=== PATIENT | female | born 1960 | race Caucasian/White ===

== ENCOUNTER 2018-01-15 04:52 | Inpatient (IN) | payer BC, OTHER ==
[~2018-01-15] VITALS: Ht 160 cm; Wt 91.2 kg
--- NOTE | 2018-01-15 05:18 | NUR ---
THIS RN TO ROOM TO ATTEMPT TO ASSESS PT. PT HOOKED UP TO MONITORS. TRIAGE NURSE UNABLE TO OBTAIN VITALS IN TRIAGE AND BROUGHT TO ROOM. PT PUT ON WOOD TYPE FINISHER AND HR FAST W/ ABNORMALITIES. MD NOTIFIED AND EKG ORDERED. PT IS DIAPHORETIC AND UNABLE TO CATCH BREATH. MULTIPLE IV ATTEMPTS FAILED BY MULTIPLE NURSES. MD NOTIFIED AND PT MOVED TO TR4 AT THIS TIME. PT REPORT GIVEN TO JONAS BAIRD. Addendum: 01/15/18 at 0531 by KEISHA THIS RN TO ROOM TO ATTEMPT TO ASSESS PT. PT HOOKED UP TO MONITORS. TRIAGE NURSE UNABLE TO OBTAIN VITALS IN TRIAGE AND BROUGHT TO ROOM. PT PUT ON WOOD TYPE FINISHER AND HR FAST W/ ABNORMALITIES. MD NOTIFIED AND EKG ORDERED. PT IS DIAPHORETIC AND UNABLE TO CATCH BREATH. MULTIPLE IV ATTEMPTS FAILED BY MULTIPLE NURSES. MD NOTIFIED AND PT MOVED TO TR4 AT THIS TIME. PT REPORT GIVEN TO NANCIE BAIRD.
[2018-01-15] MEDS ORDERED: FENTANYL PF 100 MCG/2ML ONE ×3 (05:23→09:19)
[2018-01-15] MEDS ORDERED: SODIUM CHLORIDE FLUSH 10ML SYR IVF ONE (05:30)
[2018-01-15] MEDS ORDERED: HYDROmorphone 2 MG/ML, 1ML IVPush PRN (05:30)
[2018-01-15] MEDS ORDERED: ONDANSETRON 2MG/ML, 2ML IVPush ONE (05:30)
[2018-01-15] MEDS ORDERED: PIPERACILLIN/TAZO/PMX 3.375GM 50 ML IV ONE (05:30)
[2018-01-15] MEDS ORDERED: SODIUM CHLORIDE 0.9% 1,000ML IVBOLUS ONE ×3 (05:30→23:00)
[2018-01-15 05:44] LABS: BASOPHILS % (AUTO) 0 % (0-1); EOSINOPHILS # (AUTO) 0.01 x10^3/uL (0-0.4); EOSINOPHILS % (AUTO) 0 % (1-7); LYMPHOCYTES # (AUTO) 4.01 x10^3/uL (1-3.4); LYMPHOCYTES % (AUTO) 28 % (22-44); MD NO; MEAN CORPUSCULAR HEMOGLOBIN 28.7 pg (27.0-34.8); MEAN CORPUSCULAR HGB CONC 32.4 g/dL (32.4-35.8); MEAN CORPUSCULAR VOLUME 88.5 fL (80-100); MEAN PLATELET VOLUME 9.3 fL (7.4-10.4); MONOCYTES # (AUTO) 0.19 x10^3/uL (0.2-0.8); MONOCYTES % (AUTO) 1 % (2-9); NEUTROPHILS # (AUTO) 9.94 x10^3/uL (1.8-6.8); NEUTROPHILS % (AUTO) 70 % (42-75); PLATELET COUNT 430 x10^3/uL (130-400); RED BLOOD COUNT 5.63 x10^6/uL (3.82-5.3); RED CELL DISTRIBUTION WIDTH 14.5 % (9.6-15.2)
[2018-01-15 05:53] LABS: INTERNATIONAL NORMALIZED RATIO 1.04 (0.93-1.1); PROTHROMBIN TIME 10.8 Seconds (9.6-11.5)
[2018-01-15 05:56] LABS: ALBUMIN 2.7 g/dL (3.4-5.0); ANION GAP 23 mmol/L (5-15); CHLORIDE 91 mmol/L (98-107); CREATININE 1.67 mg/dL (0.55-1.02)
[2018-01-15] MEDS ORDERED: FENTANYL PF 100 MCG/2ML IVPush ONE (06:00)
[2018-01-15] MEDS ORDERED: FENTANYL PF 100 MCG/2ML IM ONE (06:00)
[2018-01-15] MEDS ORDERED: OMNIPAQUE 350 MG/ML, 100ML BOTTLE ONE (06:00)
[2018-01-15] MEDS ORDERED: SODIUM CHLORIDE 0.9%, 500ML IVBOLUS ONE ×2 (06:00→06:30)
[2018-01-15 06:02] LABS: ALANINE AMINOTRANSFERASE 21 U/L (12-78); ALKALINE PHOSPHATASE 95 U/L (45-117); BILIRUBIN,TOTAL 0.6 mg/dL (0.2-1.0); TOTAL PROTEIN 6.5 g/dL (6.4-8.2)
[2018-01-15] MEDS ORDERED: HYDROmorphone 2 MG/ML, 1ML ONE (06:03)
[2018-01-15] MEDS ORDERED: PIPERACILLIN/TAZO/PMX 3.375GM 50 ML ONE (06:03)
[2018-01-15 06:04] LABS: CALCIUM 16.6 mg/dL (8.5-10.1)
[2018-01-15 06:15] LABS: TROPONIN I 0.213 ng/mL (0.000-0.045)
--- NOTE | 2018-01-15 06:20 | NUR ---
PT REPORTS SHE HAS NOT URINATED IN "OVER 24 HOURS", NOTIFIED, CULLEN CATH PLACED WITH APPROX 300CC OUTPUT.
[2018-01-15] MEDS ORDERED: NOREPINEPHRINE 4 MG in SODIUM CHLORIDE 0.9% 246 ML IV SCH (06:30)
[2018-01-15] MEDS ORDERED: INSULIN REGULAR 100 UNITS/ML, 3ML VIAL IVPush ONE (06:30)
[2018-01-15 06:36] LABS: PH, VENOUS 7.302 pH (7.320-7.420)
[2018-01-15] MEDS ORDERED: INSULIN REGULAR 100 UNITS/ML, 3ML VIAL ONE (06:46)
[2018-01-15 06:56] LABS: ACETONE, SERUM Trace (10mg/dL) mg/dL (Negative)
[2018-01-15] MEDS ORDERED: LACTATED RINGERS 1,000 ML IVBOLUS ONE ×5 (07:00→09:00)
--- NOTE | 2018-01-15 07:10 | NUR ---
Care of pt assumed. Pt is awake, alert, talking w/ & staff. Skin is warm & moist centrally & cool & pale peripherally. Peripheral pulses weak & thready, 5 sec cap refill fingertips & toes. Pt has 3rd & 4th liters of IVF LR infusing & levophed infusion increased from 12 to 14mcg/min. ABD is firm & distended with diffuse tenderness throughout. Pulse ox placed to L earlobe for best reading.
--- NOTE | 2018-01-15 07:14 | NUR ---
LATE NOTE: PT MOVED FROM ROOM 3 TO TR 04, CENTRAL LINE PLACED WITH PT'S VERBAL CONSENT BY MD PALMA. MD CONFIRMED PLACEMENT AFTER CHEST X RAY COMPLETE. 2L NS INFUSING TO CT, PER MD FURTHER FLUIDS WILL BE LR, 2 L LR HANGING PER MD. AT BEDSIDE, CONSENT SIGNED FOR CENTRAL LINE PLACEMENT.
--- NOTE | 2018-01-15 07:15 | NUR ---
REPORT TO GISELE BAIRD
--- NOTE | 2018-01-15 07:55 | NUR ---
Pt has been seen by Dr. Carvajal. Report to [facility]. Pt placed on portable monitor for transport to CCU.
--- NOTE | 2018-01-15 08:19 | NUR ---
Pt transferred to CCU.
[2018-01-15] MEDS: SODIUM CHLORIDE 0.9% 1,000 ML IV SCH ×2 (08:53→16:26)
[2018-01-15] MEDS ORDERED: VANCOMYCIN PER PHARMACY MC PRN (09:00)
[2018-01-15] MEDS ORDERED: POLYETHYLENE GLYCOL 17 GM PACKET PO PRN (09:00)
[2018-01-15] MEDS ORDERED: VASOPRESSIN 100 UNIT in SODIUM CHLORIDE 0.9% 495 ML IV PRN (09:00)
[2018-01-15] MEDS ORDERED: FENTANYL PF 2,500 MCG in SODIUM CHLORIDE 0.9% 200 ML IV PRN (09:00)
[2018-01-15] MEDS ORDERED: PHENYLEPHRINE 20 MG in SODIUM CHLORIDE 0.9% 248 ML IV PRN (09:00)
[2018-01-15] MEDS ORDERED: BISACODYL 10 MG SUPP PR PRN (09:00)
[2018-01-15] MEDS ORDERED: NOREPINEPHRINE 4 MG in SODIUM CHLORIDE 0.9% 246 ML IV PRN (09:00)
[2018-01-15] MEDS ORDERED: PANTOPRAZOLE 80 MG in SODIUM CHLORIDE 0.9% 50 ML IV ONE (09:00)
[2018-01-15] MEDS ORDERED: DOCUSATE 100 MG CAPSULE PO PRN (09:00)
[2018-01-15] MEDS ORDERED: MIDAZOLAM 1 MG/ML, 2ML ONE ×2 (09:19→12:14)
[2018-01-15] MEDS ORDERED: PHARMACOKINETIC CONSULTATION MC ONE (09:30)
[2018-01-15] MEDS ORDERED: PHARMACOKINETIC MONITORING MC PRN (09:30)
[2018-01-15] MEDS: PANTOPRAZOLE 80 MG in SODIUM CHLORIDE 0.9% 100 ML IV SCH ×2 (09:32→18:24)
[2018-01-15] MEDS: MEROPENEM 1 GM in SODIUM CHLORIDE 0.9% 100 ML IV SCH ×2 (09:33→16:26)
[2018-01-15] MEDS ORDERED: HYDROCORTISONE 100 MG INJ. ONE (09:34)
[2018-01-15] MEDS: INSULIN LISPRO 100 UNITS/ML, PEN SQ-INSULIN SCH ×3 (09:44→23:26)
[2018-01-15] MEDS ORDERED: ROCURONIUM 10 MG/ML,10ML ONE (09:58)
[2018-01-15] MEDS ORDERED: SODIUM BICARB 8.4%, 50ML SYRINGE ONE ×3 (09:58)
[2018-01-15] MEDS ORDERED: PROPOFOL 10 MG/ML, 20ML ONE (09:58)
[2018-01-15] MEDS ORDERED: VASOPRESSIN 20 UNIT/ML, 1ML ONE ×2 (09:58)
[2018-01-15] MEDS ORDERED: ALBUTEROL SULFATE 200 PUFFS/8.5 GR INH ONE (09:58)
[2018-01-15] MEDS ORDERED: CALCIUM CHLORIDE 10%, 10ML SYR ONE ×2 (09:58)
[2018-01-15] MEDS ORDERED: PROPOFOL 10 MG/ML, 50ML ONE (09:58)
[2018-01-15] MEDS ORDERED: EPINEPHRINE SYRINGE 0.1 MG/ML, 10ML ONE ×2 (09:58)
[2018-01-15] MEDS: VANCOMYCIN 1,500 MG in SODIUM CHLORIDE 0.9% 250 ML IV SCH (10:00)
[2018-01-15] MEDS ORDERED: LIDOCAINE-MPF 1%, 2ML ENDO PRN (10:00)
[2018-01-15 10:18] LABS: MICROSCOPIC INDICATED
[2018-01-15 10:27] LABS: CULTURE INDICATED? YES
[2018-01-15 10:29] LABS: AMPHETAMINE SCREEN, URINE Negative (Negative); BARBITURATE SCREEN, URINE Negative (Negative); BENZODIAZEPINE SCREEN, URINE Negative (Negative); CANNABINOID SCREEN, URINE Negative (Negative); COCAINE SCREEN, URINE Negative (Negative); METHADONE SCREEN, URINE Negative (Negative); OPIATE SCREEN, URINE Positive (Negative)
[2018-01-15] MEDS ORDERED: ALBUMIN HUMAN 5% 500 ML ONE (10:58)
[2018-01-15] MEDS ORDERED: EPINEPHRINE 2 MG in SODIUM CHLORIDE 0.9% 248 ML IV PRN ×2 (11:30→18:30)
[2018-01-15] MEDS ORDERED: NOREPINEPHRINE 1 MG/ML, 4ML ONE (13:57)
[2018-01-15] MEDS: METRONIDAZOLE PMX 500MG/100ML 100 ML IV SCH ×2 (14:27→20:25)
[2018-01-15 14:46] LABS: ANION GAP 14 mmol/L (5-15); CALCIUM 11.7 mg/dL (8.5-10.1); CHLORIDE 109 mmol/L (98-107); CREATININE 1.31 mg/dL (0.55-1.02)
[2018-01-15 15:32] LABS: HEMOGLOBIN A1C 7.5 % (4.2-6.3)
[2018-01-15] MEDS ORDERED: MIDAZOLAM 1 MG/ML, 5ML ONE (16:00)
[2018-01-15] MEDS ORDERED: ETOMIDATE 20 MG/10 ML ONE (16:00)
[2018-01-15] MEDS ORDERED: PROPOFOL 10 MG/ML, 100ML IV ONE (16:00)
[2018-01-15] MEDS: NOREPINEPHRINE 8 MG in SODIUM CHLORIDE 0.9% 242 ML IV PRN ×2 (16:27→20:04)
[2018-01-15] MEDS: PHENYLEPHRINE 80 MG in SODIUM CHLORIDE 0.9% 242 ML IV PRN ×2 (16:28→23:34)
[2018-01-15] MEDS: FENTANYL PF 2,500 MCG in SODIUM CHLORIDE 0.9% 200 ML IV PRN (18:25)
[2018-01-15] MEDS ORDERED: DOPAMINE/D5W PMX 250 ML IV PRN (18:30)
[2018-01-15] MEDS ORDERED: NOREPINEPHRINE 16 MG in SODIUM CHLORIDE 0.9% 234 ML IV PRN (22:30)
[2018-01-15] MEDS: PROPOFOL 100 ML IV PRN (23:45)
[2018-01-16] MEDS: NOREPINEPHRINE 8 MG in SODIUM CHLORIDE 0.9% 242 ML IV PRN ×5 (00:27→19:53)
[2018-01-16] MEDS: MEROPENEM 1 GM in SODIUM CHLORIDE 0.9% 100 ML IV SCH ×3 (02:05→16:50)
[2018-01-16] MEDS: SODIUM CHLORIDE 0.9% 1,000 ML IV SCH ×7 (02:08→23:23)
[2018-01-16] MEDS: PHENYLEPHRINE 80 MG in SODIUM CHLORIDE 0.9% 242 ML IV PRN ×2 (03:00→14:21)
[2018-01-16 04:00] VITALS: BP 92/68
[2018-01-16] MEDS: PANTOPRAZOLE 80 MG in SODIUM CHLORIDE 0.9% 100 ML IV SCH ×2 (04:12→15:00)
[2018-01-16] MEDS: METRONIDAZOLE PMX 500MG/100ML 100 ML IV SCH ×3 (04:13→19:52)
[2018-01-16 04:29] LABS: ALBUMIN 1.4 g/dL (3.4-5.0); ANION GAP 13 mmol/L (5-15); CALCIUM 8.8 mg/dL (8.5-10.1); CHLORIDE 113 mmol/L (98-107)
[2018-01-16 04:38] LABS: ALANINE AMINOTRANSFERASE 1219 U/L (12-78); ALKALINE PHOSPHATASE 88 U/L (45-117); CREATININE 2.32 mg/dL (0.55-1.02); TOTAL PROTEIN 4.1 g/dL (6.4-8.2)
[2018-01-16 04:39] LABS: MEAN CORPUSCULAR HEMOGLOBIN 28.9 pg (27.0-34.8); MEAN CORPUSCULAR HGB CONC 33.1 g/dL (32.4-35.8); MEAN CORPUSCULAR VOLUME 87.3 fL (80-100); MEAN PLATELET VOLUME 9.4 fL (7.4-10.4); PLATELET COUNT 332 x10^3/uL (130-400); RED BLOOD COUNT 4.45 x10^6/uL (3.82-5.3); RED CELL DISTRIBUTION WIDTH 14.9 % (9.6-15.2)
[2018-01-16] MEDS: INSULIN LISPRO 100 UNITS/ML, PEN SQ-INSULIN SCH ×4 (04:52→23:24)
[2018-01-16 05:41] LABS: MD YES
[2018-01-16 05:44] LABS: BAND#(MANUAL) 4.96 x10^3/uL; BANDS%(MANUAL) 40 % (0-7); LYMPH#(MANUAL) 2.85 x10^3/uL (1-3.4); LYMPHS% (MANUAL) 23 % (22-44); METAMYELOCYTES# (MANUAL) 0.62 x10^3/uL (0-0); METAMYELOCYTES% (MANUAL) 5 % (0-1); MONOS#(MANUAL) 0.12 x10^3/uL (0.3-2.7); MONOS% (MANUAL) 1 % (2-9); SEG#(MANUAL) 3.84 x10^3/uL (1.8-6.8); SEGS% (MANUAL) 31 % (42-75)
[2018-01-16 05:47] LABS: <PLATELET ESTIMATE> ADEQUATE; <PLT MORPHOLOGY> NORMAL PLT MORPH; <RBC MORPHOLOGY> NORMAL
[2018-01-16] MEDS: PROPOFOL 100 ML IV PRN ×5 (06:14→21:10)
[2018-01-16] MEDS: ACETAMINOPHEN 650 MG/20.3 ML UDC PO PRN (16:52)
[2018-01-16] MEDS: VANCOMYCIN 1,500 MG in SODIUM CHLORIDE 0.9% 250 ML IV SCH (23:23)
[2018-01-17] MEDS: PROPOFOL 100 ML IV PRN ×7 (00:18→20:47)
[2018-01-17] MEDS: PANTOPRAZOLE 80 MG in SODIUM CHLORIDE 0.9% 100 ML IV SCH ×2 (00:58→13:50)
[2018-01-17] MEDS: MEROPENEM 1 GM in SODIUM CHLORIDE 0.9% 100 ML IV SCH ×2 (01:12→16:43)
[2018-01-17] MEDS: FENTANYL PF 2,500 MCG in SODIUM CHLORIDE 0.9% 200 ML IV PRN (02:41)
[2018-01-17] MEDS: INSULIN LISPRO 100 UNITS/ML, PEN SQ-INSULIN SCH ×4 (03:00→21:14)
[2018-01-17] MEDS: SODIUM CHLORIDE 0.9% 1,000 ML IV SCH ×5 (03:00→19:59)
[2018-01-17 03:49] LABS: MEAN CORPUSCULAR HEMOGLOBIN 30.8 pg (27.0-34.8); MEAN CORPUSCULAR VOLUME 85.5 fL (80-100); MEAN PLATELET VOLUME 9.1 fL (7.4-10.4); PLATELET COUNT 220 x10^3/uL (130-400); RED BLOOD COUNT 3.45 x10^6/uL (3.82-5.3); RED CELL DISTRIBUTION WIDTH 14.9 % (9.6-15.2)
[2018-01-17 03:54] LABS: ALBUMIN 1.1 g/dL (3.4-5.0); ANION GAP 12 mmol/L (5-15); CHLORIDE 115 mmol/L (98-107)
[2018-01-17 03:58] LABS: ALKALINE PHOSPHATASE 103 U/L (45-117); BILIRUBIN,TOTAL 1.3 mg/dL (0.2-1.0); CREATININE 3.48 mg/dL (0.55-1.02)
[2018-01-17 04:00] VITALS: BP 112/62
[2018-01-17 04:44] LABS: ALANINE AMINOTRANSFERASE 610 U/L (12-78); TOTAL PROTEIN 4.1 g/dL (6.4-8.2)
[2018-01-17 04:45] LABS: CALCIUM 6.1 mg/dL (8.5-10.1)
[2018-01-17 05:13] LABS: MD YES
[2018-01-17 05:17] LABS: <PLATELET ESTIMATE> ADEQUATE; <PLT MORPHOLOGY> NORMAL PLT MORPH; <RBC MORPHOLOGY> NORMAL; BAND#(MANUAL) 0.76 x10^3/uL; BANDS%(MANUAL) 11 % (0-7); LYMPH#(MANUAL) 0.35 x10^3/uL (1-3.4); LYMPHS% (MANUAL) 5 % (22-44); METAMYELOCYTES# (MANUAL) 0.07 x10^3/uL (0-0); METAMYELOCYTES% (MANUAL) 1 % (0-1); MONOS#(MANUAL) 0.07 x10^3/uL (0.3-2.7); MONOS% (MANUAL) 1 % (2-9); SEG#(MANUAL) 5.66 x10^3/uL (1.8-6.8); SEGS% (MANUAL) 82 % (42-75)
[2018-01-17] MEDS: METRONIDAZOLE PMX 500MG/100ML 100 ML IV SCH ×2 (08:19→16:44)
[2018-01-17] MEDS ORDERED: CALCIUM CHLORIDE 10%, 10ML SYR IVPush ONE (09:30)
[2018-01-17] MEDS ORDERED: CALCIUM CHLORIDE 13.6 MEQ in SODIUM CHLORIDE 0.9% 100 ML IV ONE (09:30)
[2018-01-17] MEDS ORDERED: SODIUM CHLORIDE 0.9%, 500ML IVBOLUS ONE (15:30)
[2018-01-18] MEDS: METRONIDAZOLE PMX 500MG/100ML 100 ML IV SCH (00:24)
[2018-01-18] MEDS: PANTOPRAZOLE 80 MG in SODIUM CHLORIDE 0.9% 100 ML IV SCH ×3 (00:26→22:39)
[2018-01-18] MEDS: SODIUM CHLORIDE 0.9% 1,000 ML IV SCH ×2 (00:26→04:52)
[2018-01-18] MEDS: MEROPENEM 1 GM in SODIUM CHLORIDE 0.9% 100 ML IV SCH (01:27)
[2018-01-18] MEDS: INSULIN LISPRO 100 UNITS/ML, PEN SQ-INSULIN SCH (03:33)
[2018-01-18] MEDS: FENTANYL PF 2,500 MCG in SODIUM CHLORIDE 0.9% 200 ML IV PRN (03:34)
[2018-01-18] MEDS: PROPOFOL 100 ML IV PRN ×2 (03:36→06:21)
[2018-01-18 05:01] LABS: BASOPHILS % (AUTO) 0 % (0-1); EOSINOPHILS # (AUTO) 0.04 x10^3/uL (0-0.4); EOSINOPHILS % (AUTO) 1 % (1-7); LYMPHOCYTES # (AUTO) 1.02 x10^3/uL (1-3.4); LYMPHOCYTES % (AUTO) 11 % (22-44); MD NO; MEAN CORPUSCULAR HEMOGLOBIN 29.9 pg (27.0-34.8); MEAN CORPUSCULAR HGB CONC 34.9 g/dL (32.4-35.8); MEAN CORPUSCULAR VOLUME 85.6 fL (80-100); MEAN PLATELET VOLUME 8.9 fL (7.4-10.4); MONOCYTES # (AUTO) 0.02 x10^3/uL (0.2-0.8); MONOCYTES % (AUTO) 0 % (2-9); NEUTROPHILS % (AUTO) 88 % (42-75); PLATELET COUNT 193 x10^3/uL (130-400); RED BLOOD COUNT 3.23 x10^6/uL (3.82-5.3); RED CELL DISTRIBUTION WIDTH 15.5 % (9.6-15.2)
[2018-01-18 05:11] LABS: VANCOMYCIN,RANDOM 17.6 mcg/mL
[2018-01-18 06:30] LABS: ANION GAP 13 mmol/L (5-15); CHLORIDE 119 mmol/L (98-107); CREATININE 4.39 mg/dL (0.55-1.02)
[2018-01-18 06:33] LABS: CALCIUM 5.6 mg/dL (8.5-10.1)
[2018-01-18] MEDS: SODIUM BICARB 8.4% IV SCH ×2 (08:44→18:02)
[2018-01-18] MEDS: D5 IV SCH ×2 (08:44→18:02)
[2018-01-18] MEDS: NACL IV SCH ×2 (08:44→18:02)
[2018-01-18] MEDS: PIPERACILLIN/TAZO 2.25 GM in SODIUM CHLORIDE 0.9% 50 ML IV SCH ×2 (08:45→17:06)
[2018-01-18] MEDS ORDERED: MIDAZOLAM 1 MG/ML, 2ML ONE (09:39)
[2018-01-18] MEDS: MIDAZOLAM HCL 50 MG in SODIUM CHLORIDE 0.9% 240 ML IV PRN ×2 (09:49→19:29)
[2018-01-18] MEDS: INSULIN GLARGINE 100 UNITS/ML, PEN SQ-INSULIN SCH ×2 (10:16→20:49)
[2018-01-18] MEDS: CALCIUM CHLORIDE 13.6 MEQ in SODIUM CHLORIDE 0.9% 100 ML IV PRN ×3 (14:07→23:28)
[2018-01-18] MEDS: PIPERACILLIN/TAZO/PMX 2.25GM 50 ML IVPB SCH (23:00)
[2018-01-19] MEDS: FENTANYL PF 2,500 MCG in SODIUM CHLORIDE 0.9% 200 ML IV PRN (02:07)
[2018-01-19] MEDS: NOREPINEPHRINE 8 MG in SODIUM CHLORIDE 0.9% 242 ML IV PRN (02:07)
[2018-01-19] MEDS: SODIUM BICARB 8.4% IV SCH (03:14)
[2018-01-19] MEDS: D5 IV SCH (03:14)
[2018-01-19] MEDS: NACL IV SCH (03:14)
[2018-01-19] MEDS: CALCIUM CHLORIDE 13.6 MEQ in SODIUM CHLORIDE 0.9% 100 ML IV PRN (03:28)
[2018-01-19] MEDS: PIPERACILLIN/TAZO/PMX 2.25GM 50 ML IVPB SCH ×3 (04:53→20:45)
[2018-01-19] MEDS: MIDAZOLAM HCL 50 MG in SODIUM CHLORIDE 0.9% 240 ML IV PRN (04:55)
[2018-01-19 05:18] LABS: CHOL/HDL RATIO 13.7; CHOLESTEROL, TOTAL 123 mg/dL (140-239); HDL CHOL % 7 % (28-40); HDL CHOLESTEROL (DIRECT) 9 mg/dL (40-60); TRIGLYCERIDES 717 mg/dL (50-200)
[2018-01-19 05:34] LABS: MEAN CORPUSCULAR HEMOGLOBIN 29.4 pg (27.0-34.8); MEAN PLATELET VOLUME 8.8 fL (7.4-10.4); PLATELET COUNT 188 x10^3/uL (130-400); RED BLOOD COUNT 3.18 x10^6/uL (3.82-5.3); RED CELL DISTRIBUTION WIDTH 15.3 % (9.6-15.2)
[2018-01-19 06:11] LABS: MD YES
[2018-01-19 06:12] LABS: BAND#(MANUAL) 2.28 x10^3/uL; BANDS%(MANUAL) 24 % (0-7); LYMPH#(MANUAL) 0.38 x10^3/uL (1-3.4); LYMPHS% (MANUAL) 4 % (22-44); SEG#(MANUAL) 6.84 x10^3/uL (1.8-6.8); SEGS% (MANUAL) 72 % (42-75)
[2018-01-19 06:13] LABS: <PLATELET ESTIMATE> ADEQUATE; <PLT MORPHOLOGY> NORMAL PLT MORPH; <RBC MORPHOLOGY> NORMAL
[2018-01-19 06:45] LABS: ANION GAP 13 mmol/L (5-15); CALCIUM 7.6 mg/dL (8.5-10.1); CHLORIDE 107 mmol/L (98-107); CREATININE 3.85 mg/dL (0.55-1.02)
[2018-01-19] MEDS ORDERED: TPN PER PHARMACY MC PRN (08:30)
[2018-01-19] MEDS ORDERED: TPN PER PHARMACY IV SCH (11:00)
[2018-01-19] MEDS: PANTOPRAZOLE 80 MG in SODIUM CHLORIDE 0.9% 100 ML IV SCH ×2 (11:00→20:45)
[2018-01-19] MEDS: INSULIN GLARGINE 100 UNITS/ML, PEN SQ-INSULIN SCH ×2 (11:10→20:52)
[2018-01-19] MEDS: ALBUMIN HUMAN 25% 100 ML IV PRN ×2 (11:20→12:57)
[2018-01-19] MEDS ORDERED: AMINO ACID 10% IV SCH ×2 (17:00)
[2018-01-19] MEDS ORDERED: STERILE WATER IV SCH ×2 (17:00)
[2018-01-19] MEDS ORDERED: [UNRECOGNIZED DRUG - OTHER] IV SCH (17:00)
[2018-01-19] MEDS ORDERED: DEXTROSE 70% IV SCH ×2 (17:00)
[2018-01-19] MEDS ORDERED: DEXTROSE 50%, 50ML SYRINGE IVPush PRN (17:00)
[2018-01-19] MEDS ORDERED: DEXTROSE 10% 500 ML IV PRN (17:00)
[2018-01-19] MEDS ORDERED: [UNRECOGNIZED DRUG - OTHER] IV SCH (17:00)
[2018-01-19] MEDS: FILTER, DISP 1.2 MICRON FOR TPN/PVN IV PRN (18:54)
[2018-01-19] MEDS: INSULIN REGULAR MEDIUM DOSE Q6H X 48HRS SQ-INSULIN SCH (20:52)
[2018-01-20] MEDS: PIPERACILLIN/TAZO/PMX 2.25GM 50 ML IVPB SCH ×4 (02:13→20:42)
[2018-01-20] MEDS: FENTANYL PF 2,500 MCG in SODIUM CHLORIDE 0.9% 200 ML IV PRN (02:55)
[2018-01-20] MEDS: INSULIN REGULAR MEDIUM DOSE Q6H X 48HRS SQ-INSULIN SCH ×4 (03:56→20:43)
[2018-01-20 04:19] LABS: MEAN CORPUSCULAR HEMOGLOBIN 29.3 pg (27.0-34.8); MEAN CORPUSCULAR HGB CONC 34.4 g/dL (32.4-35.8); MEAN CORPUSCULAR VOLUME 85.3 fL (80-100); MEAN PLATELET VOLUME 8.7 fL (7.4-10.4); PLATELET COUNT 185 x10^3/uL (130-400); RED BLOOD COUNT 2.95 x10^6/uL (3.82-5.3); RED CELL DISTRIBUTION WIDTH 15.8 % (9.6-15.2)
[2018-01-20 04:28] LABS: ALANINE AMINOTRANSFERASE 104 U/L (12-78); ALBUMIN 1.7 g/dL (3.4-5.0); ANION GAP 11 mmol/L (5-15); CALCIUM 7.1 mg/dL (8.5-10.1); CHLORIDE 102 mmol/L (98-107); CREATININE 3.71 mg/dL (0.55-1.02); TRIGLYCERIDES 559 mg/dL (50-200)
[2018-01-20 04:31] LABS: ALKALINE PHOSPHATASE 118 U/L (45-117); BILIRUBIN,TOTAL 1.8 mg/dL (0.2-1.0); PREALBUMIN 5.1 mg/dL (20.0-40.0); TOTAL PROTEIN 5.1 g/dL (6.4-8.2)
[2018-01-20 04:57] LABS: MD YES
[2018-01-20 05:00] LABS: BAND#(MANUAL) 0.97 x10^3/uL; BANDS%(MANUAL) 8 % (0-7); EOS#(MANUAL) 0.61 x10^3/uL (0.0-0.4); EOS% (MANUAL) 5 % (1-7); LYMPH#(MANUAL) 1.21 x10^3/uL (1-3.4); LYMPHS% (MANUAL) 10 % (22-44); METAMYELOCYTES# (MANUAL) 0.24 x10^3/uL (0-0); METAMYELOCYTES% (MANUAL) 2 % (0-1); SEG#(MANUAL) 9.08 x10^3/uL (1.8-6.8); SEGS% (MANUAL) 75 % (42-75)
[2018-01-20 05:03] LABS: <PLATELET ESTIMATE> ADEQUATE; ANISOCYTOSIS 1+; LARGE PLATELETS 1+; POLYCHROMASIA 1+
[2018-01-20] MEDS: PANTOPRAZOLE 80 MG in SODIUM CHLORIDE 0.9% 100 ML IV SCH (06:44)
[2018-01-20] MEDS: METHYLNALTREXONE 12 MG/0.6 ML SQ SCH (10:00)
[2018-01-20] MEDS: HEPARIN 5,000 UNITS/ML, 1ML SQ SCH ×2 (10:00→14:28)
[2018-01-20] MEDS: METOCLOPRAMIDE 5 MG/ML, 2ML IV SCH ×3 (10:01→20:43)
[2018-01-20] MEDS: INSULIN GLARGINE 100 UNITS/ML, PEN SQ-INSULIN SCH ×3 (10:14→20:43)
[2018-01-20] MEDS: NOREPINEPHRINE 8 MG in SODIUM CHLORIDE 0.9% 242 ML IV PRN (16:53)
[2018-01-20] MEDS: FILTER, DISP 1.2 MICRON FOR TPN/PVN IV PRN (16:55)
[2018-01-20] MEDS ORDERED: STERILE WATER IV SCH ×2 (17:00)
[2018-01-20] MEDS ORDERED: DEXTROSE 70% IV SCH ×2 (17:00)
[2018-01-20] MEDS ORDERED: [UNRECOGNIZED DRUG - OTHER] IV SCH (17:00)
[2018-01-20] MEDS ORDERED: AMINO ACID 10% IV SCH ×2 (17:00)
[2018-01-20] MEDS ORDERED: [UNRECOGNIZED DRUG - OTHER] IV SCH (17:00)
[2018-01-20 19:15] LABS: ANION GAP 11 mmol/L (5-15); CHLORIDE 104 mmol/L (98-107)
[2018-01-20 19:16] LABS: CREATININE 2.75 mg/dL (0.55-1.02)
[2018-01-21] MEDS: METOCLOPRAMIDE 5 MG/ML, 2ML IV SCH ×4 (03:18→20:59)
[2018-01-21] MEDS: HEPARIN 5,000 UNITS/ML, 1ML SQ SCH ×3 (03:18→15:38)
[2018-01-21] MEDS: FENTANYL PF 2,500 MCG in SODIUM CHLORIDE 0.9% 200 ML IV PRN (03:18)
[2018-01-21] MEDS: PIPERACILLIN/TAZO/PMX 2.25GM 50 ML IVPB SCH ×4 (03:18→21:07)
[2018-01-21] MEDS: INSULIN REGULAR MEDIUM DOSE Q6H X 48HRS SQ-INSULIN SCH ×3 (03:22→15:02)
[2018-01-21 04:54] LABS: MD YES; MEAN CORPUSCULAR HEMOGLOBIN 28.6 pg (27.0-34.8); MEAN CORPUSCULAR HGB CONC 33.6 g/dL (32.4-35.8); MEAN CORPUSCULAR VOLUME 85.1 fL (80-100); MEAN PLATELET VOLUME 9.3 fL (7.4-10.4); PLATELET COUNT 204 x10^3/uL (130-400); RED BLOOD COUNT 2.81 x10^6/uL (3.82-5.3); RED CELL DISTRIBUTION WIDTH 15.4 % (9.6-15.2)
[2018-01-21 05:02] LABS: CHLORIDE 103 mmol/L (98-107)
[2018-01-21 05:08] LABS: ANION GAP 14 mmol/L (5-15); CALCIUM 7.8 mg/dL (8.5-10.1); CREATININE 3.64 mg/dL (0.55-1.02); TRIGLYCERIDES 546 mg/dL (50-200)
[2018-01-21 06:14] LABS: BANDS%(MANUAL) 14 % (0-7); EOS#(MANUAL) 0.57 x10^3/uL (0.0-0.4); EOS% (MANUAL) 4 % (1-7); LYMPHS% (MANUAL) 14 % (22-44); METAMYELOCYTES# (MANUAL) 0.29 x10^3/uL (0-0); METAMYELOCYTES% (MANUAL) 2 % (0-1); SEG#(MANUAL) 9.44 x10^3/uL (1.8-6.8); SEGS% (MANUAL) 66 % (42-75)
[2018-01-21 06:15] LABS: <PLATELET ESTIMATE> ADEQUATE; <PLT MORPHOLOGY> NORMAL PLT MORPH; ANISOCYTOSIS 1+; HYPOCHROMIA 1+; MICROCYTOSIS 1+
[2018-01-21] MEDS: INSULIN GLARGINE 100 UNITS/ML, PEN SQ-INSULIN SCH ×2 (09:20→20:59)
[2018-01-21 11:22] LABS: ANION GAP 13 mmol/L (5-15); CALCIUM 8.4 mg/dL (8.5-10.1); CHLORIDE 104 mmol/L (98-107)
[2018-01-21 11:23] LABS: CREATININE 2.65 mg/dL (0.55-1.02)
[2018-01-21] MEDS: ALBUMIN HUMAN 25% 100 ML IV PRN ×2 (13:52→16:49)
[2018-01-21 15:15] LABS: ANION GAP 11 mmol/L (5-15); CALCIUM 8.6 mg/dL (8.5-10.1); CHLORIDE 105 mmol/L (98-107); CREATININE 2.12 mg/dL (0.55-1.02)
[2018-01-21] MEDS ORDERED: STERILE WATER IV SCH (17:00)
[2018-01-21] MEDS ORDERED: DEXTROSE 70% IV SCH (17:00)
[2018-01-21] MEDS ORDERED: [UNRECOGNIZED DRUG - OTHER] IV SCH (17:00)
[2018-01-21] MEDS ORDERED: AMINO ACID 10% IV SCH (17:00)
[2018-01-21] MEDS: FILTER, DISP 1.2 MICRON FOR TPN/PVN IV PRN (17:11)
[2018-01-21] MEDS ORDERED: MIDAZOLAM 1 MG/ML, 2ML ONE (20:50)
[2018-01-21] MEDS: PANTOPRAZOLE 40 MG IV IVPush SCH (20:56)
[2018-01-21] MEDS: INSULIN REGULAR MEDIUM DOSE QDAY SQ-INSULIN SCH (20:58)
[2018-01-21] MEDS: MIDAZOLAM 1 MG/ML, 2ML IVPush PRN ×2 (20:59→22:08)
[2018-01-22] VITALS (9 sets, daily range): BP systolic 102–114; BP diastolic 58–68
[2018-01-22] MEDS: MIDAZOLAM 1 MG/ML, 2ML IVPush PRN ×4 (00:40→05:03)
[2018-01-22] MEDS: HEPARIN 5,000 UNITS/ML, 1ML SQ SCH ×4 (01:35→15:37)
[2018-01-22] MEDS: METOCLOPRAMIDE 5 MG/ML, 2ML IV SCH ×4 (03:32→21:18)
[2018-01-22 05:03] LABS: MEAN CORPUSCULAR HEMOGLOBIN 29.1 pg (27.0-34.8); MEAN CORPUSCULAR HGB CONC 34.5 g/dL (32.4-35.8); MEAN CORPUSCULAR VOLUME 84.4 fL (80-100); MEAN PLATELET VOLUME 9.5 fL (7.4-10.4); PLATELET COUNT 204 x10^3/uL (130-400); RED CELL DISTRIBUTION WIDTH 16.1 % (9.6-15.2)
[2018-01-22 05:05] LABS: CHLORIDE 104 mmol/L (98-107)
[2018-01-22 05:09] LABS: ANION GAP 13 mmol/L (5-15); CALCIUM 8.4 mg/dL (8.5-10.1); CREATININE 2.91 mg/dL (0.55-1.02)
[2018-01-22] MEDS: PIPERACILLIN/TAZO/PMX 2.25GM 50 ML IVPB SCH ×3 (05:26→21:19)
[2018-01-22 05:45] LABS: MD YES
[2018-01-22 05:48] LABS: BANDS%(MANUAL) 12 % (0-7); LYMPH#(MANUAL) 1.42 x10^3/uL (1-3.4); LYMPHS% (MANUAL) 10 % (22-44); METAMYELOCYTES# (MANUAL) 0.28 x10^3/uL (0-0); METAMYELOCYTES% (MANUAL) 2 % (0-1); MONOS#(MANUAL) 0.28 x10^3/uL (0.3-2.7); MONOS% (MANUAL) 2 % (2-9); SEG#(MANUAL) 10.51 x10^3/uL (1.8-6.8); SEGS% (MANUAL) 74 % (42-75)
[2018-01-22 05:49] LABS: ANISOCYTOSIS 1+; HYPOCHROMIA 1+; MICROCYTOSIS 1+
[2018-01-22 05:50] LABS: <PLATELET ESTIMATE> ADEQUATE; <PLT MORPHOLOGY> NORMAL PLT MORPH; TOXIC GRAN 1+
[2018-01-22 05:53] LABS: POLYCHROMASIA 1+
[2018-01-22] MEDS: FENTANYL PF 2,500 MCG in SODIUM CHLORIDE 0.9% 200 ML IV PRN (07:23)
[2018-01-22] MEDS ORDERED: POTASSIUM PHOSPHATE 22 MEQ in SODIUM CHLORIDE 0.9% 250 ML IV ONE (07:30)
[2018-01-22] MEDS ORDERED: SODIUM PHOSPHATE 20 MEQ in SODIUM CHLORIDE 0.9% 250 ML IV ONE (07:30)
[2018-01-22 08:11] LABS: TRIGLYCERIDES 532 mg/dL (50-200)
[2018-01-22 08:13] LABS: HDL CHOLESTEROL (DIRECT) 8 mg/dL (40-60)
[2018-01-22 08:35] LABS: CHOL/HDL RATIO 7.3; CHOLESTEROL, TOTAL 58 mg/dL (140-239); HDL CHOL % 14 % (28-40)
[2018-01-22] MEDS: PANTOPRAZOLE 40 MG IV IVPush SCH ×2 (09:32→21:17)
[2018-01-22] MEDS: METHYLNALTREXONE 12 MG/0.6 ML SQ SCH (09:39)
[2018-01-22] MEDS: REGULAR INSULIN 62.5 UNITS in SODIUM CHLORIDE 0.9% 249.375 ML IV PRN ×2 (09:46→18:04)
[2018-01-22 12:17] LABS: ANION GAP 11 mmol/L (5-15); CALCIUM 8.8 mg/dL (8.5-10.1); CHLORIDE 104 mmol/L (98-107); CREATININE 2.14 mg/dL (0.55-1.02)
[2018-01-22] MEDS: FENTANYL PF 100 MCG/2ML IVPush PRN ×3 (14:48→23:11)
[2018-01-22 16:14] LABS: ANION GAP 13 mmol/L (5-15); CALCIUM 8.7 mg/dL (8.5-10.1); CHLORIDE 105 mmol/L (98-107); CREATININE 1.75 mg/dL (0.55-1.02)
[2018-01-22] MEDS ORDERED: DEXTROSE 70% IV SCH ×2 (17:00)
[2018-01-22] MEDS ORDERED: [UNRECOGNIZED DRUG - OTHER] IV SCH ×2 (17:00)
[2018-01-22] MEDS ORDERED: AMINO ACID 10% IV SCH ×2 (17:00)
[2018-01-22] MEDS ORDERED: STERILE WATER IV SCH ×2 (17:00)
[2018-01-22] MEDS: FILTER, DISP 1.2 MICRON FOR TPN/PVN IV PRN (17:36)
[2018-01-22] MEDS: ACETAMINOPHEN 650 MG/20.3 ML UDC PO PRN (18:07)
[2018-01-22] MEDS: INSULIN REGULAR MEDIUM DOSE QDAY SQ-INSULIN SCH (21:00)
[2018-01-23] MEDS: REGULAR INSULIN 62.5 UNITS in SODIUM CHLORIDE 0.9% 249.375 ML IV PRN ×3 (00:16→20:28)
[2018-01-23] MEDS: FENTANYL PF 100 MCG/2ML IVPush PRN ×2 (01:01→05:22)
[2018-01-23] MEDS: HEPARIN 5,000 UNITS/ML, 1ML SQ SCH ×3 (01:01→17:38)
[2018-01-23] MEDS: FENTANYL PF 2,500 MCG in SODIUM CHLORIDE 0.9% 200 ML IV PRN (02:37)
[2018-01-23] MEDS: METOCLOPRAMIDE 5 MG/ML, 2ML IV SCH ×3 (03:27→16:25)
[2018-01-23 05:22] LABS: ALANINE AMINOTRANSFERASE 24 U/L (12-78); ALBUMIN 1.5 g/dL (3.4-5.0); ANION GAP 12 mmol/L (5-15); CALCIUM 8.4 mg/dL (8.5-10.1); CHLORIDE 105 mmol/L (98-107); CREATININE 2.63 mg/dL (0.55-1.02); TRIGLYCERIDES 494 mg/dL (50-200)
[2018-01-23] MEDS: PIPERACILLIN/TAZO/PMX 2.25GM 50 ML IVPB SCH ×3 (05:22→21:39)
[2018-01-23 05:27] LABS: ALKALINE PHOSPHATASE 111 U/L (45-117); BILIRUBIN,TOTAL 2.3 mg/dL (0.2-1.0); PREALBUMIN 6.3 mg/dL (20.0-40.0); TOTAL PROTEIN 6.4 g/dL (6.4-8.2)
[2018-01-23 05:36] LABS: MEAN CORPUSCULAR HEMOGLOBIN 29.1 pg (27.0-34.8); MEAN CORPUSCULAR HGB CONC 34.9 g/dL (32.4-35.8); MEAN CORPUSCULAR VOLUME 83.3 fL (80-100); MEAN PLATELET VOLUME 9.3 fL (7.4-10.4); PLATELET COUNT 189 x10^3/uL (130-400); RED BLOOD COUNT 3.01 x10^6/uL (3.82-5.3); RED CELL DISTRIBUTION WIDTH 16.5 % (9.6-15.2)
[2018-01-23] MEDS: MIDAZOLAM 1 MG/ML, 2ML IVPush PRN ×2 (05:57→09:03)
[2018-01-23 06:05] LABS: MD YES
[2018-01-23 06:08] LABS: <PLATELET ESTIMATE> ADEQUATE; ANISOCYTOSIS 1+; BAND#(MANUAL) 5.07 x10^3/uL; BANDS%(MANUAL) 28 % (0-7); HYPOCHROMIA 1+; LYMPH#(MANUAL) 3.26 x10^3/uL (1-3.4); LYMPHS% (MANUAL) 18 % (22-44); METAMYELOCYTES# (MANUAL) 0.72 x10^3/uL (0-0); METAMYELOCYTES% (MANUAL) 4 % (0-1); MICROCYTOSIS 1+; MONOS#(MANUAL) 0.36 x10^3/uL (0.3-2.7); MONOS% (MANUAL) 2 % (2-9); MYELOCYTES# (MANUAL) 0.18 x10^3/uL (0-0); MYELOCYTES% (MANUAL) 1 % (0-0); NRBC % (MANUAL) 5 % (0-1); POLYCHROMASIA 1+; SEG#(MANUAL) 8.51 x10^3/uL (1.8-6.8); SEGS% (MANUAL) 47 % (42-75)
[2018-01-23 06:09] LABS: LARGE PLATELETS 1+
[2018-01-23] MEDS ORDERED: MIDAZOLAM 1 MG/ML, 5ML ONE (09:00)
[2018-01-23] MEDS: MIDAZOLAM HCL 25 MG in SODIUM CHLORIDE 0.9% 245 ML IV PRN ×3 (09:25→19:41)
[2018-01-23] MEDS: ALBUMIN HUMAN 25% 100 ML IV PRN ×4 (09:54→12:48)
[2018-01-23] MEDS: PANTOPRAZOLE 40 MG IV IVPush SCH ×2 (11:42→21:39)
[2018-01-23] MEDS: FILTER, DISP 1.2 MICRON FOR TPN/PVN IV PRN (17:38)
[2018-01-23] MEDS ORDERED: AMINO ACID 10% IV SCH (18:00)
[2018-01-23] MEDS ORDERED: STERILE WATER IV SCH (18:00)
[2018-01-23] MEDS ORDERED: DEXTROSE 70% IV SCH (18:00)
[2018-01-23] MEDS ORDERED: [UNRECOGNIZED DRUG - OTHER] IV SCH (18:00)
[2018-01-24] MEDS: MIDAZOLAM HCL 25 MG in SODIUM CHLORIDE 0.9% 245 ML IV PRN ×5 (01:00→21:33)
[2018-01-24] MEDS: HEPARIN 5,000 UNITS/ML, 1ML SQ SCH ×3 (01:36→19:32)
[2018-01-24] MEDS: REGULAR INSULIN 62.5 UNITS in SODIUM CHLORIDE 0.9% 249.375 ML IV PRN ×2 (02:42→19:24)
[2018-01-24 04:50] LABS: FIO2 100 %
[2018-01-24 05:13] LABS: ANION GAP 13 mmol/L (5-15); CALCIUM 8.3 mg/dL (8.5-10.1); CHLORIDE 101 mmol/L (98-107)
[2018-01-24 05:23] LABS: MEAN CORPUSCULAR HEMOGLOBIN 28.4 pg (27.0-34.8); MEAN CORPUSCULAR HGB CONC 33.3 g/dL (32.4-35.8); MEAN CORPUSCULAR VOLUME 85.2 fL (80-100); MEAN PLATELET VOLUME 9.5 fL (7.4-10.4); PLATELET COUNT 200 x10^3/uL (130-400); RED BLOOD COUNT 2.76 x10^6/uL (3.82-5.3); RED CELL DISTRIBUTION WIDTH 17.5 % (9.6-15.2)
[2018-01-24 05:26] LABS: CREATININE 2.96 mg/dL (0.55-1.02)
[2018-01-24] MEDS: PIPERACILLIN/TAZO/PMX 2.25GM 50 ML IVPB SCH ×3 (05:38→22:29)
[2018-01-24 05:54] LABS: MD YES
[2018-01-24 05:56] LABS: ANISOCYTOSIS 1+; BAND#(MANUAL) 3.04 x10^3/uL; BANDS%(MANUAL) 18 % (0-7); EOS#(MANUAL) 0.34 x10^3/uL (0.0-0.4); EOS% (MANUAL) 2 % (1-7); LYMPHS% (MANUAL) 16 % (22-44); METAMYELOCYTES# (MANUAL) 0.17 x10^3/uL (0-0); METAMYELOCYTES% (MANUAL) 1 % (0-1); MYELOCYTES# (MANUAL) 0.17 x10^3/uL (0-0); MYELOCYTES% (MANUAL) 1 % (0-0); NRBC % (MANUAL) 4 % (0-1); SEG#(MANUAL) 10.48 x10^3/uL (1.8-6.8); SEGS% (MANUAL) 62 % (42-75)
[2018-01-24 05:57] LABS: <PLATELET ESTIMATE> ADEQUATE; <PLT MORPHOLOGY> NORMAL PLT MORPH; HYPOCHROMIA 1+; POLYCHROMASIA 1+
[2018-01-24] MEDS: ALBUMIN HUMAN 25% 100 ML IV PRN ×2 (09:07→09:54)
[2018-01-24] MEDS: PANTOPRAZOLE 40 MG IV IVPush SCH ×2 (09:49→21:37)
[2018-01-24] MEDS: METHYLNALTREXONE 12 MG/0.6 ML SQ SCH (09:53)
[2018-01-24] MEDS: FILTER, DISP 1.2 MICRON FOR TPN/PVN IV PRN (16:58)
[2018-01-24] MEDS ORDERED: DEXTROSE 70% IV SCH (17:00)
[2018-01-24] MEDS ORDERED: AMINO ACID 10% IV SCH (17:00)
[2018-01-24] MEDS ORDERED: STERILE WATER IV SCH (17:00)
[2018-01-24] MEDS ORDERED: [UNRECOGNIZED DRUG - OTHER] IV SCH (17:00)
[2018-01-24] MEDS: FENTANYL PF 2,500 MCG in SODIUM CHLORIDE 0.9% 200 ML IV PRN (23:25)
[2018-01-25] MEDS: HEPARIN 5,000 UNITS/ML, 1ML SQ SCH ×3 (01:37→17:19)
[2018-01-25] MEDS: MIDAZOLAM HCL 25 MG in SODIUM CHLORIDE 0.9% 245 ML IV PRN ×2 (02:38→08:02)
[2018-01-25 04:04] LABS: MEAN CORPUSCULAR HEMOGLOBIN 28.4 pg (27.0-34.8); MEAN CORPUSCULAR VOLUME 83.5 fL (80-100); MEAN PLATELET VOLUME 9.2 fL (7.4-10.4); PLATELET COUNT 227 x10^3/uL (130-400); RED BLOOD COUNT 2.52 x10^6/uL (3.82-5.3); RED CELL DISTRIBUTION WIDTH 16.8 % (9.6-15.2)
[2018-01-25 04:13] LABS: ALANINE AMINOTRANSFERASE 18 U/L (12-78); ALBUMIN 2.1 g/dL (3.4-5.0); ANION GAP 16 mmol/L (5-15); CALCIUM 7.7 mg/dL (8.5-10.1); CHLORIDE 99 mmol/L (98-107); CREATININE 3.02 mg/dL (0.55-1.02)
[2018-01-25 04:15] LABS: ALKALINE PHOSPHATASE 144 U/L (45-117); BILIRUBIN,TOTAL 2.2 mg/dL (0.2-1.0); TOTAL PROTEIN 6.7 g/dL (6.4-8.2)
[2018-01-25 04:32] LABS: MD YES
[2018-01-25 04:34] LABS: ANISOCYTOSIS 1+; BAND#(MANUAL) 1.55 x10^3/uL; BANDS%(MANUAL) 9 % (0-7); HYPOCHROMIA 1+; LYMPHS% (MANUAL) 18 % (22-44); METAMYELOCYTES# (MANUAL) 0.17 x10^3/uL (0-0); METAMYELOCYTES% (MANUAL) 1 % (0-1); MONOS#(MANUAL) 0.52 x10^3/uL (0.3-2.7); MONOS% (MANUAL) 3 % (2-9); MYELOCYTES# (MANUAL) 0.17 x10^3/uL (0-0); MYELOCYTES% (MANUAL) 1 % (0-0); NRBC % (MANUAL) 3 % (0-1); POLYCHROMASIA 1+; SEGS% (MANUAL) 68 % (42-75)
[2018-01-25 04:35] LABS: <PLATELET ESTIMATE> ADEQUATE; LARGE PLATELETS 1+
[2018-01-25] MEDS: PIPERACILLIN/TAZO/PMX 2.25GM 50 ML IVPB SCH (05:41)
[2018-01-25] MEDS: REGULAR INSULIN 62.5 UNITS in SODIUM CHLORIDE 0.9% 249.375 ML IV PRN ×2 (06:32→09:19)
[2018-01-25] MEDS: PANTOPRAZOLE 40 MG IV IVPush SCH ×2 (09:20→21:24)
[2018-01-25] MEDS: ALBUMIN HUMAN 25% 100 ML IV PRN (09:28)
[2018-01-25] MEDS: MIDAZOLAM HCL 50 MG in SODIUM CHLORIDE 0.9% 240 ML IV PRN ×3 (11:24→22:27)
[2018-01-25] MEDS ORDERED: POTASSIUM CHLORIDE 40 MEQ in SODIUM CHLORIDE 0.9% 100 ML IV ONE (11:30)
[2018-01-25] MEDS: PIPERACILLIN/TAZO/PMX 3.375GM 50 ML IV SCH ×2 (14:54→17:49)
[2018-01-25] MEDS ORDERED: FILTER, DISP 1.2 MICRON FOR TPN/PVN IV PRN (17:00)
[2018-01-25] MEDS ORDERED: OLIV IV SCH (17:00)
[2018-01-25] MEDS ORDERED: AMINO ACID 10% IV SCH (17:00)
[2018-01-25] MEDS ORDERED: DEXTROSE 70% IV SCH (17:00)
[2018-01-25] MEDS ORDERED: FISH OIL IV SCH (17:00)
[2018-01-25] MEDS ORDERED: [UNRECOGNIZED DRUG - OTHER] IV SCH (17:00)
[2018-01-25] MEDS ORDERED: FAT EMUL IV SCH (17:00)
[2018-01-25] MEDS ORDERED: MCT IV SCH (17:00)
[2018-01-25] MEDS ORDERED: SOY IV SCH (17:00)
[2018-01-25] MEDS: LINEZOLID PMX 600MG/300ML 300 ML IV SCH (19:56)
[2018-01-25] MEDS: ACETAMINOPHEN 650 MG/20.3 ML UDC PO PRN (21:38)
[2018-01-26] MEDS: PIPERACILLIN/TAZO/PMX 3.375GM 50 ML IV SCH ×2 (00:19→05:39)
[2018-01-26] MEDS: REGULAR INSULIN 62.5 UNITS in SODIUM CHLORIDE 0.9% 249.375 ML IV PRN (00:48)
[2018-01-26] MEDS: FENTANYL PF 2,500 MCG in SODIUM CHLORIDE 0.9% 200 ML IV PRN ×2 (00:53→22:06)
[2018-01-26] MEDS: HEPARIN 5,000 UNITS/ML, 1ML SQ SCH ×3 (01:00→18:03)
[2018-01-26 05:16] LABS: MEAN CORPUSCULAR HEMOGLOBIN 28.5 pg (27.0-34.8); MEAN CORPUSCULAR VOLUME 83.8 fL (80-100); MEAN PLATELET VOLUME 9.2 fL (7.4-10.4); PLATELET COUNT 234 x10^3/uL (130-400); RED CELL DISTRIBUTION WIDTH 16.9 % (9.6-15.2)
[2018-01-26 05:22] LABS: ANION GAP 13 mmol/L (5-15); CHLORIDE 100 mmol/L (98-107)
[2018-01-26 05:26] LABS: ALANINE AMINOTRANSFERASE 16 U/L (12-78); ALKALINE PHOSPHATASE 118 U/L (45-117); BILIRUBIN,TOTAL 2.1 mg/dL (0.2-1.0); CREATININE 3.12 mg/dL (0.55-1.02)
[2018-01-26] MEDS: MIDAZOLAM HCL 50 MG in SODIUM CHLORIDE 0.9% 240 ML IV PRN ×4 (05:39→23:24)
[2018-01-26 05:43] LABS: MD YES
[2018-01-26 05:46] LABS: LYMPH#(MANUAL) 3.19 x10^3/uL (1-3.4); LYMPHS% (MANUAL) 22 % (22-44); METAMYELOCYTES# (MANUAL) 0.29 x10^3/uL (0-0); METAMYELOCYTES% (MANUAL) 2 % (0-1); MONOS#(MANUAL) 0.29 x10^3/uL (0.3-2.7); MONOS% (MANUAL) 2 % (2-9); MYELOCYTES# (MANUAL) 0.15 x10^3/uL (0-0); MYELOCYTES% (MANUAL) 1 % (0-0); NRBC % (MANUAL) 2 % (0-1)
[2018-01-26 05:47] LABS: BAND#(MANUAL) 5.95 x10^3/uL; BANDS%(MANUAL) 41 % (0-7); EOS#(MANUAL) 0.29 x10^3/uL (0.0-0.4); EOS% (MANUAL) 2 % (1-7); SEG#(MANUAL) 4.35 x10^3/uL (1.8-6.8); SEGS% (MANUAL) 30 % (42-75)
[2018-01-26 05:48] LABS: ANISOCYTOSIS 1+; HYPOCHROMIA 1+; POLYCHROMASIA 1+
[2018-01-26 05:49] LABS: <PLATELET ESTIMATE> ADEQUATE; LARGE PLATELETS 1+; TOXIC GRAN 1+
[2018-01-26] MEDS: LINEZOLID PMX 600MG/300ML 300 ML IV SCH ×3 (08:00→23:24)
[2018-01-26 09:04] VITALS: BP 107/53
[2018-01-26 09:15] VITALS: BP 92/45
[2018-01-26 09:30] VITALS: BP 90/43
[2018-01-26] MEDS: METHYLNALTREXONE 12 MG/0.6 ML SQ SCH (09:30)
[2018-01-26] MEDS: PANTOPRAZOLE 40 MG IV IVPush SCH ×2 (10:12→21:22)
[2018-01-26] MEDS ORDERED: FILTER, DISP 1.2 MICRON FOR TPN/PVN IV PRN (11:00)
[2018-01-26] MEDS ORDERED: METHYLNALTREXONE 12 MG/0.6 ML SQ PRN (13:00)
[2018-01-26] MEDS: METRONIDAZOLE PMX 500MG/100ML 100 ML IV SCH ×2 (14:39→21:20)
[2018-01-26] MEDS: CEFTRIAXONE 2 GM in SODIUM CHLORIDE 0.9% 50 ML IVPB SCH (15:35)
[2018-01-26] MEDS ORDERED: FISH OIL IV SCH ×2 (17:00)
[2018-01-26] MEDS ORDERED: AMINO ACID 10% IV SCH ×2 (17:00)
[2018-01-26] MEDS ORDERED: FAT EMUL IV SCH ×2 (17:00)
[2018-01-26] MEDS ORDERED: OLIV IV SCH ×2 (17:00)
[2018-01-26] MEDS ORDERED: SOY IV SCH ×2 (17:00)
[2018-01-26] MEDS ORDERED: MCT IV SCH ×2 (17:00)
[2018-01-26] MEDS ORDERED: DEXTROSE 70% IV SCH ×2 (17:00)
[2018-01-26] MEDS ORDERED: [UNRECOGNIZED DRUG - OTHER] IV SCH ×2 (17:00)
[2018-01-26] MEDS: INSULIN LISPRO 100 UNITS/ML, PEN SQ-INSULIN SCH ×3 (18:04→23:57)
[2018-01-26] MEDS: ACETAMINOPHEN 650 MG/20.3 ML UDC PO PRN (21:26)
[2018-01-27] MEDS: HEPARIN 5,000 UNITS/ML, 1ML SQ SCH ×3 (01:43→18:22)
[2018-01-27] MEDS: INSULIN LISPRO 100 UNITS/ML, PEN SQ-INSULIN SCH ×6 (03:56→21:35)
[2018-01-27] MEDS: MIDAZOLAM HCL 50 MG in SODIUM CHLORIDE 0.9% 240 ML IV PRN ×4 (03:57→20:54)
[2018-01-27 04:34] LABS: MEAN CORPUSCULAR HEMOGLOBIN 28.4 pg (27.0-34.8); MEAN CORPUSCULAR HGB CONC 33.3 g/dL (32.4-35.8); MEAN CORPUSCULAR VOLUME 85.1 fL (80-100); MEAN PLATELET VOLUME 9.2 fL (7.4-10.4); PLATELET COUNT 264 x10^3/uL (130-400); RED BLOOD COUNT 2.64 x10^6/uL (3.82-5.3); RED CELL DISTRIBUTION WIDTH 16.8 % (9.6-15.2)
[2018-01-27 04:36] LABS: ALANINE AMINOTRANSFERASE 11 U/L (12-78); ALBUMIN 2.3 g/dL (3.4-5.0); ANION GAP 14 mmol/L (5-15); CALCIUM 8.6 mg/dL (8.5-10.1); CHLORIDE 102 mmol/L (98-107); CREATININE 3.12 mg/dL (0.55-1.02)
[2018-01-27 04:40] LABS: ALKALINE PHOSPHATASE 106 U/L (45-117); BILIRUBIN,TOTAL 1.7 mg/dL (0.2-1.0); TOTAL PROTEIN 7.4 g/dL (6.4-8.2); TRIGLYCERIDES 449 mg/dL (50-200)
[2018-01-27 04:52] LABS: MD YES
[2018-01-27 04:55] LABS: ANISOCYTOSIS 1+; BAND#(MANUAL) 5.92 x10^3/uL; BANDS%(MANUAL) 40 % (0-7); LYMPH#(MANUAL) 1.78 x10^3/uL (1-3.4); LYMPHS% (MANUAL) 12 % (22-44); METAMYELOCYTES% (MANUAL) 2 % (0-1); MONOS#(MANUAL) 0.15 x10^3/uL (0.3-2.7); MONOS% (MANUAL) 1 % (2-9); MYELOCYTES# (MANUAL) 0.15 x10^3/uL (0-0); MYELOCYTES% (MANUAL) 1 % (0-0); NRBC % (MANUAL) 4 % (0-1); POLYCHROMASIA 1+; SEG#(MANUAL) 6.51 x10^3/uL (1.8-6.8); SEGS% (MANUAL) 44 % (42-75)
[2018-01-27 04:56] LABS: <PLATELET ESTIMATE> ADEQUATE; LARGE PLATELETS 1+
[2018-01-27] MEDS: METRONIDAZOLE PMX 500MG/100ML 100 ML IV SCH ×3 (05:18→22:16)
[2018-01-27] MEDS: ALBUMIN HUMAN 25% 100 ML IV PRN ×4 (09:27→11:10)
[2018-01-27] MEDS: PANTOPRAZOLE 40 MG IV IVPush SCH ×2 (10:00→21:01)
[2018-01-27] MEDS: MICAFUNGIN 100 MG in SODIUM CHLORIDE 0.9% 100 ML IV SCH (10:00)
[2018-01-27] MEDS: NOREPINEPHRINE 8 MG in SODIUM CHLORIDE 0.9% 242 ML IV PRN ×2 (10:04→23:35)
[2018-01-27 10:22] LABS: CLOSTRIDIUM DIFFICILE ANTIGEN NEGATIVE; CLOSTRIDIUM DIFFICILE TOXIN NEGATIVE (Negative)
[2018-01-27] MEDS: LINEZOLID PMX 600MG/300ML 300 ML IV SCH (12:48)
[2018-01-27 14:05] VITALS: BP 93/44
[2018-01-27 14:21] VITALS: BP 92/43
[2018-01-27] MEDS: CEFTRIAXONE 2 GM in SODIUM CHLORIDE 0.9% 50 ML IVPB SCH (14:23)
[2018-01-27] MEDS: ACETAMINOPHEN 650 MG/20.3 ML UDC PO PRN ×2 (14:24→22:16)
[2018-01-27 14:45] VITALS: BP 92/43
[2018-01-27 15:14] VITALS: BP 88/60
[2018-01-27 16:07] VITALS: BP 83/43
[2018-01-27] MEDS ORDERED: SODIUM CHLORIDE 0.9%, 500ML IVBOLUS ONE (16:30)
[2018-01-27] MEDS ORDERED: [UNRECOGNIZED DRUG - OTHER] IV SCH (17:00)
[2018-01-27] MEDS ORDERED: FISH OIL IV SCH (17:00)
[2018-01-27] MEDS ORDERED: FAT EMUL IV SCH (17:00)
[2018-01-27] MEDS ORDERED: DEXTROSE 70% IV SCH (17:00)
[2018-01-27] MEDS ORDERED: OLIV IV SCH (17:00)
[2018-01-27] MEDS ORDERED: MCT IV SCH (17:00)
[2018-01-27] MEDS ORDERED: SOY IV SCH (17:00)
[2018-01-27] MEDS ORDERED: AMINO ACID 10% IV SCH (17:00)
[2018-01-27] MEDS ORDERED: SODIUM CHLORIDE 0.9% 1,000ML IVBOLUS ONE (18:30)
[2018-01-27] MEDS ORDERED: METOPROLOL 1 MG/ML, 5ML IVPush ONE (20:27)
[2018-01-27] MEDS ORDERED: METOPROLOL 1 MG/ML, 5ML ONE (20:31)
[2018-01-27] MEDS ORDERED: METOPROLOL 1 MG/ML, 5ML IVPush STA (20:47)
[2018-01-27 22:22] LABS: ALANINE AMINOTRANSFERASE 9 U/L (12-78); ALBUMIN 2.5 g/dL (3.4-5.0); ANION GAP 12 mmol/L (5-15); CALCIUM 8.1 mg/dL (8.5-10.1); CHLORIDE 104 mmol/L (98-107); CREATININE 2.63 mg/dL (0.55-1.02)
[2018-01-27 22:25] LABS: ALKALINE PHOSPHATASE 93 U/L (45-117); TOTAL PROTEIN 7.2 g/dL (6.4-8.2)
[2018-01-27] MEDS ORDERED: POTASSIUM CHLORIDE 10% 20 MEQ/15 ML UDC PO ONE (23:00)
[2018-01-27] MEDS ORDERED: MAGNESIUM SULFATE PMX 1GM/100ML IVPB ONE (23:00)
[2018-01-27] MEDS ORDERED: CALCIUM GLUCONATE 4.6 MEQ in SODIUM CHLORIDE 0.9% 50 ML IV ONE (23:00)
[2018-01-27] MEDS ORDERED: MAGNESIUM SULFATE/D5W 100 ML IVPB ONE (23:00)
[2018-01-28] MEDS: FENTANYL PF 2,500 MCG in SODIUM CHLORIDE 0.9% 200 ML IV PRN (00:19)
[2018-01-28] MEDS: LINEZOLID PMX 600MG/300ML 300 ML IV SCH ×2 (00:34→12:24)
[2018-01-28] MEDS: HEPARIN 5,000 UNITS/ML, 1ML SQ SCH ×3 (01:37→17:19)
[2018-01-28] MEDS: INSULIN LISPRO 100 UNITS/ML, PEN SQ-INSULIN SCH ×6 (01:38→21:32)
[2018-01-28] MEDS: MIDAZOLAM HCL 50 MG in SODIUM CHLORIDE 0.9% 240 ML IV PRN ×5 (01:52→22:33)
[2018-01-28 04:16] LABS: MEAN CORPUSCULAR HEMOGLOBIN 28.3 pg (27.0-34.8); MEAN CORPUSCULAR HGB CONC 33.4 g/dL (32.4-35.8); MEAN CORPUSCULAR VOLUME 84.6 fL (80-100); MEAN PLATELET VOLUME 9.3 fL (7.4-10.4); PLATELET COUNT 282 x10^3/uL (130-400); RED BLOOD COUNT 3.05 x10^6/uL (3.82-5.3); RED CELL DISTRIBUTION WIDTH 16.7 % (9.6-15.2)
[2018-01-28 04:24] LABS: MD YES
[2018-01-28 04:36] LABS: BAND#(MANUAL) 3.75 x10^3/uL; BANDS%(MANUAL) 27 % (0-7); LYMPH#(MANUAL) 2.09 x10^3/uL (1-3.4); LYMPHS% (MANUAL) 15 % (22-44); METAMYELOCYTES# (MANUAL) 0.42 x10^3/uL (0-0); METAMYELOCYTES% (MANUAL) 3 % (0-1); MONOS#(MANUAL) 0.56 x10^3/uL (0.3-2.7); MONOS% (MANUAL) 4 % (2-9); MYELOCYTES# (MANUAL) 0.14 x10^3/uL (0-0); MYELOCYTES% (MANUAL) 1 % (0-0); NRBC % (MANUAL) 3 % (0-1); SEG#(MANUAL) 6.95 x10^3/uL (1.8-6.8); SEGS% (MANUAL) 50 % (42-75)
[2018-01-28 04:37] LABS: <PLATELET ESTIMATE> ADEQUATE; ANISOCYTOSIS 1+; HYPOCHROMIA 1+; LARGE PLATELETS 1+; POLYCHROMASIA 1+
[2018-01-28 05:44] LABS: ANION GAP 17 mmol/L (5-15); CALCIUM 8.6 mg/dL (8.5-10.1); CHLORIDE 105 mmol/L (98-107)
[2018-01-28] MEDS: METRONIDAZOLE PMX 500MG/100ML 100 ML IV SCH ×3 (06:33→22:34)
[2018-01-28] MEDS ORDERED: ADENOSINE 6 MG/2 ML ONE (08:43)
[2018-01-28] MEDS: MICAFUNGIN 100 MG in SODIUM CHLORIDE 0.9% 100 ML IV SCH (09:04)
[2018-01-28] MEDS ORDERED: AMIODARONE 150 MG in DEXTROSE 5% 100 ML IVPB ONE (09:15)
[2018-01-28] MEDS: PANTOPRAZOLE 40 MG IV IVPush SCH ×2 (09:29→20:01)
[2018-01-28] MEDS ORDERED: ADENOSINE 6 MG/2 ML IVPush ONE (09:30)
[2018-01-28] MEDS: POTASSIUM CHLORIDE 40 MEQ in SODIUM CHLORIDE 0.9% 100 ML IV SCH ×2 (09:42→20:01)
[2018-01-28] MEDS: AMIODARONE 900 MG in DEXTROSE 5% 482 ML IV PRN (10:06)
[2018-01-28] MEDS: FILTER 0.22 MICRON IV PRN (10:09)
[2018-01-28] MEDS: NOREPINEPHRINE 8 MG in SODIUM CHLORIDE 0.9% 242 ML IV PRN (12:35)
[2018-01-28] MEDS: ACETAMINOPHEN 650 MG/20.3 ML UDC PO PRN (12:38)
[2018-01-28] MEDS: CEFTRIAXONE 2 GM in SODIUM CHLORIDE 0.9% 50 ML IVPB SCH (14:28)
[2018-01-28] MEDS ORDERED: DEXTROSE 70% IV SCH (17:00)
[2018-01-28] MEDS ORDERED: AMINO ACID 10% IV SCH (17:00)
[2018-01-28] MEDS ORDERED: MCT IV SCH (17:00)
[2018-01-28] MEDS ORDERED: OLIV IV SCH (17:00)
[2018-01-28] MEDS ORDERED: FISH OIL IV SCH (17:00)
[2018-01-28] MEDS ORDERED: [UNRECOGNIZED DRUG - OTHER] IV SCH (17:00)
[2018-01-28] MEDS ORDERED: SOY IV SCH (17:00)
[2018-01-28] MEDS ORDERED: FAT EMUL IV SCH (17:00)
[2018-01-28] MEDS: MIDAZOLAM 1 MG/ML, 2ML IVPush PRN ×2 (21:27→22:30)
[2018-01-29] MEDS: LINEZOLID PMX 600MG/300ML 300 ML IV SCH ×2 (00:01→13:48)
[2018-01-29] MEDS: MIDAZOLAM 1 MG/ML, 2ML IVPush PRN (00:01)
[2018-01-29] MEDS: FENTANYL PF 2,500 MCG in SODIUM CHLORIDE 0.9% 200 ML IV PRN ×2 (00:18→22:09)
[2018-01-29] MEDS: NOREPINEPHRINE 8 MG in SODIUM CHLORIDE 0.9% 242 ML IV PRN ×3 (00:19→21:57)
[2018-01-29] MEDS: HEPARIN 5,000 UNITS/ML, 1ML SQ SCH ×3 (01:38→18:00)
[2018-01-29] MEDS: INSULIN LISPRO 100 UNITS/ML, PEN SQ-INSULIN SCH ×6 (01:38→21:46)
[2018-01-29] MEDS: FENTANYL PF 100 MCG/2ML IVPush PRN (01:42)
[2018-01-29] MEDS: MIDAZOLAM HCL 50 MG in SODIUM CHLORIDE 0.9% 240 ML IV PRN ×3 (03:03→16:22)
[2018-01-29 04:51] LABS: MEAN CORPUSCULAR HEMOGLOBIN 28.3 pg (27.0-34.8); MEAN CORPUSCULAR HGB CONC 33.4 g/dL (32.4-35.8); MEAN CORPUSCULAR VOLUME 84.8 fL (80-100); MEAN PLATELET VOLUME 9.4 fL (7.4-10.4); PLATELET COUNT 305 x10^3/uL (130-400); RED CELL DISTRIBUTION WIDTH 18.2 % (9.6-15.2)
[2018-01-29 04:55] LABS: ALANINE AMINOTRANSFERASE 10 U/L (12-78); ALBUMIN 1.9 g/dL (3.4-5.0); ANION GAP 17 mmol/L (5-15); CALCIUM 8.9 mg/dL (8.5-10.1); CHLORIDE 103 mmol/L (98-107); CREATININE 4.14 mg/dL (0.55-1.02)
[2018-01-29 04:57] LABS: ALKALINE PHOSPHATASE 102 U/L (45-117); BILIRUBIN,TOTAL 1.9 mg/dL (0.2-1.0); TOTAL PROTEIN 7.6 g/dL (6.4-8.2)
[2018-01-29 05:39] LABS: MD YES
[2018-01-29 06:01] LABS: ANISOCYTOSIS 1+; BAND#(MANUAL) 4.13 x10^3/uL; BANDS%(MANUAL) 26 % (0-7); BASOS#(MANUAL) 0.16 x10^3/uL (0-0.1); BASOS% (MANUAL) 1 % (0-1); EOS#(MANUAL) 0.48 x10^3/uL (0.0-0.4); EOS% (MANUAL) 3 % (1-7); HYPOCHROMIA 1+; LYMPH#(MANUAL) 3.02 x10^3/uL (1-3.4); LYMPHS% (MANUAL) 19 % (22-44); METAMYELOCYTES# (MANUAL) 0.32 x10^3/uL (0-0); METAMYELOCYTES% (MANUAL) 2 % (0-1); MONOS% (MANUAL) 5 % (2-9); MYELOCYTES# (MANUAL) 0.48 x10^3/uL (0-0); MYELOCYTES% (MANUAL) 3 % (0-0); NRBC % (MANUAL) 3 % (0-1); POLYCHROMASIA 1+; SEG#(MANUAL) 6.52 x10^3/uL (1.8-6.8); SEGS% (MANUAL) 41 % (42-75)
[2018-01-29 06:02] LABS: <PLATELET ESTIMATE> ADEQUATE; LARGE PLATELETS 1+
[2018-01-29] MEDS: METRONIDAZOLE PMX 500MG/100ML 100 ML IV SCH ×3 (06:10→22:12)
[2018-01-29] MEDS: MICAFUNGIN 100 MG in SODIUM CHLORIDE 0.9% 100 ML IV SCH (07:49)
[2018-01-29] MEDS: AMIODARONE 900 MG in DEXTROSE 5% 482 ML IV PRN (08:19)
[2018-01-29] MEDS ORDERED: DIGOXIN 0.25 MG/ML, 2ML IVPush ONE ×2 (09:30→16:00)
[2018-01-29] MEDS: PANTOPRAZOLE 40 MG IV IVPush SCH ×2 (10:03→21:44)
[2018-01-29] MEDS: ALBUMIN HUMAN 25% 50 ML IV PRN ×2 (10:25→10:26)
[2018-01-29] MEDS: CEFTRIAXONE 2 GM in SODIUM CHLORIDE 0.9% 50 ML IVPB SCH (15:27)
[2018-01-29] MEDS ORDERED: OLIV IV SCH ×2 (17:00)
[2018-01-29] MEDS ORDERED: FAT EMUL IV SCH ×2 (17:00)
[2018-01-29] MEDS ORDERED: DEXTROSE 70% IV SCH ×2 (17:00)
[2018-01-29] MEDS ORDERED: FISH OIL IV SCH ×2 (17:00)
[2018-01-29] MEDS ORDERED: [UNRECOGNIZED DRUG - OTHER] IV SCH ×2 (17:00)
[2018-01-29] MEDS ORDERED: MCT IV SCH ×2 (17:00)
[2018-01-29] MEDS ORDERED: AMINO ACID 10% IV SCH ×2 (17:00)
[2018-01-29] MEDS ORDERED: SOY IV SCH ×2 (17:00)
[2018-01-29] MEDS: FILTER, DISP 1.2 MICRON FOR TPN/PVN IV PRN (18:07)
[2018-01-29] MEDS: ACETAMINOPHEN 650 MG/20.3 ML UDC PO PRN (21:44)
[2018-01-30] VITALS (7 sets, daily range): BP systolic 96–112; BP diastolic 31–41
[2018-01-30] MEDS: LINEZOLID PMX 600MG/300ML 300 ML IV SCH ×3 (00:23→23:53)
[2018-01-30] MEDS: INSULIN LISPRO 100 UNITS/ML, PEN SQ-INSULIN SCH ×6 (01:31→23:52)
[2018-01-30] MEDS: HEPARIN 5,000 UNITS/ML, 1ML SQ SCH ×4 (01:33→21:54)
[2018-01-30] MEDS: MIDAZOLAM HCL 50 MG in SODIUM CHLORIDE 0.9% 240 ML IV PRN ×3 (03:00→23:52)
[2018-01-30 04:49] LABS: ALBUMIN 1.7 g/dL (3.4-5.0); ANION GAP 16 mmol/L (5-15); CALCIUM 8.6 mg/dL (8.5-10.1); CHLORIDE 99 mmol/L (98-107)
[2018-01-30 04:59] LABS: MEAN CORPUSCULAR HEMOGLOBIN 28.3 pg (27.0-34.8); MEAN CORPUSCULAR HGB CONC 33.7 g/dL (32.4-35.8); MEAN CORPUSCULAR VOLUME 84.1 fL (80-100); MEAN PLATELET VOLUME 9.3 fL (7.4-10.4); PLATELET COUNT 241 x10^3/uL (130-400); RED BLOOD COUNT 2.11 x10^6/uL (3.82-5.3); RED CELL DISTRIBUTION WIDTH 17.7 % (9.6-15.2)
[2018-01-30 05:04] LABS: ALANINE AMINOTRANSFERASE 7 U/L (12-78); ALKALINE PHOSPHATASE 83 U/L (45-117); BILIRUBIN,TOTAL 1.5 mg/dL (0.2-1.0); CREATININE 3.69 mg/dL (0.55-1.02); PREALBUMIN 4.9 mg/dL (20.0-40.0); TOTAL PROTEIN 6.7 g/dL (6.4-8.2); TRIGLYCERIDES 318 mg/dL (50-200)
[2018-01-30 05:40] LABS: MD YES
[2018-01-30 05:47] LABS: <PLATELET ESTIMATE> ADEQUATE; ANISOCYTOSIS 1+; BAND#(MANUAL) 2.82 x10^3/uL; BANDS%(MANUAL) 16 % (0-7); BASOS#(MANUAL) 0.18 x10^3/uL (0-0.1); BASOS% (MANUAL) 1 % (0-1); EOS#(MANUAL) 0.35 x10^3/uL (0.0-0.4); EOS% (MANUAL) 2 % (1-7); HYPOCHROMIA 1+; LYMPH#(MANUAL) 4.05 x10^3/uL (1-3.4); LYMPHS% (MANUAL) 23 % (22-44); METAMYELOCYTES# (MANUAL) 1.58 x10^3/uL (0-0); METAMYELOCYTES% (MANUAL) 9 % (0-1); MONOS#(MANUAL) 0.18 x10^3/uL (0.3-2.7); MONOS% (MANUAL) 1 % (2-9); MYELOCYTES# (MANUAL) 0.53 x10^3/uL (0-0); MYELOCYTES% (MANUAL) 3 % (0-0); NRBC % (MANUAL) 17 % (0-1); POLYCHROMASIA 1+; SEG#(MANUAL) 7.92 x10^3/uL (1.8-6.8); SEGS% (MANUAL) 45 % (42-75)
[2018-01-30 05:48] LABS: LARGE PLATELETS 1+; TOXIC GRAN 1+
[2018-01-30 05:49] LABS: MICROCYTOSIS 1+
[2018-01-30] MEDS: METRONIDAZOLE PMX 500MG/100ML 100 ML IV SCH ×3 (05:57→22:28)
[2018-01-30 06:39] LABS: OCCULT BLOOD POSITIVE (NEGATIVE)
[2018-01-30] MEDS: DIGOXIN 0.25 MG/ML, 2ML IVPush SCH (12:42)
[2018-01-30] MEDS: PANTOPRAZOLE 40 MG IV IVPush SCH ×2 (12:42→20:09)
[2018-01-30 14:15] LABS: MEAN CORPUSCULAR HEMOGLOBIN 28.5 pg (27.0-34.8); MEAN CORPUSCULAR HGB CONC 34.1 g/dL (32.4-35.8); MEAN CORPUSCULAR VOLUME 83.6 fL (80-100); PLATELET COUNT 250 x10^3/uL (130-400); RED BLOOD COUNT 2.95 x10^6/uL (3.82-5.3); RED CELL DISTRIBUTION WIDTH 16.8 % (9.6-15.2)
[2018-01-30 14:16] LABS: MD YES
[2018-01-30 14:48] LABS: BAND#(MANUAL) 4.34 x10^3/uL; BANDS%(MANUAL) 20 % (0-7); HEMOGRAM NOTE RECHECKED
[2018-01-30 14:49] LABS: ANISOCYTOSIS 1+; BASOS#(MANUAL) 0.22 x10^3/uL (0-0.1); BASOS% (MANUAL) 1 % (0-1); EOS#(MANUAL) 0.22 x10^3/uL (0.0-0.4); EOS% (MANUAL) 1 % (1-7); HYPOCHROMIA 1+; LYMPH#(MANUAL) 4.77 x10^3/uL (1-3.4); LYMPHS% (MANUAL) 22 % (22-44); METAMYELOCYTES# (MANUAL) 1.09 x10^3/uL (0-0); METAMYELOCYTES% (MANUAL) 5 % (0-1); MICROCYTOSIS 1+; MONOS#(MANUAL) 0.65 x10^3/uL (0.3-2.7); MONOS% (MANUAL) 3 % (2-9); MYELOCYTES# (MANUAL) 0.43 x10^3/uL (0-0); MYELOCYTES% (MANUAL) 2 % (0-0); NRBC % (MANUAL) 9 % (0-1); POLYCHROMASIA 1+
[2018-01-30 14:50] LABS: <PLATELET ESTIMATE> ADEQUATE; <PLT MORPHOLOGY> NORMAL PLT MORPH; TOXIC GRAN 1+
[2018-01-30 14:54] LABS: SEGS% (MANUAL) 46 % (42-75)
[2018-01-30 14:55] LABS: SEG#(MANUAL) 9.98 x10^3/uL (1.8-6.8)
[2018-01-30] MEDS: CEFTRIAXONE 2 GM in SODIUM CHLORIDE 0.9% 50 ML IVPB SCH (15:15)
[2018-01-30] MEDS: NOREPINEPHRINE 8 MG in SODIUM CHLORIDE 0.9% 242 ML IV PRN ×2 (16:04→23:52)
[2018-01-30] MEDS: AMIODARONE 900 MG in DEXTROSE 5% 482 ML IV PRN (16:05)
[2018-01-30] MEDS ORDERED: FAT EMUL IV SCH (17:00)
[2018-01-30] MEDS ORDERED: DEXTROSE 70% IV SCH (17:00)
[2018-01-30] MEDS ORDERED: AMINO ACID 10% IV SCH (17:00)
[2018-01-30] MEDS ORDERED: [UNRECOGNIZED DRUG - OTHER] IV SCH (17:00)
[2018-01-30] MEDS ORDERED: MCT IV SCH (17:00)
[2018-01-30] MEDS ORDERED: SOY IV SCH (17:00)
[2018-01-30] MEDS ORDERED: OLIV IV SCH (17:00)
[2018-01-30] MEDS ORDERED: FISH OIL IV SCH (17:00)
[2018-01-30] MEDS: MICAFUNGIN 100 MG in SODIUM CHLORIDE 0.9% 100 ML IV SCH (17:26)
[2018-01-31] MEDS: LINEZOLID PMX 600MG/300ML 300 ML IV SCH ×2 (00:23→13:00)
[2018-01-31] MEDS: INSULIN LISPRO 100 UNITS/ML, PEN SQ-INSULIN SCH ×5 (03:48→20:14)
[2018-01-31 06:03] LABS: MEAN CORPUSCULAR HEMOGLOBIN 28.8 pg (27.0-34.8); MEAN CORPUSCULAR HGB CONC 34.5 g/dL (32.4-35.8); MEAN CORPUSCULAR VOLUME 83.4 fL (80-100); MEAN PLATELET VOLUME 9.1 fL (7.4-10.4); PLATELET COUNT 222 x10^3/uL (130-400); RED BLOOD COUNT 2.77 x10^6/uL (3.82-5.3); RED CELL DISTRIBUTION WIDTH 17.4 % (9.6-15.2)
[2018-01-31] MEDS: METRONIDAZOLE PMX 500MG/100ML 100 ML IV SCH (06:11)
[2018-01-31 06:18] LABS: MD YES
[2018-01-31 06:22] LABS: BAND#(MANUAL) 3.76 x10^3/uL; BANDS%(MANUAL) 20 % (0-7); EOS#(MANUAL) 0.38 x10^3/uL (0.0-0.4); EOS% (MANUAL) 2 % (1-7); LYMPH#(MANUAL) 2.82 x10^3/uL (1-3.4); LYMPHS% (MANUAL) 15 % (22-44); METAMYELOCYTES# (MANUAL) 0.38 x10^3/uL (0-0); METAMYELOCYTES% (MANUAL) 2 % (0-1); MYELOCYTES# (MANUAL) 0.19 x10^3/uL (0-0); MYELOCYTES% (MANUAL) 1 % (0-0); SEG#(MANUAL) 10.15 x10^3/uL (1.8-6.8); SEGS% (MANUAL) 54 % (42-75)
[2018-01-31 06:23] LABS: NRBC % (MANUAL) 11 % (0-1)
[2018-01-31 06:24] LABS: MONOS#(MANUAL) 0.56 x10^3/uL (0.3-2.7); MONOS% (MANUAL) 3 % (2-9)
[2018-01-31 06:25] LABS: OTHER CELLS # (MANUAL) 0.38 x10^3/uL (0-0); OTHER CELLS % (MANUAL) 2 % (0-0)
[2018-01-31 06:26] LABS: TOXIC GRAN 1+
[2018-01-31 06:27] LABS: ANISOCYTOSIS 2+; MICROCYTOSIS 1+; POLYCHROMASIA 1+
[2018-01-31 06:28] LABS: <PLATELET ESTIMATE> ADEQUATE; <PLT MORPHOLOGY> NORMAL PLT MORPH; BASOPHILLIC STIPPLING 1+
[2018-01-31 06:42] LABS: ALANINE AMINOTRANSFERASE 8 U/L (12-78); ALBUMIN 1.7 g/dL (3.4-5.0); ANION GAP 19 mmol/L (5-15); CHLORIDE 95 mmol/L (98-107); CREATININE 3.25 mg/dL (0.55-1.02)
[2018-01-31 06:45] LABS: ALKALINE PHOSPHATASE 80 U/L (45-117); BILIRUBIN,TOTAL 1.5 mg/dL (0.2-1.0); TOTAL PROTEIN 6.9 g/dL (6.4-8.2)
[2018-01-31] MEDS: ALBUMIN HUMAN 25% 100 ML IV SCH ×3 (07:30→23:26)
[2018-01-31] MEDS ORDERED: MAGNESIUM SULFATE PMX 4GM/100M 100 ML IV ONE (07:30)
[2018-01-31] MEDS: PANTOPRAZOLE 40 MG IV IVPush SCH ×2 (09:12→21:44)
[2018-01-31] MEDS: DIGOXIN 0.25 MG/ML, 2ML IVPush SCH (09:12)
[2018-01-31] MEDS: HEPARIN 5,000 UNITS/ML, 1ML SQ SCH ×2 (09:18→15:52)
[2018-01-31] MEDS: MEROPENEM 500 MG in SODIUM CHLORIDE 0.9% 100 ML IV SCH ×2 (10:59→22:15)
[2018-01-31] MEDS: ACETAMINOPHEN 650 MG/20.3 ML UDC PO PRN (13:00)
[2018-01-31] MEDS: MIDAZOLAM HCL 50 MG in SODIUM CHLORIDE 0.9% 240 ML IV PRN ×2 (13:01→21:53)
[2018-01-31] MEDS ORDERED: CEFTRIAXONE PMX 2GM/50ML 50 ML IVPB SCH (14:30)
[2018-01-31] MEDS: NOREPINEPHRINE 8 MG in SODIUM CHLORIDE 0.9% 242 ML IV PRN (14:40)
[2018-01-31] MEDS: MICAFUNGIN 100 MG in SODIUM CHLORIDE 0.9% 100 ML IV SCH (15:01)
[2018-01-31] MEDS: FILTER, DISP 1.2 MICRON FOR TPN/PVN IV PRN (15:01)
[2018-01-31] MEDS ORDERED: FISH OIL IV SCH (17:00)
[2018-01-31] MEDS ORDERED: FAT EMUL IV SCH (17:00)
[2018-01-31] MEDS ORDERED: [UNRECOGNIZED DRUG - OTHER] IV SCH (17:00)
[2018-01-31] MEDS ORDERED: DEXTROSE 70% IV SCH (17:00)
[2018-01-31] MEDS ORDERED: SOY IV SCH (17:00)
[2018-01-31] MEDS ORDERED: MCT IV SCH (17:00)
[2018-01-31] MEDS ORDERED: AMINO ACID 10% IV SCH (17:00)
[2018-01-31] MEDS ORDERED: OLIV IV SCH (17:00)
[2018-01-31] MEDS: FENTANYL PF 2,500 MCG in SODIUM CHLORIDE 0.9% 200 ML IV PRN (20:17)
[2018-01-31] MEDS: AMIODARONE 900 MG in DEXTROSE 5% 482 ML IV PRN (22:23)
[2018-02-01] MEDS: INSULIN LISPRO 100 UNITS/ML, PEN SQ-INSULIN SCH ×6 (00:07→20:18)
[2018-02-01] MEDS: LINEZOLID PMX 600MG/300ML 300 ML IV SCH ×2 (00:44→13:21)
[2018-02-01] MEDS: HEPARIN 5,000 UNITS/ML, 1ML SQ SCH ×3 (02:09→17:15)
[2018-02-01] MEDS: NOREPINEPHRINE 8 MG in SODIUM CHLORIDE 0.9% 242 ML IV PRN ×2 (03:10→17:21)
[2018-02-01 04:38] LABS: MEAN CORPUSCULAR HEMOGLOBIN 28.3 pg (27.0-34.8); MEAN CORPUSCULAR HGB CONC 34.2 g/dL (32.4-35.8); MEAN CORPUSCULAR VOLUME 82.6 fL (80-100); MEAN PLATELET VOLUME 9.1 fL (7.4-10.4); PLATELET COUNT 215 x10^3/uL (130-400); RED BLOOD COUNT 2.65 x10^6/uL (3.82-5.3); RED CELL DISTRIBUTION WIDTH 17.2 % (9.6-15.2)
[2018-02-01 04:45] LABS: CALCIUM 8.9 mg/dL (8.5-10.1); CHLORIDE 92 mmol/L (98-107)
[2018-02-01 04:49] LABS: ANION GAP 21 mmol/L (5-15); CREATININE 4.15 mg/dL (0.55-1.02)
[2018-02-01 05:05] LABS: MD YES
[2018-02-01 05:07] LABS: BAND#(MANUAL) 2.43 x10^3/uL; BANDS%(MANUAL) 15 % (0-7); EOS#(MANUAL) 0.49 x10^3/uL (0.0-0.4); EOS% (MANUAL) 3 % (1-7); LYMPH#(MANUAL) 1.94 x10^3/uL (1-3.4); LYMPHS% (MANUAL) 12 % (22-44); METAMYELOCYTES# (MANUAL) 0.32 x10^3/uL (0-0); METAMYELOCYTES% (MANUAL) 2 % (0-1); MONOS#(MANUAL) 0.65 x10^3/uL (0.3-2.7); MONOS% (MANUAL) 4 % (2-9); NRBC % (MANUAL) 12 % (0-1); SEG#(MANUAL) 10.37 x10^3/uL (1.8-6.8); SEGS% (MANUAL) 64 % (42-75)
[2018-02-01 05:08] LABS: ANISOCYTOSIS 2+; MICROCYTOSIS 1+; POLYCHROMASIA 1+
[2018-02-01 05:09] LABS: <PLATELET ESTIMATE> ADEQUATE; LARGE PLATELETS 1+; TOXIC GRAN 1+
[2018-02-01] MEDS: ALBUMIN HUMAN 25% 100 ML IV SCH ×3 (08:07→23:33)
[2018-02-01] MEDS: DIGOXIN 0.25 MG/ML, 2ML IVPush SCH (08:10)
[2018-02-01] MEDS: ALBUMIN HUMAN 25% 100 ML IV PRN (09:53)
[2018-02-01] MEDS: PANTOPRAZOLE 40 MG IV IVPush SCH ×2 (10:10→20:12)
[2018-02-01] MEDS: MICAFUNGIN 100 MG in SODIUM CHLORIDE 0.9% 100 ML IV SCH (15:17)
[2018-02-01] MEDS ORDERED: DEXTROSE 70% IV SCH (17:00)
[2018-02-01] MEDS ORDERED: FAT EMUL IV SCH (17:00)
[2018-02-01] MEDS ORDERED: OLIV IV SCH (17:00)
[2018-02-01] MEDS ORDERED: SOY IV SCH (17:00)
[2018-02-01] MEDS ORDERED: FISH OIL IV SCH (17:00)
[2018-02-01] MEDS ORDERED: MCT IV SCH (17:00)
[2018-02-01] MEDS ORDERED: [UNRECOGNIZED DRUG - OTHER] IV SCH (17:00)
[2018-02-01] MEDS ORDERED: AMINO ACID 10% IV SCH (17:00)
[2018-02-01] MEDS: FILTER, DISP 1.2 MICRON FOR TPN/PVN IV PRN (17:06)
[2018-02-01] MEDS: MEROPENEM 500 MG in SODIUM CHLORIDE 0.9% 100 ML IV SCH (17:18)
[2018-02-02] MEDS: INSULIN LISPRO 100 UNITS/ML, PEN SQ-INSULIN SCH ×7 (00:11→23:51)
[2018-02-02] MEDS: HEPARIN 5,000 UNITS/ML, 1ML SQ SCH (02:21)
[2018-02-02] MEDS: LINEZOLID PMX 600MG/300ML 300 ML IV SCH ×2 (02:59→14:01)
[2018-02-02] MEDS: AMIODARONE 900 MG in DEXTROSE 5% 482 ML IV PRN (03:42)
[2018-02-02 05:02] LABS: ALBUMIN 2.3 g/dL (3.4-5.0); ANION GAP 16 mmol/L (5-15); CALCIUM 8.5 mg/dL (8.5-10.1); CHLORIDE 95 mmol/L (98-107)
[2018-02-02 05:07] LABS: ALANINE AMINOTRANSFERASE 9 U/L (12-78); ALKALINE PHOSPHATASE 74 U/L (45-117); BILIRUBIN,TOTAL 1.1 mg/dL (0.2-1.0); CREATININE 3.16 mg/dL (0.55-1.02); TOTAL PROTEIN 6.8 g/dL (6.4-8.2); TRIGLYCERIDES 375 mg/dL (50-200)
[2018-02-02 05:17] LABS: MEAN CORPUSCULAR HEMOGLOBIN 28.6 pg (27.0-34.8); MEAN CORPUSCULAR HGB CONC 34.3 g/dL (32.4-35.8); MEAN CORPUSCULAR VOLUME 83.4 fL (80-100); PLATELET COUNT 189 x10^3/uL (130-400); RED BLOOD COUNT 2.17 x10^6/uL (3.82-5.3); RED CELL DISTRIBUTION WIDTH 17.3 % (9.6-15.2)
[2018-02-02] MEDS: MEROPENEM 500 MG in SODIUM CHLORIDE 0.9% 100 ML IV SCH ×2 (05:24→19:49)
[2018-02-02 05:50] LABS: MD YES
[2018-02-02 05:54] LABS: EOS#(MANUAL) 0.56 x10^3/uL (0.0-0.4); EOS% (MANUAL) 4 % (1-7); METAMYELOCYTES# (MANUAL) 0.28 x10^3/uL (0-0); METAMYELOCYTES% (MANUAL) 2 % (0-1); NRBC % (MANUAL) 15 % (0-1)
[2018-02-02 05:56] LABS: BAND#(MANUAL) 1.81 x10^3/uL; BANDS%(MANUAL) 13 % (0-7); LYMPH#(MANUAL) 2.78 x10^3/uL (1-3.4); LYMPHS% (MANUAL) 20 % (22-44); MONOS#(MANUAL) 0.83 x10^3/uL (0.3-2.7); MONOS% (MANUAL) 6 % (2-9); MYELOCYTES# (MANUAL) 0.28 x10^3/uL (0-0); MYELOCYTES% (MANUAL) 2 % (0-0); SEG#(MANUAL) 7.37 x10^3/uL (1.8-6.8); SEGS% (MANUAL) 53 % (42-75)
[2018-02-02 05:58] LABS: ANISOCYTOSIS 1+; MICROCYTOSIS 1+; POLYCHROMASIA 1+; TOXIC GRAN 1+
[2018-02-02 05:59] LABS: <PLATELET ESTIMATE> ADEQUATE; <PLT MORPHOLOGY> NORMAL PLT MORPH
[2018-02-02] MEDS: ALBUMIN HUMAN 25% 100 ML IV SCH ×3 (07:30→23:42)
[2018-02-02] MEDS: DIGOXIN 0.25 MG/ML, 2ML IVPush SCH (07:41)
[2018-02-02 08:38] VITALS: BP 103/32
[2018-02-02 09:00] VITALS: BP 103/32
[2018-02-02] MEDS ORDERED: VASOPRESSIN 100 UNIT in SODIUM CHLORIDE 0.9% 495 ML IV PRN (09:00)
[2018-02-02 09:04] VITALS: BP 109/43
[2018-02-02 09:15] VITALS: BP 109/43
[2018-02-02 09:30] VITALS: BP 109/42
[2018-02-02] MEDS: PANTOPRAZOLE 40 MG IV IVPush SCH ×2 (12:28→20:40)
[2018-02-02] MEDS: NOREPINEPHRINE 8 MG in SODIUM CHLORIDE 0.9% 242 ML IV PRN (15:19)
[2018-02-02] MEDS: MICAFUNGIN 100 MG in SODIUM CHLORIDE 0.9% 100 ML IV SCH (15:19)
[2018-02-02] MEDS ORDERED: SOY IV SCH (17:00)
[2018-02-02] MEDS ORDERED: FISH OIL IV SCH (17:00)
[2018-02-02] MEDS ORDERED: MCT IV SCH (17:00)
[2018-02-02] MEDS ORDERED: OLIV IV SCH (17:00)
[2018-02-02] MEDS ORDERED: DEXTROSE 70% IV SCH (17:00)
[2018-02-02] MEDS ORDERED: FAT EMUL IV SCH (17:00)
[2018-02-02] MEDS ORDERED: AMINO ACID 10% IV SCH (17:00)
[2018-02-02] MEDS ORDERED: [UNRECOGNIZED DRUG - OTHER] IV SCH (17:00)
[2018-02-03] MEDS: LINEZOLID PMX 600MG/300ML 300 ML IV SCH ×2 (01:57→12:17)
[2018-02-03] MEDS: INSULIN LISPRO 100 UNITS/ML, PEN SQ-INSULIN SCH ×5 (04:13→19:57)
[2018-02-03 05:08] LABS: MEAN CORPUSCULAR HEMOGLOBIN 29.5 pg (27.0-34.8); MEAN CORPUSCULAR HGB CONC 33.9 g/dL (32.4-35.8); MEAN CORPUSCULAR VOLUME 86.8 fL (80-100); MEAN PLATELET VOLUME 8.7 fL (7.4-10.4); PLATELET COUNT 204 x10^3/uL (130-400); RED BLOOD COUNT 2.69 x10^6/uL (3.82-5.3); RED CELL DISTRIBUTION WIDTH 16.2 % (9.6-15.2)
[2018-02-03 05:10] LABS: ALBUMIN 2.8 g/dL (3.4-5.0); ANION GAP 15 mmol/L (5-15); CALCIUM 8.9 mg/dL (8.5-10.1); CHLORIDE 97 mmol/L (98-107)
[2018-02-03 05:25] LABS: ALANINE AMINOTRANSFERASE 10 U/L (12-78); ALKALINE PHOSPHATASE 93 U/L (45-117); BILIRUBIN,TOTAL 1.3 mg/dL (0.2-1.0); CREATININE 2.88 mg/dL (0.55-1.02); TOTAL PROTEIN 7.9 g/dL (6.4-8.2)
[2018-02-03 06:03] LABS: MD YES
[2018-02-03 06:05] LABS: ANISOCYTOSIS 1+; BAND#(MANUAL) 5.03 x10^3/uL; BANDS%(MANUAL) 34 % (0-7); LYMPH#(MANUAL) 0.89 x10^3/uL (1-3.4); LYMPHS% (MANUAL) 6 % (22-44); METAMYELOCYTES# (MANUAL) 0.59 x10^3/uL (0-0); METAMYELOCYTES% (MANUAL) 4 % (0-1); MICROCYTOSIS 1+; MONOS% (MANUAL) 2 % (2-9); MYELOCYTES% (MANUAL) 2 % (0-0); POLYCHROMASIA 1+; SEGS% (MANUAL) 52 % (42-75)
[2018-02-03 06:06] LABS: <PLATELET ESTIMATE> ADEQUATE; <PLT MORPHOLOGY> NORMAL PLT MORPH; NRBC % (MANUAL) 1 % (0-1)
[2018-02-03] MEDS: ALBUMIN HUMAN 25% 100 ML IV SCH ×3 (07:50→23:24)
[2018-02-03 09:53] LABS: CLOSTRIDIUM DIFFICILE ANTIGEN NEGATIVE; CLOSTRIDIUM DIFFICILE TOXIN NEGATIVE (Negative)
[2018-02-03] MEDS: ALBUMIN HUMAN 25% 100 ML IV PRN (10:02)
[2018-02-03] MEDS ORDERED: METOCLOPRAMIDE 5 MG/ML, 2ML IV ONE (11:00)
--- NOTE | 2018-02-03 11:02 | NUR ---
02/03 TF GOAL: VITAL HIGH PROTEIN @ 65ML/HR
[2018-02-03] MEDS: MEROPENEM 500 MG in SODIUM CHLORIDE 0.9% 100 ML IV SCH ×2 (11:22→19:58)
[2018-02-03] MEDS: DIGOXIN 0.25 MG/ML, 2ML IVPush SCH (11:22)
[2018-02-03] MEDS: PANTOPRAZOLE 40 MG IV IVPush SCH ×2 (11:22→21:07)
[2018-02-03] MEDS ORDERED: ZIPRASIDONE 20 MG INJ IM PRN (15:00)
[2018-02-03] MEDS: MICAFUNGIN 100 MG in SODIUM CHLORIDE 0.9% 100 ML IV SCH (15:21)
[2018-02-03] MEDS: FILTER, DISP 1.2 MICRON FOR TPN/PVN IV PRN (16:44)
[2018-02-03] MEDS ORDERED: OLIV IV SCH (17:00)
[2018-02-03] MEDS ORDERED: AMINO ACID 10% IV SCH (17:00)
[2018-02-03] MEDS ORDERED: [UNRECOGNIZED DRUG - OTHER] IV SCH (17:00)
[2018-02-03] MEDS ORDERED: MCT IV SCH (17:00)
[2018-02-03] MEDS ORDERED: DEXTROSE 70% IV SCH (17:00)
[2018-02-03] MEDS ORDERED: FAT EMUL IV SCH (17:00)
[2018-02-03] MEDS ORDERED: SOY IV SCH (17:00)
[2018-02-03] MEDS ORDERED: FISH OIL IV SCH (17:00)
[2018-02-04] MEDS: INSULIN LISPRO 100 UNITS/ML, PEN SQ-INSULIN SCH ×4 (00:06→12:00)
[2018-02-04] MEDS: LINEZOLID PMX 600MG/300ML 300 ML IV SCH ×2 (01:21→13:59)
[2018-02-04 04:34] LABS: MEAN CORPUSCULAR HEMOGLOBIN 29.5 pg (27.0-34.8); MEAN CORPUSCULAR HGB CONC 33.9 g/dL (32.4-35.8); MEAN PLATELET VOLUME 8.7 fL (7.4-10.4); PLATELET COUNT 242 x10^3/uL (130-400); RED BLOOD COUNT 2.86 x10^6/uL (3.82-5.3); RED CELL DISTRIBUTION WIDTH 16.1 % (9.6-15.2)
[2018-02-04 04:44] LABS: ALBUMIN 3.6 g/dL (3.4-5.0); ANION GAP 15 mmol/L (5-15); CALCIUM 9.3 mg/dL (8.5-10.1); CHLORIDE 97 mmol/L (98-107)
[2018-02-04 04:51] LABS: ALANINE AMINOTRANSFERASE 19 U/L (12-78); ALKALINE PHOSPHATASE 130 U/L (45-117); BILIRUBIN,TOTAL 1.6 mg/dL (0.2-1.0); CREATININE 2.66 mg/dL (0.55-1.02); TOTAL PROTEIN 8.2 g/dL (6.4-8.2); TRIGLYCERIDES 319 mg/dL (50-200)
[2018-02-04 05:34] LABS: MD YES
[2018-02-04 05:36] LABS: BAND#(MANUAL) 3.61 x10^3/uL; BANDS%(MANUAL) 23 % (0-7); EOS#(MANUAL) 0.16 x10^3/uL (0.0-0.4); EOS% (MANUAL) 1 % (1-7); LYMPH#(MANUAL) 2.67 x10^3/uL (1-3.4); LYMPHS% (MANUAL) 17 % (22-44); METAMYELOCYTES# (MANUAL) 0.16 x10^3/uL (0-0); METAMYELOCYTES% (MANUAL) 1 % (0-1); MONOS#(MANUAL) 0.94 x10^3/uL (0.3-2.7); MONOS% (MANUAL) 6 % (2-9); MYELOCYTES# (MANUAL) 0.31 x10^3/uL (0-0); MYELOCYTES% (MANUAL) 2 % (0-0); NRBC % (MANUAL) 2 % (0-1); SEG#(MANUAL) 7.85 x10^3/uL (1.8-6.8); SEGS% (MANUAL) 50 % (42-75)
[2018-02-04 05:37] LABS: <PLATELET ESTIMATE> ADEQUATE; <PLT MORPHOLOGY> NORMAL PLT MORPH; ANISOCYTOSIS 1+; MICROCYTOSIS 1+; POLYCHROMASIA 1+
[2018-02-04] MEDS: FENTANYL PF 100 MCG/2ML IVPush PRN ×4 (06:23→22:25)
[2018-02-04] MEDS: MEROPENEM 500 MG in SODIUM CHLORIDE 0.9% 100 ML IV SCH (06:42)
[2018-02-04] MEDS: ALBUMIN HUMAN 25% 100 ML IV SCH ×3 (08:09→23:18)
[2018-02-04] MEDS: PANTOPRAZOLE 40 MG IV IVPush SCH ×2 (08:16→21:19)
[2018-02-04] MEDS: DIGOXIN 0.25 MG/ML, 2ML IVPush SCH (08:17)
[2018-02-04] MEDS ORDERED: ACETAMINOPHEN 650 MG SUPP ONE (09:07)
[2018-02-04] MEDS ORDERED: ACETAMINOPHEN 650 MG SUPP PR PRN (09:30)
[2018-02-04] MEDS: MEROPENEM 1 GM in SODIUM CHLORIDE 0.9% 100 ML IV SCH (14:07)
[2018-02-04] MEDS: MICAFUNGIN 100 MG in SODIUM CHLORIDE 0.9% 100 ML IV SCH (15:14)
[2018-02-04 16:55] LABS: CULTURE INDICATED? YES; MICROSCOPIC INDICATED
[2018-02-04] MEDS ORDERED: FAT EMUL IV SCH (17:00)
[2018-02-04] MEDS ORDERED: DEXTROSE 70% IV SCH (17:00)
[2018-02-04] MEDS ORDERED: AMINO ACID 10% IV SCH (17:00)
[2018-02-04] MEDS ORDERED: FISH OIL IV SCH (17:00)
[2018-02-04] MEDS ORDERED: MCT IV SCH (17:00)
[2018-02-04] MEDS ORDERED: OLIV IV SCH (17:00)
[2018-02-04] MEDS ORDERED: SOY IV SCH (17:00)
[2018-02-04] MEDS ORDERED: [UNRECOGNIZED DRUG - OTHER] IV SCH (17:00)
[2018-02-04] MEDS: AMIODARONE 900 MG in DEXTROSE 5% 482 ML IV PRN (19:58)
[2018-02-05] MEDS: MEROPENEM 1 GM in SODIUM CHLORIDE 0.9% 100 ML IV SCH ×2 (01:54→14:14)
[2018-02-05] MEDS: FENTANYL PF 100 MCG/2ML IVPush PRN ×5 (01:54→22:34)
[2018-02-05] MEDS: LINEZOLID PMX 600MG/300ML 300 ML IV SCH ×2 (02:25→13:23)
[2018-02-05 04:42] LABS: MEAN CORPUSCULAR HEMOGLOBIN 28.2 pg (27.0-34.8); MEAN CORPUSCULAR VOLUME 85.3 fL (80-100); MEAN PLATELET VOLUME 8.4 fL (7.4-10.4); PLATELET COUNT 277 x10^3/uL (130-400); RED BLOOD COUNT 3.02 x10^6/uL (3.82-5.3)
[2018-02-05 04:56] LABS: ALANINE AMINOTRANSFERASE 20 U/L (12-78); ALBUMIN 3.6 g/dL (3.4-5.0); ANION GAP 16 mmol/L (5-15); CALCIUM 9.1 mg/dL (8.5-10.1); CHLORIDE 94 mmol/L (98-107)
[2018-02-05 05:00] LABS: ALKALINE PHOSPHATASE 111 U/L (45-117); BILIRUBIN,TOTAL 1.3 mg/dL (0.2-1.0); CREATININE 2.41 mg/dL (0.55-1.02); TOTAL PROTEIN 8.4 g/dL (6.4-8.2); TRIGLYCERIDES 512 mg/dL (50-200)
[2018-02-05 05:48] LABS: MD YES
[2018-02-05 05:52] LABS: ANISOCYTOSIS 1+; BAND#(MANUAL) 2.54 x10^3/uL; BANDS%(MANUAL) 24 % (0-7); LYMPH#(MANUAL) 2.12 x10^3/uL (1-3.4); LYMPHS% (MANUAL) 20 % (22-44); MICROCYTOSIS 1+; MONOS#(MANUAL) 0.21 x10^3/uL (0.3-2.7); MONOS% (MANUAL) 2 % (2-9); POLYCHROMASIA 1+; SEG#(MANUAL) 5.72 x10^3/uL (1.8-6.8); SEGS% (MANUAL) 54 % (42-75)
[2018-02-05 05:53] LABS: <PLATELET ESTIMATE> ADEQUATE; <PLT MORPHOLOGY> NORMAL PLT MORPH
[2018-02-05] MEDS: DIGOXIN 0.25 MG/ML, 2ML IVPush SCH (07:54)
[2018-02-05] MEDS: PANTOPRAZOLE 40 MG IV IVPush SCH ×2 (07:54→21:30)
[2018-02-05] MEDS: ALBUMIN HUMAN 25% 100 ML IV SCH ×3 (07:54→23:40)
[2018-02-05] MEDS: INSULIN LISPRO 100 UNITS/ML, PEN SQ-INSULIN SCH ×3 (10:10→21:34)
[2018-02-05] MEDS: MICAFUNGIN 100 MG in SODIUM CHLORIDE 0.9% 100 ML IV SCH (15:04)
[2018-02-05] MEDS ORDERED: AMINO ACID 10% IV SCH (17:00)
[2018-02-05] MEDS ORDERED: SODIUM CHLORIDE IV SCH (17:00)
[2018-02-05] MEDS ORDERED: [UNRECOGNIZED DRUG - OTHER] IV SCH (17:00)
[2018-02-05] MEDS ORDERED: DEXTROSE 70% IV SCH (17:00)
[2018-02-06] MEDS: LINEZOLID PMX 600MG/300ML 300 ML IV SCH ×2 (01:11→13:35)
[2018-02-06] MEDS: MEROPENEM 1 GM in SODIUM CHLORIDE 0.9% 100 ML IV SCH ×2 (02:24→13:36)
[2018-02-06] MEDS: INSULIN LISPRO 100 UNITS/ML, PEN SQ-INSULIN SCH ×4 (03:08→21:06)
[2018-02-06 04:41] LABS: MEAN CORPUSCULAR HEMOGLOBIN 28.7 pg (27.0-34.8); MEAN CORPUSCULAR HGB CONC 33.9 g/dL (32.4-35.8); MEAN CORPUSCULAR VOLUME 84.6 fL (80-100); MEAN PLATELET VOLUME 8.3 fL (7.4-10.4); PLATELET COUNT 353 x10^3/uL (130-400); RED BLOOD COUNT 3.06 x10^6/uL (3.82-5.3); RED CELL DISTRIBUTION WIDTH 16.5 % (9.6-15.2)
[2018-02-06 04:44] LABS: MD YES
[2018-02-06 04:48] LABS: ALANINE AMINOTRANSFERASE 20 U/L (12-78); ALBUMIN 3.9 g/dL (3.4-5.0); ANION GAP 19 mmol/L (5-15); CALCIUM 9.8 mg/dL (8.5-10.1); CHLORIDE 92 mmol/L (98-107)
[2018-02-06 04:54] LABS: ALKALINE PHOSPHATASE 119 U/L (45-117); BILIRUBIN,TOTAL 1.1 mg/dL (0.2-1.0); PREALBUMIN 18.3 mg/dL (20.0-40.0); TOTAL PROTEIN 8.3 g/dL (6.4-8.2); TRIGLYCERIDES 414 mg/dL (50-200)
[2018-02-06 04:58] LABS: BAND#(MANUAL) 1.19 x10^3/uL; BANDS%(MANUAL) 9 % (0-7); EOS#(MANUAL) 0.13 x10^3/uL (0.0-0.4); EOS% (MANUAL) 1 % (1-7); LYMPH#(MANUAL) 2.11 x10^3/uL (1-3.4); LYMPHS% (MANUAL) 16 % (22-44); METAMYELOCYTES# (MANUAL) 0.26 x10^3/uL (0-0); METAMYELOCYTES% (MANUAL) 2 % (0-1); MONOS#(MANUAL) 0.79 x10^3/uL (0.3-2.7); MONOS% (MANUAL) 6 % (2-9); SEG#(MANUAL) 8.71 x10^3/uL (1.8-6.8); SEGS% (MANUAL) 66 % (42-75)
[2018-02-06 04:59] LABS: <PLATELET ESTIMATE> ADEQUATE; <PLT MORPHOLOGY> NORMAL PLT MORPH; ANISOCYTOSIS 1+; MICROCYTOSIS 1+; POLYCHROMASIA 1+
[2018-02-06] MEDS: AMIODARONE 900 MG in DEXTROSE 5% 482 ML IV PRN (05:00)
[2018-02-06] MEDS: PANTOPRAZOLE 40 MG IV IVPush SCH ×2 (08:16→21:00)
[2018-02-06] MEDS: DIGOXIN 0.25 MG/ML, 2ML IVPush SCH (08:16)
[2018-02-06] MEDS: ALBUMIN HUMAN 25% 100 ML IV SCH ×3 (09:21→23:36)
[2018-02-06] MEDS: MICAFUNGIN 100 MG in SODIUM CHLORIDE 0.9% 100 ML IV SCH (15:07)
[2018-02-06] MEDS ORDERED: SODIUM CHLORIDE IV SCH (17:00)
[2018-02-06] MEDS ORDERED: [UNRECOGNIZED DRUG - OTHER] IV SCH (17:00)
[2018-02-06] MEDS ORDERED: DEXTROSE 70% IV SCH (17:00)
[2018-02-06] MEDS ORDERED: AMINO ACID 10% IV SCH (17:00)
[2018-02-07] MEDS: LINEZOLID PMX 600MG/300ML 300 ML IV SCH ×2 (01:20→20:32)
[2018-02-07] MEDS: MEROPENEM 1 GM in SODIUM CHLORIDE 0.9% 100 ML IV SCH ×2 (02:04→17:12)
[2018-02-07] MEDS: INSULIN LISPRO 100 UNITS/ML, PEN SQ-INSULIN SCH ×4 (03:15→20:32)
[2018-02-07 04:27] LABS: ANION GAP 19 mmol/L (5-15); CHLORIDE 93 mmol/L (98-107); CREATININE 2.63 mg/dL (0.55-1.02)
[2018-02-07 04:28] LABS: ALANINE AMINOTRANSFERASE 27 U/L (12-78)
[2018-02-07 04:30] LABS: ALKALINE PHOSPHATASE 145 U/L (45-117); TOTAL PROTEIN 8.7 g/dL (6.4-8.2)
[2018-02-07 04:39] LABS: MEAN CORPUSCULAR HEMOGLOBIN 29.1 pg (27.0-34.8); MEAN CORPUSCULAR HGB CONC 34.2 g/dL (32.4-35.8); MEAN CORPUSCULAR VOLUME 85.1 fL (80-100); MEAN PLATELET VOLUME 8.5 fL (7.4-10.4); PLATELET COUNT 402 x10^3/uL (130-400); RED BLOOD COUNT 2.95 x10^6/uL (3.82-5.3)
[2018-02-07 05:11] LABS: MD YES
[2018-02-07 05:13] LABS: <PLATELET ESTIMATE> ADEQUATE; <PLT MORPHOLOGY> NORMAL PLT MORPH; ANISOCYTOSIS 1+; BAND#(MANUAL) 1.08 x10^3/uL; BANDS%(MANUAL) 11 % (0-7); LYMPH#(MANUAL) 1.47 x10^3/uL (1-3.4); LYMPHS% (MANUAL) 15 % (22-44); METAMYELOCYTES% (MANUAL) 1 % (0-1); MICROCYTOSIS 1+; MONOS#(MANUAL) 0.29 x10^3/uL (0.3-2.7); MONOS% (MANUAL) 3 % (2-9); POLYCHROMASIA 1+; SEG#(MANUAL) 6.86 x10^3/uL (1.8-6.8); SEGS% (MANUAL) 70 % (42-75)
[2018-02-07] MEDS: DIGOXIN 0.25 MG/ML, 2ML IVPush SCH (09:00)
[2018-02-07] MEDS: PANTOPRAZOLE 40 MG IV IVPush SCH ×2 (09:12→20:34)
[2018-02-07] MEDS: FENTANYL PF 100 MCG/2ML IVPush PRN ×2 (10:16→12:13)
[2018-02-07] MEDS: AMIODARONE 900 MG in DEXTROSE 5% 482 ML IV PRN (12:02)
[2018-02-07] MEDS: HEPARIN 5,000 UNITS/ML, 1ML SQ SCH ×2 (12:04→20:32)
[2018-02-07] MEDS ORDERED: DEXTROSE 70% IV SCH (17:00)
[2018-02-07] MEDS ORDERED: AMINO ACID 10% IV SCH (17:00)
[2018-02-07] MEDS ORDERED: [UNRECOGNIZED DRUG - OTHER] IV SCH (17:00)
[2018-02-07] MEDS: MICAFUNGIN 100 MG in SODIUM CHLORIDE 0.9% 100 ML IV SCH (17:38)
[2018-02-08] MEDS: INSULIN LISPRO 100 UNITS/ML, PEN SQ-INSULIN SCH ×4 (03:28→21:10)
[2018-02-08] MEDS: HEPARIN 5,000 UNITS/ML, 1ML SQ SCH ×3 (05:00→20:56)
[2018-02-08] MEDS: MEROPENEM 1 GM in SODIUM CHLORIDE 0.9% 100 ML IV SCH ×2 (05:00→13:57)
[2018-02-08] MEDS: FENTANYL PF 100 MCG/2ML IVPush PRN ×4 (05:44→16:42)
[2018-02-08 06:08] LABS: MEAN CORPUSCULAR HEMOGLOBIN 28.6 pg (27.0-34.8); MEAN CORPUSCULAR HGB CONC 33.8 g/dL (32.4-35.8); MEAN CORPUSCULAR VOLUME 84.6 fL (80-100); MEAN PLATELET VOLUME 7.8 fL (7.4-10.4); PLATELET COUNT 482 x10^3/uL (130-400); RED BLOOD COUNT 3.38 x10^6/uL (3.82-5.3); RED CELL DISTRIBUTION WIDTH 16.6 % (9.6-15.2)
[2018-02-08 06:23] LABS: ANION GAP 22 mmol/L (5-15); CHLORIDE 92 mmol/L (98-107)
[2018-02-08 06:34] LABS: ALANINE AMINOTRANSFERASE 40 U/L (12-78); ALBUMIN 3.9 g/dL (3.4-5.0); ALKALINE PHOSPHATASE 192 U/L (45-117); BILIRUBIN,TOTAL 1.2 mg/dL (0.2-1.0); CREATININE 2.64 mg/dL (0.55-1.02); TOTAL PROTEIN 9.2 g/dL (6.4-8.2); TRIGLYCERIDES 482 mg/dL (50-200)
[2018-02-08 07:49] LABS: MD YES
[2018-02-08 07:50] LABS: SEG#(MANUAL) 6.08 x10^3/uL (1.8-6.8); SEGS% (MANUAL) 45 % (42-75)
[2018-02-08 07:51] LABS: BAND#(MANUAL) 2.43 x10^3/uL; BANDS%(MANUAL) 18 % (0-7); EOS#(MANUAL) 0.41 x10^3/uL (0.0-0.4); EOS% (MANUAL) 3 % (1-7); LYMPHS% (MANUAL) 20 % (22-44); METAMYELOCYTES# (MANUAL) 0.27 x10^3/uL (0-0); METAMYELOCYTES% (MANUAL) 2 % (0-1); MONOS#(MANUAL) 1.49 x10^3/uL (0.3-2.7); MONOS% (MANUAL) 11 % (2-9); MYELOCYTES# (MANUAL) 0.14 x10^3/uL (0-0); MYELOCYTES% (MANUAL) 1 % (0-0)
[2018-02-08 07:52] LABS: <PLATELET ESTIMATE> INCREASED; LARGE PLATELETS 1+
[2018-02-08 07:53] LABS: ANISOCYTOSIS 1+; POLYCHROMASIA 1+
[2018-02-08] MEDS: DIGOXIN 0.25 MG/ML, 2ML IVPush SCH (08:49)
[2018-02-08] MEDS: PANTOPRAZOLE 40 MG IV IVPush SCH ×2 (08:49→20:56)
[2018-02-08] MEDS: LINEZOLID PMX 600MG/300ML 300 ML IV SCH ×2 (08:50→20:57)
[2018-02-08] MEDS: MICAFUNGIN 100 MG in SODIUM CHLORIDE 0.9% 100 ML IV SCH (15:51)
[2018-02-08] MEDS: AMIODARONE 900 MG in DEXTROSE 5% 482 ML IV PRN (16:42)
[2018-02-08] MEDS: FILTER, DISP 1.2 MICRON FOR TPN/PVN IV PRN (16:43)
[2018-02-08] MEDS: FILTER 0.22 MICRON IV PRN (16:43)
[2018-02-08] MEDS ORDERED: AMINO ACID 10% IV SCH ×2 (17:00)
[2018-02-08] MEDS ORDERED: DEXTROSE 70% IV SCH ×2 (17:00)
[2018-02-08] MEDS ORDERED: [UNRECOGNIZED DRUG - OTHER] IV SCH ×2 (17:00)
[2018-02-08] MEDS ORDERED: SODIUM CHLORIDE IV SCH ×2 (17:00)
[2018-02-09] MEDS: FENTANYL PF 100 MCG/2ML IVPush PRN ×3 (01:31→23:39)
[2018-02-09] MEDS: MEROPENEM 1 GM in SODIUM CHLORIDE 0.9% 100 ML IV SCH ×2 (02:39→14:16)
[2018-02-09] MEDS: INSULIN LISPRO 100 UNITS/ML, PEN SQ-INSULIN SCH ×4 (02:40→23:34)
[2018-02-09] MEDS: HEPARIN 5,000 UNITS/ML, 1ML SQ SCH ×3 (04:34→23:30)
[2018-02-09 04:51] LABS: FIO2 40 %
[2018-02-09 05:01] LABS: MEAN CORPUSCULAR HEMOGLOBIN 29.1 pg (27.0-34.8); MEAN CORPUSCULAR VOLUME 85.4 fL (80-100); MEAN PLATELET VOLUME 8.2 fL (7.4-10.4); PLATELET COUNT 506 x10^3/uL (130-400); RED BLOOD COUNT 3.18 x10^6/uL (3.82-5.3); RED CELL DISTRIBUTION WIDTH 16.6 % (9.6-15.2)
[2018-02-09 05:08] LABS: ALANINE AMINOTRANSFERASE 37 U/L (12-78); ALBUMIN 3.3 g/dL (3.4-5.0); ANION GAP 24 mmol/L (5-15); CALCIUM 10.2 mg/dL (8.5-10.1); CHLORIDE 92 mmol/L (98-107); CREATININE 3.52 mg/dL (0.55-1.02)
[2018-02-09 05:11] LABS: ALKALINE PHOSPHATASE 185 U/L (45-117); TOTAL PROTEIN 8.4 g/dL (6.4-8.2); TRIGLYCERIDES 429 mg/dL (50-200)
[2018-02-09 05:35] LABS: MD YES
[2018-02-09 05:40] LABS: <PLATELET ESTIMATE> INCREASED; ANISOCYTOSIS 1+; BAND#(MANUAL) 1.78 x10^3/uL; BANDS%(MANUAL) 12 % (0-7); LARGE PLATELETS 1+; LYMPH#(MANUAL) 2.37 x10^3/uL (1-3.4); LYMPHS% (MANUAL) 16 % (22-44); MONOS#(MANUAL) 1.04 x10^3/uL (0.3-2.7); MONOS% (MANUAL) 7 % (2-9); MYELOCYTES% (MANUAL) 2 % (0-0); NRBC % (MANUAL) 1 % (0-1); SEG#(MANUAL) 9.32 x10^3/uL (1.8-6.8); SEGS% (MANUAL) 63 % (42-75)
[2018-02-09] MEDS: PANTOPRAZOLE 40 MG IV IVPush SCH ×2 (09:30→23:30)
[2018-02-09] MEDS: LINEZOLID PMX 600MG/300ML 300 ML IV SCH ×2 (11:57→23:29)
[2018-02-09] MEDS: MICAFUNGIN 100 MG in SODIUM CHLORIDE 0.9% 100 ML IV SCH (15:23)
[2018-02-09] MEDS ORDERED: AMINO ACID 10% IV SCH (17:00)
[2018-02-09] MEDS ORDERED: [UNRECOGNIZED DRUG - OTHER] IV SCH (17:00)
[2018-02-09] MEDS ORDERED: DEXTROSE 70% IV SCH (17:00)
[2018-02-09] MEDS: FILTER 0.22 MICRON IV PRN (17:00)
[2018-02-09] MEDS: FILTER, DISP 1.2 MICRON FOR TPN/PVN IV PRN (17:00)
[2018-02-09] MEDS: AMIODARONE 900 MG in DEXTROSE 5% 482 ML IV PRN (17:00)
[2018-02-09] MEDS ORDERED: MIDAZOLAM 1 MG/ML, 2ML ONE (18:27)
[2018-02-09] MEDS ORDERED: FENTANYL PF 250 MCG/5ML ONE (18:27)
[2018-02-09] MEDS ORDERED: ROCURONIUM 10 MG/ML,10ML ONE (18:43)
[2018-02-09] MEDS: MIDAZOLAM HCL 50 MG in SODIUM CHLORIDE 0.9% 240 ML IV PRN (21:08)
[2018-02-10] MEDS: MEROPENEM 1 GM in SODIUM CHLORIDE 0.9% 100 ML IV SCH ×2 (03:00→14:20)
[2018-02-10] MEDS: FENTANYL PF 100 MCG/2ML IVPush PRN ×3 (03:00→19:54)
[2018-02-10] MEDS: HEPARIN 5,000 UNITS/ML, 1ML SQ SCH ×3 (04:00→23:02)
[2018-02-10 05:26] LABS: MEAN CORPUSCULAR HEMOGLOBIN 29.5 pg (27.0-34.8); MEAN CORPUSCULAR HGB CONC 34.5 g/dL (32.4-35.8); MEAN CORPUSCULAR VOLUME 85.6 fL (80-100); MEAN PLATELET VOLUME 7.6 fL (7.4-10.4); PLATELET COUNT 472 x10^3/uL (130-400); RED BLOOD COUNT 2.82 x10^6/uL (3.82-5.3); RED CELL DISTRIBUTION WIDTH 16.5 % (9.6-15.2)
[2018-02-10 05:36] LABS: ALBUMIN 2.9 g/dL (3.4-5.0); ANION GAP 16 mmol/L (5-15); CALCIUM 9.2 mg/dL (8.5-10.1); CHLORIDE 92 mmol/L (98-107)
[2018-02-10 05:41] LABS: ALANINE AMINOTRANSFERASE 28 U/L (12-78); ALKALINE PHOSPHATASE 160 U/L (45-117); BILIRUBIN,TOTAL 0.9 mg/dL (0.2-1.0); CREATININE 2.48 mg/dL (0.55-1.02); TOTAL PROTEIN 7.8 g/dL (6.4-8.2)
[2018-02-10 05:46] LABS: MD YES
[2018-02-10 05:49] LABS: ANISOCYTOSIS 1+; BAND#(MANUAL) 1.65 x10^3/uL; BANDS%(MANUAL) 14 % (0-7); BASOS#(MANUAL) 0.12 x10^3/uL (0-0.1); BASOS% (MANUAL) 1 % (0-1); EOS#(MANUAL) 0.24 x10^3/uL (0.0-0.4); EOS% (MANUAL) 2 % (1-7); LYMPH#(MANUAL) 2.24 x10^3/uL (1-3.4); LYMPHS% (MANUAL) 19 % (22-44); MONOS#(MANUAL) 0.71 x10^3/uL (0.3-2.7); MONOS% (MANUAL) 6 % (2-9); MYELOCYTES# (MANUAL) 0.12 x10^3/uL (0-0); MYELOCYTES% (MANUAL) 1 % (0-0); SEG#(MANUAL) 6.73 x10^3/uL (1.8-6.8); SEGS% (MANUAL) 57 % (42-75)
[2018-02-10 05:50] LABS: <PLATELET ESTIMATE> INCREASED; LARGE PLATELETS 1+; POLYCHROMASIA 1+
[2018-02-10] MEDS: INSULIN LISPRO 100 UNITS/ML, PEN SQ-INSULIN SCH ×4 (06:19→23:06)
[2018-02-10] MEDS: PANTOPRAZOLE 40 MG IV IVPush SCH ×2 (08:51→23:02)
[2018-02-10] MEDS: MIDAZOLAM HCL 50 MG in SODIUM CHLORIDE 0.9% 240 ML IV PRN (08:52)
[2018-02-10] MEDS ORDERED: FENTANYL PF 100 MCG/2ML ONE (10:21)
[2018-02-10] MEDS ORDERED: MIDAZOLAM 1 MG/ML, 2ML ONE (10:21)
[2018-02-10] MEDS ORDERED: PHENYLEPHRINE 10 MG/ML ONE (10:28)
[2018-02-10] MEDS ORDERED: ROCURONIUM 10 MG/ML,10ML ONE (10:28)
[2018-02-10] MEDS ORDERED: BUPIVACAINE/PF-EPI 0.5% 1:200K INFIL ONE (11:03)
[2018-02-10] MEDS ORDERED: BUPIVACAINE/PF-EPI 0.5% 1:200K ONE (14:16)
[2018-02-10] MEDS: MIDAZOLAM 1 MG/ML, 2ML IVPush PRN (14:36)
[2018-02-10] MEDS: MICAFUNGIN 100 MG in SODIUM CHLORIDE 0.9% 100 ML IV SCH (15:02)
[2018-02-10] MEDS: LINEZOLID PMX 600MG/300ML 300 ML IV SCH (16:17)
[2018-02-10] MEDS ORDERED: DEXTROSE 70% IV SCH (17:00)
[2018-02-10] MEDS ORDERED: AMINO ACID 10% IV SCH (17:00)
[2018-02-10] MEDS ORDERED: [UNRECOGNIZED DRUG - OTHER] IV SCH (17:00)
[2018-02-10] MEDS: AMIODARONE 900 MG in DEXTROSE 5% 482 ML IV PRN (17:20)
[2018-02-11] MEDS: FENTANYL PF 100 MCG/2ML IVPush PRN ×4 (00:33→21:09)
[2018-02-11] MEDS: LINEZOLID PMX 600MG/300ML 300 ML IV SCH ×2 (02:28→15:33)
[2018-02-11] MEDS: MEROPENEM 1 GM in SODIUM CHLORIDE 0.9% 100 ML IV SCH ×2 (02:31→14:15)
[2018-02-11 04:22] LABS: ALBUMIN 2.5 g/dL (3.4-5.0); ANION GAP 23 mmol/L (5-15); CHLORIDE 92 mmol/L (98-107)
[2018-02-11 04:25] LABS: MEAN CORPUSCULAR HEMOGLOBIN 29.4 pg (27.0-34.8); MEAN CORPUSCULAR HGB CONC 34.2 g/dL (32.4-35.8); MEAN PLATELET VOLUME 7.5 fL (7.4-10.4); PLATELET COUNT 465 x10^3/uL (130-400); RED BLOOD COUNT 2.56 x10^6/uL (3.82-5.3); RED CELL DISTRIBUTION WIDTH 17.3 % (9.6-15.2)
[2018-02-11 04:27] LABS: ALANINE AMINOTRANSFERASE 21 U/L (12-78); ALKALINE PHOSPHATASE 142 U/L (45-117); BILIRUBIN,TOTAL 0.8 mg/dL (0.2-1.0); CREATININE 3.03 mg/dL (0.55-1.02); TOTAL PROTEIN 7.2 g/dL (6.4-8.2); TRIGLYCERIDES 418 mg/dL (50-200)
[2018-02-11 05:20] LABS: MD YES
[2018-02-11 05:23] LABS: BAND#(MANUAL) 1.27 x10^3/uL; BANDS%(MANUAL) 9 % (0-7); LYMPHS% (MANUAL) 17 % (22-44); METAMYELOCYTES# (MANUAL) 0.28 x10^3/uL (0-0); METAMYELOCYTES% (MANUAL) 2 % (0-1); MONOS#(MANUAL) 0.99 x10^3/uL (0.3-2.7); MONOS% (MANUAL) 7 % (2-9); MYELOCYTES# (MANUAL) 0.28 x10^3/uL (0-0); MYELOCYTES% (MANUAL) 2 % (0-0); REACTIVE LYMPHS # (MANUAL) 0.14 x10^3/uL (0-0); REACTIVE LYMPHS % (MANUAL) 1 % (0-0); SEG#(MANUAL) 8.74 x10^3/uL (1.8-6.8); SEGS% (MANUAL) 62 % (42-75)
[2018-02-11 05:24] LABS: <PLATELET ESTIMATE> INCREASED; ANISOCYTOSIS 1+; LARGE PLATELETS 1+; POLYCHROMASIA 1+
[2018-02-11] MEDS: INSULIN LISPRO 100 UNITS/ML, PEN SQ-INSULIN SCH ×4 (05:36→23:00)
[2018-02-11] MEDS: HEPARIN 5,000 UNITS/ML, 1ML SQ SCH ×2 (07:00→16:16)
[2018-02-11] MEDS: MIDAZOLAM HCL 50 MG in SODIUM CHLORIDE 0.9% 240 ML IV PRN (11:19)
[2018-02-11] MEDS: PANTOPRAZOLE 40 MG IV IVPush SCH (14:15)
[2018-02-11] MEDS: MICAFUNGIN 100 MG in SODIUM CHLORIDE 0.9% 100 ML IV SCH (16:54)
[2018-02-11] MEDS ORDERED: [UNRECOGNIZED DRUG - OTHER] IV SCH (17:00)
[2018-02-11] MEDS ORDERED: DEXTROSE 70% IV SCH (17:00)
[2018-02-11] MEDS ORDERED: AMINO ACID 10% IV SCH (17:00)
[2018-02-12] MEDS: PANTOPRAZOLE 40 MG IV IVPush SCH ×3 (00:03→21:20)
[2018-02-12] MEDS: AMIODARONE 900 MG in DEXTROSE 5% 482 ML IV PRN (00:04)
[2018-02-12] MEDS: HEPARIN 5,000 UNITS/ML, 1ML SQ SCH ×3 (00:04→16:06)
[2018-02-12] MEDS: MEROPENEM 1 GM in SODIUM CHLORIDE 0.9% 100 ML IV SCH ×2 (02:18→13:57)
[2018-02-12] MEDS: LINEZOLID PMX 600MG/300ML 300 ML IV SCH ×2 (03:21→14:31)
[2018-02-12 04:22] LABS: ALANINE AMINOTRANSFERASE 21 U/L (12-78); ALBUMIN 2.4 g/dL (3.4-5.0); ANION GAP 13 mmol/L (5-15); CALCIUM 8.7 mg/dL (8.5-10.1); CHLORIDE 93 mmol/L (98-107); CREATININE 2.19 mg/dL (0.55-1.02)
[2018-02-12 04:24] LABS: ALKALINE PHOSPHATASE 141 U/L (45-117); BILIRUBIN,TOTAL 0.7 mg/dL (0.2-1.0); TOTAL PROTEIN 7.2 g/dL (6.4-8.2)
[2018-02-12 04:30] LABS: MEAN CORPUSCULAR HEMOGLOBIN 29.4 pg (27.0-34.8); MEAN CORPUSCULAR HGB CONC 34.3 g/dL (32.4-35.8); MEAN CORPUSCULAR VOLUME 85.8 fL (80-100); MEAN PLATELET VOLUME 7.5 fL (7.4-10.4); PLATELET COUNT 391 x10^3/uL (130-400); RED BLOOD COUNT 2.34 x10^6/uL (3.82-5.3); RED CELL DISTRIBUTION WIDTH 16.8 % (9.6-15.2)
[2018-02-12] MEDS: INSULIN LISPRO 100 UNITS/ML, PEN SQ-INSULIN SCH ×4 (05:39→23:18)
[2018-02-12 05:41] LABS: MD YES
[2018-02-12 05:43] LABS: <PLATELET ESTIMATE> ADEQUATE; <PLT MORPHOLOGY> NORMAL PLT MORPH; ANISOCYTOSIS 1+; BAND#(MANUAL) 0.62 x10^3/uL; BANDS%(MANUAL) 5 % (0-7); EOS#(MANUAL) 0.12 x10^3/uL (0.0-0.4); EOS% (MANUAL) 1 % (1-7); LYMPHS% (MANUAL) 21 % (22-44); METAMYELOCYTES# (MANUAL) 0.12 x10^3/uL (0-0); METAMYELOCYTES% (MANUAL) 1 % (0-1); MONOS#(MANUAL) 0.25 x10^3/uL (0.3-2.7); MONOS% (MANUAL) 2 % (2-9); MYELOCYTES# (MANUAL) 0.12 x10^3/uL (0-0); MYELOCYTES% (MANUAL) 1 % (0-0); POLYCHROMASIA 1+; SEG#(MANUAL) 8.56 x10^3/uL (1.8-6.8); SEGS% (MANUAL) 69 % (42-75)
[2018-02-12 06:48] VITALS: BP 116/60
[2018-02-12] MEDS: MIDAZOLAM HCL 50 MG in SODIUM CHLORIDE 0.9% 240 ML IV PRN (06:50)
[2018-02-12 07:03] VITALS: BP 110/53
[2018-02-12 09:09] VITALS: BP 112/54
[2018-02-12 10:57] LABS: CULTURE INDICATED? YES; MICROSCOPIC INDICATED
[2018-02-12] MEDS: FENTANYL PF 100 MCG/2ML IVPush PRN (13:57)
[2018-02-12] MEDS: MICAFUNGIN 100 MG in SODIUM CHLORIDE 0.9% 100 ML IV SCH (14:31)
[2018-02-12] MEDS: FILTER, DISP 1.2 MICRON FOR TPN/PVN IV PRN (16:51)
[2018-02-12] MEDS ORDERED: [UNRECOGNIZED DRUG - OTHER] IV SCH (17:00)
[2018-02-12] MEDS ORDERED: DEXTROSE 70% IV SCH ×2 (17:00)
[2018-02-12] MEDS ORDERED: AMINO ACID 10% IV SCH ×2 (17:00)
[2018-02-12] MEDS ORDERED: [UNRECOGNIZED DRUG - OTHER] IV SCH (17:00)
[2018-02-13] MEDS: FENTANYL PF 100 MCG/2ML IVPush PRN ×2 (01:22→09:07)
[2018-02-13] MEDS: MEROPENEM 1 GM in SODIUM CHLORIDE 0.9% 100 ML IV SCH ×2 (02:15→14:33)
[2018-02-13] MEDS: LINEZOLID PMX 600MG/300ML 300 ML IV SCH ×2 (03:28→16:15)
[2018-02-13] MEDS: INSULIN LISPRO 100 UNITS/ML, PEN SQ-INSULIN SCH ×3 (04:21→17:26)
[2018-02-13] MEDS: MIDAZOLAM HCL 50 MG in SODIUM CHLORIDE 0.9% 240 ML IV PRN (04:21)
[2018-02-13] MEDS: FILTER 0.22 MICRON IV PRN (04:22)
[2018-02-13] MEDS: AMIODARONE 900 MG in DEXTROSE 5% 482 ML IV PRN (04:22)
[2018-02-13 04:28] VITALS: BP 117/65
[2018-02-13 05:45] LABS: MEAN CORPUSCULAR HEMOGLOBIN 29.4 pg (27.0-34.8); MEAN CORPUSCULAR HGB CONC 34.7 g/dL (32.4-35.8); MEAN CORPUSCULAR VOLUME 84.8 fL (80-100); MEAN PLATELET VOLUME 7.2 fL (7.4-10.4); PLATELET COUNT 401 x10^3/uL (130-400); RED BLOOD COUNT 2.68 x10^6/uL (3.82-5.3); RED CELL DISTRIBUTION WIDTH 17.4 % (9.6-15.2)
[2018-02-13 05:51] LABS: ALANINE AMINOTRANSFERASE 20 U/L (12-78); ALBUMIN 2.2 g/dL (3.4-5.0); ANION GAP 18 mmol/L (5-15); CALCIUM 9.1 mg/dL (8.5-10.1); CHLORIDE 94 mmol/L (98-107); CREATININE 2.48 mg/dL (0.55-1.02)
[2018-02-13 05:56] LABS: ALKALINE PHOSPHATASE 146 U/L (45-117); BILIRUBIN,TOTAL 0.7 mg/dL (0.2-1.0); TOTAL PROTEIN 7.1 g/dL (6.4-8.2)
[2018-02-13 05:58] LABS: MD YES
[2018-02-13 06:00] LABS: ANISOCYTOSIS 1+; BAND#(MANUAL) 0.98 x10^3/uL; BANDS%(MANUAL) 8 % (0-7); EOS#(MANUAL) 0.25 x10^3/uL (0.0-0.4); EOS% (MANUAL) 2 % (1-7); LYMPH#(MANUAL) 2.09 x10^3/uL (1-3.4); LYMPHS% (MANUAL) 17 % (22-44); MONOS#(MANUAL) 0.62 x10^3/uL (0.3-2.7); MONOS% (MANUAL) 5 % (2-9); POLYCHROMASIA 1+; SEG#(MANUAL) 8.36 x10^3/uL (1.8-6.8); SEGS% (MANUAL) 68 % (42-75)
[2018-02-13 06:01] LABS: <PLATELET ESTIMATE> ADEQUATE; <PLT MORPHOLOGY> NORMAL PLT MORPH
[2018-02-13] MEDS: PANTOPRAZOLE 40 MG IV IVPush SCH ×2 (09:03→20:30)
[2018-02-13] MEDS ORDERED: ROCURONIUM 10MG/ML,5ML ONE (13:32)
[2018-02-13] MEDS ORDERED: FENTANYL PF 250 MCG/5ML ONE (13:32)
[2018-02-13] MEDS ORDERED: PROPOFOL 10 MG/ML, 20ML ONE (13:32)
[2018-02-13] MEDS: MICAFUNGIN 100 MG in SODIUM CHLORIDE 0.9% 100 ML IV SCH (14:34)
[2018-02-13] MEDS ORDERED: DEXTROSE 70% IV SCH (17:00)
[2018-02-13] MEDS ORDERED: [UNRECOGNIZED DRUG - OTHER] IV SCH (17:00)
[2018-02-13] MEDS ORDERED: AMINO ACID 10% IV SCH (17:00)
[2018-02-13] MEDS: FILTER, DISP 1.2 MICRON FOR TPN/PVN IV PRN (17:33)
[2018-02-13] MEDS: HEPARIN 5,000 UNITS/ML, 1ML SQ SCH (20:30)
[2018-02-14] MEDS: INSULIN LISPRO 100 UNITS/ML, PEN SQ-INSULIN SCH ×5 (00:28→23:06)
[2018-02-14] MEDS: MEROPENEM 1 GM in SODIUM CHLORIDE 0.9% 100 ML IV SCH ×2 (02:26→16:47)
[2018-02-14] MEDS: LINEZOLID PMX 600MG/300ML 300 ML IV SCH ×3 (03:04→19:12)
[2018-02-14] MEDS: HEPARIN 5,000 UNITS/ML, 1ML SQ SCH ×3 (04:25→20:39)
[2018-02-14] MEDS: MIDAZOLAM HCL 50 MG in SODIUM CHLORIDE 0.9% 240 ML IV PRN (04:27)
[2018-02-14 04:34] LABS: MEAN CORPUSCULAR HEMOGLOBIN 28.9 pg (27.0-34.8); MEAN CORPUSCULAR HGB CONC 33.9 g/dL (32.4-35.8); MEAN CORPUSCULAR VOLUME 85.2 fL (80-100); MEAN PLATELET VOLUME 7.7 fL (7.4-10.4); PLATELET COUNT 435 x10^3/uL (130-400); RED BLOOD COUNT 2.49 x10^6/uL (3.82-5.3); RED CELL DISTRIBUTION WIDTH 17.3 % (9.6-15.2)
[2018-02-14 05:21] LABS: ANION GAP 20 mmol/L (5-15); CALCIUM 8.6 mg/dL (8.5-10.1); CHLORIDE 96 mmol/L (98-107)
[2018-02-14 05:25] LABS: ALANINE AMINOTRANSFERASE 18 U/L (12-78); ALKALINE PHOSPHATASE 141 U/L (45-117); BILIRUBIN,TOTAL 0.7 mg/dL (0.2-1.0); CREATININE 2.65 mg/dL (0.55-1.02); TOTAL PROTEIN 6.8 g/dL (6.4-8.2)
[2018-02-14 05:41] LABS: MD YES
[2018-02-14 05:46] LABS: BAND#(MANUAL) 0.76 x10^3/uL; BANDS%(MANUAL) 7 % (0-7); EOS#(MANUAL) 0.22 x10^3/uL (0.0-0.4); EOS% (MANUAL) 2 % (1-7); LYMPHS% (MANUAL) 11 % (22-44); MONOS#(MANUAL) 0.33 x10^3/uL (0.3-2.7); MONOS% (MANUAL) 3 % (2-9); MYELOCYTES# (MANUAL) 0.11 x10^3/uL (0-0); MYELOCYTES% (MANUAL) 1 % (0-0); SEG#(MANUAL) 8.28 x10^3/uL (1.8-6.8); SEGS% (MANUAL) 76 % (42-75)
[2018-02-14 05:47] LABS: <PLATELET ESTIMATE> INCREASED; ANISOCYTOSIS 1+; POLYCHROMASIA 1+; TOXIC GRAN 1+
[2018-02-14 05:48] LABS: <PLT MORPHOLOGY> NORMAL PLT MORPH
[2018-02-14] MEDS: FENTANYL PF 100 MCG/2ML IVPush PRN ×2 (08:11→11:56)
[2018-02-14] MEDS: PANTOPRAZOLE 40 MG IV IVPush SCH ×2 (08:14→20:39)
[2018-02-14] MEDS: FILTER 0.22 MICRON IV PRN (11:22)
[2018-02-14] MEDS: AMIODARONE 900 MG in DEXTROSE 5% 482 ML IV PRN (11:22)
[2018-02-14] MEDS ORDERED: ACETAMINOPHEN 1,000 MG/100 ML IV IVPB ONE (12:30)
[2018-02-14] MEDS: FILTER, DISP 1.2 MICRON FOR TPN/PVN IV PRN (15:13)
[2018-02-14] MEDS ORDERED: DEXTROSE 70% IV SCH (17:00)
[2018-02-14] MEDS ORDERED: AMINO ACID 10% IV SCH (17:00)
[2018-02-14] MEDS ORDERED: [UNRECOGNIZED DRUG - OTHER] IV SCH (17:00)
[2018-02-14] MEDS: MICAFUNGIN 100 MG in SODIUM CHLORIDE 0.9% 100 ML IV SCH (17:48)
[2018-02-14] MEDS ORDERED: SODIUM CHLORIDE 0.9% 500 ML IV ONE (22:00)
[2018-02-15] VITALS (7 sets, daily range): BP systolic 103–124; BP diastolic 46–67
[2018-02-15] MEDS: FENTANYL PF 100 MCG/2ML IVPush PRN ×3 (00:41→14:17)
[2018-02-15] MEDS: MEROPENEM 1 GM in SODIUM CHLORIDE 0.9% 100 ML IV SCH ×2 (02:06→14:11)
[2018-02-15] MEDS: INSULIN LISPRO 100 UNITS/ML, PEN SQ-INSULIN SCH ×3 (03:44→16:20)
[2018-02-15 03:52] LABS: MEAN CORPUSCULAR HEMOGLOBIN 29.8 pg (27.0-34.8); MEAN CORPUSCULAR HGB CONC 34.8 g/dL (32.4-35.8); MEAN CORPUSCULAR VOLUME 85.6 fL (80-100); MEAN PLATELET VOLUME 7.4 fL (7.4-10.4); PLATELET COUNT 426 x10^3/uL (130-400); RED BLOOD COUNT 2.27 x10^6/uL (3.82-5.3); RED CELL DISTRIBUTION WIDTH 17.2 % (9.6-15.2)
[2018-02-15 03:58] LABS: ANION GAP 9 mmol/L (5-15); CALCIUM 8.3 mg/dL (8.5-10.1); CHLORIDE 98 mmol/L (98-107); CREATININE 1.39 mg/dL (0.55-1.02)
[2018-02-15 04:07] LABS: BASOPHILS # (AUTO) 0.07 x10^3/uL (0-0.1); BASOPHILS % (AUTO) 1 % (0-1); EOSINOPHILS % (AUTO) 2 % (1-7); LYMPHOCYTES # (AUTO) 1.19 x10^3/uL (1-3.4); LYMPHOCYTES % (AUTO) 13 % (22-44); MD SCAN; MONOCYTES # (AUTO) 0.91 x10^3/uL (0.2-0.8); MONOCYTES % (AUTO) 10 % (2-9); NEUTROPHILS # (AUTO) 6.67 x10^3/uL (1.8-6.8); NEUTROPHILS % (AUTO) 74 % (42-75)
[2018-02-15] MEDS: HEPARIN 5,000 UNITS/ML, 1ML SQ SCH ×2 (04:54→12:13)
[2018-02-15] MEDS: MIDAZOLAM HCL 50 MG in SODIUM CHLORIDE 0.9% 240 ML IV PRN (06:14)
[2018-02-15] MEDS: LINEZOLID PMX 600MG/300ML 300 ML IV SCH ×2 (07:09→18:25)
[2018-02-15] MEDS: PANTOPRAZOLE 40 MG IV IVPush SCH (09:39)
[2018-02-15] MEDS ORDERED: METOPROLOL 1 MG/ML, 5ML IVPush PRN (11:00)
[2018-02-15] MEDS: AMIODARONE 900 MG in DEXTROSE 5% 482 ML IV PRN (15:38)
[2018-02-15] MEDS: FILTER 0.22 MICRON IV PRN (15:39)
[2018-02-15] MEDS ORDERED: DEXTROSE 70% IV SCH (16:00)
[2018-02-15] MEDS: FILTER, DISP 1.2 MICRON FOR TPN/PVN IV PRN (16:00)
[2018-02-15] MEDS ORDERED: [UNRECOGNIZED DRUG - OTHER] IV SCH (16:00)
[2018-02-15] MEDS ORDERED: AMINO ACID 10% IV SCH (16:00)
[2018-02-15] MEDS: MICAFUNGIN 100 MG in SODIUM CHLORIDE 0.9% 100 ML IV SCH (16:04)
[2018-02-15] MEDS: METOPROLOL 1 MG/ML, 5ML IVPush SCH (16:17)
[2018-02-15] MEDS ORDERED: FILTER 0.22 MICRON IV PRN (17:00)
[2018-02-16] MEDS: PANTOPRAZOLE 40 MG IV IVPush SCH ×2 (00:01→09:47)
[2018-02-16] MEDS: HEPARIN 5,000 UNITS/ML, 1ML SQ SCH ×3 (00:01→16:24)
[2018-02-16] MEDS: INSULIN LISPRO 100 UNITS/ML, PEN SQ-INSULIN SCH ×5 (00:07→23:00)
[2018-02-16] MEDS: FENTANYL PF 100 MCG/2ML IVPush PRN ×3 (03:48→20:02)
[2018-02-16] MEDS: MEROPENEM 1 GM in SODIUM CHLORIDE 0.9% 100 ML IV SCH ×2 (03:48→13:59)
[2018-02-16 04:33] LABS: BASOPHILS # (AUTO) 0.07 x10^3/uL (0-0.1); BASOPHILS % (AUTO) 1 % (0-1); EOSINOPHILS # (AUTO) 0.18 x10^3/uL (0-0.4); EOSINOPHILS % (AUTO) 2 % (1-7); LYMPHOCYTES # (AUTO) 1.12 x10^3/uL (1-3.4); LYMPHOCYTES % (AUTO) 12 % (22-44); MD NO; MEAN CORPUSCULAR HEMOGLOBIN 28.8 pg (27.0-34.8); MEAN CORPUSCULAR HGB CONC 33.8 g/dL (32.4-35.8); MEAN CORPUSCULAR VOLUME 85.2 fL (80-100); MEAN PLATELET VOLUME 7.6 fL (7.4-10.4); MONOCYTES # (AUTO) 1.08 x10^3/uL (0.2-0.8); MONOCYTES % (AUTO) 11 % (2-9); NEUTROPHILS # (AUTO) 7.25 x10^3/uL (1.8-6.8); NEUTROPHILS % (AUTO) 75 % (42-75); PLATELET COUNT 456 x10^3/uL (130-400); RED BLOOD COUNT 3.01 x10^6/uL (3.82-5.3); RED CELL DISTRIBUTION WIDTH 16.2 % (9.6-15.2)
[2018-02-16] MEDS: MIDAZOLAM HCL 50 MG in SODIUM CHLORIDE 0.9% 240 ML IV PRN (05:15)
[2018-02-16] MEDS: LINEZOLID PMX 600MG/300ML 300 ML IV SCH ×2 (08:30→18:42)
[2018-02-16 09:46] LABS: ANION GAP 13 mmol/L (5-15); CALCIUM 8.9 mg/dL (8.5-10.1); CHLORIDE 100 mmol/L (98-107); CREATININE 1.75 mg/dL (0.55-1.02)
[2018-02-16] MEDS: MICAFUNGIN 100 MG in SODIUM CHLORIDE 0.9% 100 ML IV SCH (16:59)
[2018-02-16] MEDS ORDERED: DEXTROSE 70% IV SCH (17:00)
[2018-02-16] MEDS ORDERED: FILTER 0.22 MICRON IV PRN (17:00)
[2018-02-16] MEDS ORDERED: FILTER, DISP 1.2 MICRON FOR TPN/PVN IV PRN (17:00)
[2018-02-16] MEDS ORDERED: [UNRECOGNIZED DRUG - OTHER] IV SCH (17:00)
[2018-02-16] MEDS ORDERED: AMINO ACID 10% IV SCH (17:00)
[2018-02-16] MEDS: METOPROLOL 1 MG/ML, 5ML IVPush SCH (20:02)
[2018-02-17] MEDS: PANTOPRAZOLE 40 MG IV IVPush SCH ×3 (00:24→20:15)
[2018-02-17] MEDS: HEPARIN 5,000 UNITS/ML, 1ML SQ SCH ×3 (00:26→16:18)
[2018-02-17] MEDS: METOPROLOL 1 MG/ML, 5ML IVPush SCH (03:01)
[2018-02-17] MEDS: MEROPENEM 1 GM in SODIUM CHLORIDE 0.9% 100 ML IV SCH ×2 (03:01→14:40)
[2018-02-17] MEDS: FENTANYL PF 100 MCG/2ML IVPush PRN ×2 (03:02→20:15)
[2018-02-17 03:59] LABS: BASOPHILS # (AUTO) 0.01 x10^3/uL (0-0.1); BASOPHILS % (AUTO) 0 % (0-1); EOSINOPHILS # (AUTO) 0.16 x10^3/uL (0-0.4); EOSINOPHILS % (AUTO) 2 % (1-7); LYMPHOCYTES % (AUTO) 10 % (22-44); MD NO; MEAN CORPUSCULAR HEMOGLOBIN 29.3 pg (27.0-34.8); MEAN CORPUSCULAR HGB CONC 34.4 g/dL (32.4-35.8); MEAN CORPUSCULAR VOLUME 85.2 fL (80-100); MEAN PLATELET VOLUME 7.5 fL (7.4-10.4); MONOCYTES # (AUTO) 0.73 x10^3/uL (0.2-0.8); MONOCYTES % (AUTO) 7 % (2-9); NEUTROPHILS # (AUTO) 8.41 x10^3/uL (1.8-6.8); NEUTROPHILS % (AUTO) 82 % (42-75); PLATELET COUNT 498 x10^3/uL (130-400); RED BLOOD COUNT 2.95 x10^6/uL (3.82-5.3); RED CELL DISTRIBUTION WIDTH 16.1 % (9.6-15.2)
[2018-02-17 04:06] LABS: ALANINE AMINOTRANSFERASE 13 U/L (12-78); ALBUMIN 1.8 g/dL (3.4-5.0); ANION GAP 16 mmol/L (5-15); CALCIUM 8.8 mg/dL (8.5-10.1); CHLORIDE 105 mmol/L (98-107); CREATININE 1.65 mg/dL (0.55-1.02)
[2018-02-17 04:09] LABS: ALKALINE PHOSPHATASE 135 U/L (45-117); BILIRUBIN,TOTAL 0.5 mg/dL (0.2-1.0); TOTAL PROTEIN 6.7 g/dL (6.4-8.2); TRIGLYCERIDES 382 mg/dL (50-200)
[2018-02-17] MEDS: INSULIN LISPRO 100 UNITS/ML, PEN SQ-INSULIN SCH ×2 (04:56→20:21)
[2018-02-17] MEDS: LINEZOLID PMX 600MG/300ML 300 ML IV SCH ×2 (08:08→20:15)
[2018-02-17] MEDS: MIDAZOLAM HCL 50 MG in SODIUM CHLORIDE 0.9% 240 ML IV PRN (08:09)
[2018-02-17] MEDS ORDERED: FENTANYL PF 250 MCG/5ML ONE ×2 (09:40→10:34)
[2018-02-17] MEDS ORDERED: FLUMAZENIL 0.1 MG/1 ML, 5ML ONE (09:45)
[2018-02-17] MEDS ORDERED: NALOXONE 1 MG/ML, 2ML ONE (09:45)
[2018-02-17] MEDS ORDERED: NALOXONE 0.4 MG/ML, 1ML ONE (09:50)
[2018-02-17] MEDS ORDERED: MIDAZOLAM 1 MG/ML, 2ML ONE (10:26)
[2018-02-17] MEDS ORDERED: ROCURONIUM 10MG/ML,5ML ONE (10:34)
[2018-02-17] MEDS ORDERED: MIDAZOLAM 1 MG/ML, 5ML ONE (10:34)
[2018-02-17] MEDS ORDERED: PHENYLEPHRINE 10 MG/ML ONE (11:17)
[2018-02-17] MEDS ORDERED: AMINO ACID 10% IV SCH (17:00)
[2018-02-17] MEDS ORDERED: DEXTROSE 70% IV SCH (17:00)
[2018-02-17] MEDS ORDERED: [UNRECOGNIZED DRUG - OTHER] IV SCH (17:00)
[2018-02-17] MEDS: MICAFUNGIN 100 MG in SODIUM CHLORIDE 0.9% 100 ML IV SCH (17:29)
[2018-02-18] MEDS: HEPARIN 5,000 UNITS/ML, 1ML SQ SCH ×3 (01:49→16:38)
[2018-02-18] MEDS: MEROPENEM 1 GM in SODIUM CHLORIDE 0.9% 100 ML IV SCH ×2 (01:49→16:30)
[2018-02-18] MEDS: FENTANYL PF 100 MCG/2ML IVPush PRN (01:50)
[2018-02-18 04:29] LABS: BASOPHILS # (AUTO) 0.04 x10^3/uL (0-0.1); BASOPHILS % (AUTO) 1 % (0-1); EOSINOPHILS # (AUTO) 0.29 x10^3/uL (0-0.4); EOSINOPHILS % (AUTO) 4 % (1-7); LYMPHOCYTES # (AUTO) 1.17 x10^3/uL (1-3.4); LYMPHOCYTES % (AUTO) 14 % (22-44); MD NO; MEAN CORPUSCULAR HEMOGLOBIN 28.8 pg (27.0-34.8); MEAN CORPUSCULAR HGB CONC 33.6 g/dL (32.4-35.8); MEAN CORPUSCULAR VOLUME 85.8 fL (80-100); MEAN PLATELET VOLUME 7.5 fL (7.4-10.4); MONOCYTES # (AUTO) 0.86 x10^3/uL (0.2-0.8); MONOCYTES % (AUTO) 10 % (2-9); NEUTROPHILS # (AUTO) 6.02 x10^3/uL (1.8-6.8); NEUTROPHILS % (AUTO) 72 % (42-75); PLATELET COUNT 551 x10^3/uL (130-400); RED BLOOD COUNT 2.81 x10^6/uL (3.82-5.3); RED CELL DISTRIBUTION WIDTH 16.4 % (9.6-15.2)
[2018-02-18 04:38] LABS: ALANINE AMINOTRANSFERASE 18 U/L (12-78); ALBUMIN 1.7 g/dL (3.4-5.0); ANION GAP 11 mmol/L (5-15); CALCIUM 8.7 mg/dL (8.5-10.1); CHLORIDE 108 mmol/L (98-107); CREATININE 1.51 mg/dL (0.55-1.02)
[2018-02-18 04:40] LABS: ALKALINE PHOSPHATASE 133 U/L (45-117); BILIRUBIN,TOTAL 0.4 mg/dL (0.2-1.0); TOTAL PROTEIN 6.7 g/dL (6.4-8.2)
[2018-02-18] MEDS: MIDAZOLAM HCL 50 MG in SODIUM CHLORIDE 0.9% 240 ML IV PRN (10:38)
[2018-02-18] MEDS: LINEZOLID PMX 600MG/300ML 300 ML IV SCH (13:16)
[2018-02-18] MEDS: PANTOPRAZOLE 40 MG IV IVPush SCH ×2 (13:16→21:13)
[2018-02-18] MEDS: FILTER, DISP 1.2 MICRON FOR TPN/PVN IV PRN (16:32)
[2018-02-18] MEDS ORDERED: AMINO ACID 10% IV SCH (17:00)
[2018-02-18] MEDS ORDERED: DEXTROSE 70% IV SCH (17:00)
[2018-02-18] MEDS ORDERED: [UNRECOGNIZED DRUG - OTHER] IV SCH (17:00)
[2018-02-18] MEDS: MICAFUNGIN 100 MG in SODIUM CHLORIDE 0.9% 100 ML IV SCH (18:12)
[2018-02-18] MEDS: INSULIN LISPRO 100 UNITS/ML, PEN SQ-INSULIN SCH (21:00)
[2018-02-19] MEDS: LINEZOLID PMX 600MG/300ML 300 ML IV SCH ×2 (00:25→11:49)
[2018-02-19] MEDS: HEPARIN 5,000 UNITS/ML, 1ML SQ SCH ×3 (01:50→17:45)
[2018-02-19] MEDS: MEROPENEM 1 GM in SODIUM CHLORIDE 0.9% 100 ML IV SCH ×2 (01:51→14:15)
[2018-02-19 04:44] LABS: BASOPHILS # (AUTO) 0.06 x10^3/uL (0-0.1); BASOPHILS % (AUTO) 1 % (0-1); EOSINOPHILS # (AUTO) 0.24 x10^3/uL (0-0.4); EOSINOPHILS % (AUTO) 3 % (1-7); LYMPHOCYTES # (AUTO) 1.09 x10^3/uL (1-3.4); LYMPHOCYTES % (AUTO) 15 % (22-44); MD NO; MEAN CORPUSCULAR HEMOGLOBIN 29.4 pg (27.0-34.8); MEAN CORPUSCULAR HGB CONC 34.4 g/dL (32.4-35.8); MEAN CORPUSCULAR VOLUME 85.5 fL (80-100); MEAN PLATELET VOLUME 7.6 fL (7.4-10.4); MONOCYTES # (AUTO) 1.05 x10^3/uL (0.2-0.8); MONOCYTES % (AUTO) 14 % (2-9); NEUTROPHILS % (AUTO) 67 % (42-75); PLATELET COUNT 535 x10^3/uL (130-400); RED BLOOD COUNT 2.77 x10^6/uL (3.82-5.3); RED CELL DISTRIBUTION WIDTH 16.1 % (9.6-15.2)
[2018-02-19 04:47] LABS: ALANINE AMINOTRANSFERASE 16 U/L (12-78); ALBUMIN 1.6 g/dL (3.4-5.0); ANION GAP 13 mmol/L (5-15); CALCIUM 8.6 mg/dL (8.5-10.1); CHLORIDE 99 mmol/L (98-107)
[2018-02-19 04:51] LABS: % IRON SATURATION 18 % (20-55); ALKALINE PHOSPHATASE 131 U/L (45-117); BILIRUBIN,TOTAL 0.6 mg/dL (0.2-1.0); CREATININE 1.01 mg/dL (0.55-1.02); IRON LEVEL 24 mcg/dL (50-170); TOTAL IRON BINDING CAPACITY 133 mcg/dL (250-450); TOTAL PROTEIN 6.8 g/dL (6.4-8.2)
[2018-02-19] MEDS ORDERED: MAGNESIUM SULFATE PMX 2GM/50ML 50 ML IV ONE (09:30)
[2018-02-19] MEDS: PANTOPRAZOLE 40 MG IV IVPush SCH ×2 (09:43→21:13)
[2018-02-19] MEDS: IRON SUCROSE COMPLEX 100MG/5ML IV SCH (09:43)
[2018-02-19] MEDS: MIDAZOLAM HCL 50 MG in SODIUM CHLORIDE 0.9% 240 ML IV PRN (11:49)
[2018-02-19] MEDS ORDERED: [UNRECOGNIZED DRUG - OTHER] IV SCH (17:00)
[2018-02-19] MEDS ORDERED: AMINO ACID 10% IV SCH (17:00)
[2018-02-19] MEDS ORDERED: DEXTROSE 70% IV SCH (17:00)
[2018-02-19] MEDS: FILTER, DISP 1.2 MICRON FOR TPN/PVN IV PRN (17:45)
[2018-02-19] MEDS: MICAFUNGIN 100 MG in SODIUM CHLORIDE 0.9% 100 ML IV SCH (17:46)
[2018-02-19] MEDS: INSULIN LISPRO 100 UNITS/ML, PEN SQ-INSULIN SCH (21:14)
[2018-02-20] MEDS: LINEZOLID PMX 600MG/300ML 300 ML IV SCH ×2 (00:29→12:54)
[2018-02-20] MEDS: MEROPENEM 1 GM in SODIUM CHLORIDE 0.9% 100 ML IV SCH ×2 (02:41→15:56)
[2018-02-20] MEDS: HEPARIN 5,000 UNITS/ML, 1ML SQ SCH ×3 (02:41→16:04)
[2018-02-20 07:02] LABS: MEAN CORPUSCULAR HEMOGLOBIN 28.6 pg (27.0-34.8); MEAN CORPUSCULAR HGB CONC 33.3 g/dL (32.4-35.8); MEAN CORPUSCULAR VOLUME 85.8 fL (80-100); MEAN PLATELET VOLUME 7.3 fL (7.4-10.4); PLATELET COUNT 574 x10^3/uL (130-400); RED BLOOD COUNT 3.09 x10^6/uL (3.82-5.3); RED CELL DISTRIBUTION WIDTH 16.2 % (9.6-15.2)
[2018-02-20 07:19] LABS: BASOPHILS # (AUTO) 0.07 x10^3/uL (0-0.1); BASOPHILS % (AUTO) 1 % (0-1); EOSINOPHILS % (AUTO) 3 % (1-7); LYMPHOCYTES # (AUTO) 1.14 x10^3/uL (1-3.4); LYMPHOCYTES % (AUTO) 14 % (22-44); MD SCAN; MONOCYTES % (AUTO) 12 % (2-9); NEUTROPHILS # (AUTO) 5.75 x10^3/uL (1.8-6.8); NEUTROPHILS % (AUTO) 71 % (42-75)
[2018-02-20 08:00] LABS: ALANINE AMINOTRANSFERASE 17 U/L (12-78); ALBUMIN 1.8 g/dL (3.4-5.0); ANION GAP 12 mmol/L (5-15); CALCIUM 9.6 mg/dL (8.5-10.1); CHLORIDE 102 mmol/L (98-107); CREATININE 1.23 mg/dL (0.55-1.02); TRIGLYCERIDES 478 mg/dL (50-200)
[2018-02-20 08:04] LABS: ALKALINE PHOSPHATASE 141 U/L (45-117); BILIRUBIN,TOTAL 0.4 mg/dL (0.2-1.0); PREALBUMIN 17.6 mg/dL (20.0-40.0); TOTAL PROTEIN 7.4 g/dL (6.4-8.2)
[2018-02-20] MEDS: PANTOPRAZOLE 40 MG IV IVPush SCH ×2 (10:13→21:47)
[2018-02-20] MEDS: IRON SUCROSE COMPLEX 100MG/5ML IV SCH (10:13)
[2018-02-20] MEDS: MIDAZOLAM HCL 50 MG in SODIUM CHLORIDE 0.9% 240 ML IV PRN (12:53)
[2018-02-20] MEDS ORDERED: DEXTROSE 70% IV SCH (17:00)
[2018-02-20] MEDS ORDERED: [UNRECOGNIZED DRUG - OTHER] IV SCH (17:00)
[2018-02-20] MEDS ORDERED: AMINO ACID 10% IV SCH (17:00)
[2018-02-20] MEDS: FILTER, DISP 1.2 MICRON FOR TPN/PVN IV PRN (17:31)
[2018-02-20] MEDS: MICAFUNGIN 100 MG in SODIUM CHLORIDE 0.9% 100 ML IV SCH (17:31)
[2018-02-20] MEDS: INSULIN LISPRO 100 UNITS/ML, PEN SQ-INSULIN SCH (21:00)
[2018-02-21] MEDS: LINEZOLID PMX 600MG/300ML 300 ML IV SCH ×2 (00:25→12:47)
[2018-02-21] MEDS: HEPARIN 5,000 UNITS/ML, 1ML SQ SCH ×3 (00:25→18:03)
[2018-02-21] MEDS: MEROPENEM 1 GM in SODIUM CHLORIDE 0.9% 100 ML IV SCH ×2 (02:12→17:56)
[2018-02-21 06:08] LABS: BASOPHILS # (AUTO) 0.05 x10^3/uL (0-0.1); BASOPHILS % (AUTO) 1 % (0-1); EOSINOPHILS # (AUTO) 0.18 x10^3/uL (0-0.4); EOSINOPHILS % (AUTO) 2 % (1-7); LYMPHOCYTES # (AUTO) 1.21 x10^3/uL (1-3.4); LYMPHOCYTES % (AUTO) 14 % (22-44); MD NO; MEAN CORPUSCULAR HEMOGLOBIN 29.4 pg (27.0-34.8); MEAN CORPUSCULAR HGB CONC 34.2 g/dL (32.4-35.8); MEAN CORPUSCULAR VOLUME 85.9 fL (80-100); MEAN PLATELET VOLUME 7.7 fL (7.4-10.4); MONOCYTES # (AUTO) 0.96 x10^3/uL (0.2-0.8); MONOCYTES % (AUTO) 11 % (2-9); NEUTROPHILS # (AUTO) 6.55 x10^3/uL (1.8-6.8); NEUTROPHILS % (AUTO) 73 % (42-75); PLATELET COUNT 561 x10^3/uL (130-400); RED BLOOD COUNT 2.85 x10^6/uL (3.82-5.3); RED CELL DISTRIBUTION WIDTH 15.8 % (9.6-15.2)
[2018-02-21 06:18] LABS: ALANINE AMINOTRANSFERASE 16 U/L (12-78); ALBUMIN 1.7 g/dL (3.4-5.0); ANION GAP 13 mmol/L (5-15); CHLORIDE 102 mmol/L (98-107)
[2018-02-21 06:21] LABS: ALKALINE PHOSPHATASE 130 U/L (45-117); BILIRUBIN,TOTAL 0.4 mg/dL (0.2-1.0); TOTAL PROTEIN 7.2 g/dL (6.4-8.2)
[2018-02-21] MEDS: PANTOPRAZOLE 40 MG IV IVPush SCH ×2 (10:19→20:33)
[2018-02-21] MEDS: IRON SUCROSE COMPLEX 100MG/5ML IV SCH (10:19)
[2018-02-21] MEDS: FENTANYL PF 100 MCG/2ML IVPush PRN (10:23)
[2018-02-21] MEDS ORDERED: [UNRECOGNIZED DRUG - OTHER] IV SCH (17:00)
[2018-02-21] MEDS ORDERED: AMINO ACID 10% IV SCH (17:00)
[2018-02-21] MEDS ORDERED: DEXTROSE 70% IV SCH (17:00)
[2018-02-21] MEDS: MICAFUNGIN 100 MG in SODIUM CHLORIDE 0.9% 100 ML IV SCH (20:33)
[2018-02-21] MEDS: INSULIN LISPRO 100 UNITS/ML, PEN SQ-INSULIN SCH (20:45)
[2018-02-22] MEDS: LINEZOLID PMX 600MG/300ML 300 ML IV SCH ×3 (00:27→23:46)
[2018-02-22] MEDS: HEPARIN 5,000 UNITS/ML, 1ML SQ SCH ×4 (00:27→23:47)
[2018-02-22] MEDS: MEROPENEM 1 GM in SODIUM CHLORIDE 0.9% 100 ML IV SCH ×2 (02:34→15:54)
[2018-02-22] MEDS: FENTANYL PF 100 MCG/2ML IVPush PRN (03:23)
[2018-02-22 06:04] LABS: MEAN CORPUSCULAR HEMOGLOBIN 29.1 pg (27.0-34.8); MEAN CORPUSCULAR VOLUME 85.4 fL (80-100); MEAN PLATELET VOLUME 7.4 fL (7.4-10.4); PLATELET COUNT 517 x10^3/uL (130-400); RED BLOOD COUNT 2.89 x10^6/uL (3.82-5.3); RED CELL DISTRIBUTION WIDTH 15.7 % (9.6-15.2)
[2018-02-22 06:12] LABS: ALBUMIN 1.8 g/dL (3.4-5.0); ANION GAP 10 mmol/L (5-15); CALCIUM 8.7 mg/dL (8.5-10.1); CHLORIDE 99 mmol/L (98-107)
[2018-02-22 06:16] LABS: ALANINE AMINOTRANSFERASE 18 U/L (12-78); ALKALINE PHOSPHATASE 127 U/L (45-117); BILIRUBIN,TOTAL 0.4 mg/dL (0.2-1.0); CREATININE 0.86 mg/dL (0.55-1.02); TOTAL PROTEIN 7.1 g/dL (6.4-8.2)
[2018-02-22 06:21] LABS: BASOPHILS # (AUTO) 0.05 x10^3/uL (0-0.1); BASOPHILS % (AUTO) 1 % (0-1); EOSINOPHILS % (AUTO) 3 % (1-7); LYMPHOCYTES # (AUTO) 1.37 x10^3/uL (1-3.4); LYMPHOCYTES % (AUTO) 15 % (22-44); MD SCAN; MONOCYTES # (AUTO) 0.85 x10^3/uL (0.2-0.8); MONOCYTES % (AUTO) 9 % (2-9); NEUTROPHILS # (AUTO) 6.83 x10^3/uL (1.8-6.8); NEUTROPHILS % (AUTO) 73 % (42-75)
[2018-02-22] MEDS ORDERED: MAGNESIUM SULFATE 4 GM in SODIUM CHLORIDE 0.9% 100 ML IV ONE (08:30)
[2018-02-22] MEDS: IRON SUCROSE COMPLEX 100MG/5ML IV SCH (09:35)
[2018-02-22] MEDS: PANTOPRAZOLE 40 MG IV IVPush SCH ×2 (09:35→19:55)
[2018-02-22] MEDS ORDERED: ROCURONIUM 10MG/ML,5ML ONE (13:56)
[2018-02-22] MEDS ORDERED: FENTANYL PF 250 MCG/5ML ONE (13:56)
[2018-02-22] MEDS: MIDAZOLAM HCL 50 MG in SODIUM CHLORIDE 0.9% 240 ML IV PRN (15:52)
[2018-02-22] MEDS ORDERED: DEXTROSE 70% IV SCH (17:00)
[2018-02-22] MEDS ORDERED: FILTER, DISP 1.2 MICRON FOR TPN/PVN IV PRN (17:00)
[2018-02-22] MEDS ORDERED: AMINO ACID 10% IV SCH (17:00)
[2018-02-22] MEDS ORDERED: [UNRECOGNIZED DRUG - OTHER] IV SCH (17:00)
[2018-02-22] MEDS: MICAFUNGIN 100 MG in SODIUM CHLORIDE 0.9% 100 ML IV SCH (19:55)
[2018-02-22] MEDS: SCOPOLAMINE PATCH, 1.5MG PATCH.TD72 TD SCH (19:56)
[2018-02-23] MEDS: MEROPENEM 1 GM in SODIUM CHLORIDE 0.9% 100 ML IV SCH ×2 (01:51→14:12)
[2018-02-23] MEDS: FENTANYL PF 100 MCG/2ML IVPush PRN ×2 (02:26→16:09)
[2018-02-23 04:53] LABS: MEAN CORPUSCULAR HEMOGLOBIN 28.8 pg (27.0-34.8); MEAN CORPUSCULAR VOLUME 87.2 fL (80-100); MEAN PLATELET VOLUME 7.9 fL (7.4-10.4); PLATELET COUNT 498 x10^3/uL (130-400); RED BLOOD COUNT 2.79 x10^6/uL (3.82-5.3); RED CELL DISTRIBUTION WIDTH 15.8 % (9.6-15.2)
[2018-02-23 04:57] LABS: ALBUMIN 1.7 g/dL (3.4-5.0); ANION GAP 12 mmol/L (5-15); CALCIUM 9.2 mg/dL (8.5-10.1); CHLORIDE 100 mmol/L (98-107)
[2018-02-23 05:01] LABS: ALANINE AMINOTRANSFERASE 18 U/L (12-78); ALKALINE PHOSPHATASE 122 U/L (45-117); BILIRUBIN,TOTAL 0.3 mg/dL (0.2-1.0); CREATININE 1.04 mg/dL (0.55-1.02); TOTAL PROTEIN 6.9 g/dL (6.4-8.2); TRIGLYCERIDES 470 mg/dL (50-200)
[2018-02-23 05:40] LABS: MD YES
[2018-02-23 05:44] LABS: <PLATELET ESTIMATE> INCREASED; BAND#(MANUAL) 0.16 x10^3/uL; BANDS%(MANUAL) 2 % (0-7); BASOS#(MANUAL) 0.08 x10^3/uL (0-0.1); BASOS% (MANUAL) 1 % (0-1); EOS#(MANUAL) 0.16 x10^3/uL (0.0-0.4); EOS% (MANUAL) 2 % (1-7); LYMPH#(MANUAL) 1.54 x10^3/uL (1-3.4); LYMPHS% (MANUAL) 19 % (22-44); METAMYELOCYTES# (MANUAL) 0.24 x10^3/uL (0-0); METAMYELOCYTES% (MANUAL) 3 % (0-1); MONOS#(MANUAL) 0.49 x10^3/uL (0.3-2.7); MONOS% (MANUAL) 6 % (2-9); POLYCHROMASIA 1+; SEG#(MANUAL) 5.43 x10^3/uL (1.8-6.8); SEGS% (MANUAL) 67 % (42-75)
[2018-02-23 05:45] LABS: <PLT MORPHOLOGY> NORMAL PLT MORPH; ANISOCYTOSIS 1+
[2018-02-23] MEDS: PANTOPRAZOLE 40 MG IV IVPush SCH ×2 (09:22→21:36)
[2018-02-23] MEDS: HEPARIN 5,000 UNITS/ML, 1ML SQ SCH ×2 (09:23→18:02)
[2018-02-23] MEDS: IRON SUCROSE COMPLEX 100MG/5ML IV SCH (09:28)
[2018-02-23] MEDS: INSULIN LISPRO 100 UNITS/ML, PEN SQ-INSULIN SCH (09:45)
[2018-02-23] MEDS: LINEZOLID PMX 600MG/300ML 300 ML IV SCH ×2 (12:33→23:26)
[2018-02-23] MEDS ORDERED: FILTER, DISP 1.2 MICRON FOR TPN/PVN IV PRN (17:00)
[2018-02-23] MEDS ORDERED: DEXTROSE 70% IV SCH (17:00)
[2018-02-23] MEDS ORDERED: [UNRECOGNIZED DRUG - OTHER] IV SCH (17:00)
[2018-02-23] MEDS ORDERED: AMINO ACID 10% IV SCH (17:00)
[2018-02-23] MEDS: MICAFUNGIN 100 MG in SODIUM CHLORIDE 0.9% 100 ML IV SCH (19:12)
[2018-02-23] MEDS: MIDAZOLAM HCL 50 MG in SODIUM CHLORIDE 0.9% 240 ML IV PRN (19:49)
[2018-02-24] MEDS: HEPARIN 5,000 UNITS/ML, 1ML SQ SCH ×3 (00:46→17:08)
[2018-02-24] MEDS: FENTANYL PF 100 MCG/2ML IVPush PRN (00:46)
[2018-02-24] MEDS: MEROPENEM 1 GM in SODIUM CHLORIDE 0.9% 100 ML IV SCH ×2 (02:18→14:32)
[2018-02-24 04:41] LABS: BASOPHILS # (AUTO) 0.03 x10^3/uL (0-0.1); BASOPHILS % (AUTO) 0 % (0-1); EOSINOPHILS # (AUTO) 0.26 x10^3/uL (0-0.4); EOSINOPHILS % (AUTO) 3 % (1-7); LYMPHOCYTES # (AUTO) 1.39 x10^3/uL (1-3.4); LYMPHOCYTES % (AUTO) 15 % (22-44); MD NO; MEAN CORPUSCULAR HEMOGLOBIN 29.4 pg (27.0-34.8); MEAN CORPUSCULAR HGB CONC 33.7 g/dL (32.4-35.8); MEAN PLATELET VOLUME 7.8 fL (7.4-10.4); MONOCYTES # (AUTO) 0.99 x10^3/uL (0.2-0.8); MONOCYTES % (AUTO) 11 % (2-9); NEUTROPHILS # (AUTO) 6.44 x10^3/uL (1.8-6.8); NEUTROPHILS % (AUTO) 71 % (42-75); PLATELET COUNT 489 x10^3/uL (130-400); RED BLOOD COUNT 2.62 x10^6/uL (3.82-5.3); RED CELL DISTRIBUTION WIDTH 15.9 % (9.6-15.2)
[2018-02-24 04:46] LABS: ALANINE AMINOTRANSFERASE 16 U/L (12-78); ALBUMIN 1.7 g/dL (3.4-5.0); ANION GAP 11 mmol/L (5-15); CHLORIDE 105 mmol/L (98-107); CREATININE 0.91 mg/dL (0.55-1.02)
[2018-02-24 04:48] LABS: ALKALINE PHOSPHATASE 113 U/L (45-117); BILIRUBIN,TOTAL 0.3 mg/dL (0.2-1.0)
[2018-02-24] MEDS: INSULIN LISPRO 100 UNITS/ML, PEN SQ-INSULIN SCH (09:00)
[2018-02-24] MEDS: PANTOPRAZOLE 40 MG IV IVPush SCH ×2 (10:41→20:53)
[2018-02-24] MEDS: LINEZOLID PMX 600MG/300ML 300 ML IV SCH (14:31)
[2018-02-24] MEDS ORDERED: [UNRECOGNIZED DRUG - OTHER] IV SCH (17:00)
[2018-02-24] MEDS ORDERED: FILTER, DISP 1.2 MICRON FOR TPN/PVN IV PRN (17:00)
[2018-02-24] MEDS ORDERED: DEXTROSE 70% IV SCH (17:00)
[2018-02-24] MEDS ORDERED: AMINO ACID 10% IV SCH (17:00)
[2018-02-24] MEDS: MIDAZOLAM HCL 50 MG in SODIUM CHLORIDE 0.9% 240 ML IV PRN (17:06)
[2018-02-24] MEDS: MICAFUNGIN 100 MG in SODIUM CHLORIDE 0.9% 100 ML IV SCH (18:34)
[2018-02-25] MEDS: FENTANYL PF 100 MCG/2ML IVPush PRN (00:02)
[2018-02-25] MEDS: LINEZOLID PMX 600MG/300ML 300 ML IV SCH ×2 (00:03→12:29)
[2018-02-25] MEDS: HEPARIN 5,000 UNITS/ML, 1ML SQ SCH ×3 (00:28→16:14)
[2018-02-25] MEDS: MEROPENEM 1 GM in SODIUM CHLORIDE 0.9% 100 ML IV SCH ×3 (02:12→23:15)
[2018-02-25 04:42] LABS: MEAN CORPUSCULAR HEMOGLOBIN 28.3 pg (27.0-34.8); MEAN CORPUSCULAR HGB CONC 32.4 g/dL (32.4-35.8); MEAN CORPUSCULAR VOLUME 87.2 fL (80-100); MEAN PLATELET VOLUME 7.5 fL (7.4-10.4); PLATELET COUNT 573 x10^3/uL (130-400); RED BLOOD COUNT 2.57 x10^6/uL (3.82-5.3); RED CELL DISTRIBUTION WIDTH 16.1 % (9.6-15.2)
[2018-02-25 04:50] LABS: ALANINE AMINOTRANSFERASE 16 U/L (12-78); ALBUMIN 1.7 g/dL (3.4-5.0); ANION GAP 12 mmol/L (5-15); CALCIUM 9.2 mg/dL (8.5-10.1); CHLORIDE 107 mmol/L (98-107); CREATININE 0.79 mg/dL (0.55-1.02)
[2018-02-25 04:52] LABS: ALKALINE PHOSPHATASE 112 U/L (45-117); BILIRUBIN,TOTAL 0.3 mg/dL (0.2-1.0); TOTAL PROTEIN 6.8 g/dL (6.4-8.2)
[2018-02-25 05:01] LABS: MD SCAN
[2018-02-25 05:04] LABS: BASOPHILS # (AUTO) 0.04 x10^3/uL (0-0.1); BASOPHILS % (AUTO) 0 % (0-1); EOSINOPHILS # (AUTO) 0.23 x10^3/uL (0-0.4); EOSINOPHILS % (AUTO) 2 % (1-7); LYMPHOCYTES # (AUTO) 1.66 x10^3/uL (1-3.4); LYMPHOCYTES % (AUTO) 16 % (22-44); MONOCYTES # (AUTO) 1.02 x10^3/uL (0.2-0.8); MONOCYTES % (AUTO) 10 % (2-9); NEUTROPHILS # (AUTO) 7.27 x10^3/uL (1.8-6.8); NEUTROPHILS % (AUTO) 71 % (42-75)
[2018-02-25] MEDS: INSULIN LISPRO 100 UNITS/ML, PEN SQ-INSULIN SCH (09:00)
[2018-02-25] MEDS: PANTOPRAZOLE 40 MG IV IVPush SCH ×2 (10:49→20:18)
[2018-02-25] MEDS ORDERED: FILTER, DISP 1.2 MICRON FOR TPN/PVN IV PRN (17:00)
[2018-02-25] MEDS ORDERED: AMINO ACID 10% IV SCH (17:00)
[2018-02-25] MEDS ORDERED: SOY IV SCH (17:00)
[2018-02-25] MEDS ORDERED: DEXTROSE 70% IV SCH (17:00)
[2018-02-25] MEDS ORDERED: MCT IV SCH (17:00)
[2018-02-25] MEDS ORDERED: FAT EMUL IV SCH (17:00)
[2018-02-25] MEDS ORDERED: OLIV IV SCH (17:00)
[2018-02-25] MEDS ORDERED: FISH OIL IV SCH (17:00)
[2018-02-25] MEDS ORDERED: [UNRECOGNIZED DRUG - OTHER] IV SCH (17:00)
[2018-02-25] MEDS: SCOPOLAMINE PATCH, 1.5MG PATCH.TD72 TD SCH (19:40)
[2018-02-25] MEDS: MICAFUNGIN 100 MG in SODIUM CHLORIDE 0.9% 100 ML IV SCH (19:40)
[2018-02-26] MEDS: LINEZOLID PMX 600MG/300ML 300 ML IV SCH ×2 (00:06→13:33)
[2018-02-26] MEDS: HEPARIN 5,000 UNITS/ML, 1ML SQ SCH ×3 (00:30→17:38)
[2018-02-26] MEDS: FENTANYL PF 100 MCG/2ML IVPush PRN (01:18)
[2018-02-26 04:28] LABS: MEAN CORPUSCULAR HEMOGLOBIN 29.3 pg (27.0-34.8); MEAN CORPUSCULAR HGB CONC 33.7 g/dL (32.4-35.8); MEAN CORPUSCULAR VOLUME 87.1 fL (80-100); MEAN PLATELET VOLUME 7.3 fL (7.4-10.4); PLATELET COUNT 554 x10^3/uL (130-400); RED BLOOD COUNT 2.59 x10^6/uL (3.82-5.3); RED CELL DISTRIBUTION WIDTH 15.7 % (9.6-15.2)
[2018-02-26 04:37] LABS: BASOPHILS # (AUTO) 0.06 x10^3/uL (0-0.1); BASOPHILS % (AUTO) 1 % (0-1); EOSINOPHILS # (AUTO) 0.25 x10^3/uL (0-0.4); EOSINOPHILS % (AUTO) 2 % (1-7); LYMPHOCYTES # (AUTO) 1.99 x10^3/uL (1-3.4); LYMPHOCYTES % (AUTO) 15 % (22-44); MD SCAN; MONOCYTES # (AUTO) 0.88 x10^3/uL (0.2-0.8); MONOCYTES % (AUTO) 7 % (2-9); NEUTROPHILS # (AUTO) 10.21 x10^3/uL (1.8-6.8); NEUTROPHILS % (AUTO) 76 % (42-75)
[2018-02-26 04:41] LABS: ALBUMIN 1.9 g/dL (3.4-5.0); ANION GAP 10 mmol/L (5-15); CALCIUM 9.6 mg/dL (8.5-10.1); CHLORIDE 108 mmol/L (98-107)
[2018-02-26 04:46] LABS: ALANINE AMINOTRANSFERASE 18 U/L (12-78); ALKALINE PHOSPHATASE 116 U/L (45-117); BILIRUBIN,TOTAL 0.3 mg/dL (0.2-1.0); CREATININE 0.79 mg/dL (0.55-1.02); TOTAL PROTEIN 7.1 g/dL (6.4-8.2); TRIGLYCERIDES 445 mg/dL (50-200)
[2018-02-26] MEDS: MEROPENEM 1 GM in SODIUM CHLORIDE 0.9% 100 ML IV SCH ×3 (06:52→23:18)
[2018-02-26] MEDS: INSULIN LISPRO 100 UNITS/ML, PEN SQ-INSULIN SCH (09:00)
[2018-02-26] MEDS: PANTOPRAZOLE 40 MG IV IVPush SCH ×2 (09:50→21:18)
[2018-02-26] MEDS ORDERED: AMINO ACID 10% IV SCH (17:00)
[2018-02-26] MEDS ORDERED: SOY IV SCH (17:00)
[2018-02-26] MEDS ORDERED: FISH OIL IV SCH (17:00)
[2018-02-26] MEDS ORDERED: OLIV IV SCH (17:00)
[2018-02-26] MEDS ORDERED: FAT EMUL IV SCH (17:00)
[2018-02-26] MEDS ORDERED: [UNRECOGNIZED DRUG - OTHER] IV SCH (17:00)
[2018-02-26] MEDS ORDERED: DEXTROSE 70% IV SCH (17:00)
[2018-02-26] MEDS ORDERED: MCT IV SCH (17:00)
[2018-02-26] MEDS: FILTER, DISP 1.2 MICRON FOR TPN/PVN IV PRN (17:37)
[2018-02-26] MEDS: MICAFUNGIN 100 MG in SODIUM CHLORIDE 0.9% 100 ML IV SCH (18:26)
[2018-02-27] MEDS: LINEZOLID PMX 600MG/300ML 300 ML IV SCH ×2 (00:15→12:11)
[2018-02-27] MEDS: HEPARIN 5,000 UNITS/ML, 1ML SQ SCH ×3 (00:16→18:01)
[2018-02-27 04:25] LABS: BASOPHILS # (AUTO) 0.12 x10^3/uL (0-0.1); BASOPHILS % (AUTO) 1 % (0-1); EOSINOPHILS # (AUTO) 0.25 x10^3/uL (0-0.4); EOSINOPHILS % (AUTO) 2 % (1-7); LYMPHOCYTES % (AUTO) 16 % (22-44); MD NO; MEAN CORPUSCULAR HEMOGLOBIN 29.3 pg (27.0-34.8); MEAN CORPUSCULAR HGB CONC 33.8 g/dL (32.4-35.8); MEAN CORPUSCULAR VOLUME 86.6 fL (80-100); MEAN PLATELET VOLUME 7.2 fL (7.4-10.4); MONOCYTES # (AUTO) 0.93 x10^3/uL (0.2-0.8); MONOCYTES % (AUTO) 8 % (2-9); NEUTROPHILS # (AUTO) 8.69 x10^3/uL (1.8-6.8); NEUTROPHILS % (AUTO) 73 % (42-75); PLATELET COUNT 532 x10^3/uL (130-400); RED BLOOD COUNT 2.67 x10^6/uL (3.82-5.3); RED CELL DISTRIBUTION WIDTH 15.9 % (9.6-15.2)
[2018-02-27 04:36] LABS: CHLORIDE 104 mmol/L (98-107)
[2018-02-27 04:45] LABS: ALANINE AMINOTRANSFERASE 16 U/L (12-78); ALBUMIN 1.9 g/dL (3.4-5.0); ALKALINE PHOSPHATASE 119 U/L (45-117); ANION GAP 12 mmol/L (5-15); BILIRUBIN,TOTAL 0.3 mg/dL (0.2-1.0); CALCIUM 9.3 mg/dL (8.5-10.1); CREATININE 0.69 mg/dL (0.55-1.02); PREALBUMIN 25.7 mg/dL (20.0-40.0); TRIGLYCERIDES 487 mg/dL (50-200)
[2018-02-27] MEDS: MEROPENEM 1 GM in SODIUM CHLORIDE 0.9% 100 ML IV SCH ×2 (07:08→14:30)
[2018-02-27] MEDS: PANTOPRAZOLE 40 MG IV IVPush SCH ×2 (08:06→20:29)
[2018-02-27] MEDS: INSULIN LISPRO 100 UNITS/ML, PEN SQ-INSULIN SCH (08:07)
[2018-02-27] MEDS ORDERED: LIDOCAINE-MPF 2%, 2ML ONE (15:29)
[2018-02-27] MEDS ORDERED: DEXTROSE 70% IV SCH ×2 (17:00)
[2018-02-27] MEDS ORDERED: MCT IV SCH ×2 (17:00)
[2018-02-27] MEDS ORDERED: OLIV IV SCH ×2 (17:00)
[2018-02-27] MEDS ORDERED: [UNRECOGNIZED DRUG - OTHER] IV SCH ×2 (17:00)
[2018-02-27] MEDS ORDERED: FAT EMUL IV SCH ×2 (17:00)
[2018-02-27] MEDS ORDERED: FISH OIL IV SCH ×2 (17:00)
[2018-02-27] MEDS ORDERED: AMINO ACID 10% IV SCH ×2 (17:00)
[2018-02-27] MEDS ORDERED: SOY IV SCH ×2 (17:00)
[2018-02-27] MEDS: MICAFUNGIN 100 MG in SODIUM CHLORIDE 0.9% 100 ML IV SCH (18:05)
[2018-02-28] MEDS: MEROPENEM 1 GM in SODIUM CHLORIDE 0.9% 100 ML IV SCH ×4 (00:15→23:21)
[2018-02-28] MEDS: LINEZOLID PMX 600MG/300ML 300 ML IV SCH ×2 (00:15→11:44)
[2018-02-28] MEDS: MIDAZOLAM HCL 50 MG in SODIUM CHLORIDE 0.9% 240 ML IV PRN (03:10)
[2018-02-28] MEDS: HEPARIN 5,000 UNITS/ML, 1ML SQ SCH ×3 (03:22→15:54)
[2018-02-28 04:21] LABS: MEAN CORPUSCULAR HEMOGLOBIN 29.5 pg (27.0-34.8); MEAN CORPUSCULAR HGB CONC 33.8 g/dL (32.4-35.8); MEAN CORPUSCULAR VOLUME 87.1 fL (80-100); MEAN PLATELET VOLUME 7.5 fL (7.4-10.4); PLATELET COUNT 531 x10^3/uL (130-400); RED BLOOD COUNT 2.61 x10^6/uL (3.82-5.3); RED CELL DISTRIBUTION WIDTH 15.8 % (9.6-15.2)
[2018-02-28 04:34] LABS: ALANINE AMINOTRANSFERASE 18 U/L (12-78); ANION GAP 12 mmol/L (5-15); CALCIUM 8.9 mg/dL (8.5-10.1); CHLORIDE 103 mmol/L (98-107)
[2018-02-28 04:36] LABS: ALKALINE PHOSPHATASE 113 U/L (45-117); BILIRUBIN,TOTAL 0.3 mg/dL (0.2-1.0); CREATININE 0.69 mg/dL (0.55-1.02); TOTAL PROTEIN 6.9 g/dL (6.4-8.2)
[2018-02-28 05:01] LABS: BASOPHILS # (AUTO) 0.05 x10^3/uL (0-0.1); BASOPHILS % (AUTO) 1 % (0-1); EOSINOPHILS # (AUTO) 0.22 x10^3/uL (0-0.4); EOSINOPHILS % (AUTO) 2 % (1-7); LYMPHOCYTES # (AUTO) 1.63 x10^3/uL (1-3.4); LYMPHOCYTES % (AUTO) 15 % (22-44); MD SCAN; MONOCYTES # (AUTO) 0.76 x10^3/uL (0.2-0.8); MONOCYTES % (AUTO) 7 % (2-9); NEUTROPHILS # (AUTO) 8.05 x10^3/uL (1.8-6.8); NEUTROPHILS % (AUTO) 75 % (42-75)
[2018-02-28] MEDS ORDERED: MAGNESIUM SULFATE PMX 2GM/50ML 50 ML IV ONE (08:00)
[2018-02-28] MEDS: PANTOPRAZOLE 40 MG IV IVPush SCH ×2 (08:35→21:35)
[2018-02-28] MEDS: INSULIN LISPRO 100 UNITS/ML, PEN SQ-INSULIN SCH (08:48)
[2018-02-28] MEDS ORDERED: FISH OIL IV SCH (17:00)
[2018-02-28] MEDS ORDERED: SOY IV SCH (17:00)
[2018-02-28] MEDS ORDERED: AMINO ACID 10% IV SCH (17:00)
[2018-02-28] MEDS ORDERED: FAT EMUL IV SCH (17:00)
[2018-02-28] MEDS ORDERED: [UNRECOGNIZED DRUG - OTHER] IV SCH (17:00)
[2018-02-28] MEDS ORDERED: OLIV IV SCH (17:00)
[2018-02-28] MEDS ORDERED: DEXTROSE 70% IV SCH (17:00)
[2018-02-28] MEDS ORDERED: MCT IV SCH (17:00)
[2018-02-28] MEDS: FILTER, DISP 1.2 MICRON FOR TPN/PVN IV PRN (17:53)
[2018-02-28] MEDS: SCOPOLAMINE PATCH, 1.5MG PATCH.TD72 TD SCH (19:29)
[2018-02-28] MEDS: MICAFUNGIN 100 MG in SODIUM CHLORIDE 0.9% 100 ML IV SCH (19:29)
[2018-03-01] MEDS: LINEZOLID PMX 600MG/300ML 300 ML IV SCH ×2 (00:47→13:03)
[2018-03-01] MEDS: HEPARIN 5,000 UNITS/ML, 1ML SQ SCH ×3 (00:48→16:30)
[2018-03-01 04:31] LABS: BASOPHILS # (AUTO) 0.06 x10^3/uL (0-0.1); BASOPHILS % (AUTO) 1 % (0-1); EOSINOPHILS # (AUTO) 0.25 x10^3/uL (0-0.4); EOSINOPHILS % (AUTO) 2 % (1-7); LYMPHOCYTES # (AUTO) 1.57 x10^3/uL (1-3.4); LYMPHOCYTES % (AUTO) 13 % (22-44); MD NO; MEAN CORPUSCULAR HEMOGLOBIN 29.4 pg (27.0-34.8); MEAN CORPUSCULAR HGB CONC 33.7 g/dL (32.4-35.8); MEAN CORPUSCULAR VOLUME 87.2 fL (80-100); MEAN PLATELET VOLUME 7.4 fL (7.4-10.4); MONOCYTES # (AUTO) 0.74 x10^3/uL (0.2-0.8); MONOCYTES % (AUTO) 6 % (2-9); NEUTROPHILS # (AUTO) 9.62 x10^3/uL (1.8-6.8); NEUTROPHILS % (AUTO) 79 % (42-75); PLATELET COUNT 522 x10^3/uL (130-400); RED BLOOD COUNT 2.64 x10^6/uL (3.82-5.3); RED CELL DISTRIBUTION WIDTH 15.8 % (9.6-15.2)
[2018-03-01 04:50] LABS: CHLORIDE 103 mmol/L (98-107)
[2018-03-01 04:59] LABS: ALANINE AMINOTRANSFERASE 20 U/L (12-78); ALKALINE PHOSPHATASE 115 U/L (45-117); ANION GAP 10 mmol/L (5-15); BILIRUBIN,TOTAL 0.3 mg/dL (0.2-1.0); CALCIUM 9.2 mg/dL (8.5-10.1); TOTAL PROTEIN 7.1 g/dL (6.4-8.2); TRIGLYCERIDES 545 mg/dL (50-200)
[2018-03-01] MEDS: INSULIN LISPRO 100 UNITS/ML, PEN SQ-INSULIN SCH (08:50)
[2018-03-01] MEDS: MEROPENEM 1 GM in SODIUM CHLORIDE 0.9% 100 ML IV SCH ×2 (08:52→16:22)
[2018-03-01] MEDS: PANTOPRAZOLE 40 MG IV IVPush SCH ×2 (09:04→20:33)
[2018-03-01] MEDS ORDERED: MIDAZOLAM 1 MG/ML, 2ML ONE (14:46)
[2018-03-01] MEDS ORDERED: FENTANYL PF 250 MCG/5ML ONE (14:46)
[2018-03-01] MEDS ORDERED: DEXTROSE 70% IV SCH (17:00)
[2018-03-01] MEDS ORDERED: FAT EMUL IV SCH (17:00)
[2018-03-01] MEDS ORDERED: MCT IV SCH (17:00)
[2018-03-01] MEDS ORDERED: SOY IV SCH (17:00)
[2018-03-01] MEDS ORDERED: FISH OIL IV SCH (17:00)
[2018-03-01] MEDS ORDERED: [UNRECOGNIZED DRUG - OTHER] IV SCH (17:00)
[2018-03-01] MEDS ORDERED: OLIV IV SCH (17:00)
[2018-03-01] MEDS ORDERED: AMINO ACID 10% IV SCH (17:00)
[2018-03-01] MEDS: FENTANYL PF 100 MCG/2ML IVPush PRN (17:22)
[2018-03-01] MEDS: FILTER, DISP 1.2 MICRON FOR TPN/PVN IV PRN (18:47)
[2018-03-01] MEDS: MICAFUNGIN 100 MG in SODIUM CHLORIDE 0.9% 100 ML IV SCH (19:02)
[2018-03-02] MEDS: MEROPENEM 1 GM in SODIUM CHLORIDE 0.9% 100 ML IV SCH ×3 (00:34→16:10)
[2018-03-02] MEDS: LINEZOLID PMX 600MG/300ML 300 ML IV SCH ×3 (00:34→23:02)
[2018-03-02] MEDS: HEPARIN 5,000 UNITS/ML, 1ML SQ SCH ×3 (00:34→16:15)
[2018-03-02] MEDS: ONDANSETRON 2MG/ML, 2ML IVPush PRN (01:21)
[2018-03-02 04:11] LABS: MEAN CORPUSCULAR HEMOGLOBIN 29.5 pg (27.0-34.8); MEAN CORPUSCULAR HGB CONC 33.6 g/dL (32.4-35.8); MEAN CORPUSCULAR VOLUME 87.7 fL (80-100); MEAN PLATELET VOLUME 7.3 fL (7.4-10.4); PLATELET COUNT 487 x10^3/uL (130-400); RED BLOOD COUNT 2.55 x10^6/uL (3.82-5.3); RED CELL DISTRIBUTION WIDTH 16.2 % (9.6-15.2)
[2018-03-02 04:19] LABS: ALANINE AMINOTRANSFERASE 18 U/L (12-78); ALBUMIN 1.9 g/dL (3.4-5.0); ANION GAP 10 mmol/L (5-15); CALCIUM 8.9 mg/dL (8.5-10.1); CHLORIDE 104 mmol/L (98-107)
[2018-03-02 04:21] LABS: ALKALINE PHOSPHATASE 115 U/L (45-117); BILIRUBIN,TOTAL 0.3 mg/dL (0.2-1.0); TOTAL PROTEIN 6.8 g/dL (6.4-8.2)
[2018-03-02 04:31] LABS: BASOPHILS # (AUTO) 0.04 x10^3/uL (0-0.1); BASOPHILS % (AUTO) 0 % (0-1); EOSINOPHILS # (AUTO) 0.19 x10^3/uL (0-0.4); EOSINOPHILS % (AUTO) 2 % (1-7); LYMPHOCYTES # (AUTO) 1.83 x10^3/uL (1-3.4); LYMPHOCYTES % (AUTO) 15 % (22-44); MD SCAN; MONOCYTES # (AUTO) 0.72 x10^3/uL (0.2-0.8); MONOCYTES % (AUTO) 6 % (2-9); NEUTROPHILS # (AUTO) 9.72 x10^3/uL (1.8-6.8); NEUTROPHILS % (AUTO) 78 % (42-75)
[2018-03-02] MEDS ORDERED: ZOLPIDEM 5MG TABLET PO PRN (09:00)
[2018-03-02] MEDS: INSULIN LISPRO 100 UNITS/ML, PEN SQ-INSULIN SCH (09:00)
[2018-03-02] MEDS: PANTOPRAZOLE 40 MG IV IVPush SCH ×2 (09:18→20:09)
[2018-03-02] MEDS ORDERED: FAT EMUL IV SCH ×2 (17:00)
[2018-03-02] MEDS ORDERED: [UNRECOGNIZED DRUG - OTHER] IV SCH ×2 (17:00)
[2018-03-02] MEDS ORDERED: OLIV IV SCH ×2 (17:00)
[2018-03-02] MEDS ORDERED: AMINO ACID 10% IV SCH ×2 (17:00)
[2018-03-02] MEDS ORDERED: SOY IV SCH ×2 (17:00)
[2018-03-02] MEDS ORDERED: DEXTROSE 70% IV SCH ×2 (17:00)
[2018-03-02] MEDS ORDERED: MCT IV SCH ×2 (17:00)
[2018-03-02] MEDS ORDERED: FISH OIL IV SCH ×2 (17:00)
[2018-03-02] MEDS: FILTER, DISP 1.2 MICRON FOR TPN/PVN IV PRN (17:46)
[2018-03-02] MEDS: MICAFUNGIN 100 MG in SODIUM CHLORIDE 0.9% 100 ML IV SCH (18:22)
[2018-03-02] MEDS: DIPHENHYDRAMINE 50 MG/ML, 1ML IVPush PRN (23:07)
[2018-03-03] MEDS: MEROPENEM 1 GM in SODIUM CHLORIDE 0.9% 100 ML IV SCH ×3 (00:37→16:22)
[2018-03-03] MEDS: HEPARIN 5,000 UNITS/ML, 1ML SQ SCH ×3 (00:37→16:37)
[2018-03-03 04:43] LABS: MEAN CORPUSCULAR HEMOGLOBIN 29.7 pg (27.0-34.8); MEAN CORPUSCULAR HGB CONC 33.5 g/dL (32.4-35.8); MEAN CORPUSCULAR VOLUME 88.7 fL (80-100); MEAN PLATELET VOLUME 7.7 fL (7.4-10.4); PLATELET COUNT 481 x10^3/uL (130-400); RED BLOOD COUNT 2.58 x10^6/uL (3.82-5.3); RED CELL DISTRIBUTION WIDTH 16.5 % (9.6-15.2)
[2018-03-03 04:48] LABS: ALBUMIN 1.9 g/dL (3.4-5.0); ANION GAP 9 mmol/L (5-15); CHLORIDE 104 mmol/L (98-107)
[2018-03-03 04:53] LABS: ALANINE AMINOTRANSFERASE 18 U/L (12-78); ALKALINE PHOSPHATASE 115 U/L (45-117); BILIRUBIN,TOTAL 0.4 mg/dL (0.2-1.0); CREATININE 0.45 mg/dL (0.55-1.02); TRIGLYCERIDES 487 mg/dL (50-200)
[2018-03-03 05:41] LABS: BASOPHILS # (AUTO) 0.05 x10^3/uL (0-0.1); BASOPHILS % (AUTO) 1 % (0-1); EOSINOPHILS # (AUTO) 0.26 x10^3/uL (0-0.4); EOSINOPHILS % (AUTO) 2 % (1-7); LYMPHOCYTES % (AUTO) 16 % (22-44); MD SCAN; MONOCYTES # (AUTO) 0.71 x10^3/uL (0.2-0.8); MONOCYTES % (AUTO) 6 % (2-9); NEUTROPHILS # (AUTO) 8.63 x10^3/uL (1.8-6.8); NEUTROPHILS % (AUTO) 75 % (42-75)
[2018-03-03] MEDS: INSULIN LISPRO 100 UNITS/ML, PEN SQ-INSULIN SCH (09:00)
[2018-03-03] MEDS: PANTOPRAZOLE 40 MG IV IVPush SCH ×2 (09:03→21:41)
[2018-03-03] MEDS: LINEZOLID PMX 600MG/300ML 300 ML IV SCH (12:42)
[2018-03-03] MEDS: FILTER, DISP 1.2 MICRON FOR TPN/PVN IV PRN (16:13)
[2018-03-03] MEDS ORDERED: [UNRECOGNIZED DRUG - OTHER] IV SCH (17:00)
[2018-03-03] MEDS ORDERED: DEXTROSE 70% IV SCH (17:00)
[2018-03-03] MEDS ORDERED: AMINO ACID 10% IV SCH (17:00)
[2018-03-03] MEDS: SCOPOLAMINE PATCH, 1.5MG PATCH.TD72 TD SCH (17:58)
[2018-03-03] MEDS: MICAFUNGIN 100 MG in SODIUM CHLORIDE 0.9% 100 ML IV SCH (17:58)
[2018-03-03] MEDS: DIPHENHYDRAMINE 50 MG/ML, 1ML IVPush PRN (21:54)
[2018-03-04] MEDS: HEPARIN 5,000 UNITS/ML, 1ML SQ SCH ×3 (00:52→17:15)
[2018-03-04] MEDS: MEROPENEM 1 GM in SODIUM CHLORIDE 0.9% 100 ML IV SCH ×3 (00:52→17:27)
[2018-03-04] MEDS: LINEZOLID PMX 600MG/300ML 300 ML IV SCH ×2 (01:41→13:36)
[2018-03-04 06:25] LABS: ALANINE AMINOTRANSFERASE 19 U/L (12-78); ALBUMIN 1.9 g/dL (3.4-5.0); ANION GAP 9 mmol/L (5-15); CALCIUM 9.1 mg/dL (8.5-10.1); CHLORIDE 105 mmol/L (98-107)
[2018-03-04 06:27] LABS: ALKALINE PHOSPHATASE 117 U/L (45-117); BILIRUBIN,TOTAL 0.3 mg/dL (0.2-1.0); TOTAL PROTEIN 6.9 g/dL (6.4-8.2); TRIGLYCERIDES 484 mg/dL (50-200)
[2018-03-04 06:30] LABS: MEAN CORPUSCULAR HEMOGLOBIN 30.2 pg (27.0-34.8); MEAN CORPUSCULAR HGB CONC 34.1 g/dL (32.4-35.8); MEAN CORPUSCULAR VOLUME 88.5 fL (80-100); MEAN PLATELET VOLUME 7.4 fL (7.4-10.4); PLATELET COUNT 520 x10^3/uL (130-400); RED BLOOD COUNT 2.55 x10^6/uL (3.82-5.3)
[2018-03-04 07:00] LABS: BASOPHILS # (AUTO) 0.06 x10^3/uL (0-0.1); BASOPHILS % (AUTO) 1 % (0-1); EOSINOPHILS # (AUTO) 0.21 x10^3/uL (0-0.4); EOSINOPHILS % (AUTO) 2 % (1-7); LYMPHOCYTES # (AUTO) 1.89 x10^3/uL (1-3.4); LYMPHOCYTES % (AUTO) 15 % (22-44); MD SCAN; MONOCYTES # (AUTO) 0.69 x10^3/uL (0.2-0.8); MONOCYTES % (AUTO) 6 % (2-9); NEUTROPHILS # (AUTO) 9.58 x10^3/uL (1.8-6.8); NEUTROPHILS % (AUTO) 77 % (42-75)
[2018-03-04] MEDS: PANTOPRAZOLE 40 MG IV IVPush SCH ×2 (09:24→20:47)
[2018-03-04] MEDS: INSULIN LISPRO 100 UNITS/ML, PEN SQ-INSULIN SCH (09:39)
[2018-03-04] MEDS: MICAFUNGIN 100 MG in SODIUM CHLORIDE 0.9% 100 ML IV SCH (16:38)
[2018-03-04] MEDS: FILTER, DISP 1.2 MICRON FOR TPN/PVN IV PRN (16:41)
[2018-03-04] MEDS ORDERED: MCT IV SCH (17:00)
[2018-03-04] MEDS ORDERED: OLIV IV SCH (17:00)
[2018-03-04] MEDS ORDERED: FAT EMUL IV SCH (17:00)
[2018-03-04] MEDS ORDERED: FISH OIL IV SCH (17:00)
[2018-03-04] MEDS ORDERED: AMINO ACID 10% IV SCH (17:00)
[2018-03-04] MEDS ORDERED: DEXTROSE 70% IV SCH (17:00)
[2018-03-04] MEDS ORDERED: SOY IV SCH (17:00)
[2018-03-04] MEDS ORDERED: [UNRECOGNIZED DRUG - OTHER] IV SCH (17:00)
[2018-03-04] MEDS: DIPHENHYDRAMINE 50 MG/ML, 1ML IVPush PRN (23:02)
[2018-03-05] MEDS: MEROPENEM 1 GM in SODIUM CHLORIDE 0.9% 100 ML IV SCH ×4 (00:43→23:50)
[2018-03-05] MEDS: HEPARIN 5,000 UNITS/ML, 1ML SQ SCH ×3 (00:43→16:46)
[2018-03-05] MEDS: LINEZOLID PMX 600MG/300ML 300 ML IV SCH ×2 (01:44→13:49)
[2018-03-05 04:00] VITALS: BP 132/72
[2018-03-05 05:22] LABS: BASOPHILS # (AUTO) 0.05 x10^3/uL (0-0.1); BASOPHILS % (AUTO) 1 % (0-1); EOSINOPHILS % (AUTO) 2 % (1-7); LYMPHOCYTES # (AUTO) 1.65 x10^3/uL (1-3.4); LYMPHOCYTES % (AUTO) 14 % (22-44); MD NO; MEAN CORPUSCULAR HEMOGLOBIN 29.7 pg (27.0-34.8); MEAN CORPUSCULAR HGB CONC 33.5 g/dL (32.4-35.8); MEAN CORPUSCULAR VOLUME 88.6 fL (80-100); MEAN PLATELET VOLUME 7.5 fL (7.4-10.4); MONOCYTES # (AUTO) 0.74 x10^3/uL (0.2-0.8); MONOCYTES % (AUTO) 6 % (2-9); NEUTROPHILS % (AUTO) 78 % (42-75); PLATELET COUNT 514 x10^3/uL (130-400); RED CELL DISTRIBUTION WIDTH 17.4 % (9.6-15.2)
[2018-03-05 05:31] LABS: ALANINE AMINOTRANSFERASE 18 U/L (12-78); ANION GAP 9 mmol/L (5-15); CALCIUM 9.3 mg/dL (8.5-10.1); CHLORIDE 104 mmol/L (98-107); CREATININE 0.49 mg/dL (0.55-1.02)
[2018-03-05 05:33] LABS: ALKALINE PHOSPHATASE 122 U/L (45-117); BILIRUBIN,TOTAL 0.3 mg/dL (0.2-1.0); TOTAL PROTEIN 7.1 g/dL (6.4-8.2)
[2018-03-05] MEDS: INSULIN LISPRO 100 UNITS/ML, PEN SQ-INSULIN SCH (08:51)
[2018-03-05] MEDS: PANTOPRAZOLE 40 MG IV IVPush SCH ×2 (08:52→21:10)
[2018-03-05] MEDS ORDERED: SOY IV SCH (17:00)
[2018-03-05] MEDS ORDERED: FISH OIL IV SCH (17:00)
[2018-03-05] MEDS ORDERED: MCT IV SCH (17:00)
[2018-03-05] MEDS ORDERED: OLIV IV SCH (17:00)
[2018-03-05] MEDS ORDERED: FAT EMUL IV SCH (17:00)
[2018-03-05] MEDS ORDERED: [UNRECOGNIZED DRUG - OTHER] IV SCH (17:00)
[2018-03-05] MEDS ORDERED: DEXTROSE 70% IV SCH (17:00)
[2018-03-05] MEDS ORDERED: AMINO ACID 10% IV SCH (17:00)
[2018-03-05] MEDS: MICAFUNGIN 100 MG in SODIUM CHLORIDE 0.9% 100 ML IV SCH (18:02)
[2018-03-05] MEDS: DIPHENHYDRAMINE 50 MG/ML, 1ML IVPush PRN (21:41)
[2018-03-06] MEDS: HEPARIN 5,000 UNITS/ML, 1ML SQ SCH ×4 (01:44→23:51)
[2018-03-06] MEDS: LINEZOLID PMX 600MG/300ML 300 ML IV SCH ×2 (01:44→13:59)
[2018-03-06 04:02] LABS: BASOPHILS # (AUTO) 0.07 x10^3/uL (0-0.1); BASOPHILS % (AUTO) 1 % (0-1); EOSINOPHILS # (AUTO) 0.15 x10^3/uL (0-0.4); EOSINOPHILS % (AUTO) 1 % (1-7); LYMPHOCYTES # (AUTO) 1.79 x10^3/uL (1-3.4); LYMPHOCYTES % (AUTO) 16 % (22-44); MD NO; MEAN CORPUSCULAR HEMOGLOBIN 29.5 pg (27.0-34.8); MEAN CORPUSCULAR HGB CONC 33.3 g/dL (32.4-35.8); MEAN CORPUSCULAR VOLUME 88.5 fL (80-100); MEAN PLATELET VOLUME 7.1 fL (7.4-10.4); MONOCYTES % (AUTO) 7 % (2-9); NEUTROPHILS # (AUTO) 8.61 x10^3/uL (1.8-6.8); NEUTROPHILS % (AUTO) 75 % (42-75); PLATELET COUNT 495 x10^3/uL (130-400); RED BLOOD COUNT 2.62 x10^6/uL (3.82-5.3)
[2018-03-06 04:18] LABS: ALANINE AMINOTRANSFERASE 19 U/L (12-78); ANION GAP 9 mmol/L (5-15); CALCIUM 9.4 mg/dL (8.5-10.1); CHLORIDE 105 mmol/L (98-107); CREATININE 0.46 mg/dL (0.55-1.02)
[2018-03-06 04:22] LABS: ALKALINE PHOSPHATASE 119 U/L (45-117); BILIRUBIN,TOTAL 0.3 mg/dL (0.2-1.0); PREALBUMIN 25.3 mg/dL (20.0-40.0); TOTAL PROTEIN 6.9 g/dL (6.4-8.2)
[2018-03-06] MEDS ORDERED: PROPOFOL 10 MG/ML, 20ML ONE (06:28)
[2018-03-06] MEDS ORDERED: SODIUM CHLORIDE 0.9% PF 10ML ONE (06:29)
[2018-03-06] MEDS ORDERED: CEFAZOLIN 1,000 MG ONE ×2 (06:29)
[2018-03-06] MEDS ORDERED: FENTANYL PF 250 MCG/5ML ONE (06:30)
[2018-03-06] MEDS ORDERED: NEOSTIGMINE 1 MG/ML, 10ML ONE (06:31)
[2018-03-06] MEDS ORDERED: GLYCOPYRROLATE 0.4 MG/2 ML, 2ML ONE (06:31)
[2018-03-06] MEDS ORDERED: ROCURONIUM 10MG/ML,5ML ONE (06:32)
[2018-03-06] MEDS ORDERED: CEFOTETAN PMX 2GM/50ML 50 ML ONE (07:07)
[2018-03-06] MEDS ORDERED: ONDANSETRON 2MG/ML, 2ML ONE (07:38)
[2018-03-06] MEDS: MEROPENEM 1 GM in SODIUM CHLORIDE 0.9% 100 ML IV SCH ×3 (09:58→23:51)
[2018-03-06] MEDS: PANTOPRAZOLE 40 MG IV IVPush SCH ×2 (10:02→20:42)
[2018-03-06] MEDS: INSULIN LISPRO 100 UNITS/ML, PEN SQ-INSULIN SCH (10:02)
[2018-03-06] MEDS ORDERED: OLIV IV SCH (17:00)
[2018-03-06] MEDS ORDERED: MCT IV SCH (17:00)
[2018-03-06] MEDS ORDERED: FISH OIL IV SCH (17:00)
[2018-03-06] MEDS ORDERED: [UNRECOGNIZED DRUG - OTHER] IV SCH (17:00)
[2018-03-06] MEDS ORDERED: DEXTROSE 70% IV SCH (17:00)
[2018-03-06] MEDS ORDERED: AMINO ACID 10% IV SCH (17:00)
[2018-03-06] MEDS ORDERED: SOY IV SCH (17:00)
[2018-03-06] MEDS ORDERED: FAT EMUL IV SCH (17:00)
[2018-03-06] MEDS: MICAFUNGIN 100 MG in SODIUM CHLORIDE 0.9% 100 ML IV SCH (18:28)
[2018-03-06 20:18] VITALS: BP 118/69
[2018-03-06] MEDS ORDERED: SCOPOLAMINE PATCH, 1.5MG PATCH.TD72 TD ONE (20:27)
[2018-03-06] MEDS: DIPHENHYDRAMINE 50 MG/ML, 1ML IVPush PRN (22:02)
[2018-03-07] MEDS: LINEZOLID PMX 600MG/300ML 300 ML IV SCH ×2 (01:30→13:51)
[2018-03-07 02:26] VITALS: BP 122/74
[2018-03-07 06:02] LABS: BASOPHILS # (AUTO) 0.06 x10^3/uL (0-0.1); BASOPHILS % (AUTO) 1 % (0-1); EOSINOPHILS % (AUTO) 2 % (1-7); LYMPHOCYTES # (AUTO) 1.87 x10^3/uL (1-3.4); LYMPHOCYTES % (AUTO) 19 % (22-44); MD NO; MEAN CORPUSCULAR HEMOGLOBIN 30.5 pg (27.0-34.8); MEAN CORPUSCULAR HGB CONC 34.5 g/dL (32.4-35.8); MEAN CORPUSCULAR VOLUME 88.6 fL (80-100); MEAN PLATELET VOLUME 7.5 fL (7.4-10.4); MONOCYTES # (AUTO) 0.98 x10^3/uL (0.2-0.8); MONOCYTES % (AUTO) 10 % (2-9); NEUTROPHILS # (AUTO) 6.87 x10^3/uL (1.8-6.8); NEUTROPHILS % (AUTO) 69 % (42-75); PLATELET COUNT 504 x10^3/uL (130-400); RED BLOOD COUNT 2.51 x10^6/uL (3.82-5.3); RED CELL DISTRIBUTION WIDTH 17.5 % (9.6-15.2)
[2018-03-07 06:07] LABS: ALANINE AMINOTRANSFERASE 20 U/L (12-78); ANION GAP 12 mmol/L (5-15); CALCIUM 9.2 mg/dL (8.5-10.1); CHLORIDE 102 mmol/L (98-107); CREATININE 0.47 mg/dL (0.55-1.02)
[2018-03-07 06:09] LABS: ALKALINE PHOSPHATASE 118 U/L (45-117); BILIRUBIN,TOTAL 0.3 mg/dL (0.2-1.0); TRIGLYCERIDES 479 mg/dL (50-200)
[2018-03-07 07:29] VITALS: BP 104/54
[2018-03-07] MEDS: PANTOPRAZOLE 40 MG IV IVPush SCH ×2 (08:49→20:12)
[2018-03-07] MEDS: HEPARIN 5,000 UNITS/ML, 1ML SQ SCH ×2 (08:50→16:53)
[2018-03-07] MEDS: MEROPENEM 1 GM in SODIUM CHLORIDE 0.9% 100 ML IV SCH ×2 (08:53→16:42)
[2018-03-07] MEDS: INSULIN LISPRO 100 UNITS/ML, PEN SQ-INSULIN SCH (08:57)
[2018-03-07 14:10] VITALS: BP 105/69
[2018-03-07] MEDS ORDERED: ALBUTEROL/IPRATROPIUM 2.5MG/0.5MG, 3 ML NPPB PRN (15:30)
[2018-03-07] MEDS ORDERED: FAT EMUL IV SCH (17:00)
[2018-03-07] MEDS ORDERED: AMINO ACID 10% IV SCH (17:00)
[2018-03-07] MEDS ORDERED: MCT IV SCH (17:00)
[2018-03-07] MEDS ORDERED: FISH OIL IV SCH (17:00)
[2018-03-07] MEDS ORDERED: [UNRECOGNIZED DRUG - OTHER] IV SCH (17:00)
[2018-03-07] MEDS ORDERED: OLIV IV SCH (17:00)
[2018-03-07] MEDS ORDERED: DEXTROSE 70% IV SCH (17:00)
[2018-03-07] MEDS ORDERED: SOY IV SCH (17:00)
[2018-03-07] MEDS: MICAFUNGIN 100 MG in SODIUM CHLORIDE 0.9% 100 ML IV SCH ×2 (18:37→18:49)
[2018-03-07] MEDS: ALBUTEROL/IPRATROPIUM 2.5MG/0.5MG, 3 ML NPPB SCH (18:48)
[2018-03-07 20:17] VITALS: BP 126/71
[2018-03-08] MEDS: MEROPENEM 1 GM in SODIUM CHLORIDE 0.9% 100 ML IV SCH ×3 (00:14→16:14)
[2018-03-08] MEDS: HEPARIN 5,000 UNITS/ML, 1ML SQ SCH ×3 (00:14→16:14)
[2018-03-08] MEDS: LINEZOLID PMX 600MG/300ML 300 ML IV SCH ×2 (01:29→14:08)
[2018-03-08 02:16] VITALS: BP 108/70
[2018-03-08 06:27] LABS: MEAN CORPUSCULAR HGB CONC 32.7 g/dL (32.4-35.8); MEAN CORPUSCULAR VOLUME 88.9 fL (80-100); MEAN PLATELET VOLUME 7.3 fL (7.4-10.4); PLATELET COUNT 525 x10^3/uL (130-400); RED BLOOD COUNT 2.55 x10^6/uL (3.82-5.3); RED CELL DISTRIBUTION WIDTH 17.6 % (9.6-15.2)
[2018-03-08] MEDS: ALBUTEROL/IPRATROPIUM 2.5MG/0.5MG, 3 ML NPPB SCH ×4 (06:37→19:22)
[2018-03-08 06:38] LABS: ALANINE AMINOTRANSFERASE 19 U/L (12-78); ALBUMIN 1.9 g/dL (3.4-5.0); ANION GAP 9 mmol/L (5-15); CALCIUM 9.4 mg/dL (8.5-10.1); CHLORIDE 104 mmol/L (98-107); CREATININE 0.46 mg/dL (0.55-1.02)
[2018-03-08 06:40] LABS: ALKALINE PHOSPHATASE 113 U/L (45-117); BILIRUBIN,TOTAL 0.2 mg/dL (0.2-1.0); TOTAL PROTEIN 6.9 g/dL (6.4-8.2)
[2018-03-08 06:48] LABS: BASOPHILS % (AUTO) 1 % (0-1); EOSINOPHILS % (AUTO) 3 % (1-7); LYMPHOCYTES % (AUTO) 18 % (22-44); MONOCYTES # (AUTO) 0.75 x10^3/uL (0.2-0.8); MONOCYTES % (AUTO) 8 % (2-9); NEUTROPHILS # (AUTO) 6.34 x10^3/uL (1.8-6.8); NEUTROPHILS % (AUTO) 71 % (42-75)
[2018-03-08 06:51] LABS: MD SCAN
[2018-03-08 06:54] LABS: BASOPHILS # (AUTO) 0.04 x10^3/uL (0-0.1); EOSINOPHILS # (AUTO) 0.24 x10^3/uL (0-0.4)
[2018-03-08 07:17] VITALS: BP 117/75
[2018-03-08] MEDS: INSULIN LISPRO 100 UNITS/ML, PEN SQ-INSULIN SCH (09:00)
[2018-03-08] MEDS: PANTOPRAZOLE 40 MG IV IVPush SCH ×2 (09:26→23:30)
[2018-03-08 12:18] VITALS: BP 126/76
[2018-03-08] MEDS ORDERED: FAT EMUL IV SCH (17:00)
[2018-03-08] MEDS ORDERED: AMINO ACID 10% IV SCH (17:00)
[2018-03-08] MEDS ORDERED: [UNRECOGNIZED DRUG - OTHER] IV SCH (17:00)
[2018-03-08] MEDS ORDERED: OLIV IV SCH (17:00)
[2018-03-08] MEDS ORDERED: MCT IV SCH (17:00)
[2018-03-08] MEDS ORDERED: DEXTROSE 70% IV SCH (17:00)
[2018-03-08] MEDS ORDERED: FISH OIL IV SCH (17:00)
[2018-03-08] MEDS ORDERED: SOY IV SCH (17:00)
[2018-03-08] MEDS: FILTER, DISP 1.2 MICRON FOR TPN/PVN IV PRN (17:56)
[2018-03-08] MEDS: MICAFUNGIN 100 MG in SODIUM CHLORIDE 0.9% 100 ML IV SCH (18:11)
[2018-03-08 20:18] VITALS: BP 117/76
[2018-03-09] MEDS: MEROPENEM 1 GM in SODIUM CHLORIDE 0.9% 100 ML IV SCH ×3 (00:09→16:08)
[2018-03-09] MEDS: HEPARIN 5,000 UNITS/ML, 1ML SQ SCH ×3 (00:09→16:08)
[2018-03-09] MEDS: LINEZOLID PMX 600MG/300ML 300 ML IV SCH ×2 (02:05→13:36)
[2018-03-09 02:24] VITALS: BP 126/77
[2018-03-09 05:07] LABS: BASOPHILS # (AUTO) 0.12 x10^3/uL (0-0.1); BASOPHILS % (AUTO) 1 % (0-1); EOSINOPHILS # (AUTO) 0.21 x10^3/uL (0-0.4); EOSINOPHILS % (AUTO) 2 % (1-7); LYMPHOCYTES # (AUTO) 1.84 x10^3/uL (1-3.4); LYMPHOCYTES % (AUTO) 18 % (22-44); MD NO; MEAN CORPUSCULAR HEMOGLOBIN 30.2 pg (27.0-34.8); MEAN CORPUSCULAR HGB CONC 33.6 g/dL (32.4-35.8); MEAN CORPUSCULAR VOLUME 89.9 fL (80-100); MEAN PLATELET VOLUME 7.3 fL (7.4-10.4); MONOCYTES # (AUTO) 0.99 x10^3/uL (0.2-0.8); MONOCYTES % (AUTO) 10 % (2-9); NEUTROPHILS # (AUTO) 6.82 x10^3/uL (1.8-6.8); NEUTROPHILS % (AUTO) 68 % (42-75); PLATELET COUNT 483 x10^3/uL (130-400); RED BLOOD COUNT 2.58 x10^6/uL (3.82-5.3); RED CELL DISTRIBUTION WIDTH 17.4 % (9.6-15.2)
[2018-03-09 05:09] LABS: ALANINE AMINOTRANSFERASE 19 U/L (12-78); ALBUMIN 2.1 g/dL (3.4-5.0); ANION GAP 9 mmol/L (5-15); CALCIUM 9.5 mg/dL (8.5-10.1); CHLORIDE 103 mmol/L (98-107); CREATININE 0.46 mg/dL (0.55-1.02)
[2018-03-09 05:12] LABS: ALKALINE PHOSPHATASE 119 U/L (45-117); BILIRUBIN,TOTAL 0.3 mg/dL (0.2-1.0); TOTAL PROTEIN 7.1 g/dL (6.4-8.2)
[2018-03-09] MEDS: ALBUTEROL/IPRATROPIUM 2.5MG/0.5MG, 3 ML NPPB SCH ×4 (07:25→19:43)
[2018-03-09] MEDS: PANTOPRAZOLE 40 MG IV IVPush SCH ×2 (08:25→21:02)
[2018-03-09 08:30] VITALS: BP 130/77
[2018-03-09] MEDS: INSULIN LISPRO 100 UNITS/ML, PEN SQ-INSULIN SCH (10:32)
[2018-03-09 14:50] VITALS: BP 136/86
[2018-03-09] MEDS ORDERED: FAT EMUL IV SCH (17:00)
[2018-03-09] MEDS ORDERED: [UNRECOGNIZED DRUG - OTHER] IV SCH (17:00)
[2018-03-09] MEDS ORDERED: SOY IV SCH (17:00)
[2018-03-09] MEDS ORDERED: OLIV IV SCH (17:00)
[2018-03-09] MEDS ORDERED: DEXTROSE 70% IV SCH (17:00)
[2018-03-09] MEDS ORDERED: AMINO ACID 10% IV SCH (17:00)
[2018-03-09] MEDS ORDERED: FILTER, DISP 1.2 MICRON FOR TPN/PVN IV PRN (17:00)
[2018-03-09] MEDS ORDERED: FISH OIL IV SCH (17:00)
[2018-03-09] MEDS ORDERED: MCT IV SCH (17:00)
[2018-03-09] MEDS: MICAFUNGIN 100 MG in SODIUM CHLORIDE 0.9% 100 ML IV SCH (17:34)
[2018-03-09 19:08] VITALS: BP 129/87
[2018-03-10] MEDS: MEROPENEM 1 GM in SODIUM CHLORIDE 0.9% 100 ML IV SCH ×4 (00:23→23:42)
[2018-03-10] MEDS: HEPARIN 5,000 UNITS/ML, 1ML SQ SCH ×4 (00:23→23:42)
[2018-03-10 00:41] VITALS: BP 123/77
[2018-03-10] MEDS: LINEZOLID PMX 600MG/300ML 300 ML IV SCH ×2 (01:49→13:30)
[2018-03-10 06:15] LABS: BASOPHILS # (AUTO) 0.07 x10^3/uL (0-0.1); BASOPHILS % (AUTO) 1 % (0-1); EOSINOPHILS # (AUTO) 0.27 x10^3/uL (0-0.4); EOSINOPHILS % (AUTO) 3 % (1-7); LYMPHOCYTES # (AUTO) 1.77 x10^3/uL (1-3.4); LYMPHOCYTES % (AUTO) 16 % (22-44); MD NO; MEAN CORPUSCULAR HEMOGLOBIN 30.4 pg (27.0-34.8); MEAN CORPUSCULAR HGB CONC 34.1 g/dL (32.4-35.8); MEAN CORPUSCULAR VOLUME 89.4 fL (80-100); MEAN PLATELET VOLUME 7.5 fL (7.4-10.4); MONOCYTES # (AUTO) 1.15 x10^3/uL (0.2-0.8); MONOCYTES % (AUTO) 11 % (2-9); NEUTROPHILS # (AUTO) 7.54 x10^3/uL (1.8-6.8); NEUTROPHILS % (AUTO) 70 % (42-75); PLATELET COUNT 572 x10^3/uL (130-400); RED CELL DISTRIBUTION WIDTH 17.8 % (9.6-15.2)
[2018-03-10 06:34] LABS: ALANINE AMINOTRANSFERASE 21 U/L (12-78); ALBUMIN 2.2 g/dL (3.4-5.0); ANION GAP 8 mmol/L (5-15); CALCIUM 9.8 mg/dL (8.5-10.1); CHLORIDE 101 mmol/L (98-107); CREATININE 0.46 mg/dL (0.55-1.02); TRIGLYCERIDES 498 mg/dL (50-200)
[2018-03-10 06:36] LABS: ALKALINE PHOSPHATASE 127 U/L (45-117); BILIRUBIN,TOTAL 0.3 mg/dL (0.2-1.0); TOTAL PROTEIN 7.6 g/dL (6.4-8.2)
[2018-03-10] MEDS: ALBUTEROL/IPRATROPIUM 2.5MG/0.5MG, 3 ML NPPB SCH ×4 (07:35→19:22)
[2018-03-10] MEDS: PANTOPRAZOLE 40 MG IV IVPush SCH ×2 (08:34→21:49)
[2018-03-10 08:49] VITALS: BP 143/79
[2018-03-10] MEDS: INSULIN LISPRO 100 UNITS/ML, PEN SQ-INSULIN SCH (09:06)
[2018-03-10 14:22] VITALS: BP 110/73
[2018-03-10] MEDS ORDERED: OLIV IV SCH (17:00)
[2018-03-10] MEDS ORDERED: [UNRECOGNIZED DRUG - OTHER] IV SCH (17:00)
[2018-03-10] MEDS ORDERED: SOY IV SCH (17:00)
[2018-03-10] MEDS ORDERED: AMINO ACID 10% IV SCH (17:00)
[2018-03-10] MEDS ORDERED: FAT EMUL IV SCH (17:00)
[2018-03-10] MEDS ORDERED: FISH OIL IV SCH (17:00)
[2018-03-10] MEDS ORDERED: MCT IV SCH (17:00)
[2018-03-10] MEDS ORDERED: DEXTROSE 70% IV SCH (17:00)
[2018-03-10] MEDS: MICAFUNGIN 100 MG in SODIUM CHLORIDE 0.9% 100 ML IV SCH (18:27)
[2018-03-10] MEDS: FILTER, DISP 1.2 MICRON FOR TPN/PVN IV PRN (18:27)
[2018-03-10 18:41] VITALS: BP 114/74
[2018-03-11 01:34] VITALS: BP 141/78
[2018-03-11] MEDS: LINEZOLID PMX 600MG/300ML 300 ML IV SCH ×2 (01:57→16:11)
[2018-03-11 06:02] LABS: ALBUMIN 2.2 g/dL (3.4-5.0); ANION GAP 10 mmol/L (5-15); CALCIUM 9.9 mg/dL (8.5-10.1); CHLORIDE 101 mmol/L (98-107); MEAN CORPUSCULAR HEMOGLOBIN 30.3 pg (27.0-34.8); MEAN CORPUSCULAR HGB CONC 33.9 g/dL (32.4-35.8); MEAN CORPUSCULAR VOLUME 89.3 fL (80-100); MEAN PLATELET VOLUME 7.5 fL (7.4-10.4); PLATELET COUNT 524 x10^3/uL (130-400); RED BLOOD COUNT 2.57 x10^6/uL (3.82-5.3); RED CELL DISTRIBUTION WIDTH 17.9 % (9.6-15.2)
[2018-03-11 06:07] LABS: ALANINE AMINOTRANSFERASE 21 U/L (12-78); ALKALINE PHOSPHATASE 116 U/L (45-117); BILIRUBIN,TOTAL 0.3 mg/dL (0.2-1.0); CREATININE 0.42 mg/dL (0.55-1.02); TOTAL PROTEIN 7.1 g/dL (6.4-8.2)
[2018-03-11 06:40] LABS: BASOPHILS # (AUTO) 0.07 x10^3/uL (0-0.1); BASOPHILS % (AUTO) 1 % (0-1); EOSINOPHILS # (AUTO) 0.25 x10^3/uL (0-0.4); EOSINOPHILS % (AUTO) 3 % (1-7); LYMPHOCYTES # (AUTO) 1.84 x10^3/uL (1-3.4); LYMPHOCYTES % (AUTO) 18 % (22-44); MD MORPH REVIEW ONLY; MONOCYTES # (AUTO) 1.11 x10^3/uL (0.2-0.8); MONOCYTES % (AUTO) 11 % (2-9); NEUTROPHILS % (AUTO) 68 % (42-75)
[2018-03-11 06:42] LABS: ANISOCYTOSIS 1+; POLYCHROMASIA 1+
[2018-03-11 06:43] LABS: <PLATELET ESTIMATE> INCREASED; <PLT MORPHOLOGY> NORMAL PLT MORPH
[2018-03-11] MEDS: ALBUTEROL/IPRATROPIUM 2.5MG/0.5MG, 3 ML NPPB SCH ×4 (07:10→20:00)
[2018-03-11 07:56] VITALS: BP 133/65
[2018-03-11] MEDS: MEROPENEM 1 GM in SODIUM CHLORIDE 0.9% 100 ML IV SCH ×2 (09:18→15:14)
[2018-03-11] MEDS: HEPARIN 5,000 UNITS/ML, 1ML SQ SCH ×2 (09:18→16:12)
[2018-03-11] MEDS: PANTOPRAZOLE 40 MG IV IVPush SCH ×2 (09:18→19:52)
[2018-03-11] MEDS: INSULIN LISPRO 100 UNITS/ML, PEN SQ-INSULIN SCH (09:19)
[2018-03-11 14:29] VITALS: BP 137/81
[2018-03-11] MEDS: FILTER, DISP 1.2 MICRON FOR TPN/PVN IV PRN (16:11)
[2018-03-11] MEDS ORDERED: AMINO ACID 10% IV SCH (17:00)
[2018-03-11] MEDS ORDERED: OLIV IV SCH (17:00)
[2018-03-11] MEDS ORDERED: FAT EMUL IV SCH (17:00)
[2018-03-11] MEDS ORDERED: [UNRECOGNIZED DRUG - OTHER] IV SCH (17:00)
[2018-03-11] MEDS ORDERED: SOY IV SCH (17:00)
[2018-03-11] MEDS ORDERED: DEXTROSE 70% IV SCH (17:00)
[2018-03-11] MEDS ORDERED: MCT IV SCH (17:00)
[2018-03-11] MEDS ORDERED: FISH OIL IV SCH (17:00)
[2018-03-11 19:03] VITALS: BP 119/72
[2018-03-11] MEDS: MICAFUNGIN 100 MG in SODIUM CHLORIDE 0.9% 100 ML IV SCH (19:52)
[2018-03-12] MEDS: MEROPENEM 1 GM in SODIUM CHLORIDE 0.9% 100 ML IV SCH ×3 (00:18→15:50)
[2018-03-12] MEDS: HEPARIN 5,000 UNITS/ML, 1ML SQ SCH ×3 (00:19→17:57)
[2018-03-12 01:10] VITALS: BP 129/76
[2018-03-12] MEDS: LINEZOLID PMX 600MG/300ML 300 ML IV SCH (04:33)
[2018-03-12 06:11] LABS: ALANINE AMINOTRANSFERASE 21 U/L (12-78); ALBUMIN 2.2 g/dL (3.4-5.0); ANION GAP 8 mmol/L (5-15); CALCIUM 9.8 mg/dL (8.5-10.1); CHLORIDE 102 mmol/L (98-107); CREATININE 0.46 mg/dL (0.55-1.02)
[2018-03-12 06:13] LABS: ALKALINE PHOSPHATASE 121 U/L (45-117); BILIRUBIN,TOTAL 0.3 mg/dL (0.2-1.0); TOTAL PROTEIN 7.2 g/dL (6.4-8.2)
[2018-03-12 06:14] LABS: BASOPHILS # (AUTO) 0.05 x10^3/uL (0-0.1); BASOPHILS % (AUTO) 1 % (0-1); EOSINOPHILS # (AUTO) 0.32 x10^3/uL (0-0.4); EOSINOPHILS % (AUTO) 4 % (1-7); LYMPHOCYTES # (AUTO) 1.75 x10^3/uL (1-3.4); LYMPHOCYTES % (AUTO) 19 % (22-44); MD NO; MEAN CORPUSCULAR HGB CONC 33.5 g/dL (32.4-35.8); MEAN CORPUSCULAR VOLUME 89.5 fL (80-100); MEAN PLATELET VOLUME 7.4 fL (7.4-10.4); MONOCYTES % (AUTO) 10 % (2-9); NEUTROPHILS # (AUTO) 6.23 x10^3/uL (1.8-6.8); NEUTROPHILS % (AUTO) 67 % (42-75); PLATELET COUNT 575 x10^3/uL (130-400); RED BLOOD COUNT 2.66 x10^6/uL (3.82-5.3); RED CELL DISTRIBUTION WIDTH 18.1 % (9.6-15.2)
[2018-03-12] MEDS: ALBUTEROL/IPRATROPIUM 2.5MG/0.5MG, 3 ML NPPB SCH ×4 (06:50→20:20)
[2018-03-12 07:41] VITALS: BP 117/72
[2018-03-12] MEDS ORDERED: POTASSIUM CHLORIDE 20 MEQ TAB.ER.PRT PO ONE (09:00)
[2018-03-12] MEDS: INSULIN LISPRO 100 UNITS/ML, PEN SQ-INSULIN SCH (09:00)
[2018-03-12] MEDS: PANTOPRAZOLE 40 MG IV IVPush SCH ×2 (09:04→21:37)
[2018-03-12 13:10] VITALS: BP 114/76
[2018-03-12] MEDS ORDERED: [UNRECOGNIZED DRUG - OTHER] IV SCH (17:00)
[2018-03-12] MEDS ORDERED: SOY IV SCH (17:00)
[2018-03-12] MEDS ORDERED: OLIV IV SCH (17:00)
[2018-03-12] MEDS ORDERED: AMINO ACID 10% IV SCH (17:00)
[2018-03-12] MEDS ORDERED: FAT EMUL IV SCH (17:00)
[2018-03-12] MEDS ORDERED: MCT IV SCH (17:00)
[2018-03-12] MEDS ORDERED: FISH OIL IV SCH (17:00)
[2018-03-12] MEDS ORDERED: DEXTROSE 70% IV SCH (17:00)
[2018-03-12] MEDS: FILTER, DISP 1.2 MICRON FOR TPN/PVN IV PRN (17:08)
[2018-03-12 19:50] VITALS: BP 131/73
[2018-03-13] MEDS: HEPARIN 5,000 UNITS/ML, 1ML SQ SCH ×3 (02:12→16:43)
[2018-03-13 02:25] VITALS: BP 105/69
[2018-03-13 05:47] LABS: ALBUMIN 2.3 g/dL (3.4-5.0); ANION GAP 10 mmol/L (5-15); CHLORIDE 107 mmol/L (98-107)
[2018-03-13 05:54] LABS: ALANINE AMINOTRANSFERASE 21 U/L (12-78); ALKALINE PHOSPHATASE 120 U/L (45-117); BASOPHILS # (AUTO) 0.08 x10^3/uL (0-0.1); BASOPHILS % (AUTO) 1 % (0-1); BILIRUBIN,TOTAL 0.3 mg/dL (0.2-1.0); EOSINOPHILS % (AUTO) 3 % (1-7); LYMPHOCYTES # (AUTO) 1.71 x10^3/uL (1-3.4); LYMPHOCYTES % (AUTO) 17 % (22-44); MD NO; MEAN CORPUSCULAR HEMOGLOBIN 30.2 pg (27.0-34.8); MEAN CORPUSCULAR HGB CONC 33.5 g/dL (32.4-35.8); MEAN CORPUSCULAR VOLUME 90.1 fL (80-100); MEAN PLATELET VOLUME 7.5 fL (7.4-10.4); MONOCYTES % (AUTO) 9 % (2-9); NEUTROPHILS # (AUTO) 7.01 x10^3/uL (1.8-6.8); NEUTROPHILS % (AUTO) 70 % (42-75); PLATELET COUNT 574 x10^3/uL (130-400); PREALBUMIN 24.6 mg/dL (20.0-40.0); RED BLOOD COUNT 2.66 x10^6/uL (3.82-5.3); RED CELL DISTRIBUTION WIDTH 17.9 % (9.6-15.2); TOTAL PROTEIN 7.2 g/dL (6.4-8.2); TRIGLYCERIDES 489 mg/dL (50-200)
[2018-03-13] MEDS: ALBUTEROL/IPRATROPIUM 2.5MG/0.5MG, 3 ML NPPB SCH ×4 (07:25→20:30)
[2018-03-13] MEDS: PANTOPRAZOLE 40 MG IV IVPush SCH ×2 (08:10→22:11)
[2018-03-13 08:50] VITALS: BP 129/76
[2018-03-13] MEDS: INSULIN LISPRO 100 UNITS/ML, PEN SQ-INSULIN SCH (09:47)
[2018-03-13] MEDS ORDERED: GLYCOPYRROLATE 0.2MG/1ML, 5ML ONE (11:19)
[2018-03-13] MEDS ORDERED: ROCURONIUM 10MG/ML,5ML ONE (11:19)
[2018-03-13] MEDS ORDERED: NEOSTIGMINE 1 MG/ML, 10ML ONE (11:19)
[2018-03-13] MEDS ORDERED: FENTANYL PF 250 MCG/5ML ONE (11:28)
[2018-03-13] MEDS ORDERED: OXYcodone 5 MG/5 ML ORAL.SOL UDC PO PRN (12:00)
[2018-03-13] MEDS ORDERED: PROMETHAZINE 25 MG/ML, 1ML IV PRN (12:00)
[2018-03-13] MEDS ORDERED: FENTANYL PF 100 MCG/2ML IV PRN (12:00)
[2018-03-13] MEDS ORDERED: HYDROmorphone 1 MG/ML, 1ML IV PRN (12:00)
[2018-03-13] MEDS ORDERED: ALBUTEROL SULFATE 2.5 MG/3 ML NPPB PRN (12:00)
[2018-03-13 13:35] VITALS: BP 121/80
[2018-03-13] MEDS: FILTER, DISP 1.2 MICRON FOR TPN/PVN IV PRN (16:38)
[2018-03-13] MEDS ORDERED: SOY IV SCH (17:00)
[2018-03-13] MEDS ORDERED: FISH OIL IV SCH (17:00)
[2018-03-13] MEDS ORDERED: [UNRECOGNIZED DRUG - OTHER] IV SCH (17:00)
[2018-03-13] MEDS ORDERED: AMINO ACID 10% IV SCH (17:00)
[2018-03-13] MEDS ORDERED: MCT IV SCH (17:00)
[2018-03-13] MEDS ORDERED: OLIV IV SCH (17:00)
[2018-03-13] MEDS ORDERED: DEXTROSE 70% IV SCH (17:00)
[2018-03-13] MEDS ORDERED: FAT EMUL IV SCH (17:00)
[2018-03-13 19:41] VITALS: BP 117/74
[2018-03-14 01:45] VITALS: BP 134/81
[2018-03-14] MEDS: HEPARIN 5,000 UNITS/ML, 1ML SQ SCH ×3 (02:00→16:38)
[2018-03-14 06:22] LABS: BASOPHILS # (AUTO) 0.07 x10^3/uL (0-0.1); BASOPHILS % (AUTO) 1 % (0-1); EOSINOPHILS % (AUTO) 3 % (1-7); LYMPHOCYTES # (AUTO) 2.17 x10^3/uL (1-3.4); LYMPHOCYTES % (AUTO) 18 % (22-44); MD NO; MEAN CORPUSCULAR HEMOGLOBIN 30.4 pg (27.0-34.8); MEAN CORPUSCULAR HGB CONC 33.7 g/dL (32.4-35.8); MEAN CORPUSCULAR VOLUME 90.2 fL (80-100); MEAN PLATELET VOLUME 7.5 fL (7.4-10.4); MONOCYTES # (AUTO) 1.13 x10^3/uL (0.2-0.8); MONOCYTES % (AUTO) 10 % (2-9); NEUTROPHILS # (AUTO) 8.22 x10^3/uL (1.8-6.8); NEUTROPHILS % (AUTO) 69 % (42-75); PLATELET COUNT 568 x10^3/uL (130-400); RED BLOOD COUNT 2.57 x10^6/uL (3.82-5.3); RED CELL DISTRIBUTION WIDTH 18.3 % (9.6-15.2)
[2018-03-14 06:34] LABS: ALBUMIN 2.1 g/dL (3.4-5.0); ANION GAP 10 mmol/L (5-15); CALCIUM 9.7 mg/dL (8.5-10.1); CHLORIDE 105 mmol/L (98-107)
[2018-03-14 06:39] LABS: ALANINE AMINOTRANSFERASE 20 U/L (12-78); ALKALINE PHOSPHATASE 119 U/L (45-117); BILIRUBIN,TOTAL 0.3 mg/dL (0.2-1.0); TOTAL PROTEIN 7.1 g/dL (6.4-8.2)
[2018-03-14] MEDS: ALBUTEROL/IPRATROPIUM 2.5MG/0.5MG, 3 ML NPPB SCH ×4 (07:00→20:40)
[2018-03-14 07:14] VITALS: BP 130/77
[2018-03-14 07:17] VITALS: BP 119/75
[2018-03-14] MEDS: INSULIN LISPRO 100 UNITS/ML, PEN SQ-INSULIN SCH (09:24)
[2018-03-14] MEDS: PANTOPRAZOLE 40 MG IV IVPush SCH ×2 (09:26→21:56)
[2018-03-14 14:24] VITALS: BP 119/78
[2018-03-14] MEDS: FILTER, DISP 1.2 MICRON FOR TPN/PVN IV PRN (16:39)
[2018-03-14] MEDS ORDERED: SOY IV SCH (17:00)
[2018-03-14] MEDS ORDERED: AMINO ACID 10% IV SCH (17:00)
[2018-03-14] MEDS ORDERED: OLIV IV SCH (17:00)
[2018-03-14] MEDS ORDERED: [UNRECOGNIZED DRUG - OTHER] IV SCH (17:00)
[2018-03-14] MEDS ORDERED: FISH OIL IV SCH (17:00)
[2018-03-14] MEDS ORDERED: DEXTROSE 70% IV SCH (17:00)
[2018-03-14] MEDS ORDERED: FAT EMUL IV SCH (17:00)
[2018-03-14] MEDS ORDERED: MCT IV SCH (17:00)
[2018-03-14 20:00] VITALS: BP 129/79
[2018-03-15] MEDS: HEPARIN 5,000 UNITS/ML, 1ML SQ SCH ×3 (00:39→16:18)
[2018-03-15 00:53] VITALS: BP 133/77
[2018-03-15 04:28] LABS: MEAN CORPUSCULAR HEMOGLOBIN 29.6 pg (27.0-34.8); MEAN CORPUSCULAR VOLUME 89.8 fL (80-100); MEAN PLATELET VOLUME 7.3 fL (7.4-10.4); PLATELET COUNT 559 x10^3/uL (130-400); RED BLOOD COUNT 2.48 x10^6/uL (3.82-5.3); RED CELL DISTRIBUTION WIDTH 17.8 % (9.6-15.2)
[2018-03-15 04:31] LABS: ALBUMIN 2.2 g/dL (3.4-5.0); ANION GAP 10 mmol/L (5-15); CALCIUM 10.2 mg/dL (8.5-10.1); CHLORIDE 104 mmol/L (98-107)
[2018-03-15 04:34] LABS: ALANINE AMINOTRANSFERASE 21 U/L (12-78); ALKALINE PHOSPHATASE 112 U/L (45-117); BILIRUBIN,TOTAL 0.3 mg/dL (0.2-1.0); CREATININE 0.42 mg/dL (0.55-1.02); TOTAL PROTEIN 6.9 g/dL (6.4-8.2)
[2018-03-15 05:13] LABS: BASOPHILS # (AUTO) 0.05 x10^3/uL (0-0.1); BASOPHILS % (AUTO) 1 % (0-1); EOSINOPHILS # (AUTO) 0.31 x10^3/uL (0-0.4); EOSINOPHILS % (AUTO) 3 % (1-7); LYMPHOCYTES # (AUTO) 2.13 x10^3/uL (1-3.4); LYMPHOCYTES % (AUTO) 19 % (22-44); MD SCAN; MONOCYTES # (AUTO) 1.13 x10^3/uL (0.2-0.8); MONOCYTES % (AUTO) 10 % (2-9); NEUTROPHILS # (AUTO) 7.44 x10^3/uL (1.8-6.8); NEUTROPHILS % (AUTO) 67 % (42-75)
[2018-03-15] MEDS: ALBUTEROL/IPRATROPIUM 2.5MG/0.5MG, 3 ML NPPB SCH ×4 (06:52→19:18)
[2018-03-15] MEDS ORDERED: MAGNESIUM SULFATE PMX 2GM/50ML 50 ML IV ONE (07:30)
[2018-03-15 07:37] VITALS: BP 107/44
[2018-03-15] MEDS: INSULIN LISPRO 100 UNITS/ML, PEN SQ-INSULIN SCH (09:00)
[2018-03-15] MEDS: PANTOPRAZOLE 40 MG IV IVPush SCH ×2 (09:48→21:15)
[2018-03-15] MEDS ORDERED: SODIUM CHLORIDE NASAL SPRAY 45ML BOTTLE NAS PRN (11:30)
[2018-03-15 12:23] VITALS: BP 129/75
[2018-03-15] MEDS ORDERED: OLIV IV SCH (17:00)
[2018-03-15] MEDS ORDERED: FAT EMUL IV SCH (17:00)
[2018-03-15] MEDS ORDERED: SOY IV SCH (17:00)
[2018-03-15] MEDS ORDERED: AMINO ACID 10% IV SCH (17:00)
[2018-03-15] MEDS ORDERED: DEXTROSE 70% IV SCH (17:00)
[2018-03-15] MEDS ORDERED: FISH OIL IV SCH (17:00)
[2018-03-15] MEDS ORDERED: MCT IV SCH (17:00)
[2018-03-15] MEDS ORDERED: [UNRECOGNIZED DRUG - OTHER] IV SCH (17:00)
[2018-03-15] MEDS: FILTER, DISP 1.2 MICRON FOR TPN/PVN IV PRN (18:01)
[2018-03-15 20:32] VITALS: BP 100/63
[2018-03-16] MEDS: HEPARIN 5,000 UNITS/ML, 1ML SQ SCH ×3 (00:40→16:24)
[2018-03-16 03:45] VITALS: BP 105/69
[2018-03-16 05:23] LABS: ALANINE AMINOTRANSFERASE 21 U/L (12-78); ALBUMIN 2.1 g/dL (3.4-5.0); ANION GAP 9 mmol/L (5-15); CALCIUM 9.9 mg/dL (8.5-10.1); CHLORIDE 106 mmol/L (98-107)
[2018-03-16 05:26] LABS: ALKALINE PHOSPHATASE 110 U/L (45-117); BILIRUBIN,TOTAL 0.3 mg/dL (0.2-1.0); CREATININE 0.47 mg/dL (0.55-1.02); MEAN CORPUSCULAR HEMOGLOBIN 30.8 pg (27.0-34.8); MEAN CORPUSCULAR HGB CONC 34.6 g/dL (32.4-35.8); MEAN CORPUSCULAR VOLUME 89.3 fL (80-100); MEAN PLATELET VOLUME 7.5 fL (7.4-10.4); PLATELET COUNT 536 x10^3/uL (130-400); RED BLOOD COUNT 2.47 x10^6/uL (3.82-5.3); TRIGLYCERIDES 503 mg/dL (50-200)
[2018-03-16 05:58] LABS: BASOPHILS # (AUTO) 0.09 x10^3/uL (0-0.1); BASOPHILS % (AUTO) 1 % (0-1); EOSINOPHILS # (AUTO) 0.33 x10^3/uL (0-0.4); EOSINOPHILS % (AUTO) 4 % (1-7); LYMPHOCYTES # (AUTO) 1.95 x10^3/uL (1-3.4); LYMPHOCYTES % (AUTO) 21 % (22-44); MD SCAN; MONOCYTES % (AUTO) 13 % (2-9); NEUTROPHILS # (AUTO) 5.94 x10^3/uL (1.8-6.8); NEUTROPHILS % (AUTO) 62 % (42-75)
[2018-03-16] MEDS: ALBUTEROL/IPRATROPIUM 2.5MG/0.5MG, 3 ML NPPB SCH ×4 (06:45→19:42)
[2018-03-16 07:25] VITALS: BP 109/73
[2018-03-16] MEDS: INSULIN LISPRO 100 UNITS/ML, PEN SQ-INSULIN SCH ×2 (09:00→20:00)
[2018-03-16] MEDS: PANTOPRAZOLE 40 MG IV IVPush SCH ×2 (09:08→21:25)
[2018-03-16 14:45] VITALS: BP 123/72
[2018-03-16] MEDS ORDERED: FILTER, DISP 1.2 MICRON FOR TPN/PVN IV PRN (17:00)
[2018-03-16] MEDS ORDERED: SOY IV SCH (17:00)
[2018-03-16] MEDS ORDERED: AMINO ACID 10% IV SCH (17:00)
[2018-03-16] MEDS ORDERED: DEXTROSE 70% IV SCH (17:00)
[2018-03-16] MEDS ORDERED: FAT EMUL IV SCH (17:00)
[2018-03-16] MEDS ORDERED: [UNRECOGNIZED DRUG - OTHER] IV SCH (17:00)
[2018-03-16] MEDS ORDERED: OLIV IV SCH (17:00)
[2018-03-16] MEDS ORDERED: FISH OIL IV SCH (17:00)
[2018-03-16] MEDS ORDERED: MCT IV SCH (17:00)
[2018-03-16 20:50] VITALS: BP 115/78
[2018-03-17] MEDS: HEPARIN 5,000 UNITS/ML, 1ML SQ SCH ×3 (00:32→16:44)
[2018-03-17 05:21] VITALS: BP 120/74
[2018-03-17 05:59] LABS: ALBUMIN 2.2 g/dL (3.4-5.0); ANION GAP 11 mmol/L (5-15); CALCIUM 9.6 mg/dL (8.5-10.1); CHLORIDE 106 mmol/L (98-107)
[2018-03-17 06:03] LABS: ALANINE AMINOTRANSFERASE 23 U/L (12-78); ALKALINE PHOSPHATASE 106 U/L (45-117); BILIRUBIN,TOTAL 0.3 mg/dL (0.2-1.0); CREATININE 0.46 mg/dL (0.55-1.02)
[2018-03-17 06:04] LABS: MEAN CORPUSCULAR HEMOGLOBIN 30.3 pg (27.0-34.8); MEAN CORPUSCULAR HGB CONC 33.7 g/dL (32.4-35.8); MEAN CORPUSCULAR VOLUME 90.1 fL (80-100); MEAN PLATELET VOLUME 7.8 fL (7.4-10.4); PLATELET COUNT 541 x10^3/uL (130-400); RED BLOOD COUNT 2.51 x10^6/uL (3.82-5.3)
[2018-03-17 06:52] VITALS: BP 117/76
[2018-03-17 07:09] LABS: BASOPHILS # (AUTO) 0.04 x10^3/uL (0-0.1); BASOPHILS % (AUTO) 1 % (0-1); EOSINOPHILS # (AUTO) 0.28 x10^3/uL (0-0.4); EOSINOPHILS % (AUTO) 3 % (1-7); LYMPHOCYTES # (AUTO) 1.77 x10^3/uL (1-3.4); LYMPHOCYTES % (AUTO) 20 % (22-44); MD SCAN; MONOCYTES # (AUTO) 1.13 x10^3/uL (0.2-0.8); MONOCYTES % (AUTO) 13 % (2-9); NEUTROPHILS # (AUTO) 5.44 x10^3/uL (1.8-6.8); NEUTROPHILS % (AUTO) 63 % (42-75)
[2018-03-17] MEDS: ALBUTEROL/IPRATROPIUM 2.5MG/0.5MG, 3 ML NPPB SCH ×4 (08:00→20:00)
[2018-03-17] MEDS: PANTOPRAZOLE 40 MG IV IVPush SCH ×2 (09:37→20:34)
[2018-03-17] MEDS: INSULIN LISPRO 100 UNITS/ML, PEN SQ-INSULIN SCH ×2 (11:03→20:35)
[2018-03-17 12:24] VITALS: BP 112/75
[2018-03-17] MEDS ORDERED: OLIV IV SCH (17:00)
[2018-03-17] MEDS ORDERED: [UNRECOGNIZED DRUG - OTHER] IV SCH (17:00)
[2018-03-17] MEDS ORDERED: AMINO ACID 10% IV SCH (17:00)
[2018-03-17] MEDS ORDERED: MCT IV SCH (17:00)
[2018-03-17] MEDS ORDERED: SOY IV SCH (17:00)
[2018-03-17] MEDS ORDERED: DEXTROSE 70% IV SCH (17:00)
[2018-03-17] MEDS ORDERED: FISH OIL IV SCH (17:00)
[2018-03-17] MEDS ORDERED: FAT EMUL IV SCH (17:00)
[2018-03-17] MEDS: FILTER, DISP 1.2 MICRON FOR TPN/PVN IV PRN (17:10)
[2018-03-17 19:00] VITALS: BP 123/79
[2018-03-17] MEDS ORDERED: CATHFLO-ALTEPLASE 2 MG/2 ML CATHFLUSH ONE (22:00)
[2018-03-18 00:30] VITALS: BP 102/68
[2018-03-18] MEDS: HEPARIN 5,000 UNITS/ML, 1ML SQ SCH ×3 (00:53→18:32)
[2018-03-18] MEDS: CATHFLO-ALTEPLASE 2 MG/2 ML CATHFLUSH ONE (03:00)
[2018-03-18] MEDS: FILTER, DISP 1.2 MICRON FOR TPN/PVN IV PRN ×2 (03:01→17:00)
[2018-03-18 06:24] LABS: ALANINE AMINOTRANSFERASE 23 U/L (12-78); ALBUMIN 2.2 g/dL (3.4-5.0); ANION GAP 7 mmol/L (5-15); CALCIUM 9.8 mg/dL (8.5-10.1); CHLORIDE 108 mmol/L (98-107); CREATININE 0.52 mg/dL (0.55-1.02)
[2018-03-18 06:26] LABS: ALKALINE PHOSPHATASE 110 U/L (45-117); BILIRUBIN,TOTAL 0.3 mg/dL (0.2-1.0); TOTAL PROTEIN 7.1 g/dL (6.4-8.2)
[2018-03-18 06:32] LABS: MEAN CORPUSCULAR HEMOGLOBIN 29.7 pg (27.0-34.8); MEAN CORPUSCULAR HGB CONC 33.5 g/dL (32.4-35.8); MEAN CORPUSCULAR VOLUME 88.5 fL (80-100); MEAN PLATELET VOLUME 7.9 fL (7.4-10.4); PLATELET COUNT 516 x10^3/uL (130-400); RED BLOOD COUNT 2.56 x10^6/uL (3.82-5.3); RED CELL DISTRIBUTION WIDTH 16.9 % (9.6-15.2)
[2018-03-18 06:55] LABS: BASOPHILS # (AUTO) 0.04 x10^3/uL (0-0.1); BASOPHILS % (AUTO) 1 % (0-1); EOSINOPHILS # (AUTO) 0.25 x10^3/uL (0-0.4); EOSINOPHILS % (AUTO) 3 % (1-7); LYMPHOCYTES # (AUTO) 1.81 x10^3/uL (1-3.4); LYMPHOCYTES % (AUTO) 22 % (22-44); MD SCAN; MONOCYTES % (AUTO) 13 % (2-9); NEUTROPHILS # (AUTO) 5.24 x10^3/uL (1.8-6.8); NEUTROPHILS % (AUTO) 62 % (42-75)
[2018-03-18] MEDS: ALBUTEROL/IPRATROPIUM 2.5MG/0.5MG, 3 ML NPPB SCH ×4 (07:34→20:50)
[2018-03-18 07:50] VITALS: BP 114/63
[2018-03-18] MEDS: PANTOPRAZOLE 40 MG IV IVPush SCH ×2 (08:05→21:18)
[2018-03-18] MEDS: INSULIN LISPRO 100 UNITS/ML, PEN SQ-INSULIN SCH ×2 (08:28→21:19)
[2018-03-18 10:31] LABS: MICROSCOPIC INDICATED
[2018-03-18] MEDS ORDERED: FENTANYL PF 100 MCG/2ML ONE ×2 (12:10→12:45)
[2018-03-18] MEDS ORDERED: CEFOTETAN 2 GM ONE (12:14)
[2018-03-18] MEDS ORDERED: SUCRALFATE 1 GM TABLET ONE (12:33)
[2018-03-18 14:00] VITALS: BP 105/86
[2018-03-18] MEDS ORDERED: FISH OIL IV SCH (17:00)
[2018-03-18] MEDS ORDERED: DEXTROSE 70% IV SCH (17:00)
[2018-03-18] MEDS ORDERED: [UNRECOGNIZED DRUG - OTHER] IV SCH (17:00)
[2018-03-18] MEDS ORDERED: FAT EMUL IV SCH (17:00)
[2018-03-18] MEDS ORDERED: SOY IV SCH (17:00)
[2018-03-18] MEDS ORDERED: AMINO ACID 10% IV SCH (17:00)
[2018-03-18] MEDS ORDERED: OLIV IV SCH (17:00)
[2018-03-18] MEDS ORDERED: MCT IV SCH (17:00)
[2018-03-18 20:00] VITALS: BP 111/58
[2018-03-19 01:38] VITALS: BP 116/71
[2018-03-19] MEDS: HEPARIN 5,000 UNITS/ML, 1ML SQ SCH ×3 (01:51→18:59)
[2018-03-19 05:11] VITALS: BP 106/69
[2018-03-19 06:01] LABS: BASOPHILS # (AUTO) 0.06 x10^3/uL (0-0.1); BASOPHILS % (AUTO) 1 % (0-1); EOSINOPHILS # (AUTO) 0.25 x10^3/uL (0-0.4); EOSINOPHILS % (AUTO) 3 % (1-7); LYMPHOCYTES # (AUTO) 1.76 x10^3/uL (1-3.4); LYMPHOCYTES % (AUTO) 20 % (22-44); MD NO; MEAN CORPUSCULAR HEMOGLOBIN 29.7 pg (27.0-34.8); MEAN CORPUSCULAR HGB CONC 33.4 g/dL (32.4-35.8); MEAN PLATELET VOLUME 7.9 fL (7.4-10.4); MONOCYTES # (AUTO) 1.31 x10^3/uL (0.2-0.8); MONOCYTES % (AUTO) 15 % (2-9); NEUTROPHILS # (AUTO) 5.46 x10^3/uL (1.8-6.8); NEUTROPHILS % (AUTO) 62 % (42-75); PLATELET COUNT 500 x10^3/uL (130-400); RED BLOOD COUNT 2.65 x10^6/uL (3.82-5.3)
[2018-03-19 06:09] LABS: ALANINE AMINOTRANSFERASE 20 U/L (12-78); ALBUMIN 2.1 g/dL (3.4-5.0); ANION GAP 9 mmol/L (5-15); CALCIUM 9.3 mg/dL (8.5-10.1); CHLORIDE 105 mmol/L (98-107); CREATININE 0.51 mg/dL (0.55-1.02)
[2018-03-19 06:11] LABS: ALKALINE PHOSPHATASE 103 U/L (45-117); BILIRUBIN,TOTAL 0.2 mg/dL (0.2-1.0)
[2018-03-19] MEDS: ALBUTEROL/IPRATROPIUM 2.5MG/0.5MG, 3 ML NPPB SCH ×4 (06:59→20:00)
[2018-03-19 07:23] VITALS: BP 122/75
[2018-03-19] MEDS: INSULIN LISPRO 100 UNITS/ML, PEN SQ-INSULIN SCH ×3 (08:45→21:30)
[2018-03-19] MEDS: PANTOPRAZOLE 40 MG IV IVPush SCH ×2 (08:45→21:24)
[2018-03-19] MEDS: ONDANSETRON 2MG/ML, 2ML IVPush PRN (08:45)
[2018-03-19 15:56] VITALS: BP 112/74
[2018-03-19] MEDS ORDERED: MCT IV SCH (17:00)
[2018-03-19] MEDS ORDERED: AMINO ACID 10% IV SCH (17:00)
[2018-03-19] MEDS ORDERED: OLIV IV SCH (17:00)
[2018-03-19] MEDS ORDERED: FISH OIL IV SCH (17:00)
[2018-03-19] MEDS ORDERED: SOY IV SCH (17:00)
[2018-03-19] MEDS ORDERED: DEXTROSE 70% IV SCH (17:00)
[2018-03-19] MEDS ORDERED: FAT EMUL IV SCH (17:00)
[2018-03-19] MEDS ORDERED: [UNRECOGNIZED DRUG - OTHER] IV SCH (17:00)
[2018-03-19] MEDS: FILTER, DISP 1.2 MICRON FOR TPN/PVN IV PRN (17:27)
[2018-03-19 18:50] VITALS: BP 99/64
[2018-03-19] MEDS ORDERED: FENTANYL PF 100 MCG/2ML ONE (19:13)
[2018-03-19] MEDS ORDERED: FENTANYL PF 100 MCG/2ML IV PRN (20:30)
[2018-03-19] MEDS ORDERED: EPHEDRINE 50 MG/ML, 1ML IVPush PRN (20:30)
[2018-03-19] MEDS ORDERED: OXYcodone 5 MG/5 ML ORAL.SOL UDC PO PRN (20:30)
[2018-03-19] MEDS ORDERED: ONDANSETRON 2MG/ML, 2ML IV PRN (20:30)
[2018-03-19] MEDS ORDERED: HALOPERIDOL 5 MG/ML IV PRN (20:30)
[2018-03-19] MEDS ORDERED: ALBUTEROL SULFATE 2.5 MG/3 ML NPPB PRN (20:30)
[2018-03-19] MEDS ORDERED: MEPERIDINE/PF 25MG/0.5ML IVPush PRN (20:30)
[2018-03-19] MEDS ORDERED: MORPHINE SULFATE 4 MG/ML, 1ML IVPush PRN (20:30)
[2018-03-19] MEDS ORDERED: PROMETHAZINE 12.5 MG SUPP PR PRN (20:30)
[2018-03-19] MEDS ORDERED: LABETALOL 5MG/ML, 20ML IV PRN (20:30)
[2018-03-19] MEDS ORDERED: hydrALAzine 20 MG/ML, 1ML IV PRN (20:30)
[2018-03-19] MEDS ORDERED: PROMETHAZINE 25 MG/ML, 1ML IV PRN (20:30)
[2018-03-19] MEDS ORDERED: ONDANSETRON ODT 8 MG PO PRN (20:30)
[2018-03-19] MEDS ORDERED: DIAZEPAM 5 MG/ML, 2ML IVPush PRN (20:30)
[2018-03-19] MEDS ORDERED: MIDAZOLAM 1 MG/ML, 2ML IV PRN (20:30)
[2018-03-19] MEDS ORDERED: HYDROmorphone 1 MG/ML, 1ML IV PRN (20:30)
[2018-03-20] MEDS: HEPARIN 5,000 UNITS/ML, 1ML SQ SCH ×3 (01:13→18:18)
[2018-03-20 01:21] VITALS: BP 107/70
[2018-03-20] MEDS ORDERED: CATHFLO-ALTEPLASE 2 MG/2 ML CATHFLUSH ONE (06:00)
[2018-03-20 06:25] LABS: ALANINE AMINOTRANSFERASE 20 U/L (12-78); ALBUMIN 2.1 g/dL (3.4-5.0); ANION GAP 10 mmol/L (5-15); CALCIUM 9.8 mg/dL (8.5-10.1); CHLORIDE 107 mmol/L (98-107); CREATININE 0.55 mg/dL (0.55-1.02)
[2018-03-20 06:30] LABS: ALKALINE PHOSPHATASE 110 U/L (45-117); BILIRUBIN,TOTAL 0.2 mg/dL (0.2-1.0); PREALBUMIN 16.8 mg/dL (20.0-40.0); TOTAL PROTEIN 7.2 g/dL (6.4-8.2); TRIGLYCERIDES 571 mg/dL (50-200)
[2018-03-20 07:00] VITALS: BP 87/58
[2018-03-20 07:01] VITALS: BP 97/64
[2018-03-20 07:15] LABS: MEAN CORPUSCULAR HEMOGLOBIN 29.7 pg (27.0-34.8); MEAN CORPUSCULAR HGB CONC 33.2 g/dL (32.4-35.8); MEAN CORPUSCULAR VOLUME 89.3 fL (80-100); MEAN PLATELET VOLUME 7.5 fL (7.4-10.4); PLATELET COUNT 480 x10^3/uL (130-400); RED BLOOD COUNT 2.88 x10^6/uL (3.82-5.3); RED CELL DISTRIBUTION WIDTH 16.6 % (9.6-15.2)
[2018-03-20] MEDS: ALBUTEROL/IPRATROPIUM 2.5MG/0.5MG, 3 ML NPPB SCH ×4 (07:18→20:02)
[2018-03-20 07:29] LABS: BASOPHILS # (AUTO) 0.03 x10^3/uL (0-0.1); BASOPHILS % (AUTO) 0 % (0-1); EOSINOPHILS # (AUTO) 0.24 x10^3/uL (0-0.4); EOSINOPHILS % (AUTO) 3 % (1-7); LYMPHOCYTES # (AUTO) 1.41 x10^3/uL (1-3.4); LYMPHOCYTES % (AUTO) 18 % (22-44); MONOCYTES # (AUTO) 0.83 x10^3/uL (0.2-0.8); MONOCYTES % (AUTO) 11 % (2-9); NEUTROPHILS # (AUTO) 5.32 x10^3/uL (1.8-6.8); NEUTROPHILS % (AUTO) 68 % (42-75)
[2018-03-20 07:30] LABS: MD SCAN
[2018-03-20] MEDS: PANTOPRAZOLE 40 MG IV IVPush SCH ×2 (08:11→19:50)
[2018-03-20] MEDS: INSULIN LISPRO 100 UNITS/ML, PEN SQ-INSULIN SCH (08:26)
[2018-03-20 13:15] VITALS: BP 102/65
[2018-03-20] MEDS: ONDANSETRON 2MG/ML, 2ML IVPush PRN (15:42)
[2018-03-20] MEDS ORDERED: DEXTROSE 70% IV SCH (17:00)
[2018-03-20] MEDS ORDERED: FAT EMUL IV SCH (17:00)
[2018-03-20] MEDS ORDERED: OLIV IV SCH (17:00)
[2018-03-20] MEDS ORDERED: SOY IV SCH (17:00)
[2018-03-20] MEDS ORDERED: FISH OIL IV SCH (17:00)
[2018-03-20] MEDS ORDERED: MCT IV SCH (17:00)
[2018-03-20] MEDS ORDERED: [UNRECOGNIZED DRUG - OTHER] IV SCH (17:00)
[2018-03-20] MEDS ORDERED: AMINO ACID 10% IV SCH (17:00)
[2018-03-20] MEDS: FILTER, DISP 1.2 MICRON FOR TPN/PVN IV PRN (18:10)
[2018-03-20 19:40] VITALS: BP 111/75
[2018-03-21] MEDS: HEPARIN 5,000 UNITS/ML, 1ML SQ SCH ×3 (00:44→16:51)
[2018-03-21 04:26] VITALS: BP 116/68
[2018-03-21 06:36] LABS: BASOPHILS # (AUTO) 0.05 x10^3/uL (0-0.1); BASOPHILS % (AUTO) 1 % (0-1); EOSINOPHILS # (AUTO) 0.31 x10^3/uL (0-0.4); EOSINOPHILS % (AUTO) 4 % (1-7); LYMPHOCYTES % (AUTO) 16 % (22-44); MD NO; MEAN CORPUSCULAR HEMOGLOBIN 29.2 pg (27.0-34.8); MEAN CORPUSCULAR HGB CONC 32.7 g/dL (32.4-35.8); MEAN CORPUSCULAR VOLUME 89.2 fL (80-100); MEAN PLATELET VOLUME 8.1 fL (7.4-10.4); MONOCYTES # (AUTO) 0.89 x10^3/uL (0.2-0.8); MONOCYTES % (AUTO) 10 % (2-9); NEUTROPHILS # (AUTO) 6.07 x10^3/uL (1.8-6.8); NEUTROPHILS % (AUTO) 70 % (42-75); PLATELET COUNT 445 x10^3/uL (130-400); RED BLOOD COUNT 2.58 x10^6/uL (3.82-5.3); RED CELL DISTRIBUTION WIDTH 16.8 % (9.6-15.2)
[2018-03-21 06:43] LABS: ALANINE AMINOTRANSFERASE 18 U/L (12-78); ANION GAP 10 mmol/L (5-15); CALCIUM 9.5 mg/dL (8.5-10.1); CHLORIDE 107 mmol/L (98-107); CREATININE 0.56 mg/dL (0.55-1.02)
[2018-03-21 06:45] LABS: ALKALINE PHOSPHATASE 106 U/L (45-117); BILIRUBIN,TOTAL 0.2 mg/dL (0.2-1.0)
[2018-03-21] MEDS: ALBUTEROL/IPRATROPIUM 2.5MG/0.5MG, 3 ML NPPB SCH ×2 (07:48→20:11)
[2018-03-21] MEDS: PANTOPRAZOLE 40 MG IV IVPush SCH ×2 (07:55→21:04)
[2018-03-21 08:07] VITALS: BP 106/71
[2018-03-21] MEDS ORDERED: INSULIN LISPRO 100 UNITS/ML, PEN SQ-INSULIN SCH (09:00)
[2018-03-21 13:22] VITALS: BP 117/75
[2018-03-21] MEDS ORDERED: FENTANYL PF 250 MCG/5ML ONE ×2 (15:49→16:54)
[2018-03-21] MEDS ORDERED: MIDAZOLAM 1 MG/ML, 2ML ONE (15:49)
[2018-03-21] MEDS ORDERED: PHENYLEPHRINE 10 MG/ML ONE (16:32)
[2018-03-21] MEDS ORDERED: PROPOFOL 10 MG/ML, 20ML ONE (16:32)
[2018-03-21] MEDS ORDERED: MCT IV SCH (17:00)
[2018-03-21] MEDS ORDERED: [UNRECOGNIZED DRUG - OTHER] IV SCH (17:00)
[2018-03-21] MEDS ORDERED: AMINO ACID 10% IV SCH (17:00)
[2018-03-21] MEDS ORDERED: FISH OIL IV SCH (17:00)
[2018-03-21] MEDS ORDERED: FAT EMUL IV SCH (17:00)
[2018-03-21] MEDS ORDERED: DEXTROSE 70% IV SCH (17:00)
[2018-03-21] MEDS ORDERED: SOY IV SCH (17:00)
[2018-03-21] MEDS ORDERED: OLIV IV SCH (17:00)
[2018-03-21] MEDS ORDERED: HYDROmorphone 1 MG/ML, 1ML IV PRN (18:00)
[2018-03-21] MEDS ORDERED: PROMETHAZINE 25 MG/ML, 1ML IV PRN (18:00)
[2018-03-21] MEDS ORDERED: LORazepam 2 MG/ML, 1ML IVPush PRN (18:00)
[2018-03-21] MEDS ORDERED: HALOPERIDOL 5 MG/ML IV PRN (18:00)
[2018-03-21] MEDS: METOPROLOL TARTRATE 25 MG TABLET PO SCH (18:00)
[2018-03-21] MEDS ORDERED: MEPERIDINE/PF 25MG/0.5ML IVPush PRN (18:00)
[2018-03-21] MEDS ORDERED: FENTANYL PF 100 MCG/2ML IV PRN (18:00)
[2018-03-21] MEDS ORDERED: hydrALAzine 20 MG/ML, 1ML IV PRN (18:00)
[2018-03-21] MEDS ORDERED: LABETALOL 5MG/ML, 20ML IV PRN (18:00)
[2018-03-21] MEDS: FILTER, DISP 1.2 MICRON FOR TPN/PVN IV PRN (18:43)
[2018-03-21 20:10] VITALS: BP 119/74
[2018-03-21 23:36] VITALS: BP 107/68
[2018-03-22] MEDS: HEPARIN 5,000 UNITS/ML, 1ML SQ SCH ×3 (01:07→17:55)
[2018-03-22 03:54] VITALS: BP 112/59
[2018-03-22] MEDS: METOPROLOL TARTRATE 25 MG TABLET PO SCH ×2 (06:00→17:18)
[2018-03-22 06:44] LABS: BASOPHILS # (AUTO) 0.09 x10^3/uL (0-0.1); BASOPHILS % (AUTO) 1 % (0-1); EOSINOPHILS # (AUTO) 0.32 x10^3/uL (0-0.4); EOSINOPHILS % (AUTO) 3 % (1-7); LYMPHOCYTES # (AUTO) 2.07 x10^3/uL (1-3.4); LYMPHOCYTES % (AUTO) 18 % (22-44); MD NO; MEAN CORPUSCULAR HEMOGLOBIN 30.2 pg (27.0-34.8); MEAN CORPUSCULAR HGB CONC 33.9 g/dL (32.4-35.8); MEAN CORPUSCULAR VOLUME 89.2 fL (80-100); MEAN PLATELET VOLUME 8.2 fL (7.4-10.4); MONOCYTES # (AUTO) 1.19 x10^3/uL (0.2-0.8); MONOCYTES % (AUTO) 10 % (2-9); NEUTROPHILS # (AUTO) 7.93 x10^3/uL (1.8-6.8); NEUTROPHILS % (AUTO) 68 % (42-75); PLATELET COUNT 397 x10^3/uL (130-400); RED BLOOD COUNT 2.54 x10^6/uL (3.82-5.3); RED CELL DISTRIBUTION WIDTH 16.8 % (9.6-15.2)
[2018-03-22 06:48] LABS: ALANINE AMINOTRANSFERASE 18 U/L (12-78); ALBUMIN 2.1 g/dL (3.4-5.0); ANION GAP 11 mmol/L (5-15); CALCIUM 9.4 mg/dL (8.5-10.1); CHLORIDE 106 mmol/L (98-107); CREATININE 0.54 mg/dL (0.55-1.02)
[2018-03-22 06:50] LABS: ALKALINE PHOSPHATASE 109 U/L (45-117); BILIRUBIN,TOTAL 0.2 mg/dL (0.2-1.0); TOTAL PROTEIN 6.8 g/dL (6.4-8.2)
[2018-03-22 07:11] VITALS: BP 113/78
[2018-03-22] MEDS: ALBUTEROL/IPRATROPIUM 2.5MG/0.5MG, 3 ML NPPB SCH ×2 (09:00→19:23)
[2018-03-22] MEDS: PANTOPRAZOLE 40 MG IV IVPush SCH ×2 (09:09→20:57)
[2018-03-22] MEDS ORDERED: FISH OIL IV SCH ×2 (09:30→17:00)
[2018-03-22] MEDS ORDERED: SOY IV SCH ×2 (09:30→17:00)
[2018-03-22] MEDS ORDERED: OLIV IV SCH ×2 (09:30→17:00)
[2018-03-22] MEDS ORDERED: [UNRECOGNIZED DRUG - OTHER] IV SCH ×2 (09:30→17:00)
[2018-03-22] MEDS ORDERED: DEXTROSE 70% IV SCH ×2 (09:30→17:00)
[2018-03-22] MEDS ORDERED: MCT IV SCH ×2 (09:30→17:00)
[2018-03-22] MEDS ORDERED: FAT EMUL IV SCH ×2 (09:30→17:00)
[2018-03-22] MEDS ORDERED: AMINO ACID 10% IV SCH ×2 (09:30→17:00)
[2018-03-22 12:35] VITALS: BP 113/74
[2018-03-22] MEDS: FILTER, DISP 1.2 MICRON FOR TPN/PVN IV PRN (17:54)
[2018-03-22 19:28] VITALS: BP 124/78
[2018-03-23 00:33] VITALS: BP 106/62
[2018-03-23] MEDS: HEPARIN 5,000 UNITS/ML, 1ML SQ SCH ×3 (00:57→17:50)
[2018-03-23] MEDS: METOPROLOL TARTRATE 25 MG TABLET PO SCH ×2 (06:00→16:09)
[2018-03-23 06:43] LABS: MEAN CORPUSCULAR HEMOGLOBIN 29.4 pg (27.0-34.8); MEAN CORPUSCULAR VOLUME 89.2 fL (80-100); MEAN PLATELET VOLUME 7.7 fL (7.4-10.4); PLATELET COUNT 424 x10^3/uL (130-400); RED BLOOD COUNT 2.54 x10^6/uL (3.82-5.3); RED CELL DISTRIBUTION WIDTH 16.7 % (9.6-15.2)
[2018-03-23 06:47] LABS: ANION GAP 10 mmol/L (5-15); CALCIUM 9.8 mg/dL (8.5-10.1); CHLORIDE 107 mmol/L (98-107); CREATININE 0.52 mg/dL (0.55-1.02)
[2018-03-23 06:49] VITALS: BP 109/72
[2018-03-23 06:57] LABS: BASOPHILS % (AUTO) 1 % (0-1); EOSINOPHILS # (AUTO) 0.21 x10^3/uL (0-0.4); EOSINOPHILS % (AUTO) 2 % (1-7); LYMPHOCYTES # (AUTO) 1.44 x10^3/uL (1-3.4); LYMPHOCYTES % (AUTO) 15 % (22-44); MD SCAN; MONOCYTES % (AUTO) 8 % (2-9); NEUTROPHILS # (AUTO) 7.15 x10^3/uL (1.8-6.8); NEUTROPHILS % (AUTO) 74 % (42-75)
[2018-03-23] MEDS: ALBUTEROL/IPRATROPIUM 2.5MG/0.5MG, 3 ML NPPB SCH ×2 (08:20→19:47)
[2018-03-23] MEDS: INSULIN LISPRO 100 UNITS/ML, PEN SQ-INSULIN SCH (09:00)
[2018-03-23] MEDS: PANTOPRAZOLE 40 MG IV IVPush SCH ×2 (09:09→23:14)
[2018-03-23 13:42] VITALS: BP 96/63
[2018-03-23] MEDS ORDERED: FILTER, DISP 1.2 MICRON FOR TPN/PVN IV PRN (17:00)
[2018-03-23] MEDS ORDERED: AMINO ACID 10% IV SCH (17:00)
[2018-03-23] MEDS ORDERED: OLIV IV SCH (17:00)
[2018-03-23] MEDS ORDERED: [UNRECOGNIZED DRUG - OTHER] IV SCH (17:00)
[2018-03-23] MEDS ORDERED: FAT EMUL IV SCH (17:00)
[2018-03-23] MEDS ORDERED: SOY IV SCH (17:00)
[2018-03-23] MEDS ORDERED: FISH OIL IV SCH (17:00)
[2018-03-23] MEDS ORDERED: DEXTROSE 70% IV SCH (17:00)
[2018-03-23] MEDS ORDERED: MCT IV SCH (17:00)
[2018-03-23 20:00] VITALS: BP 108/69
[2018-03-24 01:40] VITALS: BP 107/72
[2018-03-24] MEDS: HEPARIN 5,000 UNITS/ML, 1ML SQ SCH ×3 (02:14→17:00)
[2018-03-24] MEDS: ONDANSETRON 2MG/ML, 2ML IVPush PRN (04:10)
[2018-03-24] MEDS: METOPROLOL TARTRATE 25 MG TABLET PO SCH ×2 (04:55→18:00)
[2018-03-24 05:57] LABS: BASOPHILS # (AUTO) 0.04 x10^3/uL (0-0.1); BASOPHILS % (AUTO) 0 % (0-1); EOSINOPHILS % (AUTO) 2 % (1-7); LYMPHOCYTES # (AUTO) 1.68 x10^3/uL (1-3.4); LYMPHOCYTES % (AUTO) 16 % (22-44); MD NO; MEAN CORPUSCULAR HEMOGLOBIN 30.5 pg (27.0-34.8); MEAN CORPUSCULAR HGB CONC 34.1 g/dL (32.4-35.8); MEAN CORPUSCULAR VOLUME 89.6 fL (80-100); MEAN PLATELET VOLUME 8.1 fL (7.4-10.4); MONOCYTES # (AUTO) 0.81 x10^3/uL (0.2-0.8); MONOCYTES % (AUTO) 8 % (2-9); NEUTROPHILS # (AUTO) 7.49 x10^3/uL (1.8-6.8); NEUTROPHILS % (AUTO) 73 % (42-75); PLATELET COUNT 413 x10^3/uL (130-400); RED BLOOD COUNT 2.63 x10^6/uL (3.82-5.3); RED CELL DISTRIBUTION WIDTH 16.5 % (9.6-15.2)
[2018-03-24 06:05] LABS: CHLORIDE 108 mmol/L (98-107)
[2018-03-24 06:10] LABS: ANION GAP 9 mmol/L (5-15); CALCIUM 9.6 mg/dL (8.5-10.1); CREATININE 0.53 mg/dL (0.55-1.02)
[2018-03-24 07:00] VITALS: BP 124/79
[2018-03-24] MEDS: ALBUTEROL/IPRATROPIUM 2.5MG/0.5MG, 3 ML NPPB SCH ×2 (09:58→21:00)
[2018-03-24] MEDS: PANTOPRAZOLE 40 MG IV IVPush SCH ×2 (10:28→21:11)
[2018-03-24] MEDS: INSULIN LISPRO 100 UNITS/ML, PEN SQ-INSULIN SCH (10:38)
[2018-03-24] MEDS ORDERED: HYDROmorphone 1 MG/ML, 1ML IV PRN (12:00)
[2018-03-24 13:59] VITALS: BP 132/78
[2018-03-24] MEDS ORDERED: AMINO ACID 10% IV SCH (17:00)
[2018-03-24] MEDS ORDERED: [UNRECOGNIZED DRUG - OTHER] IV SCH (17:00)
[2018-03-24] MEDS ORDERED: DEXTROSE 70% IV SCH (17:00)
[2018-03-24] MEDS: FILTER, DISP 1.2 MICRON FOR TPN/PVN IV PRN ×2 (17:58→18:05)
[2018-03-24 18:49] VITALS: BP 124/76
[2018-03-25 00:46] VITALS: BP 126/81
[2018-03-25] MEDS: HEPARIN 5,000 UNITS/ML, 1ML SQ SCH ×3 (01:44→17:31)
[2018-03-25 05:35] LABS: BASOPHILS # (AUTO) 0.06 x10^3/uL (0-0.1); BASOPHILS % (AUTO) 1 % (0-1); EOSINOPHILS # (AUTO) 0.19 x10^3/uL (0-0.4); EOSINOPHILS % (AUTO) 2 % (1-7); LYMPHOCYTES % (AUTO) 15 % (22-44); MD NO; MEAN CORPUSCULAR HGB CONC 34.6 g/dL (32.4-35.8); MEAN CORPUSCULAR VOLUME 89.7 fL (80-100); MEAN PLATELET VOLUME 8.1 fL (7.4-10.4); MONOCYTES # (AUTO) 0.96 x10^3/uL (0.2-0.8); MONOCYTES % (AUTO) 9 % (2-9); NEUTROPHILS # (AUTO) 8.24 x10^3/uL (1.8-6.8); NEUTROPHILS % (AUTO) 75 % (42-75); PLATELET COUNT 389 x10^3/uL (130-400); RED BLOOD COUNT 2.62 x10^6/uL (3.82-5.3); RED CELL DISTRIBUTION WIDTH 17.2 % (9.6-15.2)
[2018-03-25 05:41] LABS: CHLORIDE 107 mmol/L (98-107)
[2018-03-25 05:55] LABS: ANION GAP 10 mmol/L (5-15); CALCIUM 9.5 mg/dL (8.5-10.1); CREATININE 0.52 mg/dL (0.55-1.02); PREALBUMIN 15.7 mg/dL (20.0-40.0)
[2018-03-25] MEDS: METOPROLOL TARTRATE 25 MG TABLET PO SCH ×2 (05:55→17:27)
[2018-03-25] MEDS: ALBUTEROL/IPRATROPIUM 2.5MG/0.5MG, 3 ML NPPB SCH ×2 (07:52→20:06)
[2018-03-25 07:53] VITALS: BP 114/73
[2018-03-25] MEDS: PANTOPRAZOLE 40 MG IV IVPush SCH ×2 (10:09→22:30)
[2018-03-25] MEDS: INSULIN LISPRO 100 UNITS/ML, PEN SQ-INSULIN SCH (10:09)
[2018-03-25 14:09] VITALS: BP 117/81
[2018-03-25] MEDS ORDERED: FISH OIL IV SCH (17:00)
[2018-03-25] MEDS ORDERED: MCT IV SCH (17:00)
[2018-03-25] MEDS ORDERED: AMINO ACID 10% IV SCH (17:00)
[2018-03-25] MEDS ORDERED: FAT EMUL IV SCH (17:00)
[2018-03-25] MEDS ORDERED: OLIV IV SCH (17:00)
[2018-03-25] MEDS ORDERED: [UNRECOGNIZED DRUG - OTHER] IV SCH (17:00)
[2018-03-25] MEDS ORDERED: SOY IV SCH (17:00)
[2018-03-25] MEDS ORDERED: DEXTROSE 70% IV SCH (17:00)
[2018-03-25] MEDS: FILTER, DISP 1.2 MICRON FOR TPN/PVN IV PRN (17:31)
[2018-03-25 18:32] VITALS: BP 135/66
[2018-03-25] MEDS: ONDANSETRON 2MG/ML, 2ML IVPush PRN (22:30)
[2018-03-26 00:17] VITALS: BP 121/73
[2018-03-26] MEDS: HEPARIN 5,000 UNITS/ML, 1ML SQ SCH ×3 (03:05→21:26)
[2018-03-26 05:48] LABS: BASOPHILS # (AUTO) 0.04 x10^3/uL (0-0.1); BASOPHILS % (AUTO) 0 % (0-1); EOSINOPHILS # (AUTO) 0.24 x10^3/uL (0-0.4); EOSINOPHILS % (AUTO) 2 % (1-7); LYMPHOCYTES # (AUTO) 1.93 x10^3/uL (1-3.4); LYMPHOCYTES % (AUTO) 17 % (22-44); MD NO; MEAN CORPUSCULAR HEMOGLOBIN 30.8 pg (27.0-34.8); MEAN CORPUSCULAR HGB CONC 34.8 g/dL (32.4-35.8); MEAN CORPUSCULAR VOLUME 88.6 fL (80-100); MEAN PLATELET VOLUME 8.1 fL (7.4-10.4); MONOCYTES # (AUTO) 0.97 x10^3/uL (0.2-0.8); MONOCYTES % (AUTO) 9 % (2-9); NEUTROPHILS # (AUTO) 8.05 x10^3/uL (1.8-6.8); NEUTROPHILS % (AUTO) 72 % (42-75); PLATELET COUNT 382 x10^3/uL (130-400); RED BLOOD COUNT 2.63 x10^6/uL (3.82-5.3)
[2018-03-26 05:53] LABS: CHLORIDE 104 mmol/L (98-107)
[2018-03-26 05:57] LABS: ALANINE AMINOTRANSFERASE 23 U/L (12-78); ALKALINE PHOSPHATASE 114 U/L (45-117); ANION GAP 9 mmol/L (5-15); BILIRUBIN,TOTAL 0.2 mg/dL (0.2-1.0); CALCIUM 9.4 mg/dL (8.5-10.1); CREATININE 0.49 mg/dL (0.55-1.02); TOTAL PROTEIN 6.7 g/dL (6.4-8.2)
[2018-03-26] MEDS: METOPROLOL TARTRATE 25 MG TABLET PO SCH ×2 (06:00→17:21)
[2018-03-26 06:54] VITALS: BP 117/75
[2018-03-26] MEDS: ALBUTEROL/IPRATROPIUM 2.5MG/0.5MG, 3 ML NPPB SCH ×2 (09:00→21:00)
[2018-03-26] MEDS: INSULIN LISPRO 100 UNITS/ML, PEN SQ-INSULIN SCH (09:00)
[2018-03-26] MEDS: PANTOPRAZOLE 40 MG IV IVPush SCH ×2 (09:40→21:25)
[2018-03-26 12:57] VITALS: BP 121/73
[2018-03-26] MEDS ORDERED: MCT IV SCH (17:00)
[2018-03-26] MEDS ORDERED: SOY IV SCH (17:00)
[2018-03-26] MEDS ORDERED: OLIV IV SCH (17:00)
[2018-03-26] MEDS ORDERED: FISH OIL IV SCH (17:00)
[2018-03-26] MEDS ORDERED: [UNRECOGNIZED DRUG - OTHER] IV SCH (17:00)
[2018-03-26] MEDS ORDERED: DEXTROSE 70% IV SCH (17:00)
[2018-03-26] MEDS ORDERED: FAT EMUL IV SCH (17:00)
[2018-03-26] MEDS ORDERED: AMINO ACID 10% IV SCH (17:00)
[2018-03-26] MEDS: FILTER, DISP 1.2 MICRON FOR TPN/PVN IV PRN (17:16)
[2018-03-26 18:46] VITALS: BP 130/77
[2018-03-26] MEDS: ONDANSETRON 2MG/ML, 2ML IVPush PRN (21:40)
[2018-03-27 01:48] VITALS: BP 116/77
[2018-03-27] MEDS: HEPARIN 5,000 UNITS/ML, 1ML SQ SCH ×3 (05:34→21:38)
[2018-03-27] MEDS: METOPROLOL TARTRATE 25 MG TABLET PO SCH ×2 (05:34→18:00)
[2018-03-27 06:29] VITALS: BP 116/76
[2018-03-27 06:46] LABS: ALBUMIN 2.2 g/dL (3.4-5.0); ANION GAP 11 mmol/L (5-15); CALCIUM 9.6 mg/dL (8.5-10.1); CHLORIDE 104 mmol/L (98-107)
[2018-03-27 06:50] LABS: ALANINE AMINOTRANSFERASE 21 U/L (12-78); ALKALINE PHOSPHATASE 123 U/L (45-117); BILIRUBIN,TOTAL 0.2 mg/dL (0.2-1.0); CREATININE 0.55 mg/dL (0.55-1.02); TRIGLYCERIDES 639 mg/dL (50-200)
[2018-03-27] MEDS: ALBUTEROL/IPRATROPIUM 2.5MG/0.5MG, 3 ML NPPB SCH ×2 (08:30→20:30)
[2018-03-27] MEDS: INSULIN LISPRO 100 UNITS/ML, PEN SQ-INSULIN SCH (09:36)
[2018-03-27] MEDS: PANTOPRAZOLE 40 MG IV IVPush SCH ×2 (09:36→21:38)
[2018-03-27 12:12] VITALS: BP 118/75
[2018-03-27] MEDS ORDERED: SOY IV SCH (17:00)
[2018-03-27] MEDS ORDERED: OLIV IV SCH (17:00)
[2018-03-27] MEDS ORDERED: AMINO ACID 10% IV SCH (17:00)
[2018-03-27] MEDS ORDERED: [UNRECOGNIZED DRUG - OTHER] IV SCH (17:00)
[2018-03-27] MEDS ORDERED: DEXTROSE 70% IV SCH (17:00)
[2018-03-27] MEDS ORDERED: FISH OIL IV SCH (17:00)
[2018-03-27] MEDS ORDERED: FAT EMUL IV SCH (17:00)
[2018-03-27] MEDS ORDERED: MCT IV SCH (17:00)
[2018-03-27] MEDS: FILTER, DISP 1.2 MICRON FOR TPN/PVN IV PRN (17:32)
[2018-03-27 18:54] VITALS: BP 110/73
[2018-03-28 01:06] VITALS: BP 121/77
[2018-03-28] MEDS: HEPARIN 5,000 UNITS/ML, 1ML SQ SCH ×3 (05:06→21:15)
[2018-03-28] MEDS: METOPROLOL TARTRATE 25 MG TABLET PO SCH ×2 (05:06→17:39)
[2018-03-28 05:46] LABS: BASOPHILS # (AUTO) 0.06 x10^3/uL (0-0.1); BASOPHILS % (AUTO) 1 % (0-1); EOSINOPHILS # (AUTO) 0.28 x10^3/uL (0-0.4); EOSINOPHILS % (AUTO) 3 % (1-7); LYMPHOCYTES # (AUTO) 2.16 x10^3/uL (1-3.4); LYMPHOCYTES % (AUTO) 20 % (22-44); MD NO; MEAN CORPUSCULAR HEMOGLOBIN 30.6 pg (27.0-34.8); MEAN CORPUSCULAR HGB CONC 34.4 g/dL (32.4-35.8); MEAN CORPUSCULAR VOLUME 89.1 fL (80-100); MEAN PLATELET VOLUME 8.5 fL (7.4-10.4); MONOCYTES # (AUTO) 0.71 x10^3/uL (0.2-0.8); MONOCYTES % (AUTO) 7 % (2-9); NEUTROPHILS # (AUTO) 7.58 x10^3/uL (1.8-6.8); NEUTROPHILS % (AUTO) 70 % (42-75); PLATELET COUNT 385 x10^3/uL (130-400); RED BLOOD COUNT 2.74 x10^6/uL (3.82-5.3)
[2018-03-28 05:55] LABS: ALBUMIN 2.1 g/dL (3.4-5.0); ANION GAP 8 mmol/L (5-15); CALCIUM 9.5 mg/dL (8.5-10.1); CHLORIDE 104 mmol/L (98-107)
[2018-03-28 06:00] LABS: ALANINE AMINOTRANSFERASE 22 U/L (12-78); ALKALINE PHOSPHATASE 120 U/L (45-117); BILIRUBIN,TOTAL 0.2 mg/dL (0.2-1.0); CREATININE 0.52 mg/dL (0.55-1.02)
[2018-03-28 06:45] VITALS: BP 114/68
[2018-03-28] MEDS: ALBUTEROL/IPRATROPIUM 2.5MG/0.5MG, 3 ML NPPB SCH (09:20)
[2018-03-28] MEDS: PANTOPRAZOLE 40 MG IV IVPush SCH ×2 (10:16→21:14)
[2018-03-28] MEDS: INSULIN LISPRO 100 UNITS/ML, PEN SQ-INSULIN SCH (10:17)
[2018-03-28] MEDS ORDERED: MIDAZOLAM 1 MG/ML, 2ML ONE (14:24)
[2018-03-28] MEDS ORDERED: FENTANYL PF 100 MCG/2ML ONE (14:24)
[2018-03-28] MEDS ORDERED: PROPOFOL 10 MG/ML, 20ML ONE (14:35)
[2018-03-28] MEDS ORDERED: MIDAZOLAM 1 MG/ML, 2ML IV PRN (15:30)
[2018-03-28] MEDS ORDERED: MEPERIDINE/PF 25MG/0.5ML IVPush PRN (15:30)
[2018-03-28] MEDS ORDERED: HYDROmorphone 1 MG/ML, 1ML IV PRN (15:30)
[2018-03-28] MEDS ORDERED: OXYcodone 5 MG/5 ML ORAL.SOL UDC PO PRN (15:30)
[2018-03-28] MEDS ORDERED: FENTANYL PF 100 MCG/2ML IV PRN (15:30)
[2018-03-28] MEDS ORDERED: ONDANSETRON 2MG/ML, 2ML IVPush PRN (15:30)
[2018-03-28] MEDS ORDERED: LABETALOL 5MG/ML, 20ML IV PRN (15:30)
[2018-03-28 16:45] VITALS: BP 128/81
[2018-03-28] MEDS ORDERED: SOY IV SCH (17:00)
[2018-03-28] MEDS ORDERED: DEXTROSE 70% IV SCH (17:00)
[2018-03-28] MEDS ORDERED: [UNRECOGNIZED DRUG - OTHER] IV SCH (17:00)
[2018-03-28] MEDS ORDERED: FISH OIL IV SCH (17:00)
[2018-03-28] MEDS ORDERED: AMINO ACID 10% IV SCH (17:00)
[2018-03-28] MEDS ORDERED: MCT IV SCH (17:00)
[2018-03-28] MEDS ORDERED: FAT EMUL IV SCH (17:00)
[2018-03-28] MEDS ORDERED: OLIV IV SCH (17:00)
[2018-03-28] MEDS: FILTER, DISP 1.2 MICRON FOR TPN/PVN IV PRN (17:39)
[2018-03-28 19:30] VITALS: BP 122/73
[2018-03-28] MEDS ORDERED: ALBUTEROL SULFATE 2.5 MG/3 ML NPPB PRN (21:00)
[2018-03-29 01:55] VITALS: BP 122/76
[2018-03-29] MEDS: METOPROLOL TARTRATE 25 MG TABLET PO SCH ×2 (05:28→17:09)
[2018-03-29] MEDS: HEPARIN 5,000 UNITS/ML, 1ML SQ SCH ×3 (05:28→21:26)
[2018-03-29 06:28] LABS: ALBUMIN 2.1 g/dL (3.4-5.0); ANION GAP 11 mmol/L (5-15); CALCIUM 9.3 mg/dL (8.5-10.1); CHLORIDE 105 mmol/L (98-107); CREATININE 0.58 mg/dL (0.55-1.02)
[2018-03-29 06:32] LABS: PREALBUMIN 17.3 mg/dL (20.0-40.0)
[2018-03-29 07:17] VITALS: BP 116/71
[2018-03-29 08:39] LABS: BASOPHILS % (AUTO) 1 % (0-1); EOSINOPHILS # (AUTO) 0.18 x10^3/uL (0-0.4); EOSINOPHILS % (AUTO) 2 % (1-7); LYMPHOCYTES # (AUTO) 1.54 x10^3/uL (1-3.4); LYMPHOCYTES % (AUTO) 12 % (22-44); MD NO; MEAN CORPUSCULAR HEMOGLOBIN 29.9 pg (27.0-34.8); MEAN CORPUSCULAR HGB CONC 33.3 g/dL (32.4-35.8); MEAN CORPUSCULAR VOLUME 89.6 fL (80-100); MONOCYTES # (AUTO) 0.69 x10^3/uL (0.2-0.8); MONOCYTES % (AUTO) 6 % (2-9); NEUTROPHILS # (AUTO) 9.92 x10^3/uL (1.8-6.8); NEUTROPHILS % (AUTO) 80 % (42-75); PLATELET COUNT 415 x10^3/uL (130-400); RED BLOOD COUNT 2.78 x10^6/uL (3.82-5.3)
[2018-03-29 08:55] LABS: ALANINE AMINOTRANSFERASE 21 U/L (12-78); ALBUMIN 2.1 g/dL (3.4-5.0); ANION GAP 9 mmol/L (5-15); CALCIUM 9.1 mg/dL (8.5-10.1); CHLORIDE 105 mmol/L (98-107); CREATININE 0.54 mg/dL (0.55-1.02)
[2018-03-29 08:57] LABS: ALKALINE PHOSPHATASE 118 U/L (45-117); BILIRUBIN,TOTAL 0.2 mg/dL (0.2-1.0); TOTAL PROTEIN 7.1 g/dL (6.4-8.2)
[2018-03-29] MEDS: INSULIN LISPRO 100 UNITS/ML, PEN SQ-INSULIN SCH (09:00)
[2018-03-29] MEDS: PANTOPRAZOLE 40 MG IV IVPush SCH ×2 (10:13→21:25)
[2018-03-29 13:32] VITALS: BP 111/71
[2018-03-29] MEDS ORDERED: [UNRECOGNIZED DRUG - OTHER] IV SCH (17:00)
[2018-03-29] MEDS ORDERED: MCT IV SCH (17:00)
[2018-03-29] MEDS ORDERED: FILTER, DISP 1.2 MICRON FOR TPN/PVN IV PRN (17:00)
[2018-03-29] MEDS ORDERED: OLIV IV SCH (17:00)
[2018-03-29] MEDS ORDERED: AMINO ACID 10% IV SCH (17:00)
[2018-03-29] MEDS ORDERED: FISH OIL IV SCH (17:00)
[2018-03-29] MEDS ORDERED: DEXTROSE 70% IV SCH (17:00)
[2018-03-29] MEDS ORDERED: SOY IV SCH (17:00)
[2018-03-29] MEDS ORDERED: FAT EMUL IV SCH (17:00)
[2018-03-29 19:08] VITALS: BP 125/80
[2018-03-29] MEDS: ONDANSETRON 2MG/ML, 2ML IVPush PRN (21:46)
[2018-03-30 01:18] VITALS: BP 112/68
[2018-03-30] MEDS: METOPROLOL TARTRATE 25 MG TABLET PO SCH ×3 (05:32→22:02)
[2018-03-30] MEDS: HEPARIN 5,000 UNITS/ML, 1ML SQ SCH ×3 (05:32→22:01)
[2018-03-30 06:38] LABS: ALANINE AMINOTRANSFERASE 21 U/L (12-78); ANION GAP 11 mmol/L (5-15); CALCIUM 9.5 mg/dL (8.5-10.1); CHLORIDE 105 mmol/L (98-107); CREATININE 0.56 mg/dL (0.55-1.02)
[2018-03-30 06:40] LABS: ALKALINE PHOSPHATASE 120 U/L (45-117); BILIRUBIN,TOTAL 0.2 mg/dL (0.2-1.0); TOTAL PROTEIN 6.9 g/dL (6.4-8.2)
[2018-03-30 06:53] LABS: BASOPHILS # (AUTO) 0.04 x10^3/uL (0-0.1); BASOPHILS % (AUTO) 0 % (0-1); EOSINOPHILS # (AUTO) 0.14 x10^3/uL (0-0.4); EOSINOPHILS % (AUTO) 1 % (1-7); LYMPHOCYTES # (AUTO) 1.63 x10^3/uL (1-3.4); LYMPHOCYTES % (AUTO) 15 % (22-44); MD NO; MEAN CORPUSCULAR HEMOGLOBIN 29.7 pg (27.0-34.8); MEAN CORPUSCULAR HGB CONC 33.1 g/dL (32.4-35.8); MEAN CORPUSCULAR VOLUME 89.8 fL (80-100); MEAN PLATELET VOLUME 8.3 fL (7.4-10.4); MONOCYTES # (AUTO) 0.85 x10^3/uL (0.2-0.8); MONOCYTES % (AUTO) 8 % (2-9); NEUTROPHILS # (AUTO) 8.01 x10^3/uL (1.8-6.8); NEUTROPHILS % (AUTO) 75 % (42-75); PLATELET COUNT 385 x10^3/uL (130-400); RED BLOOD COUNT 2.72 x10^6/uL (3.82-5.3); RED CELL DISTRIBUTION WIDTH 16.7 % (9.6-15.2)
[2018-03-30] MEDS: INSULIN LISPRO 100 UNITS/ML, PEN SQ-INSULIN SCH (09:00)
[2018-03-30 09:17] VITALS: BP 113/71
[2018-03-30] MEDS: PANTOPRAZOLE 40 MG IV IVPush SCH ×2 (09:30→22:01)
[2018-03-30] MEDS: PIPERACILLIN/TAZO/PMX 3.375GM 50 ML IV SCH ×3 (10:31→22:02)
[2018-03-30 14:12] VITALS: BP 114/98
[2018-03-30] MEDS: ONDANSETRON 2MG/ML, 2ML IVPush PRN (15:42)
[2018-03-30] MEDS ORDERED: AMINO ACID 10% IV SCH (17:00)
[2018-03-30] MEDS ORDERED: SOY IV SCH (17:00)
[2018-03-30] MEDS ORDERED: OLIV IV SCH (17:00)
[2018-03-30] MEDS ORDERED: FISH OIL IV SCH (17:00)
[2018-03-30] MEDS ORDERED: [UNRECOGNIZED DRUG - OTHER] IV SCH (17:00)
[2018-03-30] MEDS ORDERED: FILTER, DISP 1.2 MICRON FOR TPN/PVN IV PRN (17:00)
[2018-03-30] MEDS ORDERED: MCT IV SCH (17:00)
[2018-03-30] MEDS ORDERED: FAT EMUL IV SCH (17:00)
[2018-03-30] MEDS ORDERED: DEXTROSE 70% IV SCH (17:00)
[2018-03-30 20:19] VITALS: BP 102/58
[2018-03-31 02:15] VITALS: BP 122/74
[2018-03-31] MEDS: PIPERACILLIN/TAZO/PMX 3.375GM 50 ML IV SCH ×4 (03:48→22:05)
[2018-03-31] MEDS: HEPARIN 5,000 UNITS/ML, 1ML SQ SCH ×3 (05:52→22:05)
[2018-03-31 08:08] VITALS: BP 103/67
[2018-03-31] MEDS: PANTOPRAZOLE 40 MG IV IVPush SCH ×2 (08:35→22:05)
[2018-03-31 14:14] VITALS: BP 110/76
[2018-03-31] MEDS: FILTER, DISP 1.2 MICRON FOR TPN/PVN IV PRN (16:44)
[2018-03-31] MEDS ORDERED: DEXTROSE 70% IV SCH (17:00)
[2018-03-31] MEDS ORDERED: FISH OIL IV SCH (17:00)
[2018-03-31] MEDS ORDERED: FAT EMUL IV SCH (17:00)
[2018-03-31] MEDS ORDERED: AMINO ACID 10% IV SCH (17:00)
[2018-03-31] MEDS ORDERED: OLIV IV SCH (17:00)
[2018-03-31] MEDS ORDERED: SOY IV SCH (17:00)
[2018-03-31] MEDS ORDERED: [UNRECOGNIZED DRUG - OTHER] IV SCH (17:00)
[2018-03-31] MEDS ORDERED: MCT IV SCH (17:00)
[2018-03-31] MEDS: METOPROLOL TARTRATE 25 MG TABLET PO SCH ×2 (18:00→22:05)
[2018-03-31 21:30] VITALS: BP 126/81
[2018-04-01 01:13] VITALS: BP 108/66
[2018-04-01] MEDS: PIPERACILLIN/TAZO/PMX 3.375GM 50 ML IV SCH ×4 (03:35→21:39)
[2018-04-01 05:22] LABS: BASOPHILS # (AUTO) 0.05 x10^3/uL (0-0.1); BASOPHILS % (AUTO) 1 % (0-1); EOSINOPHILS # (AUTO) 0.29 x10^3/uL (0-0.4); EOSINOPHILS % (AUTO) 3 % (1-7); LYMPHOCYTES # (AUTO) 1.54 x10^3/uL (1-3.4); LYMPHOCYTES % (AUTO) 14 % (22-44); MD NO; MEAN CORPUSCULAR HEMOGLOBIN 30.3 pg (27.0-34.8); MEAN CORPUSCULAR VOLUME 89.3 fL (80-100); MEAN PLATELET VOLUME 7.8 fL (7.4-10.4); MONOCYTES # (AUTO) 1.02 x10^3/uL (0.2-0.8); MONOCYTES % (AUTO) 9 % (2-9); NEUTROPHILS # (AUTO) 7.98 x10^3/uL (1.8-6.8); NEUTROPHILS % (AUTO) 73 % (42-75); PLATELET COUNT 398 x10^3/uL (130-400); RED BLOOD COUNT 2.57 x10^6/uL (3.82-5.3); RED CELL DISTRIBUTION WIDTH 16.2 % (9.6-15.2)
[2018-04-01 05:33] LABS: CHLORIDE 105 mmol/L (98-107)
[2018-04-01 05:40] LABS: ANION GAP 11 mmol/L (5-15); CALCIUM 8.9 mg/dL (8.5-10.1); CREATININE 0.61 mg/dL (0.55-1.02); TRIGLYCERIDES 521 mg/dL (50-200)
[2018-04-01] MEDS: HEPARIN 5,000 UNITS/ML, 1ML SQ SCH ×3 (05:40→21:39)
[2018-04-01 08:02] VITALS: BP 111/74
[2018-04-01] MEDS: PANTOPRAZOLE 40 MG IV IVPush SCH ×2 (08:50→21:39)
[2018-04-01 13:54] VITALS: BP 100/69
[2018-04-01] MEDS ORDERED: DEXTROSE 70% IV SCH (17:00)
[2018-04-01] MEDS ORDERED: AMINO ACID 10% IV SCH (17:00)
[2018-04-01] MEDS ORDERED: FAT EMUL IV SCH (17:00)
[2018-04-01] MEDS ORDERED: FISH OIL IV SCH (17:00)
[2018-04-01] MEDS ORDERED: OLIV IV SCH (17:00)
[2018-04-01] MEDS ORDERED: [UNRECOGNIZED DRUG - OTHER] IV SCH (17:00)
[2018-04-01] MEDS ORDERED: MCT IV SCH (17:00)
[2018-04-01] MEDS ORDERED: SOY IV SCH (17:00)
[2018-04-01] MEDS: FILTER, DISP 1.2 MICRON FOR TPN/PVN IV PRN (17:37)
[2018-04-01 17:43] VITALS: BP 101/43
[2018-04-01] MEDS: METOPROLOL TARTRATE 25 MG TABLET PO SCH ×2 (17:44→23:46)
[2018-04-01 20:59] VITALS: BP 110/75
[2018-04-02 02:09] VITALS: BP 114/66
[2018-04-02] MEDS: PIPERACILLIN/TAZO/PMX 3.375GM 50 ML IV SCH (03:58)
[2018-04-02] MEDS: HEPARIN 5,000 UNITS/ML, 1ML SQ SCH ×3 (05:08→22:44)
[2018-04-02] MEDS: ONDANSETRON 2MG/ML, 2ML IVPush PRN (05:27)
[2018-04-02 06:45] VITALS: BP 108/71
[2018-04-02] MEDS: PANTOPRAZOLE 40 MG IV IVPush SCH ×2 (10:01→22:45)
[2018-04-02 12:36] VITALS: BP 130/81
[2018-04-02] MEDS ORDERED: DEXTROSE 70% IV SCH (17:00)
[2018-04-02] MEDS ORDERED: FAT EMUL IV SCH (17:00)
[2018-04-02] MEDS: FILTER, DISP 1.2 MICRON FOR TPN/PVN IV PRN (17:00)
[2018-04-02] MEDS ORDERED: AMINO ACID 10% IV SCH (17:00)
[2018-04-02] MEDS ORDERED: FISH OIL IV SCH (17:00)
[2018-04-02] MEDS ORDERED: MCT IV SCH (17:00)
[2018-04-02] MEDS ORDERED: [UNRECOGNIZED DRUG - OTHER] IV SCH (17:00)
[2018-04-02] MEDS ORDERED: SOY IV SCH (17:00)
[2018-04-02] MEDS ORDERED: OLIV IV SCH (17:00)
[2018-04-02] MEDS: METOPROLOL TARTRATE 25 MG TABLET PO SCH (17:05)
[2018-04-02 18:27] VITALS: BP 111/67
[2018-04-03 00:35] VITALS: BP 130/75
[2018-04-03 06:17] LABS: BASOPHILS # (AUTO) 0.06 x10^3/uL (0-0.1); BASOPHILS % (AUTO) 1 % (0-1); EOSINOPHILS # (AUTO) 0.31 x10^3/uL (0-0.4); EOSINOPHILS % (AUTO) 3 % (1-7); LYMPHOCYTES # (AUTO) 1.49 x10^3/uL (1-3.4); LYMPHOCYTES % (AUTO) 14 % (22-44); MD NO; MEAN CORPUSCULAR HEMOGLOBIN 30.1 pg (27.0-34.8); MEAN CORPUSCULAR HGB CONC 33.8 g/dL (32.4-35.8); MEAN CORPUSCULAR VOLUME 89.3 fL (80-100); MONOCYTES # (AUTO) 0.77 x10^3/uL (0.2-0.8); MONOCYTES % (AUTO) 7 % (2-9); NEUTROPHILS # (AUTO) 8.05 x10^3/uL (1.8-6.8); NEUTROPHILS % (AUTO) 75 % (42-75); PLATELET COUNT 494 x10^3/uL (130-400); RED BLOOD COUNT 2.79 x10^6/uL (3.82-5.3); RED CELL DISTRIBUTION WIDTH 16.6 % (9.6-15.2)
[2018-04-03] MEDS: HEPARIN 5,000 UNITS/ML, 1ML SQ SCH ×3 (06:32→22:59)
[2018-04-03] MEDS: METOPROLOL TARTRATE 25 MG TABLET PO SCH ×2 (06:32→17:29)
[2018-04-03 06:40] LABS: ANION GAP 10 mmol/L (5-15); CALCIUM 9.1 mg/dL (8.5-10.1); CHLORIDE 107 mmol/L (98-107)
[2018-04-03 06:47] LABS: ALANINE AMINOTRANSFERASE 20 U/L (12-78); ALKALINE PHOSPHATASE 129 U/L (45-117); BILIRUBIN,TOTAL 0.2 mg/dL (0.2-1.0); CREATININE 0.54 mg/dL (0.55-1.02)
[2018-04-03 06:57] LABS: SEDIMENTATION RATE > 120 mm/hr (0-20)
[2018-04-03 06:58] VITALS: BP 130/76
[2018-04-03 07:07] LABS: HCT (SEDRATE) 24.9 % (34.6-47.8)
[2018-04-03] MEDS: PANTOPRAZOLE 40 MG IV IVPush SCH ×2 (09:14→22:59)
[2018-04-03 12:34] VITALS: BP 132/77
[2018-04-03] MEDS ORDERED: [UNRECOGNIZED DRUG - OTHER] IV SCH (17:00)
[2018-04-03] MEDS ORDERED: DEXTROSE 70% IV SCH (17:00)
[2018-04-03] MEDS ORDERED: MCT IV SCH (17:00)
[2018-04-03] MEDS ORDERED: FISH OIL IV SCH (17:00)
[2018-04-03] MEDS ORDERED: SOY IV SCH (17:00)
[2018-04-03] MEDS ORDERED: FAT EMUL IV SCH (17:00)
[2018-04-03] MEDS ORDERED: OLIV IV SCH (17:00)
[2018-04-03] MEDS ORDERED: AMINO ACID 10% IV SCH (17:00)
[2018-04-03] MEDS: FILTER, DISP 1.2 MICRON FOR TPN/PVN IV PRN (17:29)
[2018-04-03 20:49] VITALS: BP 123/78
[2018-04-04 02:59] VITALS: BP 120/76
[2018-04-04 05:26] LABS: ANION GAP 10 mmol/L (5-15); CALCIUM 9.3 mg/dL (8.5-10.1); CHLORIDE 107 mmol/L (98-107)
[2018-04-04 05:36] LABS: CREATININE 0.61 mg/dL (0.55-1.02); PREALBUMIN 16.7 mg/dL (20.0-40.0)
[2018-04-04] MEDS: METOPROLOL TARTRATE 25 MG TABLET PO SCH ×3 (06:20→19:24)
[2018-04-04] MEDS: HEPARIN 5,000 UNITS/ML, 1ML SQ SCH ×3 (06:20→21:29)
[2018-04-04 07:49] VITALS: BP 138/79
[2018-04-04] MEDS: PANTOPRAZOLE 40 MG IV IVPush SCH ×2 (08:55→21:29)
[2018-04-04] MEDS ORDERED: CATHFLO-ALTEPLASE 2 MG/2 ML CATHFLUSH ONE (09:30)
[2018-04-04 12:48] VITALS: BP 125/77
[2018-04-04] MEDS ORDERED: [UNRECOGNIZED DRUG - OTHER] IV SCH (17:00)
[2018-04-04] MEDS ORDERED: FAT EMUL IV SCH (17:00)
[2018-04-04] MEDS ORDERED: MCT IV SCH (17:00)
[2018-04-04] MEDS ORDERED: SOY IV SCH (17:00)
[2018-04-04] MEDS ORDERED: FISH OIL IV SCH (17:00)
[2018-04-04] MEDS ORDERED: OLIV IV SCH (17:00)
[2018-04-04] MEDS ORDERED: DEXTROSE 70% IV SCH (17:00)
[2018-04-04] MEDS ORDERED: AMINO ACID 10% IV SCH (17:00)
[2018-04-04] MEDS: FILTER, DISP 1.2 MICRON FOR TPN/PVN IV PRN (17:25)
[2018-04-04 20:21] VITALS: BP 123/74
[2018-04-05] MEDS: ONDANSETRON 2MG/ML, 2ML IVPush PRN (00:51)
[2018-04-05 02:25] VITALS: BP 118/74
[2018-04-05 04:37] LABS: BASOPHILS # (AUTO) 0.06 x10^3/uL (0-0.1); BASOPHILS % (AUTO) 1 % (0-1); EOSINOPHILS # (AUTO) 0.24 x10^3/uL (0-0.4); EOSINOPHILS % (AUTO) 2 % (1-7); LYMPHOCYTES # (AUTO) 1.99 x10^3/uL (1-3.4); LYMPHOCYTES % (AUTO) 15 % (22-44); MD NO; MEAN CORPUSCULAR HEMOGLOBIN 30.5 pg (27.0-34.8); MEAN CORPUSCULAR HGB CONC 33.8 g/dL (32.4-35.8); MEAN CORPUSCULAR VOLUME 90.3 fL (80-100); MEAN PLATELET VOLUME 7.7 fL (7.4-10.4); MONOCYTES # (AUTO) 1.11 x10^3/uL (0.2-0.8); MONOCYTES % (AUTO) 8 % (2-9); NEUTROPHILS # (AUTO) 10.14 x10^3/uL (1.8-6.8); NEUTROPHILS % (AUTO) 75 % (42-75); PLATELET COUNT 486 x10^3/uL (130-400); RED BLOOD COUNT 2.68 x10^6/uL (3.82-5.3); RED CELL DISTRIBUTION WIDTH 16.5 % (9.6-15.2)
[2018-04-05] MEDS: HEPARIN 5,000 UNITS/ML, 1ML SQ SCH ×3 (04:44→21:22)
[2018-04-05 04:48] LABS: ANION GAP 9 mmol/L (5-15); CALCIUM 9.2 mg/dL (8.5-10.1); CHLORIDE 106 mmol/L (98-107)
[2018-04-05 04:49] LABS: CREATININE 0.56 mg/dL (0.55-1.02)
[2018-04-05 06:45] VITALS: BP 125/79
[2018-04-05] MEDS: PANTOPRAZOLE 40 MG IV IVPush SCH ×2 (08:44→21:22)
[2018-04-05 12:07] VITALS: BP 116/70
[2018-04-05] MEDS ORDERED: DEXTROSE 70% IV SCH (17:00)
[2018-04-05] MEDS ORDERED: AMINO ACID 10% IV SCH (17:00)
[2018-04-05] MEDS ORDERED: OLIV IV SCH (17:00)
[2018-04-05] MEDS ORDERED: [UNRECOGNIZED DRUG - OTHER] IV SCH (17:00)
[2018-04-05] MEDS ORDERED: FISH OIL IV SCH (17:00)
[2018-04-05] MEDS ORDERED: FAT EMUL IV SCH (17:00)
[2018-04-05] MEDS ORDERED: MCT IV SCH (17:00)
[2018-04-05] MEDS ORDERED: SOY IV SCH (17:00)
[2018-04-05] MEDS: FILTER, DISP 1.2 MICRON FOR TPN/PVN IV PRN (17:36)
[2018-04-05] MEDS: METOPROLOL TARTRATE 25 MG TABLET PO SCH (17:39)
[2018-04-05 18:55] VITALS: BP 114/77
[2018-04-06 01:21] VITALS: BP 108/73
[2018-04-06 05:43] LABS: BASOPHILS % (AUTO) 1 % (0-1); EOSINOPHILS # (AUTO) 0.17 x10^3/uL (0-0.4); EOSINOPHILS % (AUTO) 1 % (1-7); LYMPHOCYTES # (AUTO) 1.79 x10^3/uL (1-3.4); LYMPHOCYTES % (AUTO) 14 % (22-44); MD NO; MEAN CORPUSCULAR HEMOGLOBIN 29.7 pg (27.0-34.8); MEAN CORPUSCULAR HGB CONC 33.1 g/dL (32.4-35.8); MEAN CORPUSCULAR VOLUME 89.7 fL (80-100); MEAN PLATELET VOLUME 7.8 fL (7.4-10.4); MONOCYTES # (AUTO) 0.76 x10^3/uL (0.2-0.8); MONOCYTES % (AUTO) 6 % (2-9); NEUTROPHILS % (AUTO) 78 % (42-75); PLATELET COUNT 499 x10^3/uL (130-400); RED BLOOD COUNT 2.92 x10^6/uL (3.82-5.3); RED CELL DISTRIBUTION WIDTH 16.4 % (9.6-15.2)
[2018-04-06] MEDS: METOPROLOL TARTRATE 25 MG TABLET PO SCH ×2 (05:54→18:00)
[2018-04-06] MEDS: HEPARIN 5,000 UNITS/ML, 1ML SQ SCH ×3 (05:55→20:29)
[2018-04-06 06:01] LABS: ANION GAP 12 mmol/L (5-15); CALCIUM 9.5 mg/dL (8.5-10.1); CHLORIDE 104 mmol/L (98-107); CREATININE 0.65 mg/dL (0.55-1.02)
[2018-04-06 06:56] VITALS: BP 117/72
[2018-04-06] MEDS: PANTOPRAZOLE 40 MG IV IVPush SCH ×2 (09:30→20:28)
[2018-04-06 12:01] VITALS: BP 123/74
[2018-04-06] MEDS ORDERED: FENTANYL PF 250 MCG/5ML ONE (13:03)
[2018-04-06] MEDS ORDERED: FENTANYL PF 100 MCG/2ML IV PRN (13:30)
[2018-04-06] MEDS ORDERED: ALBUTEROL SULFATE 2.5 MG/3 ML NPPB PRN (13:30)
[2018-04-06] MEDS ORDERED: hydrALAzine 20 MG/ML, 1ML IV PRN (13:30)
[2018-04-06] MEDS ORDERED: PROMETHAZINE 25 MG/ML, 1ML IV PRN (13:30)
[2018-04-06] MEDS ORDERED: HYDROmorphone 2 MG/ML, 1ML IVPush PRN (13:30)
[2018-04-06] MEDS ORDERED: LABETALOL 5MG/ML, 20ML IV PRN (13:30)
[2018-04-06] MEDS ORDERED: ACETAMINOPHEN 325 MG TABLET PO PRN (13:30)
[2018-04-06] MEDS ORDERED: OXYcodone 5 MG/5 ML ORAL.SOL UDC PO PRN (13:30)
[2018-04-06] MEDS ORDERED: FENTANYL PF 100 MCG/2ML ONE (13:52)
[2018-04-06] MEDS: ONDANSETRON 2MG/ML, 2ML IVPush PRN (15:06)
[2018-04-06] MEDS ORDERED: HYDROmorphone 2 MG/ML, 1ML ONE (15:26)
[2018-04-06] MEDS ORDERED: PROPOFOL 10 MG/ML, 20ML ONE (15:45)
[2018-04-06] MEDS ORDERED: AMINO ACID 10% IV SCH (17:00)
[2018-04-06] MEDS ORDERED: [UNRECOGNIZED DRUG - OTHER] IV SCH (17:00)
[2018-04-06] MEDS ORDERED: DEXTROSE 70% IV SCH (17:00)
[2018-04-06] MEDS ORDERED: FAT EMUL IV SCH (17:00)
[2018-04-06] MEDS ORDERED: FISH OIL IV SCH (17:00)
[2018-04-06] MEDS ORDERED: MCT IV SCH (17:00)
[2018-04-06] MEDS ORDERED: OLIV IV SCH (17:00)
[2018-04-06] MEDS ORDERED: SOY IV SCH (17:00)
[2018-04-06] MEDS: FILTER, DISP 1.2 MICRON FOR TPN/PVN IV PRN (17:48)
[2018-04-07 01:43] VITALS: BP 111/69
[2018-04-07] MEDS: HEPARIN 5,000 UNITS/ML, 1ML SQ SCH ×3 (05:50→20:21)
[2018-04-07] MEDS: METOPROLOL TARTRATE 25 MG TABLET PO SCH ×2 (05:57→17:52)
[2018-04-07 07:12] VITALS: BP 113/71
[2018-04-07 07:19] LABS: ANION GAP 9 mmol/L (5-15); CHLORIDE 104 mmol/L (98-107); CREATININE 0.64 mg/dL (0.55-1.02)
[2018-04-07 07:21] LABS: BASOPHILS # (AUTO) 0.05 x10^3/uL (0-0.1); BASOPHILS % (AUTO) 0 % (0-1); EOSINOPHILS # (AUTO) 0.14 x10^3/uL (0-0.4); EOSINOPHILS % (AUTO) 1 % (1-7); LYMPHOCYTES # (AUTO) 1.79 x10^3/uL (1-3.4); LYMPHOCYTES % (AUTO) 15 % (22-44); MD NO; MEAN CORPUSCULAR HEMOGLOBIN 29.8 pg (27.0-34.8); MEAN CORPUSCULAR HGB CONC 33.2 g/dL (32.4-35.8); MEAN CORPUSCULAR VOLUME 89.9 fL (80-100); MEAN PLATELET VOLUME 8.1 fL (7.4-10.4); MONOCYTES # (AUTO) 0.89 x10^3/uL (0.2-0.8); MONOCYTES % (AUTO) 8 % (2-9); NEUTROPHILS # (AUTO) 8.88 x10^3/uL (1.8-6.8); NEUTROPHILS % (AUTO) 76 % (42-75); PLATELET COUNT 482 x10^3/uL (130-400); RED BLOOD COUNT 2.82 x10^6/uL (3.82-5.3); RED CELL DISTRIBUTION WIDTH 16.4 % (9.6-15.2)
[2018-04-07] MEDS: PANTOPRAZOLE 40 MG IV IVPush SCH ×2 (08:32→20:21)
[2018-04-07] MEDS: AMPICILLIN/SULBACTAM 3 GM in SODIUM CHLORIDE 0.9% 100 ML IV SCH ×2 (09:44→17:49)
[2018-04-07 13:21] VITALS: BP 108/65
[2018-04-07] MEDS ORDERED: FISH OIL IV SCH (17:00)
[2018-04-07] MEDS ORDERED: FILTER, DISP 1.2 MICRON FOR TPN/PVN IV PRN (17:00)
[2018-04-07] MEDS ORDERED: OLIV IV SCH (17:00)
[2018-04-07] MEDS ORDERED: SOY IV SCH (17:00)
[2018-04-07] MEDS ORDERED: AMINO ACID 10% IV SCH (17:00)
[2018-04-07] MEDS ORDERED: DEXTROSE 70% IV SCH (17:00)
[2018-04-07] MEDS ORDERED: MCT IV SCH (17:00)
[2018-04-07] MEDS ORDERED: FAT EMUL IV SCH (17:00)
[2018-04-07] MEDS ORDERED: [UNRECOGNIZED DRUG - OTHER] IV SCH (17:00)
[2018-04-07 20:36] VITALS: BP 110/75
[2018-04-08 01:27] VITALS: BP 111/73
[2018-04-08] MEDS: AMPICILLIN/SULBACTAM 3 GM in SODIUM CHLORIDE 0.9% 100 ML IV SCH ×3 (01:37→17:36)
[2018-04-08] MEDS: ONDANSETRON 2MG/ML, 2ML IVPush PRN (04:11)
[2018-04-08] MEDS: METOPROLOL TARTRATE 25 MG TABLET PO SCH ×3 (06:00→19:34)
[2018-04-08] MEDS: HEPARIN 5,000 UNITS/ML, 1ML SQ SCH ×3 (06:34→21:29)
[2018-04-08 07:22] VITALS: BP 117/75
[2018-04-08] MEDS: PANTOPRAZOLE 40 MG IV IVPush SCH ×2 (09:21→21:29)
[2018-04-08 12:17] VITALS: BP 121/78
[2018-04-08] MEDS ORDERED: SOY IV SCH (17:00)
[2018-04-08] MEDS ORDERED: FILTER, DISP 1.2 MICRON FOR TPN/PVN IV PRN (17:00)
[2018-04-08] MEDS ORDERED: FISH OIL IV SCH (17:00)
[2018-04-08] MEDS ORDERED: OLIV IV SCH (17:00)
[2018-04-08] MEDS ORDERED: DEXTROSE 70% IV SCH (17:00)
[2018-04-08] MEDS ORDERED: AMINO ACID 10% IV SCH (17:00)
[2018-04-08] MEDS ORDERED: FAT EMUL IV SCH (17:00)
[2018-04-08] MEDS ORDERED: [UNRECOGNIZED DRUG - OTHER] IV SCH (17:00)
[2018-04-08] MEDS ORDERED: MCT IV SCH (17:00)
[2018-04-08 18:51] VITALS: BP 119/72
[2018-04-09 00:32] VITALS: BP 132/71
[2018-04-09] MEDS: AMPICILLIN/SULBACTAM 3 GM in SODIUM CHLORIDE 0.9% 100 ML IV SCH ×3 (01:08→17:09)
[2018-04-09] MEDS: ONDANSETRON 2MG/ML, 2ML IVPush PRN ×2 (02:58→19:22)
[2018-04-09 05:21] LABS: ANION GAP 11 mmol/L (5-15); CALCIUM 9.1 mg/dL (8.5-10.1); CHLORIDE 108 mmol/L (98-107)
[2018-04-09 05:23] LABS: CREATININE 0.55 mg/dL (0.55-1.02)
[2018-04-09] MEDS: HEPARIN 5,000 UNITS/ML, 1ML SQ SCH ×3 (06:25→21:36)
[2018-04-09 07:09] LABS: BASOPHILS # (AUTO) 0.05 x10^3/uL (0-0.1); BASOPHILS % (AUTO) 1 % (0-1); EOSINOPHILS # (AUTO) 0.18 x10^3/uL (0-0.4); EOSINOPHILS % (AUTO) 2 % (1-7); LYMPHOCYTES # (AUTO) 1.66 x10^3/uL (1-3.4); LYMPHOCYTES % (AUTO) 20 % (22-44); MD NO; MEAN CORPUSCULAR HEMOGLOBIN 29.1 pg (27.0-34.8); MEAN CORPUSCULAR HGB CONC 32.3 g/dL (32.4-35.8); MEAN CORPUSCULAR VOLUME 89.8 fL (80-100); MEAN PLATELET VOLUME 7.9 fL (7.4-10.4); MONOCYTES # (AUTO) 0.77 x10^3/uL (0.2-0.8); MONOCYTES % (AUTO) 9 % (2-9); NEUTROPHILS # (AUTO) 5.74 x10^3/uL (1.8-6.8); NEUTROPHILS % (AUTO) 69 % (42-75); PLATELET COUNT 431 x10^3/uL (130-400); RED BLOOD COUNT 2.62 x10^6/uL (3.82-5.3); RED CELL DISTRIBUTION WIDTH 16.5 % (9.6-15.2)
[2018-04-09 07:39] VITALS: BP 124/72
[2018-04-09] MEDS: PANTOPRAZOLE 40 MG IV IVPush SCH ×2 (09:09→21:37)
[2018-04-09 13:15] VITALS: BP 111/70
[2018-04-09] MEDS ORDERED: DEXTROSE 70% IV SCH (17:00)
[2018-04-09] MEDS ORDERED: FISH OIL IV SCH (17:00)
[2018-04-09] MEDS ORDERED: SOY IV SCH (17:00)
[2018-04-09] MEDS ORDERED: OLIV IV SCH (17:00)
[2018-04-09] MEDS ORDERED: [UNRECOGNIZED DRUG - OTHER] IV SCH (17:00)
[2018-04-09] MEDS ORDERED: MCT IV SCH (17:00)
[2018-04-09] MEDS ORDERED: FAT EMUL IV SCH (17:00)
[2018-04-09] MEDS ORDERED: AMINO ACID 10% IV SCH (17:00)
[2018-04-09] MEDS: FILTER, DISP 1.2 MICRON FOR TPN/PVN IV PRN (17:09)
[2018-04-09] MEDS: METOPROLOL TARTRATE 25 MG TABLET PO SCH (17:21)
[2018-04-09 19:50] VITALS: BP 121/78
[2018-04-10] MEDS: AMPICILLIN/SULBACTAM 3 GM in SODIUM CHLORIDE 0.9% 100 ML IV SCH ×3 (01:09→17:06)
[2018-04-10 02:45] VITALS: BP 123/75
[2018-04-10] MEDS: METOPROLOL TARTRATE 25 MG TABLET PO SCH ×2 (05:19→17:08)
[2018-04-10] MEDS: HEPARIN 5,000 UNITS/ML, 1ML SQ SCH ×3 (05:20→21:42)
[2018-04-10 06:27] VITALS: BP 120/78
[2018-04-10] MEDS: PANTOPRAZOLE 40 MG IV IVPush SCH ×2 (09:19→21:42)
[2018-04-10] MEDS ORDERED: METOPROLOL TARTRATE 25 MG TABLET PO SCH (09:30)
[2018-04-10] MEDS ORDERED: LIDOCAINE JELLY 2%, 30GM TP ONE (10:30)
[2018-04-10 12:04] VITALS: BP 116/73
[2018-04-10] MEDS ORDERED: LIDOCAINE JELLY 2%, 30GM TP PRN (14:30)
[2018-04-10] MEDS ORDERED: FAT EMUL IV SCH (17:00)
[2018-04-10] MEDS ORDERED: DEXTROSE 70% IV SCH (17:00)
[2018-04-10] MEDS ORDERED: OLIV IV SCH (17:00)
[2018-04-10] MEDS ORDERED: MCT IV SCH (17:00)
[2018-04-10] MEDS ORDERED: AMINO ACID 10% IV SCH (17:00)
[2018-04-10] MEDS ORDERED: FISH OIL IV SCH (17:00)
[2018-04-10] MEDS ORDERED: SOY IV SCH (17:00)
[2018-04-10] MEDS ORDERED: [UNRECOGNIZED DRUG - OTHER] IV SCH (17:00)
[2018-04-10] MEDS: FILTER, DISP 1.2 MICRON FOR TPN/PVN IV PRN (17:07)
[2018-04-10 20:47] VITALS: BP 127/71
[2018-04-11] MEDS: AMPICILLIN/SULBACTAM 3 GM in SODIUM CHLORIDE 0.9% 100 ML IV SCH ×3 (01:13→17:17)
[2018-04-11 01:47] VITALS: BP 110/71
[2018-04-11 05:38] LABS: BASOPHILS # (AUTO) 0.04 x10^3/uL (0-0.1); BASOPHILS % (AUTO) 0 % (0-1); EOSINOPHILS % (AUTO) 2 % (1-7); LYMPHOCYTES # (AUTO) 1.98 x10^3/uL (1-3.4); LYMPHOCYTES % (AUTO) 18 % (22-44); MD NO; MEAN CORPUSCULAR HEMOGLOBIN 30.8 pg (27.0-34.8); MEAN CORPUSCULAR HGB CONC 34.1 g/dL (32.4-35.8); MEAN CORPUSCULAR VOLUME 90.3 fL (80-100); MEAN PLATELET VOLUME 8.2 fL (7.4-10.4); MONOCYTES # (AUTO) 0.73 x10^3/uL (0.2-0.8); MONOCYTES % (AUTO) 7 % (2-9); NEUTROPHILS # (AUTO) 7.97 x10^3/uL (1.8-6.8); NEUTROPHILS % (AUTO) 73 % (42-75); PLATELET COUNT 426 x10^3/uL (130-400); RED BLOOD COUNT 2.63 x10^6/uL (3.82-5.3); RED CELL DISTRIBUTION WIDTH 15.9 % (9.6-15.2)
[2018-04-11 05:43] LABS: ANION GAP 10 mmol/L (5-15); CALCIUM 9.2 mg/dL (8.5-10.1); CHLORIDE 108 mmol/L (98-107); CREATININE 0.58 mg/dL (0.55-1.02)
[2018-04-11 05:48] LABS: TRIGLYCERIDES 613 mg/dL (50-200)
[2018-04-11] MEDS: HEPARIN 5,000 UNITS/ML, 1ML SQ SCH ×3 (05:49→22:25)
[2018-04-11] MEDS: METOPROLOL TARTRATE 25 MG TABLET PO SCH ×2 (05:49→17:19)
[2018-04-11 08:45] VITALS: BP 126/81
[2018-04-11] MEDS: PANTOPRAZOLE 40 MG IV IVPush SCH ×2 (09:19→22:25)
[2018-04-11 14:06] VITALS: BP 133/78
[2018-04-11 15:27] VITALS: BP 109/65
[2018-04-11] MEDS ORDERED: MCT IV SCH (17:00)
[2018-04-11] MEDS ORDERED: FISH OIL IV SCH (17:00)
[2018-04-11] MEDS ORDERED: DEXTROSE 70% IV SCH (17:00)
[2018-04-11] MEDS ORDERED: [UNRECOGNIZED DRUG - OTHER] IV SCH (17:00)
[2018-04-11] MEDS ORDERED: FAT EMUL IV SCH (17:00)
[2018-04-11] MEDS ORDERED: OLIV IV SCH (17:00)
[2018-04-11] MEDS ORDERED: AMINO ACID 10% IV SCH (17:00)
[2018-04-11] MEDS ORDERED: SOY IV SCH (17:00)
[2018-04-11] MEDS: FILTER, DISP 1.2 MICRON FOR TPN/PVN IV PRN (17:17)
[2018-04-11 19:06] VITALS: BP 123/70
[2018-04-12] MEDS: AMPICILLIN/SULBACTAM 3 GM in SODIUM CHLORIDE 0.9% 100 ML IV SCH ×3 (01:11→18:38)
[2018-04-12 02:06] VITALS: BP 118/73
[2018-04-12] MEDS: METOPROLOL TARTRATE 25 MG TABLET PO SCH ×2 (05:42→17:06)
[2018-04-12] MEDS: HEPARIN 5,000 UNITS/ML, 1ML SQ SCH ×3 (06:35→22:29)
[2018-04-12 08:04] VITALS: BP 118/76
[2018-04-12] MEDS: PANTOPRAZOLE 40 MG IV IVPush SCH ×2 (08:19→21:37)
[2018-04-12 14:22] VITALS: BP 120/73
[2018-04-12] MEDS ORDERED: DEXTROSE 70% IV SCH (17:00)
[2018-04-12] MEDS ORDERED: AMINO ACID 10% IV SCH (17:00)
[2018-04-12] MEDS ORDERED: FILTER, DISP 1.2 MICRON FOR TPN/PVN IV PRN (17:00)
[2018-04-12] MEDS ORDERED: MCT IV SCH (17:00)
[2018-04-12] MEDS ORDERED: SOY IV SCH (17:00)
[2018-04-12] MEDS ORDERED: FISH OIL IV SCH (17:00)
[2018-04-12] MEDS ORDERED: FAT EMUL IV SCH (17:00)
[2018-04-12] MEDS ORDERED: OLIV IV SCH (17:00)
[2018-04-12] MEDS ORDERED: [UNRECOGNIZED DRUG - OTHER] IV SCH (17:00)
[2018-04-12] MEDS: SULFAMETH./TRIMETHOPRIM 20 ML in DEXTROSE 5% 500 ML IV SCH (17:05)
[2018-04-12 19:12] VITALS: BP 128/73
[2018-04-13 01:20] VITALS: BP 134/77
[2018-04-13] MEDS: AMPICILLIN/SULBACTAM 3 GM in SODIUM CHLORIDE 0.9% 100 ML IV SCH ×3 (01:25→16:23)
[2018-04-13] MEDS: SULFAMETH./TRIMETHOPRIM 20 ML in DEXTROSE 5% 500 ML IV SCH ×2 (04:19→17:21)
[2018-04-13 05:55] LABS: BASOPHILS # (AUTO) 0.05 x10^3/uL (0-0.1); BASOPHILS % (AUTO) 1 % (0-1); EOSINOPHILS # (AUTO) 0.16 x10^3/uL (0-0.4); EOSINOPHILS % (AUTO) 2 % (1-7); LYMPHOCYTES # (AUTO) 1.97 x10^3/uL (1-3.4); LYMPHOCYTES % (AUTO) 19 % (22-44); MD NO; MEAN CORPUSCULAR HEMOGLOBIN 30.2 pg (27.0-34.8); MEAN CORPUSCULAR HGB CONC 33.2 g/dL (32.4-35.8); MEAN CORPUSCULAR VOLUME 90.9 fL (80-100); MEAN PLATELET VOLUME 7.9 fL (7.4-10.4); MONOCYTES # (AUTO) 0.65 x10^3/uL (0.2-0.8); MONOCYTES % (AUTO) 6 % (2-9); NEUTROPHILS % (AUTO) 73 % (42-75); PLATELET COUNT 386 x10^3/uL (130-400); RED BLOOD COUNT 2.58 x10^6/uL (3.82-5.3); RED CELL DISTRIBUTION WIDTH 16.4 % (9.6-15.2)
[2018-04-13] MEDS: METOPROLOL TARTRATE 25 MG TABLET PO SCH ×2 (06:00→18:00)
[2018-04-13 06:09] LABS: ANION GAP 11 mmol/L (5-15); CALCIUM 8.7 mg/dL (8.5-10.1); CHLORIDE 103 mmol/L (98-107); CREATININE 0.65 mg/dL (0.55-1.02)
[2018-04-13] MEDS: HEPARIN 5,000 UNITS/ML, 1ML SQ SCH ×3 (06:20→23:01)
[2018-04-13 06:52] VITALS: BP 131/81
[2018-04-13] MEDS: PANTOPRAZOLE 40 MG IV IVPush SCH ×2 (09:07→23:01)
[2018-04-13 13:31] VITALS: BP 126/82
[2018-04-13] MEDS ORDERED: SOY IV SCH (17:00)
[2018-04-13] MEDS ORDERED: AMINO ACID 10% IV SCH (17:00)
[2018-04-13] MEDS ORDERED: [UNRECOGNIZED DRUG - OTHER] IV SCH (17:00)
[2018-04-13] MEDS ORDERED: MCT IV SCH (17:00)
[2018-04-13] MEDS ORDERED: OLIV IV SCH (17:00)
[2018-04-13] MEDS ORDERED: FISH OIL IV SCH (17:00)
[2018-04-13] MEDS ORDERED: FILTER, DISP 1.2 MICRON FOR TPN/PVN IV PRN (17:00)
[2018-04-13] MEDS ORDERED: FAT EMUL IV SCH (17:00)
[2018-04-13] MEDS ORDERED: DEXTROSE 70% IV SCH (17:00)
[2018-04-13 18:39] VITALS: BP 115/72
[2018-04-14] MEDS: AMPICILLIN/SULBACTAM 3 GM in SODIUM CHLORIDE 0.9% 100 ML IV SCH ×3 (00:48→17:55)
[2018-04-14 00:56] VITALS: BP 130/73
[2018-04-14] MEDS: METOPROLOL TARTRATE 25 MG TABLET PO SCH ×2 (06:00→17:55)
[2018-04-14] MEDS: HEPARIN 5,000 UNITS/ML, 1ML SQ SCH ×3 (06:31→22:09)
[2018-04-14 07:31] VITALS: BP 126/81
[2018-04-14] MEDS: SULFAMETH./TRIMETHOPRIM 20 ML in DEXTROSE 5% 500 ML IV SCH ×2 (08:31→20:44)
[2018-04-14] MEDS: PANTOPRAZOLE 40 MG IV IVPush SCH ×2 (08:31→20:44)
[2018-04-14] MEDS: ONDANSETRON 2MG/ML, 2ML IVPush PRN (08:31)
[2018-04-14 13:37] VITALS: BP 126/80
[2018-04-14] MEDS ORDERED: FAT EMUL IV SCH (17:00)
[2018-04-14] MEDS ORDERED: FISH OIL IV SCH (17:00)
[2018-04-14] MEDS ORDERED: [UNRECOGNIZED DRUG - OTHER] IV SCH (17:00)
[2018-04-14] MEDS ORDERED: DEXTROSE 70% IV SCH (17:00)
[2018-04-14] MEDS ORDERED: AMINO ACID 10% IV SCH (17:00)
[2018-04-14] MEDS ORDERED: MCT IV SCH (17:00)
[2018-04-14] MEDS ORDERED: FILTER, DISP 1.2 MICRON FOR TPN/PVN IV PRN (17:00)
[2018-04-14] MEDS ORDERED: OLIV IV SCH (17:00)
[2018-04-14] MEDS ORDERED: SOY IV SCH (17:00)
[2018-04-14 19:04] VITALS: BP 106/72
[2018-04-15] MEDS: AMPICILLIN/SULBACTAM 3 GM in SODIUM CHLORIDE 0.9% 100 ML IV SCH ×3 (00:36→17:13)
[2018-04-15 02:00] VITALS: BP 122/65
[2018-04-15] MEDS: METOPROLOL TARTRATE 25 MG TABLET PO SCH ×2 (05:27→17:13)
[2018-04-15 05:47] LABS: BASOPHILS # (AUTO) 0.04 x10^3/uL (0-0.1); BASOPHILS % (AUTO) 1 % (0-1); EOSINOPHILS # (AUTO) 0.14 x10^3/uL (0-0.4); EOSINOPHILS % (AUTO) 2 % (1-7); LYMPHOCYTES # (AUTO) 1.76 x10^3/uL (1-3.4); LYMPHOCYTES % (AUTO) 19 % (22-44); MD NO; MEAN PLATELET VOLUME 8.3 fL (7.4-10.4); MONOCYTES # (AUTO) 0.82 x10^3/uL (0.2-0.8); MONOCYTES % (AUTO) 9 % (2-9); NEUTROPHILS # (AUTO) 6.39 x10^3/uL (1.8-6.8); NEUTROPHILS % (AUTO) 70 % (42-75); PLATELET COUNT 399 x10^3/uL (130-400); RED BLOOD COUNT 2.62 x10^6/uL (3.82-5.3); RED CELL DISTRIBUTION WIDTH 16.8 % (9.6-15.2)
[2018-04-15 05:55] LABS: ALBUMIN 1.9 g/dL (3.4-5.0); CALCIUM 8.7 mg/dL (8.5-10.1); CHLORIDE 104 mmol/L (98-107)
[2018-04-15 05:59] LABS: ALANINE AMINOTRANSFERASE 22 U/L (12-78); ALKALINE PHOSPHATASE 108 U/L (45-117); ANION GAP 10 mmol/L (5-15); BILIRUBIN,TOTAL 0.2 mg/dL (0.2-1.0); CREATININE 0.68 mg/dL (0.55-1.02); TOTAL PROTEIN 6.9 g/dL (6.4-8.2)
[2018-04-15] MEDS: HEPARIN 5,000 UNITS/ML, 1ML SQ SCH ×3 (06:31→22:13)
[2018-04-15 07:31] VITALS: BP 115/73
[2018-04-15] MEDS: ONDANSETRON 2MG/ML, 2ML IVPush PRN ×2 (08:18→20:44)
[2018-04-15] MEDS: PANTOPRAZOLE 40 MG IV IVPush SCH ×2 (08:18→20:16)
[2018-04-15] MEDS: SULFAMETH./TRIMETHOPRIM 20 ML in DEXTROSE 5% 500 ML IV SCH ×2 (08:47→20:16)
[2018-04-15 12:26] VITALS: BP 115/77
[2018-04-15] MEDS ORDERED: [UNRECOGNIZED DRUG - OTHER] IV SCH ×2 (17:00)
[2018-04-15] MEDS ORDERED: AMINO ACID 10% IV SCH ×2 (17:00)
[2018-04-15] MEDS ORDERED: FAT EMUL IV SCH ×2 (17:00)
[2018-04-15] MEDS ORDERED: OLIV IV SCH ×2 (17:00)
[2018-04-15] MEDS ORDERED: MCT IV SCH ×2 (17:00)
[2018-04-15] MEDS ORDERED: SOY IV SCH ×2 (17:00)
[2018-04-15] MEDS ORDERED: DEXTROSE 70% IV SCH ×2 (17:00)
[2018-04-15] MEDS ORDERED: FILTER, DISP 1.2 MICRON FOR TPN/PVN IV PRN (17:00)
[2018-04-15] MEDS ORDERED: FISH OIL IV SCH ×2 (17:00)
[2018-04-15 19:37] VITALS: BP 104/53
[2018-04-16] MEDS: AMPICILLIN/SULBACTAM 3 GM in SODIUM CHLORIDE 0.9% 100 ML IV SCH ×3 (00:59→16:37)
[2018-04-16 04:25] VITALS: BP 121/76
[2018-04-16 05:59] LABS: ANION GAP 8 mmol/L (5-15); CALCIUM 8.4 mg/dL (8.5-10.1); CHLORIDE 104 mmol/L (98-107)
[2018-04-16] MEDS: METOPROLOL TARTRATE 25 MG TABLET PO SCH ×2 (06:00→17:54)
[2018-04-16 06:03] LABS: ALANINE AMINOTRANSFERASE 26 U/L (12-78); ALKALINE PHOSPHATASE 115 U/L (45-117); BILIRUBIN,TOTAL 0.2 mg/dL (0.2-1.0); CREATININE 0.71 mg/dL (0.55-1.02); TOTAL PROTEIN 7.1 g/dL (6.4-8.2)
[2018-04-16] MEDS: HEPARIN 5,000 UNITS/ML, 1ML SQ SCH ×3 (06:23→22:50)
[2018-04-16] MEDS: PANTOPRAZOLE 40 MG IV IVPush SCH ×2 (08:19→21:05)
[2018-04-16 08:30] VITALS: BP 102/53
[2018-04-16] MEDS: SULFAMETH./TRIMETHOPRIM 20 ML in DEXTROSE 5% 500 ML IV SCH ×2 (09:22→21:05)
[2018-04-16] MEDS: ONDANSETRON 2MG/ML, 2ML IVPush PRN (15:01)
[2018-04-16 15:05] VITALS: BP 119/70
[2018-04-16] MEDS: FILTER, DISP 1.2 MICRON FOR TPN/PVN IV PRN (16:37)
[2018-04-16] MEDS ORDERED: AMINO ACID 10% IV SCH (17:00)
[2018-04-16] MEDS ORDERED: SOY IV SCH (17:00)
[2018-04-16] MEDS ORDERED: MCT IV SCH (17:00)
[2018-04-16] MEDS ORDERED: OLIV IV SCH (17:00)
[2018-04-16] MEDS ORDERED: FAT EMUL IV SCH (17:00)
[2018-04-16] MEDS ORDERED: FISH OIL IV SCH (17:00)
[2018-04-16] MEDS ORDERED: [UNRECOGNIZED DRUG - OTHER] IV SCH (17:00)
[2018-04-16] MEDS ORDERED: DEXTROSE 70% IV SCH (17:00)
[2018-04-16 20:00] VITALS: BP 111/60
[2018-04-17] MEDS: AMPICILLIN/SULBACTAM 3 GM in SODIUM CHLORIDE 0.9% 100 ML IV SCH ×3 (00:52→17:48)
[2018-04-17 03:27] VITALS: BP 114/72
[2018-04-17] MEDS: METOPROLOL TARTRATE 25 MG TABLET PO SCH (05:02)
[2018-04-17] MEDS: HEPARIN 5,000 UNITS/ML, 1ML SQ SCH ×3 (06:32→22:52)
[2018-04-17 06:36] LABS: BASOPHILS # (AUTO) 0.04 x10^3/uL (0-0.1); BASOPHILS % (AUTO) 1 % (0-1); EOSINOPHILS # (AUTO) 0.21 x10^3/uL (0-0.4); EOSINOPHILS % (AUTO) 2 % (1-7); LYMPHOCYTES # (AUTO) 1.58 x10^3/uL (1-3.4); LYMPHOCYTES % (AUTO) 18 % (22-44); MD NO; MEAN CORPUSCULAR HEMOGLOBIN 29.6 pg (27.0-34.8); MEAN CORPUSCULAR HGB CONC 32.6 g/dL (32.4-35.8); MEAN CORPUSCULAR VOLUME 90.7 fL (80-100); MEAN PLATELET VOLUME 8.3 fL (7.4-10.4); MONOCYTES # (AUTO) 0.65 x10^3/uL (0.2-0.8); MONOCYTES % (AUTO) 7 % (2-9); NEUTROPHILS # (AUTO) 6.26 x10^3/uL (1.8-6.8); NEUTROPHILS % (AUTO) 72 % (42-75); PLATELET COUNT 447 x10^3/uL (130-400); RED BLOOD COUNT 2.87 x10^6/uL (3.82-5.3); RED CELL DISTRIBUTION WIDTH 16.4 % (9.6-15.2)
[2018-04-17 06:56] LABS: CHLORIDE 103 mmol/L (98-107)
[2018-04-17 07:15] LABS: ANION GAP 11 mmol/L (5-15); BILIRUBIN,TOTAL < 0.1 mg/dL (0.2-1.0); CALCIUM 8.5 mg/dL (8.5-10.1); CREATININE 0.69 mg/dL (0.55-1.02)
[2018-04-17 07:16] LABS: ALANINE AMINOTRANSFERASE 22 U/L (12-78); ALBUMIN 2.1 g/dL (3.4-5.0); ALKALINE PHOSPHATASE 115 U/L (45-117); TOTAL PROTEIN 7.2 g/dL (6.4-8.2)
[2018-04-17 07:25] LABS: SEDIMENTATION RATE > 120 mm/hr (0-20)
[2018-04-17 07:40] VITALS: BP 115/74
[2018-04-17] MEDS: PANTOPRAZOLE 40 MG IV IVPush SCH ×2 (08:44→21:15)
[2018-04-17 09:14] LABS: BASOPHILS # (AUTO) 0.09 x10^3/uL (0-0.1); BASOPHILS % (AUTO) 1 % (0-1); EOSINOPHILS # (AUTO) 0.19 x10^3/uL (0-0.4); EOSINOPHILS % (AUTO) 2 % (1-7); LYMPHOCYTES # (AUTO) 1.73 x10^3/uL (1-3.4); LYMPHOCYTES % (AUTO) 19 % (22-44); MD NO; MEAN CORPUSCULAR HEMOGLOBIN 29.7 pg (27.0-34.8); MEAN CORPUSCULAR HGB CONC 32.7 g/dL (32.4-35.8); MEAN CORPUSCULAR VOLUME 90.8 fL (80-100); MONOCYTES % (AUTO) 8 % (2-9); NEUTROPHILS # (AUTO) 6.45 x10^3/uL (1.8-6.8); NEUTROPHILS % (AUTO) 70 % (42-75); PLATELET COUNT 464 x10^3/uL (130-400); RED BLOOD COUNT 2.89 x10^6/uL (3.82-5.3); RED CELL DISTRIBUTION WIDTH 16.9 % (9.6-15.2)
[2018-04-17] MEDS: SULFAMETH./TRIMETHOPRIM 20 ML in DEXTROSE 5% 500 ML IV SCH (09:39)
[2018-04-17 14:37] VITALS: BP 175/82
[2018-04-17 14:38] VITALS: BP 115/74
[2018-04-17] MEDS ORDERED: DEXTROSE 70% IV SCH ×2 (17:00→22:30)
[2018-04-17] MEDS ORDERED: AMINO ACID 10% IV SCH ×2 (17:00→22:30)
[2018-04-17] MEDS ORDERED: OLIV IV SCH ×2 (17:00→22:30)
[2018-04-17] MEDS ORDERED: MCT IV SCH ×2 (17:00→22:30)
[2018-04-17] MEDS ORDERED: SOY IV SCH ×2 (17:00→22:30)
[2018-04-17] MEDS ORDERED: FISH OIL IV SCH ×2 (17:00→22:30)
[2018-04-17] MEDS ORDERED: [UNRECOGNIZED DRUG - OTHER] IV SCH ×2 (17:00→22:30)
[2018-04-17] MEDS ORDERED: FAT EMUL IV SCH ×2 (17:00→22:30)
[2018-04-17] MEDS: FILTER, DISP 1.2 MICRON FOR TPN/PVN IV PRN (17:13)
[2018-04-17 20:02] VITALS: BP 104/64
[2018-04-17] MEDS ORDERED: ATORVASTATIN 40 MG TABLET PO SCH (21:00)
[2018-04-18] MEDS: AMPICILLIN/SULBACTAM 3 GM in SODIUM CHLORIDE 0.9% 100 ML IV SCH ×3 (01:04→17:22)
[2018-04-18 02:17] VITALS: BP 124/70
[2018-04-18 05:42] LABS: ANION GAP 7 mmol/L (5-15); CALCIUM 9.4 mg/dL (8.5-10.1); CHLORIDE 103 mmol/L (98-107); CREATININE 0.77 mg/dL (0.55-1.02)
[2018-04-18] MEDS: HEPARIN 5,000 UNITS/ML, 1ML SQ SCH ×3 (06:49→23:23)
[2018-04-18] MEDS: PANTOPRAZOLE 40 MG IV IVPush SCH ×2 (08:55→21:55)
[2018-04-18] MEDS ORDERED: CLOPIDOGREL 75 MG TABLET PO SCH (09:00)
[2018-04-18] MEDS: ONDANSETRON 2MG/ML, 2ML IVPush PRN (09:05)
[2018-04-18 09:08] VITALS: BP 134/80
[2018-04-18 15:10] VITALS: BP 116/77
[2018-04-18] MEDS ORDERED: [UNRECOGNIZED DRUG - OTHER] IV SCH (17:00)
[2018-04-18] MEDS ORDERED: AMINO ACID 10% IV SCH (17:00)
[2018-04-18] MEDS ORDERED: FAT EMUL IV SCH (17:00)
[2018-04-18] MEDS ORDERED: DEXTROSE 70% IV SCH (17:00)
[2018-04-18] MEDS ORDERED: SOY IV SCH (17:00)
[2018-04-18] MEDS ORDERED: MCT IV SCH (17:00)
[2018-04-18] MEDS ORDERED: FISH OIL IV SCH (17:00)
[2018-04-18] MEDS ORDERED: OLIV IV SCH (17:00)
[2018-04-18] MEDS: FILTER, DISP 1.2 MICRON FOR TPN/PVN IV PRN (17:01)
[2018-04-18 19:40] VITALS: BP 121/61
[2018-04-18] MEDS: GUAIFENESIN 200 MG TABLET PO SCH (21:55)
[2018-04-19] MEDS: AMPICILLIN/SULBACTAM 3 GM in SODIUM CHLORIDE 0.9% 100 ML IV SCH ×3 (01:21→16:56)
[2018-04-19 01:57] VITALS: BP 120/70
[2018-04-19 05:43] LABS: ANION GAP 7 mmol/L (5-15); CALCIUM 8.5 mg/dL (8.5-10.1); CHLORIDE 103 mmol/L (98-107); CREATININE 0.65 mg/dL (0.55-1.02)
[2018-04-19] MEDS: HEPARIN 5,000 UNITS/ML, 1ML SQ SCH ×3 (06:04→22:47)
[2018-04-19 07:53] VITALS: BP 122/78
[2018-04-19] MEDS: PANTOPRAZOLE 40 MG IV IVPush SCH ×2 (08:19→19:59)
[2018-04-19] MEDS: GUAIFENESIN 200 MG TABLET PO SCH ×2 (08:20→19:59)
[2018-04-19 13:51] VITALS: BP 126/75
[2018-04-19] MEDS ORDERED: SOY IV SCH (17:00)
[2018-04-19] MEDS ORDERED: AMINO ACID 10% IV SCH (17:00)
[2018-04-19] MEDS ORDERED: FISH OIL IV SCH (17:00)
[2018-04-19] MEDS ORDERED: MCT IV SCH (17:00)
[2018-04-19] MEDS ORDERED: FILTER, DISP 1.2 MICRON FOR TPN/PVN IV PRN (17:00)
[2018-04-19] MEDS ORDERED: [UNRECOGNIZED DRUG - OTHER] IV SCH (17:00)
[2018-04-19] MEDS ORDERED: OLIV IV SCH (17:00)
[2018-04-19] MEDS ORDERED: DEXTROSE 70% IV SCH (17:00)
[2018-04-19] MEDS ORDERED: FAT EMUL IV SCH (17:00)
[2018-04-19 19:30] VITALS: BP 128/74
[2018-04-20] MEDS: AMPICILLIN/SULBACTAM 3 GM in SODIUM CHLORIDE 0.9% 100 ML IV SCH ×3 (00:54→16:44)
[2018-04-20 01:43] VITALS: BP 122/66
[2018-04-20 06:03] LABS: CHLORIDE 102 mmol/L (98-107)
[2018-04-20 06:07] LABS: BASOPHILS # (AUTO) 0.02 x10^3/uL (0-0.1); BASOPHILS % (AUTO) 0 % (0-1); EOSINOPHILS # (AUTO) 0.26 x10^3/uL (0-0.4); EOSINOPHILS % (AUTO) 3 % (1-7); LYMPHOCYTES # (AUTO) 1.83 x10^3/uL (1-3.4); LYMPHOCYTES % (AUTO) 23 % (22-44); MD NO; MEAN CORPUSCULAR HEMOGLOBIN 29.8 pg (27.0-34.8); MEAN CORPUSCULAR HGB CONC 32.9 g/dL (32.4-35.8); MEAN CORPUSCULAR VOLUME 90.8 fL (80-100); MEAN PLATELET VOLUME 8.1 fL (7.4-10.4); MONOCYTES # (AUTO) 0.75 x10^3/uL (0.2-0.8); MONOCYTES % (AUTO) 9 % (2-9); NEUTROPHILS # (AUTO) 5.09 x10^3/uL (1.8-6.8); NEUTROPHILS % (AUTO) 64 % (42-75); PLATELET COUNT 447 x10^3/uL (130-400); RED BLOOD COUNT 2.97 x10^6/uL (3.82-5.3); RED CELL DISTRIBUTION WIDTH 16.1 % (9.6-15.2)
[2018-04-20] MEDS: HEPARIN 5,000 UNITS/ML, 1ML SQ SCH ×3 (06:18→22:21)
[2018-04-20 06:25] LABS: ALBUMIN 2.2 g/dL (3.4-5.0); ANION GAP 10 mmol/L (5-15); CALCIUM 9.4 mg/dL (8.5-10.1); CHOL/HDL RATIO 10.4; CHOLESTEROL, TOTAL 207 mg/dL (140-239); CREATININE 0.66 mg/dL (0.55-1.02); HDL CHOL % 10 % (28-40); HDL CHOLESTEROL (DIRECT) 20 mg/dL (40-60); TRIGLYCERIDES 547 mg/dL (50-200)
[2018-04-20 07:50] VITALS: BP 120/79
[2018-04-20] MEDS: PANTOPRAZOLE 40 MG IV IVPush SCH ×2 (08:40→21:28)
[2018-04-20] MEDS: GUAIFENESIN 200 MG TABLET PO SCH ×2 (08:41→21:28)
[2018-04-20] MEDS ORDERED: MAGNESIUM SULFATE 1 GM in SODIUM CHLORIDE 0.9% 50 ML IV ONE (11:30)
[2018-04-20 13:25] VITALS: BP 116/79
[2018-04-20] MEDS ORDERED: OLIV IV SCH (17:00)
[2018-04-20] MEDS ORDERED: FAT EMUL IV SCH (17:00)
[2018-04-20] MEDS ORDERED: MCT IV SCH (17:00)
[2018-04-20] MEDS ORDERED: FISH OIL IV SCH (17:00)
[2018-04-20] MEDS ORDERED: [UNRECOGNIZED DRUG - OTHER] IV SCH (17:00)
[2018-04-20] MEDS ORDERED: AMINO ACID 10% IV SCH (17:00)
[2018-04-20] MEDS ORDERED: FILTER, DISP 1.2 MICRON FOR TPN/PVN IV PRN (17:00)
[2018-04-20] MEDS ORDERED: SOY IV SCH (17:00)
[2018-04-20] MEDS ORDERED: DEXTROSE 70% IV SCH (17:00)
[2018-04-20 18:25] VITALS: BP 106/57
[2018-04-20] MEDS: ATORVASTATIN 20 MG TABLET PO SCH (21:29)
[2018-04-21] MEDS: AMPICILLIN/SULBACTAM 3 GM in SODIUM CHLORIDE 0.9% 100 ML IV SCH ×3 (01:08→17:08)
[2018-04-21 02:00] VITALS: BP 126/73
[2018-04-21] MEDS: HEPARIN 5,000 UNITS/ML, 1ML SQ SCH ×3 (06:30→21:34)
[2018-04-21 07:01] VITALS: BP 125/75
[2018-04-21 07:55] LABS: BASOPHILS # (AUTO) 0.05 x10^3/uL (0-0.1); BASOPHILS % (AUTO) 1 % (0-1); EOSINOPHILS # (AUTO) 0.22 x10^3/uL (0-0.4); EOSINOPHILS % (AUTO) 3 % (1-7); LYMPHOCYTES # (AUTO) 1.55 x10^3/uL (1-3.4); LYMPHOCYTES % (AUTO) 20 % (22-44); MD NO; MEAN CORPUSCULAR HGB CONC 32.7 g/dL (32.4-35.8); MEAN CORPUSCULAR VOLUME 91.5 fL (80-100); MEAN PLATELET VOLUME 7.8 fL (7.4-10.4); MONOCYTES # (AUTO) 0.55 x10^3/uL (0.2-0.8); MONOCYTES % (AUTO) 7 % (2-9); NEUTROPHILS # (AUTO) 5.39 x10^3/uL (1.8-6.8); NEUTROPHILS % (AUTO) 70 % (42-75); PLATELET COUNT 460 x10^3/uL (130-400); RED BLOOD COUNT 2.95 x10^6/uL (3.82-5.3); RED CELL DISTRIBUTION WIDTH 16.5 % (9.6-15.2)
[2018-04-21] MEDS: PANTOPRAZOLE 40 MG IV IVPush SCH ×2 (08:30→21:34)
[2018-04-21] MEDS: GUAIFENESIN 200 MG TABLET PO SCH ×2 (08:30→21:34)
[2018-04-21 12:15] VITALS: BP 118/80
[2018-04-21 12:57] LABS: OCCULT BLOOD NEGATIVE (NEGATIVE)
[2018-04-21] MEDS ORDERED: MCT IV SCH (17:00)
[2018-04-21] MEDS ORDERED: OLIV IV SCH (17:00)
[2018-04-21] MEDS ORDERED: FISH OIL IV SCH (17:00)
[2018-04-21] MEDS ORDERED: DEXTROSE 70% IV SCH (17:00)
[2018-04-21] MEDS ORDERED: [UNRECOGNIZED DRUG - OTHER] IV SCH (17:00)
[2018-04-21] MEDS ORDERED: AMINO ACID 10% IV SCH (17:00)
[2018-04-21] MEDS ORDERED: FAT EMUL IV SCH (17:00)
[2018-04-21] MEDS ORDERED: FILTER, DISP 1.2 MICRON FOR TPN/PVN IV PRN (17:00)
[2018-04-21] MEDS ORDERED: SOY IV SCH (17:00)
[2018-04-21 19:48] VITALS: BP 118/74
[2018-04-21] MEDS: ATORVASTATIN 20 MG TABLET PO SCH (21:34)
[2018-04-22] MEDS: AMPICILLIN/SULBACTAM 3 GM in SODIUM CHLORIDE 0.9% 100 ML IV SCH ×3 (01:24→16:58)
[2018-04-22 02:11] VITALS: BP 121/73
[2018-04-22 05:58] LABS: ANION GAP 9 mmol/L (5-15); CALCIUM 8.9 mg/dL (8.5-10.1); CHLORIDE 105 mmol/L (98-107)
[2018-04-22 05:59] LABS: CREATININE 0.56 mg/dL (0.55-1.02)
[2018-04-22] MEDS: HEPARIN 5,000 UNITS/ML, 1ML SQ SCH ×3 (06:11→22:23)
[2018-04-22 07:26] VITALS: BP 119/67
[2018-04-22] MEDS: GUAIFENESIN 200 MG TABLET PO SCH ×2 (08:44→21:00)
[2018-04-22] MEDS: PANTOPRAZOLE 40 MG IV IVPush SCH ×2 (08:45→21:06)
[2018-04-22 14:18] VITALS: BP 117/74
[2018-04-22] MEDS ORDERED: AMINO ACID 10% IV SCH (17:00)
[2018-04-22] MEDS ORDERED: FISH OIL IV SCH (17:00)
[2018-04-22] MEDS ORDERED: MCT IV SCH (17:00)
[2018-04-22] MEDS ORDERED: SOY IV SCH (17:00)
[2018-04-22] MEDS ORDERED: DEXTROSE 70% IV SCH (17:00)
[2018-04-22] MEDS ORDERED: FILTER, DISP 1.2 MICRON FOR TPN/PVN IV PRN (17:00)
[2018-04-22] MEDS ORDERED: FAT EMUL IV SCH (17:00)
[2018-04-22] MEDS ORDERED: OLIV IV SCH (17:00)
[2018-04-22] MEDS ORDERED: [UNRECOGNIZED DRUG - OTHER] IV SCH (17:00)
[2018-04-22 20:33] VITALS: BP 116/72
[2018-04-22] MEDS: ATORVASTATIN 20 MG TABLET PO SCH (21:00)
[2018-04-22] MEDS ORDERED: CATHFLO-ALTEPLASE 2 MG/2 ML CATHFLUSH ONE (23:00)
[2018-04-23] MEDS: AMPICILLIN/SULBACTAM 3 GM in SODIUM CHLORIDE 0.9% 100 ML IV SCH ×3 (01:19→16:59)
[2018-04-23 02:41] VITALS: BP 128/66
[2018-04-23] MEDS: HEPARIN 5,000 UNITS/ML, 1ML SQ SCH ×3 (05:48→22:45)
[2018-04-23 06:54] VITALS: BP 125/78
[2018-04-23] MEDS: GUAIFENESIN 200 MG TABLET PO SCH ×2 (09:00→20:43)
[2018-04-23] MEDS: PANTOPRAZOLE 40 MG IV IVPush SCH ×2 (09:07→20:43)
[2018-04-23 14:00] VITALS: BP 122/74
[2018-04-23 16:01] VITALS: BP 122/74
[2018-04-23] MEDS: FILTER, DISP 1.2 MICRON FOR TPN/PVN IV PRN (16:57)
[2018-04-23] MEDS ORDERED: OLIV IV SCH (17:00)
[2018-04-23] MEDS ORDERED: FISH OIL IV SCH (17:00)
[2018-04-23] MEDS ORDERED: FAT EMUL IV SCH (17:00)
[2018-04-23] MEDS ORDERED: AMINO ACID 10% IV SCH (17:00)
[2018-04-23] MEDS ORDERED: MCT IV SCH (17:00)
[2018-04-23] MEDS ORDERED: SOY IV SCH (17:00)
[2018-04-23] MEDS ORDERED: DEXTROSE 70% IV SCH (17:00)
[2018-04-23] MEDS ORDERED: [UNRECOGNIZED DRUG - OTHER] IV SCH (17:00)
[2018-04-23 19:49] VITALS: BP 121/74
[2018-04-23] MEDS: ATORVASTATIN 20 MG TABLET PO SCH (20:43)
[2018-04-23] MEDS: DIPHENHYDRAMINE 50 MG/ML, 1ML IVPush PRN (20:43)
[2018-04-24] MEDS: AMPICILLIN/SULBACTAM 3 GM in SODIUM CHLORIDE 0.9% 100 ML IV SCH ×3 (01:04→18:31)
[2018-04-24 02:18] VITALS: BP 124/74
[2018-04-24 05:53] LABS: BASOPHILS # (AUTO) 0.04 x10^3/uL (0-0.1); BASOPHILS % (AUTO) 1 % (0-1); EOSINOPHILS # (AUTO) 0.64 x10^3/uL (0-0.4); EOSINOPHILS % (AUTO) 9 % (1-7); LYMPHOCYTES # (AUTO) 1.59 x10^3/uL (1-3.4); LYMPHOCYTES % (AUTO) 21 % (22-44); MD NO; MEAN CORPUSCULAR HEMOGLOBIN 31.2 pg (27.0-34.8); MEAN CORPUSCULAR VOLUME 91.6 fL (80-100); MONOCYTES # (AUTO) 0.54 x10^3/uL (0.2-0.8); MONOCYTES % (AUTO) 7 % (2-9); NEUTROPHILS # (AUTO) 4.72 x10^3/uL (1.8-6.8); NEUTROPHILS % (AUTO) 63 % (42-75); PLATELET COUNT 413 x10^3/uL (130-400); RED BLOOD COUNT 2.75 x10^6/uL (3.82-5.3); RED CELL DISTRIBUTION WIDTH 16.1 % (9.6-15.2)
[2018-04-24] MEDS: HEPARIN 5,000 UNITS/ML, 1ML SQ SCH ×2 (06:03→17:12)
[2018-04-24 06:10] LABS: CHLORIDE 104 mmol/L (98-107)
[2018-04-24 06:18] LABS: HCT (SEDRATE) 25.2 % (34.6-47.8)
[2018-04-24 06:25] LABS: ALANINE AMINOTRANSFERASE 31 U/L (12-78); ALBUMIN 2.3 g/dL (3.4-5.0); ALKALINE PHOSPHATASE 115 U/L (45-117); ANION GAP 8 mmol/L (5-15); BILIRUBIN,TOTAL 0.1 mg/dL (0.2-1.0); CALCIUM 8.3 mg/dL (8.5-10.1); CREATININE 0.57 mg/dL (0.55-1.02); PREALBUMIN 23.6 mg/dL (20.0-40.0); TOTAL PROTEIN 7.2 g/dL (6.4-8.2); TRIGLYCERIDES 467 mg/dL (50-200)
[2018-04-24 06:39] LABS: SEDIMENTATION RATE > 120 mm/hr (0-20)
[2018-04-24 06:44] VITALS: BP 118/63
[2018-04-24] MEDS: PANTOPRAZOLE 40 MG IV IVPush SCH ×2 (08:47→20:49)
[2018-04-24] MEDS: GUAIFENESIN 200 MG TABLET PO SCH ×2 (08:48→20:49)
[2018-04-24 13:13] VITALS: BP 113/74
[2018-04-24] MEDS ORDERED: AMINO ACID 10% IV SCH (17:00)
[2018-04-24] MEDS ORDERED: DEXTROSE 70% IV SCH (17:00)
[2018-04-24] MEDS ORDERED: [UNRECOGNIZED DRUG - OTHER] IV SCH (17:00)
[2018-04-24] MEDS ORDERED: MCT IV SCH (17:00)
[2018-04-24] MEDS ORDERED: FAT EMUL IV SCH (17:00)
[2018-04-24] MEDS ORDERED: OLIV IV SCH (17:00)
[2018-04-24] MEDS ORDERED: FISH OIL IV SCH (17:00)
[2018-04-24] MEDS ORDERED: SOY IV SCH (17:00)
[2018-04-24] MEDS: FILTER, DISP 1.2 MICRON FOR TPN/PVN IV PRN (17:01)
[2018-04-24 17:16] LABS: HEMOGLOBIN A1C 5.5 % (4.2-6.3)
[2018-04-24 19:22] VITALS: BP 125/80
[2018-04-24] MEDS: DIPHENHYDRAMINE 50 MG/ML, 1ML IVPush PRN (19:43)
[2018-04-24] MEDS: ATORVASTATIN 20 MG TABLET PO SCH (20:49)
[2018-04-25] MEDS: HEPARIN 5,000 UNITS/ML, 1ML SQ SCH ×3 (01:40→17:54)
[2018-04-25] MEDS: AMPICILLIN/SULBACTAM 3 GM in SODIUM CHLORIDE 0.9% 100 ML IV SCH ×3 (01:41→17:52)
[2018-04-25 02:19] VITALS: BP 122/75
[2018-04-25 06:33] VITALS: BP 137/82
[2018-04-25] MEDS: GUAIFENESIN 200 MG TABLET PO SCH ×2 (09:30→22:30)
[2018-04-25] MEDS: PANTOPRAZOLE 40 MG IV IVPush SCH ×2 (09:30→22:29)
[2018-04-25 12:22] VITALS: BP 121/78
[2018-04-25] MEDS ORDERED: SOY IV SCH (17:00)
[2018-04-25] MEDS ORDERED: FISH OIL IV SCH (17:00)
[2018-04-25] MEDS ORDERED: [UNRECOGNIZED DRUG - OTHER] IV SCH (17:00)
[2018-04-25] MEDS ORDERED: MCT IV SCH (17:00)
[2018-04-25] MEDS ORDERED: AMINO ACID 10% IV SCH (17:00)
[2018-04-25] MEDS ORDERED: FAT EMUL IV SCH (17:00)
[2018-04-25] MEDS ORDERED: OLIV IV SCH (17:00)
[2018-04-25] MEDS ORDERED: DEXTROSE 70% IV SCH (17:00)
[2018-04-25] MEDS: FILTER, DISP 1.2 MICRON FOR TPN/PVN IV PRN (17:52)
[2018-04-25 19:22] VITALS: BP 119/74
[2018-04-25] MEDS: ATORVASTATIN 20 MG TABLET PO SCH (22:30)
[2018-04-26] MEDS: DIPHENHYDRAMINE 25 MG CAPSULE PO PRN ×2 (00:03→21:48)
[2018-04-26] MEDS: HEPARIN 5,000 UNITS/ML, 1ML SQ SCH ×2 (02:05→09:32)
[2018-04-26] MEDS: AMPICILLIN/SULBACTAM 3 GM in SODIUM CHLORIDE 0.9% 100 ML IV SCH ×3 (02:05→16:36)
[2018-04-26 02:30] VITALS: BP 101/77
[2018-04-26 05:40] LABS: ANION GAP 8 mmol/L (5-15); CALCIUM 8.8 mg/dL (8.5-10.1); CHLORIDE 104 mmol/L (98-107); CREATININE 0.53 mg/dL (0.55-1.02)
[2018-04-26 08:00] VITALS: BP 116/70
[2018-04-26] MEDS ORDERED: OMNIPAQUE 350 MG/ML, 100ML BOTTLE ONE (08:47)
[2018-04-26] MEDS: PANTOPRAZOLE 40 MG IV IVPush SCH ×2 (09:23→21:37)
[2018-04-26] MEDS: GUAIFENESIN 200 MG TABLET PO SCH ×2 (09:23→21:37)
[2018-04-26] MEDS ORDERED: HEPARIN 5,000 UNITS/ML, 1ML IV ONE (10:30)
[2018-04-26 12:38] VITALS: BP 106/55
[2018-04-26 13:32] LABS: PLATELET COUNT 407 x10^3/uL (130-400)
[2018-04-26] MEDS: HEPARIN 25,000 UNITS/500ML PMX 500 ML IV PRN (13:57)
[2018-04-26] MEDS ORDERED: DEXTROSE 70% IV SCH (17:00)
[2018-04-26] MEDS ORDERED: AMINO ACID 10% IV SCH (17:00)
[2018-04-26] MEDS ORDERED: [UNRECOGNIZED DRUG - OTHER] IV SCH (17:00)
[2018-04-26] MEDS ORDERED: FISH OIL IV SCH (17:00)
[2018-04-26] MEDS ORDERED: SOY IV SCH (17:00)
[2018-04-26] MEDS ORDERED: FAT EMUL IV SCH (17:00)
[2018-04-26] MEDS ORDERED: FILTER, DISP 1.2 MICRON FOR TPN/PVN IV PRN (17:00)
[2018-04-26] MEDS ORDERED: MCT IV SCH (17:00)
[2018-04-26] MEDS ORDERED: OLIV IV SCH (17:00)
[2018-04-26 19:19] VITALS: BP 114/71
[2018-04-26] MEDS: ATORVASTATIN 20 MG TABLET PO SCH ×2 (21:00→21:38)
[2018-04-26] MEDS: HEPARIN 5,000 UNITS/ML, 1ML IV PRN (21:45)
[2018-04-27] MEDS: AMPICILLIN/SULBACTAM 3 GM in SODIUM CHLORIDE 0.9% 100 ML IV SCH ×3 (01:55→16:38)
[2018-04-27 02:30] VITALS: BP 112/88
[2018-04-27 05:52] LABS: BASOPHILS # (AUTO) 0.04 x10^3/uL (0-0.1); BASOPHILS % (AUTO) 1 % (0-1); EOSINOPHILS # (AUTO) 0.73 x10^3/uL (0-0.4); EOSINOPHILS % (AUTO) 9 % (1-7); LYMPHOCYTES % (AUTO) 18 % (22-44); MD NO; MEAN CORPUSCULAR HEMOGLOBIN 30.8 pg (27.0-34.8); MEAN CORPUSCULAR HGB CONC 33.6 g/dL (32.4-35.8); MEAN CORPUSCULAR VOLUME 91.6 fL (80-100); MEAN PLATELET VOLUME 8.2 fL (7.4-10.4); MONOCYTES # (AUTO) 0.59 x10^3/uL (0.2-0.8); MONOCYTES % (AUTO) 7 % (2-9); NEUTROPHILS # (AUTO) 5.34 x10^3/uL (1.8-6.8); NEUTROPHILS % (AUTO) 65 % (42-75); PLATELET COUNT 406 x10^3/uL (130-400); RED BLOOD COUNT 2.72 x10^6/uL (3.82-5.3); RED CELL DISTRIBUTION WIDTH 16.4 % (9.6-15.2)
[2018-04-27] MEDS: HEPARIN 5,000 UNITS/ML, 1ML IV PRN ×2 (06:14→19:57)
[2018-04-27 07:32] VITALS: BP 110/72
[2018-04-27] MEDS: GUAIFENESIN 200 MG TABLET PO SCH ×2 (08:36→23:21)
[2018-04-27] MEDS: PANTOPRAZOLE 40 MG IV IVPush SCH ×2 (08:36→23:20)
[2018-04-27 15:08] VITALS: BP 116/69
[2018-04-27] MEDS: HEPARIN 25,000 UNITS/500ML PMX 500 ML IV PRN (15:51)
[2018-04-27 19:06] VITALS: BP 116/69
[2018-04-27] MEDS: ATORVASTATIN 20 MG TABLET PO SCH (21:00)
[2018-04-27] MEDS: DIPHENHYDRAMINE 25 MG CAPSULE PO PRN (23:21)
[2018-04-28 01:20] VITALS: BP 120/75
[2018-04-28] MEDS: AMPICILLIN/SULBACTAM 3 GM in SODIUM CHLORIDE 0.9% 100 ML IV SCH ×3 (02:04→17:18)
[2018-04-28 02:42] LABS: BASOPHILS # (AUTO) 0.06 x10^3/uL (0-0.1); BASOPHILS % (AUTO) 1 % (0-1); EOSINOPHILS # (AUTO) 0.73 x10^3/uL (0-0.4); EOSINOPHILS % (AUTO) 9 % (1-7); LYMPHOCYTES # (AUTO) 1.81 x10^3/uL (1-3.4); LYMPHOCYTES % (AUTO) 21 % (22-44); MD NO; MEAN CORPUSCULAR HEMOGLOBIN 31.1 pg (27.0-34.8); MEAN CORPUSCULAR HGB CONC 33.7 g/dL (32.4-35.8); MEAN CORPUSCULAR VOLUME 92.2 fL (80-100); MEAN PLATELET VOLUME 8.1 fL (7.4-10.4); MONOCYTES # (AUTO) 0.59 x10^3/uL (0.2-0.8); MONOCYTES % (AUTO) 7 % (2-9); NEUTROPHILS # (AUTO) 5.47 x10^3/uL (1.8-6.8); NEUTROPHILS % (AUTO) 63 % (42-75); PLATELET COUNT 441 x10^3/uL (130-400); RED BLOOD COUNT 2.81 x10^6/uL (3.82-5.3)
[2018-04-28 02:53] LABS: ANION GAP 8 mmol/L (5-15); CALCIUM 8.8 mg/dL (8.5-10.1); CHLORIDE 104 mmol/L (98-107); CREATININE 0.67 mg/dL (0.55-1.02)
[2018-04-28] MEDS: HEPARIN 5,000 UNITS/ML, 1ML IV PRN ×3 (04:27→20:46)
[2018-04-28 07:19] VITALS: BP 114/72
[2018-04-28] MEDS: PANTOPRAZOLE 40 MG IV IVPush SCH ×2 (09:10→20:49)
[2018-04-28] MEDS: GUAIFENESIN 200 MG TABLET PO SCH ×2 (09:10→20:49)
[2018-04-28] MEDS ORDERED: MAGNESIUM SULFATE PMX 2GM/50ML 50 ML IV ONE (13:00)
[2018-04-28 13:47] VITALS: BP 136/83
[2018-04-28] MEDS: HEPARIN 25,000 UNITS/500ML PMX 500 ML IV PRN (14:01)
[2018-04-28 19:30] VITALS: BP 109/67
[2018-04-28] MEDS: DIPHENHYDRAMINE 25 MG CAPSULE PO PRN (20:49)
[2018-04-28] MEDS: ATORVASTATIN 20 MG TABLET PO SCH (20:49)
[2018-04-29 01:59] LABS: BASOPHILS # (AUTO) 0.05 x10^3/uL (0-0.1); BASOPHILS % (AUTO) 1 % (0-1); EOSINOPHILS # (AUTO) 0.77 x10^3/uL (0-0.4); EOSINOPHILS % (AUTO) 10 % (1-7); LYMPHOCYTES # (AUTO) 1.76 x10^3/uL (1-3.4); LYMPHOCYTES % (AUTO) 23 % (22-44); MD NO; MEAN CORPUSCULAR HEMOGLOBIN 30.9 pg (27.0-34.8); MEAN CORPUSCULAR HGB CONC 33.9 g/dL (32.4-35.8); MEAN CORPUSCULAR VOLUME 91.2 fL (80-100); MEAN PLATELET VOLUME 7.4 fL (7.4-10.4); MONOCYTES # (AUTO) 0.61 x10^3/uL (0.2-0.8); MONOCYTES % (AUTO) 8 % (2-9); NEUTROPHILS # (AUTO) 4.62 x10^3/uL (1.8-6.8); NEUTROPHILS % (AUTO) 59 % (42-75); PLATELET COUNT 451 x10^3/uL (130-400); RED BLOOD COUNT 2.88 x10^6/uL (3.82-5.3); RED CELL DISTRIBUTION WIDTH 15.9 % (9.6-15.2)
[2018-04-29] MEDS: AMPICILLIN/SULBACTAM 3 GM in SODIUM CHLORIDE 0.9% 100 ML IV SCH ×2 (02:05→08:55)
[2018-04-29 02:06] LABS: ANION GAP 4 mmol/L (5-15); CALCIUM 8.8 mg/dL (8.5-10.1); CHLORIDE 105 mmol/L (98-107); CREATININE 0.83 mg/dL (0.55-1.02)
[2018-04-29 03:00] VITALS: BP 117/77
[2018-04-29] MEDS: HEPARIN 5,000 UNITS/ML, 1ML IV PRN ×3 (03:32→22:09)
[2018-04-29 07:37] VITALS: BP 120/81
[2018-04-29] MEDS: GUAIFENESIN 200 MG TABLET PO SCH (08:55)
[2018-04-29] MEDS: PANTOPRAZOLE 40 MG IV IVPush SCH (08:55)
[2018-04-29] MEDS: HEPARIN 25,000 UNITS/500ML PMX 500 ML IV PRN (11:17)
[2018-04-29 12:12] VITALS: BP 134/85
[2018-04-29 20:44] VITALS: BP 117/75
[2018-04-29] MEDS: ATORVASTATIN 20 MG TABLET PO SCH (21:00)
[2018-04-30] MEDS: PANTOPRAZOLE 40 MG IV IVPush SCH ×3 (00:26→20:36)
[2018-04-30] MEDS: DIPHENHYDRAMINE 25 MG CAPSULE PO PRN ×2 (00:26→22:46)
[2018-04-30] MEDS: GUAIFENESIN 200 MG TABLET PO SCH ×3 (00:27→20:36)
[2018-04-30 03:20] VITALS: BP 125/79
[2018-04-30] MEDS: HEPARIN 25,000 UNITS/500ML PMX 500 ML IV PRN ×2 (04:49→16:43)
[2018-04-30] MEDS: HEPARIN 5,000 UNITS/ML, 1ML IV PRN ×3 (06:54→20:34)
[2018-04-30 07:17] VITALS: BP 110/71
[2018-04-30 13:30] VITALS: BP 124/81
[2018-04-30] MEDS: ATORVASTATIN 20 MG TABLET PO SCH (20:37)
[2018-04-30 20:54] VITALS: BP 109/73
[2018-05-01 02:28] VITALS: BP 132/80
[2018-05-01 03:08] LABS: BASOPHILS # (AUTO) 0.04 x10^3/uL (0-0.1); BASOPHILS % (AUTO) 0 % (0-1); EOSINOPHILS # (AUTO) 0.87 x10^3/uL (0-0.4); EOSINOPHILS % (AUTO) 10 % (1-7); LYMPHOCYTES # (AUTO) 1.85 x10^3/uL (1-3.4); LYMPHOCYTES % (AUTO) 21 % (22-44); MD NO; MEAN CORPUSCULAR HEMOGLOBIN 30.7 pg (27.0-34.8); MEAN CORPUSCULAR HGB CONC 33.3 g/dL (32.4-35.8); MEAN CORPUSCULAR VOLUME 92.2 fL (80-100); MEAN PLATELET VOLUME 7.7 fL (7.4-10.4); MONOCYTES % (AUTO) 7 % (2-9); NEUTROPHILS # (AUTO) 5.68 x10^3/uL (1.8-6.8); NEUTROPHILS % (AUTO) 63 % (42-75); PLATELET COUNT 478 x10^3/uL (130-400); RED BLOOD COUNT 2.99 x10^6/uL (3.82-5.3); RED CELL DISTRIBUTION WIDTH 16.3 % (9.6-15.2)
[2018-05-01 03:20] LABS: ALANINE AMINOTRANSFERASE 50 U/L (12-78); ALBUMIN 2.7 g/dL (3.4-5.0); ANION GAP 9 mmol/L (5-15); CHLORIDE 105 mmol/L (98-107)
[2018-05-01 03:27] LABS: ALKALINE PHOSPHATASE 111 U/L (45-117); BILIRUBIN,TOTAL 0.1 mg/dL (0.2-1.0); PREALBUMIN 27.9 mg/dL (20.0-40.0); TOTAL PROTEIN 7.3 g/dL (6.4-8.2)
[2018-05-01] MEDS: HEPARIN 5,000 UNITS/ML, 1ML IV PRN (03:47)
[2018-05-01] MEDS: HEPARIN 25,000 UNITS/500ML PMX 500 ML IV PRN ×2 (06:05→16:55)
[2018-05-01 06:57] VITALS: BP 136/78
[2018-05-01 07:40] VITALS: BP 120/77
[2018-05-01] MEDS: PANTOPRAZOLE 40 MG IV IVPush SCH ×2 (09:16→19:45)
[2018-05-01] MEDS: GUAIFENESIN 200 MG TABLET PO SCH ×2 (09:16→19:45)
[2018-05-01 13:42] VITALS: BP 113/75
[2018-05-01] MEDS: ATORVASTATIN 20 MG TABLET PO SCH (19:39)
[2018-05-01] MEDS: DIPHENHYDRAMINE 25 MG CAPSULE PO PRN (19:45)
[2018-05-01 20:38] VITALS: BP 115/76
[2018-05-02 01:50] VITALS: BP 116/75
[2018-05-02] MEDS: HEPARIN 25,000 UNITS/500ML PMX 500 ML IV PRN ×3 (05:36→18:33)
[2018-05-02 05:54] LABS: BASOPHILS # (AUTO) 0.08 x10^3/uL (0-0.1); BASOPHILS % (AUTO) 1 % (0-1); EOSINOPHILS # (AUTO) 0.71 x10^3/uL (0-0.4); EOSINOPHILS % (AUTO) 8 % (1-7); LYMPHOCYTES # (AUTO) 1.49 x10^3/uL (1-3.4); LYMPHOCYTES % (AUTO) 18 % (22-44); MD NO; MEAN CORPUSCULAR HEMOGLOBIN 30.5 pg (27.0-34.8); MEAN CORPUSCULAR VOLUME 92.6 fL (80-100); MONOCYTES # (AUTO) 0.52 x10^3/uL (0.2-0.8); MONOCYTES % (AUTO) 6 % (2-9); NEUTROPHILS # (AUTO) 5.73 x10^3/uL (1.8-6.8); NEUTROPHILS % (AUTO) 67 % (42-75); PLATELET COUNT 478 x10^3/uL (130-400)
[2018-05-02 05:58] LABS: HCT (SEDRATE) 30.5 % (34.6-47.8)
[2018-05-02 06:05] LABS: ANION GAP 10 mmol/L (5-15); CALCIUM 9.3 mg/dL (8.5-10.1); CHLORIDE 103 mmol/L (98-107)
[2018-05-02 06:07] LABS: CREATININE 0.73 mg/dL (0.55-1.02)
[2018-05-02 07:15] VITALS: BP 111/55
[2018-05-02] MEDS: PANTOPRAZOLE 40 MG IV IVPush SCH ×2 (08:51→21:37)
[2018-05-02] MEDS: GUAIFENESIN 200 MG TABLET PO SCH ×2 (08:51→21:37)
[2018-05-02] MEDS: HEPARIN 5,000 UNITS/ML, 1ML IV PRN ×2 (10:06→18:22)
[2018-05-02 12:44] VITALS: BP 105/69
[2018-05-02] MEDS: ATORVASTATIN 20 MG TABLET PO SCH (21:00)
[2018-05-02 21:15] VITALS: BP 123/71
[2018-05-02] MEDS: DIPHENHYDRAMINE 25 MG CAPSULE PO PRN (21:37)
[2018-05-03] MEDS: HEPARIN 5,000 UNITS/ML, 1ML IV PRN (01:23)
[2018-05-03 02:30] VITALS: BP 121/75
[2018-05-03] MEDS: HEPARIN 25,000 UNITS/500ML PMX 500 ML IV PRN ×2 (05:23→15:45)
[2018-05-03 07:41] VITALS: BP 112/75
[2018-05-03] MEDS: GUAIFENESIN 200 MG TABLET PO SCH ×2 (08:03→20:53)
[2018-05-03] MEDS: PANTOPRAZOLE 40 MG IV IVPush SCH ×2 (08:04→20:53)
[2018-05-03 14:17] VITALS: BP 134/76
[2018-05-03] MEDS: RIVAROXABAN 15 MG TABLET PO SCH (18:51)
[2018-05-03 19:30] VITALS: BP 123/81
[2018-05-03] MEDS ORDERED: MAGNESIUM SULFATE 6 GM in SODIUM CHLORIDE 0.9% 150 ML IV ONE (20:00)
[2018-05-03] MEDS: ATORVASTATIN 20 MG TABLET PO SCH (20:53)
[2018-05-03] MEDS: DIPHENHYDRAMINE 25 MG CAPSULE PO PRN (20:57)
[2018-05-04 01:24] VITALS: BP 135/77
[2018-05-04 05:14] LABS: BASOPHILS # (AUTO) 0.02 x10^3/uL (0-0.1); BASOPHILS % (AUTO) 0 % (0-1); EOSINOPHILS # (AUTO) 0.42 x10^3/uL (0-0.4); EOSINOPHILS % (AUTO) 6 % (1-7); LYMPHOCYTES # (AUTO) 1.35 x10^3/uL (1-3.4); LYMPHOCYTES % (AUTO) 20 % (22-44); MD NO; MEAN CORPUSCULAR HEMOGLOBIN 30.6 pg (27.0-34.8); MEAN CORPUSCULAR HGB CONC 33.1 g/dL (32.4-35.8); MEAN CORPUSCULAR VOLUME 92.3 fL (80-100); MEAN PLATELET VOLUME 7.4 fL (7.4-10.4); MONOCYTES # (AUTO) 0.42 x10^3/uL (0.2-0.8); MONOCYTES % (AUTO) 6 % (2-9); NEUTROPHILS # (AUTO) 4.42 x10^3/uL (1.8-6.8); NEUTROPHILS % (AUTO) 67 % (42-75); PLATELET COUNT 517 x10^3/uL (130-400); RED CELL DISTRIBUTION WIDTH 15.8 % (9.6-15.2)
[2018-05-04 05:24] LABS: ANION GAP 4 mmol/L (5-15); CALCIUM 8.8 mg/dL (8.5-10.1); CHLORIDE 104 mmol/L (98-107)
[2018-05-04 07:45] VITALS: BP 133/75
[2018-05-04] MEDS: RIVAROXABAN 15 MG TABLET PO SCH ×2 (08:52→18:00)
[2018-05-04] MEDS: PANTOPRAZOLE 40 MG IV IVPush SCH ×2 (08:55→21:31)
[2018-05-04] MEDS: GUAIFENESIN 200 MG TABLET PO SCH ×2 (08:55→21:30)
[2018-05-04 13:19] VITALS: BP 118/66
[2018-05-04 19:46] VITALS: BP 97/62
[2018-05-04] MEDS: ATORVASTATIN 20 MG TABLET PO SCH (21:00)
[2018-05-04] MEDS: DIPHENHYDRAMINE 25 MG CAPSULE PO PRN (21:30)
[2018-05-05 02:33] VITALS: BP 128/75
[2018-05-05] MEDS: RIVAROXABAN 15 MG TABLET PO SCH ×2 (07:56→16:49)
[2018-05-05 07:58] VITALS: BP 132/77
[2018-05-05] MEDS: PANTOPRAZOLE 40 MG IV IVPush SCH ×2 (09:35→21:40)
[2018-05-05] MEDS: GUAIFENESIN 200 MG TABLET PO SCH ×2 (09:35→21:39)
[2018-05-05 12:45] VITALS: BP 120/76
[2018-05-05 16:21] LABS: MICROSCOPIC AUTO
[2018-05-05 16:30] LABS: CULTURE INDICATED? YES
[2018-05-05 19:02] VITALS: BP 126/80
[2018-05-05] MEDS: ATORVASTATIN 20 MG TABLET PO SCH (21:00)
[2018-05-05] MEDS: DIPHENHYDRAMINE 25 MG CAPSULE PO PRN (21:42)
[2018-05-06 01:41] VITALS: BP 113/67
[2018-05-06 07:26] LABS: BASOPHILS # (AUTO) 0.05 x10^3/uL (0-0.1); BASOPHILS % (AUTO) 1 % (0-1); EOSINOPHILS # (AUTO) 0.39 x10^3/uL (0-0.4); EOSINOPHILS % (AUTO) 5 % (1-7); LYMPHOCYTES # (AUTO) 1.28 x10^3/uL (1-3.4); LYMPHOCYTES % (AUTO) 16 % (22-44); MD NO; MEAN CORPUSCULAR HEMOGLOBIN 29.3 pg (27.0-34.8); MEAN CORPUSCULAR HGB CONC 31.8 g/dL (32.4-35.8); MEAN CORPUSCULAR VOLUME 92.4 fL (80-100); MEAN PLATELET VOLUME 7.5 fL (7.4-10.4); MONOCYTES # (AUTO) 0.65 x10^3/uL (0.2-0.8); MONOCYTES % (AUTO) 8 % (2-9); NEUTROPHILS # (AUTO) 5.76 x10^3/uL (1.8-6.8); NEUTROPHILS % (AUTO) 71 % (42-75); PLATELET COUNT 511 x10^3/uL (130-400); RED BLOOD COUNT 3.32 x10^6/uL (3.82-5.3); RED CELL DISTRIBUTION WIDTH 15.4 % (9.6-15.2)
[2018-05-06 07:31] LABS: ANION GAP 7 mmol/L (5-15); CALCIUM 9.5 mg/dL (8.5-10.1); CHLORIDE 103 mmol/L (98-107); CREATININE 0.64 mg/dL (0.55-1.02)
[2018-05-06 08:25] VITALS: BP 123/78
[2018-05-06] MEDS: RIVAROXABAN 15 MG TABLET PO SCH (08:25)
[2018-05-06] MEDS: PANTOPRAZOLE 40 MG IV IVPush SCH ×2 (08:25→19:59)
[2018-05-06] MEDS: GUAIFENESIN 200 MG TABLET PO SCH ×2 (08:25→19:58)
[2018-05-06 14:14] VITALS: BP 116/76
[2018-05-06] MEDS ORDERED: VANCOMYCIN PER PHARMACY MC PRN (17:00)
[2018-05-06] MEDS ORDERED: RIVAROXABAN 10 MG TABLET PO SCH ×2 (17:00→17:07)
[2018-05-06] MEDS: LACTOBACILLUS 1GM/ PACKET PO SCH ×2 (17:51→19:58)
[2018-05-06] MEDS: RIVAROXABAN 10 MG TABLET PO SCH (17:51)
[2018-05-06] MEDS ORDERED: PHARMACOKINETIC MONITORING MC PRN (18:00)
[2018-05-06] MEDS ORDERED: PHARMACOKINETIC CONSULTATION MC ONE (18:00)
[2018-05-06] MEDS: ATORVASTATIN 20 MG TABLET PO SCH (19:59)
[2018-05-06] MEDS: CEFTRIAXONE PMX 2GM/50ML 50 ML IV SCH (19:59)
[2018-05-06 21:05] VITALS: BP 114/76
[2018-05-06] MEDS: VANCOMYCIN 1,800 MG in SODIUM CHLORIDE 0.9% 250 ML IV SCH (22:39)
[2018-05-06] MEDS: DIPHENHYDRAMINE 25 MG CAPSULE PO PRN (22:39)
[2018-05-07 03:07] VITALS: BP 136/73
[2018-05-07 07:20] VITALS: BP 130/85
[2018-05-07 07:26] LABS: ANION GAP 10 mmol/L (5-15); CALCIUM 9.7 mg/dL (8.5-10.1); CHLORIDE 103 mmol/L (98-107); CREATININE 0.73 mg/dL (0.55-1.02)
[2018-05-07] MEDS: PANTOPRAZOLE 40 MG IV IVPush SCH ×2 (08:56→20:09)
[2018-05-07] MEDS: LACTOBACILLUS 1GM/ PACKET PO SCH ×3 (08:56→20:10)
[2018-05-07] MEDS: RIVAROXABAN 10 MG TABLET PO SCH ×2 (08:56→17:32)
[2018-05-07] MEDS: GUAIFENESIN 200 MG TABLET PO SCH ×2 (08:56→20:10)
[2018-05-07 13:15] VITALS: BP 116/80
[2018-05-07] MEDS: VANCOMYCIN 1,800 MG in SODIUM CHLORIDE 0.9% 250 ML IV SCH (17:32)
[2018-05-07 19:12] VITALS: BP 125/77
[2018-05-07] MEDS: CEFTRIAXONE PMX 2GM/50ML 50 ML IV SCH (19:19)
[2018-05-07] MEDS: DIPHENHYDRAMINE 25 MG CAPSULE PO PRN (20:09)
[2018-05-07] MEDS: ATORVASTATIN 20 MG TABLET PO SCH (20:10)
[2018-05-08 01:57] VITALS: BP 128/81
[2018-05-08 06:04] LABS: ANION GAP 9 mmol/L (5-15); CALCIUM 9.3 mg/dL (8.5-10.1); CHLORIDE 104 mmol/L (98-107); CREATININE 0.64 mg/dL (0.55-1.02)
[2018-05-08 08:00] VITALS: BP 131/79
[2018-05-08] MEDS: RIVAROXABAN 10 MG TABLET PO SCH ×2 (08:42→16:58)
[2018-05-08] MEDS: GUAIFENESIN 200 MG TABLET PO SCH ×2 (08:42→20:19)
[2018-05-08] MEDS: LACTOBACILLUS 1GM/ PACKET PO SCH ×3 (08:42→20:19)
[2018-05-08] MEDS: PANTOPRAZOLE 40 MG IV IVPush SCH ×2 (08:42→20:19)
[2018-05-08] MEDS: VANCOMYCIN 1,800 MG in SODIUM CHLORIDE 0.9% 250 ML IV SCH (11:04)
[2018-05-08 14:00] VITALS: BP 116/73
[2018-05-08] MEDS: CEFTRIAXONE PMX 2GM/50ML 50 ML IV SCH (19:56)
[2018-05-08 19:58] VITALS: BP 117/75
[2018-05-08] MEDS: DIPHENHYDRAMINE 25 MG CAPSULE PO PRN (20:19)
[2018-05-08] MEDS: ATORVASTATIN 20 MG TABLET PO SCH (20:19)
[2018-05-09 01:24] VITALS: BP 137/80
[2018-05-09] MEDS: VANCOMYCIN 1,800 MG in SODIUM CHLORIDE 0.9% 250 ML IV SCH (05:12)
[2018-05-09 07:00] VITALS: BP 123/72
[2018-05-09] MEDS: GUAIFENESIN 200 MG TABLET PO SCH ×2 (08:31→19:40)
[2018-05-09] MEDS: LACTOBACILLUS 1GM/ PACKET PO SCH ×3 (08:31→19:42)
[2018-05-09] MEDS: PANTOPRAZOLE 40 MG IV IVPush SCH ×2 (08:31→19:40)
[2018-05-09] MEDS: RIVAROXABAN 10 MG TABLET PO SCH ×2 (08:31→16:56)
[2018-05-09 14:40] VITALS: BP 127/70
[2018-05-09] MEDS: CEFTRIAXONE PMX 2GM/50ML 50 ML IV SCH (19:40)
[2018-05-09] MEDS: DIPHENHYDRAMINE 25 MG CAPSULE PO PRN (19:41)
[2018-05-09] MEDS: ATORVASTATIN 20 MG TABLET PO SCH (19:42)
[2018-05-09 19:50] VITALS: BP 111/73
[2018-05-10] MEDS: VANCOMYCIN 1,800 MG in SODIUM CHLORIDE 0.9% 250 ML IV SCH ×2 (00:56→18:32)
[2018-05-10 03:25] VITALS: BP 125/78
[2018-05-10 06:48] VITALS: BP 120/77
[2018-05-10] MEDS: RIVAROXABAN 10 MG TABLET PO SCH ×2 (08:15→17:00)
[2018-05-10] MEDS: LACTOBACILLUS 1GM/ PACKET PO SCH ×3 (08:15→20:14)
[2018-05-10] MEDS: PANTOPRAZOLE 40 MG IV IVPush SCH ×2 (08:15→20:14)
[2018-05-10] MEDS: GUAIFENESIN 200 MG TABLET PO SCH ×2 (08:15→20:14)
[2018-05-10 12:07] VITALS: BP 122/79
[2018-05-10 18:54] VITALS: BP 125/78
[2018-05-10] MEDS: ATORVASTATIN 20 MG TABLET PO SCH (20:14)
[2018-05-10] MEDS: DIPHENHYDRAMINE 25 MG CAPSULE PO PRN (20:14)
[2018-05-10] MEDS: CEFTRIAXONE PMX 2GM/50ML 50 ML IV SCH (20:14)
[2018-05-11 01:50] VITALS: BP_SYST 120; BP_SYST 145; BP_DIAS 79; BP_DIAS 82
[2018-05-11 06:46] VITALS: BP 119/76
[2018-05-11 07:10] LABS: BASOPHILS # (AUTO) 0.02 x10^3/uL (0-0.1); BASOPHILS % (AUTO) 0 % (0-1); EOSINOPHILS # (AUTO) 0.39 x10^3/uL (0-0.4); EOSINOPHILS % (AUTO) 5 % (1-7); LYMPHOCYTES # (AUTO) 1.38 x10^3/uL (1-3.4); LYMPHOCYTES % (AUTO) 17 % (22-44); MD NO; MEAN CORPUSCULAR HEMOGLOBIN 29.7 pg (27.0-34.8); MEAN CORPUSCULAR HGB CONC 32.9 g/dL (32.4-35.8); MEAN CORPUSCULAR VOLUME 90.3 fL (80-100); MEAN PLATELET VOLUME 7.8 fL (7.4-10.4); MONOCYTES # (AUTO) 0.44 x10^3/uL (0.2-0.8); MONOCYTES % (AUTO) 6 % (2-9); NEUTROPHILS # (AUTO) 5.68 x10^3/uL (1.8-6.8); NEUTROPHILS % (AUTO) 72 % (42-75); PLATELET COUNT 403 x10^3/uL (130-400); RED BLOOD COUNT 3.54 x10^6/uL (3.82-5.3); RED CELL DISTRIBUTION WIDTH 14.7 % (9.6-15.2)
[2018-05-11 07:18] LABS: ANION GAP 11 mmol/L (5-15); CHLORIDE 104 mmol/L (98-107); CREATININE 0.68 mg/dL (0.55-1.02)
[2018-05-11] MEDS: LACTOBACILLUS 1GM/ PACKET PO SCH ×3 (09:00→20:07)
[2018-05-11] MEDS: RIVAROXABAN 10 MG TABLET PO SCH ×2 (09:17→17:26)
[2018-05-11] MEDS: PANTOPRAZOLE 40 MG IV IVPush SCH ×2 (09:17→20:06)
[2018-05-11] MEDS: GUAIFENESIN 200 MG TABLET PO SCH ×2 (09:17→20:06)
[2018-05-11 13:01] VITALS: BP 120/71
[2018-05-11] MEDS: VANCOMYCIN 1,800 MG in SODIUM CHLORIDE 0.9% 250 ML IV SCH (14:51)
[2018-05-11 18:50] VITALS: BP 108/69
[2018-05-11] MEDS: CEFTRIAXONE PMX 2GM/50ML 50 ML IV SCH (20:06)
[2018-05-11] MEDS: DIPHENHYDRAMINE 25 MG CAPSULE PO PRN (20:06)
[2018-05-11] MEDS: ATORVASTATIN 20 MG TABLET PO SCH (20:07)
[2018-05-12 01:09] VITALS: BP 133/82
[2018-05-12 06:39] VITALS: BP 146/82
[2018-05-12] MEDS ORDERED: MAGNESIUM SULFATE 4 GM in SODIUM CHLORIDE 0.9% 100 ML IV ONE (08:30)
[2018-05-12] MEDS ORDERED: MAGNESIUM SULFATE PMX 4GM/100M 100 ML IV ONE (08:37)
[2018-05-12] MEDS: PANTOPRAZOLE 40 MG IV IVPush SCH ×2 (09:47→19:59)
[2018-05-12] MEDS: VANCOMYCIN 1,800 MG in SODIUM CHLORIDE 0.9% 250 ML IV SCH (09:47)
[2018-05-12] MEDS: LACTOBACILLUS 1GM/ PACKET PO SCH ×3 (09:48→19:59)
[2018-05-12] MEDS: GUAIFENESIN 200 MG TABLET PO SCH ×2 (09:48→19:59)
[2018-05-12] MEDS: RIVAROXABAN 10 MG TABLET PO SCH ×2 (09:48→17:00)
[2018-05-12] MEDS ORDERED: ACET650S21 PO (11:19)
[2018-05-12] MEDS ORDERED: PANT40GR PO (11:19)
[2018-05-12] MEDS ORDERED: CEFT1FRO2 IV (11:19)
[2018-05-12] MEDS ORDERED: ATOR20TA37 PO (11:19)
[2018-05-12] MEDS ORDERED: ACID1GRA3 PO (11:19)
[2018-05-12] MEDS ORDERED: VANC1VIA3 IV (11:19)
[2018-05-12] MEDS ORDERED: POLY17PO5 PO (11:19)
[2018-05-12] MEDS ORDERED: RIVA10TA2 PO (11:19)
[2018-05-12] MEDS ORDERED: TRAM50TA2 PO (11:21)
[2018-05-12] MEDS ORDERED: ONDA4TAB13 SL (11:21)
[2018-05-12 12:41] VITALS: BP 121/76
[2018-05-12] MEDS ORDERED: LACT1TAB13 PO (14:12)
[2018-05-12] MEDS: ATORVASTATIN 20 MG TABLET PO SCH (19:59)
[2018-05-12] MEDS: CEFTRIAXONE PMX 2GM/50ML 50 ML IV SCH (19:59)
[2018-05-12] MEDS: DIPHENHYDRAMINE 25 MG CAPSULE PO PRN (19:59)
[2018-05-12 21:47] VITALS: BP 118/74
[2018-05-13 02:06] VITALS: BP 116/67
[2018-05-13 03:39] LABS: VANCOMYCIN,TROUGH 14.4 mcg/mL (5.0-10.0)
[2018-05-13] MEDS: VANCOMYCIN 1,800 MG in SODIUM CHLORIDE 0.9% 250 ML IV SCH ×2 (04:11→21:03)
[2018-05-13 06:44] VITALS: BP 123/78
[2018-05-13] MEDS: PANTOPRAZOLE 40 MG IV IVPush SCH ×2 (08:33→21:00)
[2018-05-13] MEDS: LACTOBACILLUS 1GM/ PACKET PO SCH ×3 (08:33→21:00)
[2018-05-13] MEDS: GUAIFENESIN 200 MG TABLET PO SCH ×2 (08:33→21:01)
[2018-05-13] MEDS ORDERED: RIVAROXABAN 10 MG TABLET ONE ×2 (09:51→18:41)
[2018-05-13 13:25] VITALS: BP 117/76
[2018-05-13 18:30] VITALS: BP 133/85
[2018-05-13] MEDS: RIVAROXABAN 10 MG TABLET PO SCH (18:43)
[2018-05-13] MEDS: CEFTRIAXONE PMX 2GM/50ML 50 ML IV SCH (19:23)
[2018-05-13] MEDS: ATORVASTATIN 20 MG TABLET PO SCH (21:00)
[2018-05-13] MEDS: MAGNESIUM OXIDE 400 MG TABLET PO SCH (21:01)
[2018-05-13] MEDS: DIPHENHYDRAMINE 25 MG CAPSULE PO PRN (21:03)
[2018-05-14 02:22] VITALS: BP 138/79
[2018-05-14 07:05] VITALS: BP 135/82
[2018-05-14] MEDS: RIVAROXABAN 10 MG TABLET PO SCH ×2 (07:58→17:14)
[2018-05-14] MEDS: GUAIFENESIN 200 MG TABLET PO SCH ×2 (08:46→19:38)
[2018-05-14] MEDS: PANTOPRAZOLE 40 MG IV IVPush SCH ×2 (08:46→19:38)
[2018-05-14] MEDS: MAGNESIUM OXIDE 400 MG TABLET PO SCH ×2 (08:47→19:38)
[2018-05-14] MEDS: LACTOBACILLUS 1GM/ PACKET PO SCH ×3 (08:47→19:38)
[2018-05-14 12:46] VITALS: BP 127/79
[2018-05-14] MEDS: VANCOMYCIN 1,800 MG in SODIUM CHLORIDE 0.9% 250 ML IV SCH (15:07)
[2018-05-14] MEDS: ATORVASTATIN 20 MG TABLET PO SCH (19:38)
[2018-05-14] MEDS: CEFTRIAXONE PMX 2GM/50ML 50 ML IV SCH (19:38)
[2018-05-14] MEDS: DIPHENHYDRAMINE 25 MG CAPSULE PO PRN (20:16)
[2018-05-14 20:26] VITALS: BP 115/71
[2018-05-15 04:14] VITALS: BP 124/74
[2018-05-15 06:40] VITALS: BP 97/53
[2018-05-15] MEDS: RIVAROXABAN 10 MG TABLET PO SCH ×2 (08:00→17:04)
[2018-05-15] MEDS: LACTOBACILLUS 1GM/ PACKET PO SCH ×3 (09:00→22:47)
[2018-05-15] MEDS: MAGNESIUM OXIDE 400 MG TABLET PO SCH ×2 (09:24→22:47)
[2018-05-15] MEDS: GUAIFENESIN 200 MG TABLET PO SCH ×2 (09:24→22:47)
[2018-05-15] MEDS: PANTOPRAZOLE 40 MG IV IVPush SCH ×2 (09:24→22:46)
[2018-05-15] MEDS: VANCOMYCIN 1,800 MG in SODIUM CHLORIDE 0.9% 250 ML IV SCH (09:31)
[2018-05-15 13:08] VITALS: BP 117/71
[2018-05-15] MEDS: CEFTRIAXONE PMX 2GM/50ML 50 ML IV SCH (19:45)
[2018-05-15 20:22] VITALS: BP 122/74
[2018-05-15] MEDS: ATORVASTATIN 20 MG TABLET PO SCH (22:47)
[2018-05-15] MEDS: DIPHENHYDRAMINE 25 MG CAPSULE PO PRN (22:56)
[2018-05-16 03:40] VITALS: BP 117/77
[2018-05-16] MEDS: VANCOMYCIN 1,800 MG in SODIUM CHLORIDE 0.9% 250 ML IV SCH (03:42)
[2018-05-16 07:00] VITALS: BP 113/66
[2018-05-16] MEDS: RIVAROXABAN 10 MG TABLET PO SCH (08:00)
[2018-05-16] MEDS: LACTOBACILLUS 1GM/ PACKET PO SCH ×2 (08:07→15:19)
[2018-05-16] MEDS: PANTOPRAZOLE 40 MG IV IVPush SCH (08:36)
[2018-05-16] MEDS: GUAIFENESIN 200 MG TABLET PO SCH (08:36)
[2018-05-16] MEDS: MAGNESIUM OXIDE 400 MG TABLET PO SCH (08:36)
[2018-05-16] MEDS ORDERED: RIVA10TA2 PO (11:34)
[2018-05-16 13:10] VITALS: BP 120/76
[2018-05-16] MEDS ORDERED: RIVAROXABAN 10 MG TABLET PO SCH (17:00)
== END 2018-05-16 18:45 | DRG 3 ==
LOC: ED 06:10 → EDIP 07:26 → CCU 08:12 → 4NOR 03-06 16:11
PROVIDERS: ADMIT Hospitalist; ATTEND Hospitalist
PROC: 0DBL0ZZ Excision of Transverse Colon, Open Approach (ICD-10-PCS; 2018-01-15)
PROC: 0D1K0Z4 Bypass Ascending Colon to Cutaneous, Open Approach (ICD-10-PCS; 2018-01-15)
PROC: 03HY32Z Insertion of Monitoring Device into Upper Artery, Percutaneous Approach (ICD-10-PCS; 2018-01-15)
PROC: 5A1955Z Respiratory Ventilation, Greater than 96 Consecutive Hours (ICD-10-PCS; principal; 2018-01-16)
PROC: 30233N1 Transfusion of Nonautologous Red Blood Cells into Peripheral Vein, Percutaneous Approach (ICD-10-PCS; 2018-01-17)
PROC: 02H633Z Insertion of Infusion Device into Right Atrium, Percutaneous Approach (ICD-10-PCS; 2018-01-18)
PROC: 5A1D70Z Performance of Urinary Filtration, Intermittent, Less than 6 Hours Per Day (ICD-10-PCS; 2018-01-18)
PROC: 5A1D70Z Performance of Urinary Filtration, Intermittent, Less than 6 Hours Per Day (ICD-10-PCS; 2018-01-19)
PROC: 5A1D90Z Performance of Urinary Filtration, Continuous, Greater than 18 hours Per Day (ICD-10-PCS; 2018-01-21)
PROC: 5A1D90Z Performance of Urinary Filtration, Continuous, Greater than 18 hours Per Day (ICD-10-PCS; 2018-01-22)
PROC: 5A1D70Z Performance of Urinary Filtration, Intermittent, Less than 6 Hours Per Day (ICD-10-PCS; 2018-01-23)
PROC: 5A1D70Z Performance of Urinary Filtration, Intermittent, Less than 6 Hours Per Day (ICD-10-PCS; 2018-01-24)
PROC: 5A1D70Z Performance of Urinary Filtration, Intermittent, Less than 6 Hours Per Day (ICD-10-PCS; 2018-01-25)
PROC: 5A1D70Z Performance of Urinary Filtration, Intermittent, Less than 6 Hours Per Day (ICD-10-PCS; 2018-01-26)
PROC: 5A1D70Z Performance of Urinary Filtration, Intermittent, Less than 6 Hours Per Day (ICD-10-PCS; 2018-01-27)
PROC: 5A1D70Z Performance of Urinary Filtration, Intermittent, Less than 6 Hours Per Day (ICD-10-PCS; 2018-01-29)
PROC: 5A1D70Z Performance of Urinary Filtration, Intermittent, Less than 6 Hours Per Day (ICD-10-PCS; 2018-01-30)
PROC: 5A1D70Z Performance of Urinary Filtration, Intermittent, Less than 6 Hours Per Day (ICD-10-PCS; 2018-02-01)
PROC: 5A1D70Z Performance of Urinary Filtration, Intermittent, Less than 6 Hours Per Day (ICD-10-PCS; 2018-02-02)
PROC: 5A1D70Z Performance of Urinary Filtration, Intermittent, Less than 6 Hours Per Day (ICD-10-PCS; 2018-02-03)
PROC: 0T9B70Z Drainage of Bladder with Drainage Device, Via Natural or Artificial Opening (ICD-10-PCS; 2018-02-04)
PROC: 5A1D70Z Performance of Urinary Filtration, Intermittent, Less than 6 Hours Per Day (ICD-10-PCS; 2018-02-04)
PROC: 5A1D70Z Performance of Urinary Filtration, Intermittent, Less than 6 Hours Per Day (ICD-10-PCS; 2018-02-06)
PROC: 5A1D70Z Performance of Urinary Filtration, Intermittent, Less than 6 Hours Per Day (ICD-10-PCS; 2018-02-07)
PROC: 2W13X6Z Compression of Abdominal Wall using Pressure Dressing (ICD-10-PCS; 2018-02-09)
PROC: 5A1D70Z Performance of Urinary Filtration, Intermittent, Less than 6 Hours Per Day (ICD-10-PCS; 2018-02-09)
PROC: 0W9900Z Drainage of Right Pleural Cavity with Drainage Device, Open Approach (ICD-10-PCS; 2018-02-10)
PROC: 0B110F4 Bypass Trachea to Cutaneous with Tracheostomy Device, Open Approach (ICD-10-PCS; 2018-02-10 10:30)
PROC: 5A1D70Z Performance of Urinary Filtration, Intermittent, Less than 6 Hours Per Day (ICD-10-PCS; 2018-02-11)
PROC: 2W03X6Z Change Pressure Dressing on Abdominal Wall (ICD-10-PCS; 2018-02-13)
PROC: 5A1D70Z Performance of Urinary Filtration, Intermittent, Less than 6 Hours Per Day (ICD-10-PCS; 2018-02-14)
PROC: 2W03X6Z Change Pressure Dressing on Abdominal Wall (ICD-10-PCS; 2018-02-17)
PROC: 5A1D70Z Performance of Urinary Filtration, Intermittent, Less than 6 Hours Per Day (ICD-10-PCS; 2018-02-18)
PROC: 5A1D70Z Performance of Urinary Filtration, Intermittent, Less than 6 Hours Per Day (ICD-10-PCS; 2018-02-21)
PROC: 2W03X6Z Change Pressure Dressing on Abdominal Wall (ICD-10-PCS; 2018-02-22)
PROC: 0WPFX0Z Removal of Drainage Device from Abdominal Wall, External Approach (ICD-10-PCS; 2018-02-22)
PROC: 02HV33Z Insertion of Infusion Device into Superior Vena Cava, Percutaneous Approach (ICD-10-PCS; 2018-02-27)
PROC: B5181ZA Fluoroscopy of Superior Vena Cava using Low Osmolar Contrast, Guidance (ICD-10-PCS; 2018-02-27)
PROC: B548ZZA Ultrasonography of Superior Vena Cava, Guidance (ICD-10-PCS; 2018-02-27)
PROC: 2W03X6Z Change Pressure Dressing on Abdominal Wall (ICD-10-PCS; 2018-03-01)
PROC: 2W03X6Z Change Pressure Dressing on Abdominal Wall (ICD-10-PCS; 2018-03-06)
PROC: 5A09357 Assistance with Respiratory Ventilation, Less than 24 Consecutive Hours, Continuous Positive Airway Pressure (ICD-10-PCS; 2018-03-07)
PROC: 2W03X6Z Change Pressure Dressing on Abdominal Wall (ICD-10-PCS; 2018-03-13)
PROC: 2W03X6Z Change Pressure Dressing on Abdominal Wall (ICD-10-PCS; 2018-03-18)
PROC: 0D1K0Z4 Bypass Ascending Colon to Cutaneous, Open Approach (ICD-10-PCS; 2018-03-19)
PROC: 2W03X6Z Change Pressure Dressing on Abdominal Wall (ICD-10-PCS; 2018-03-19)
PROC: 2W03X6Z Change Pressure Dressing on Abdominal Wall (ICD-10-PCS; 2018-03-21)
PROC: 2W03X6Z Change Pressure Dressing on Abdominal Wall (ICD-10-PCS; 2018-03-28)
PROC: 2W23X4Z Dressing of Abdominal Wall using Bandage (ICD-10-PCS; 2018-04-06)
DX: A41.9 Sepsis, unspecified organism (principal); E43 Unspecified severe protein-calorie malnutrition; G93.41 Metabolic encephalopathy; I50.33 Acute on chronic diastolic (congestive) heart failure; I21.4 Non-ST elevation (NSTEMI) myocardial infarction; I26.99 Other pulmonary embolism without acute cor pulmonale; J18.9 Pneumonia, unspecified organism; J96.21 Acute and chronic respiratory failure with hypoxia; K55.049 Acute infarction of large intestine, extent unspecified; K63.1 Perforation of intestine (nontraumatic); R65.21 Severe sepsis with septic shock; K65.1 Peritoneal abscess; K85.90 Acute pancreatitis without necrosis or infection, unspecified; N17.0 Acute kidney failure with tubular necrosis; T81.32XA Disruption of internal operation (surgical) wound, not elsewhere classified, initial encounter; N39.0 Urinary tract infection, site not specified; Z99.11 Dependence on respirator [ventilator] status; D62 Acute posthemorrhagic anemia; I48.92 Unspecified atrial flutter; J98.11 Atelectasis; K63.2 Fistula of intestine; B17.9 Acute viral hepatitis, unspecified; L03.311 Cellulitis of abdominal wall; I82.401 Acute embolism and thrombosis of unspecified deep veins of right lower extremity; K94.09 Other complications of colostomy; Y83.8 Other surgical procedures as the cause of abnormal reaction of the patient, or of later complication, without mention of misadventure at the time of the procedure; Y92.238 Other place in hospital as the place of occurrence of the external cause; B96.20 Unspecified Escherichia coli [E. coli] as the cause of diseases classified elsewhere; E78.1 Pure hyperglyceridemia; E66.01 Morbid (severe) obesity due to excess calories; E27.8 Other specified disorders of adrenal gland; E11.65 Type 2 diabetes mellitus with hyperglycemia; D63.8 Anemia in other chronic diseases classified elsewhere; Z68.35 Body mass index [BMI] 35.0-35.9, adult; E83.39 Other disorders of phosphorus metabolism; E83.42 Hypomagnesemia; E83.51 Hypocalcemia; E83.52 Hypercalcemia; Z51.5 Encounter for palliative care; Z66 Do not resuscitate; E87.5 Hyperkalemia; E87.6 Hypokalemia; I11.0 Hypertensive heart disease with heart failure; T46.0X5A Adverse effect of cardiac-stimulant glycosides and drugs of similar action, initial encounter; I48.91 Unspecified atrial fibrillation; K76.0 Fatty (change of) liver, not elsewhere classified; L98.8 Other specified disorders of the skin and subcutaneous tissue; Z79.01 Long term (current) use of anticoagulants; Z79.4 Long term (current) use of insulin; Z79.899 Other long term (current) drug therapy; Z99.2 Dependence on renal dialysis; Z88.6 Allergy status to analgesic agent
CPT/HCPCS: 36415; 36556; 36600; 74018; 74230; 77001; 82805; 87106; 99291; 99292; J3475; J3490; J7620; S0028; 36569; 71045; 71250; 71275; 74176; 74177; 76705; 76937; 80047; 80048; 80053; 80061; 80162; 80202; 80307; 81001; 82010; 82040; 82150; 82272; 82306; 82330; 82533; 82728; 82803; 82962; 83036; 83540; 83550; 83605; 83690; 83735; 83880; 83970; 84100; 84134; 84478; 84484; 84550; 85014; 85018; 85025; 85049; 85520; 85610; 85651; 85730; 86140; 86141; 86704; 86706; 86850; 86900; 86923; 87040; 87070; 87075; 87077; 87081; 87086; 87147; 87186; 87205; 87324; 87340; 88307; 93005; 93306; 93970; 94002; 94003; 94150; 94640; 94690; 96361; 96372; 96374; 96375; C1729; C1894; G0378; J0131; J0153; J0295; J0610; J0690; J0696; J1170; J1644; J1756; J1815; J2020; J2185; J2248; J2250; J2405; J2543; J2704; J2710; J2997; J3010; J3370; J3480; J3486; P9045; P9047; Q9967; C1751; C9113; J0282; J1160; J1200; J1642; J1720; J2370; J2765; J3420; J7030; J7040; J7050; J7060; J7120; P9016; Q0163

== ENCOUNTER 2018-11-23 05:30 | Inpatient (IN) | payer BC ==
[~2018-11-23] VITALS: Ht 160 cm; Wt 115.3 kg
[2018-11-25 07:30] VITALS: BP 121/81
== END 2018-11-25 12:00 | disposition home or self-care (01) | DRG 388 ==
LOC: ED 07:50 → EDIP 08:35 → 3NW 09:04 → DCLOUNGE 11-25 11:40
PROVIDERS: ADMIT Internal Medicine; ATTEND Internal Medicine
DX: K56.600 Partial intestinal obstruction, unspecified as to cause (principal); N17.0 Acute kidney failure with tubular necrosis; Z68.42 Body mass index [BMI] 45.0-49.9, adult; K63.2 Fistula of intestine; J98.11 Atelectasis; E11.65 Type 2 diabetes mellitus with hyperglycemia; E66.01 Morbid (severe) obesity due to excess calories; Z88.6 Allergy status to analgesic agent; E78.1 Pure hyperglyceridemia; E83.52 Hypercalcemia; E86.0 Dehydration; L98.8 Other specified disorders of the skin and subcutaneous tissue; R09.02 Hypoxemia; Z79.01 Long term (current) use of anticoagulants; Z93.3 Colostomy status; Z91.19 Patient's noncompliance with other medical treatment and regimen; Z90.49 Acquired absence of other specified parts of digestive tract; Z86.711 Personal history of pulmonary embolism; Z83.3 Family history of diabetes mellitus; Z79.4 Long term (current) use of insulin
CPT/HCPCS: 36415; 71275; 74177; 80048; 80053; 80061; 82272; 82962; 83036; 83690; 83735; 84100; 84439; 84443; 85025; 85610; 85730; 96361; 96374; 96375; G0378; J2405; Q9967; J1815; J2270; J7030

== ENCOUNTER 2018-12-02 21:29 | Emergency (ER) | payer BC ==
[~2018-12-02 21:29] MED LIST: ACET650S21 PO; ACID1GRA3 PO; ASCO100019 PO; ATOR20TA37 PO; CALC-680 PO; CEFT1FRO2 IV; CHOL500015 PO; INSU100I11 SQ-INSULIN; INSU100I13 SQ-INSULIN; LACT1TAB13 PO; MAGN300C PO; METH500C3 PO; NIAC-1 PO; Nattokinase PO; OMEP20TA62 PO; ONDA4TAB13 SL; PANT40GR PO; POLY17PO5 PO; RIVA10TA2 PO; TRAM50TA2 PO; VANC1VIA3 IV; VITA100022 PO; VITA10004 PO; VITA1TAB19 PO
[2018-12-02 22:56] LABS: BASOPHILS # (AUTO) 0.03 x10^3/uL (0-0.1); BASOPHILS % (AUTO) 0 % (0-1); EOSINOPHILS # (AUTO) 0.14 x10^3/uL (0-0.4); EOSINOPHILS % (AUTO) 2 % (1-7); LYMPHOCYTES # (AUTO) 1.53 x10^3/uL (1-3.4); LYMPHOCYTES % (AUTO) 19 % (22-44); MD NO; MEAN CORPUSCULAR HGB CONC 32.5 g/dL (32.4-35.8); MEAN CORPUSCULAR VOLUME 86.2 fL (80-100); MEAN PLATELET VOLUME 7.9 fL (7.4-10.4); MONOCYTES % (AUTO) 6 % (2-9); NEUTROPHILS # (AUTO) 5.82 x10^3/uL (1.8-6.8); NEUTROPHILS % (AUTO) 73 % (42-75); PLATELET COUNT 446 x10^3/uL (130-400); RED BLOOD COUNT 5.01 x10^6/uL (3.82-5.3); RED CELL DISTRIBUTION WIDTH 14.9 % (9.6-15.2)
[2018-12-02 23:09] LABS: ALANINE AMINOTRANSFERASE 36 U/L (12-78); ALBUMIN 3.4 g/dL (3.4-5.0); ANION GAP 12 mmol/L (5-15); CALCIUM 9.8 mg/dL (8.5-10.1); CHLORIDE 99 mmol/L (98-107); CREATININE 0.99 mg/dL (0.55-1.02)
[2018-12-02 23:11] LABS: ALKALINE PHOSPHATASE 89 U/L (45-117); BILIRUBIN,TOTAL 0.3 mg/dL (0.2-1.0); TOTAL PROTEIN 8.5 g/dL (6.4-8.2)
--- NOTE | 2018-12-02 23:49 | NUR ---
PT RESTING IN BED WITH FAMILY AT PT SIDE, A/O X4 AND SPEAKING FULL SENTENCES.
[2018-12-03 00:32] VITALS: BP 148/85
== END 2018-12-03 00:35 | disposition home or self-care (01) ==
LOC: ED 22:37
DX: K63.2 Fistula of intestine (principal); E11.65 Type 2 diabetes mellitus with hyperglycemia; E78.5 Hyperlipidemia, unspecified
CPT/HCPCS: 36415; 80053; 83690; 85025; 99283

== ENCOUNTER 2018-12-03 07:14 | Inpatient (IN) | payer BC ==
[~2018-12-03] VITALS: Ht 160 cm; Wt 110.1 kg
--- NOTE | 2018-12-03 07:39 | NUR ---
PT HAS CO ABDOMINAL PAIN 12/09. PT STATES "WE WERE HERE LAST NIGHT FOR MY BLEEDING FISTULA AND WAS DC, THEN MY ABDOMINAL PAIN INCREASED" PT HAS HX OF BOWEL PERF W COLOSTOMY IN DEC 2017. PT EMPTIED COLOSTOMY INDEPENDENTLY. FISTULA HAS BLOODY DRAINAGE, SATURATED DRESSING W SMALL OPENING IN CENTER OF FISTULA, LOCATED UMBILICAL AREA. HR IS TACHY 110, BP STABLE. PT HAS PAIN, BUT DOES NOT SEEM IN DISTRESS. PA AT BEDSIDE.
--- NOTE | 2018-12-03 07:57 | NUR ---
PT AMBULATED TO BATHROOM STEADILY. UA OBTAINED
[2018-12-03] MEDS ORDERED: SODIUM CHLORIDE FLUSH 10ML SYR IVF ONE (08:00)
[2018-12-03 08:10] LABS: ALANINE AMINOTRANSFERASE 41 U/L (12-78); ALBUMIN 3.7 g/dL (3.4-5.0); ANION GAP 13 mmol/L (5-15); CHLORIDE 95 mmol/L (98-107); CREATININE 1.06 mg/dL (0.55-1.02)
[2018-12-03 08:12] LABS: ALKALINE PHOSPHATASE 99 U/L (45-117); BILIRUBIN,TOTAL 0.4 mg/dL (0.2-1.0); TOTAL PROTEIN 9.1 g/dL (6.4-8.2)
[2018-12-03 08:16] LABS: MICROSCOPIC INDICATED
[2018-12-03 08:18] LABS: BASOPHILS # (AUTO) 0.02 x10^3/uL (0-0.1); BASOPHILS % (AUTO) 0 % (0-1); EOSINOPHILS # (AUTO) 0.01 x10^3/uL (0-0.4); EOSINOPHILS % (AUTO) 0 % (1-7); LYMPHOCYTES # (AUTO) 1.06 x10^3/uL (1-3.4); LYMPHOCYTES % (AUTO) 14 % (22-44); MD NO; MEAN CORPUSCULAR HEMOGLOBIN 27.4 pg (27.0-34.8); MEAN CORPUSCULAR VOLUME 85.6 fL (80-100); MEAN PLATELET VOLUME 8.1 fL (7.4-10.4); MONOCYTES % (AUTO) 4 % (2-9); NEUTROPHILS # (AUTO) 6.16 x10^3/uL (1.8-6.8); NEUTROPHILS % (AUTO) 82 % (42-75); PLATELET COUNT 447 x10^3/uL (130-400); RED BLOOD COUNT 5.36 x10^6/uL (3.82-5.3); RED CELL DISTRIBUTION WIDTH 14.7 % (9.6-15.2)
--- NOTE | 2018-12-03 08:19 | NUR ---
CT WAITING ON IV ACCESS FOR EXAM
[2018-12-03] MEDS ORDERED: INSULIN SINGLE DOSE, ER SQ-INSULIN ONE (08:27)
[2018-12-03] MEDS ORDERED: SODIUM CHLORIDE 0.9% 1,000ML IVBOLUS ONE (08:30)
[2018-12-03] MEDS ORDERED: INSULIN REGULAR 100 UNITS/ML, 3ML VIAL SQ-INSULIN ONE (08:30)
[2018-12-03 08:53] LABS: CULTURE INDICATED? YES
--- NOTE | 2018-12-03 09:09 | NUR ---
BG 500 S/P 10 MIN OF 1Ou OF INSULIN ADMIN. AWARE. ULTRASOUND IV IN ATTEMPT
[2018-12-03] MEDS ORDERED: HYDROmorphone 1 MG/ML, 1ML INJ IM ONE (09:30)
[2018-12-03] MEDS ORDERED: HYDROmorphone 2 MG/ML, 1ML IVPush PRN (09:30)
[2018-12-03] MEDS ORDERED: HYDROmorphone 2 MG/ML, 1ML ONE (09:30)
[2018-12-03] MEDS ORDERED: ONDANSETRON ODT 4 MG PO ONE (09:30)
[2018-12-03] MEDS ORDERED: ONDANSETRON 2MG/ML, 2ML IVPush ONE (09:30)
[2018-12-03] MEDS ORDERED: ONDANSETRON 2MG/ML, 2ML ONE (09:31)
--- NOTE | 2018-12-03 09:38 | NUR ---
IV ESTABLISHED. PAIN IS 8/10 IN ABDOMENT. MEDICATED PER MD ORDERS. READY FOR CT
[2018-12-03] MEDS ORDERED: CEFTRIAXONE PMX 1GM/50ML 50 ML IVPB ONE (10:00)
[2018-12-03] MEDS ORDERED: OMNIPAQUE 350 MG/ML, 100ML BOTTLE ONE (10:09)
--- NOTE | 2018-12-03 10:12 | NUR ---
PT TO CT SCAN
[2018-12-03] MEDS ORDERED: CEFTRIAXONE PMX 1GM/50ML 50 ML ONE (10:35)
--- NOTE | 2018-12-03 10:48 | NUR ---
BLOOD CULTURE DRAWN PRIOR TO ABX ADMIN.
[2018-12-03] MEDS ORDERED: morphine SULFATE 10 MG/ML, 1ML IVPush PRN (11:30)
[2018-12-03] MEDS ORDERED: ACETAMINOPHEN 325 MG TABLET PO PRN (11:30)
[2018-12-03] MEDS ORDERED: hydrALAzine 20 MG/ML, 1ML IVPush PRN (11:30)
--- NOTE | 2018-12-03 11:39 | NUR ---
REPORT GIVEN TO RONEN
[2018-12-03 12:01] LABS: HEMOGLOBIN A1C 10.5 % (4.2-6.3)
[2018-12-03] MEDS: ENOXAPARIN 30 MG/0.3 ML SQ SCH (13:30)
[2018-12-03] MEDS: SODIUM CHLORIDE 0.9% 1,000 ML IV SCH (14:33)
[2018-12-03 14:59] VITALS: BP 144/84
[2018-12-03] MEDS: INSULIN LISPRO 100 UNITS/ML, PEN SQ-INSULIN SCH ×2 (17:33→21:33)
[2018-12-03 19:39] VITALS: BP 137/78
[2018-12-03] MEDS ORDERED: INSULIN GLARGINE 100 UNITS/ML, PEN SQ-INSULIN SCH (21:00)
[2018-12-04] MEDS: SODIUM CHLORIDE 0.9% 1,000 ML IV SCH ×3 (00:44→21:30)
[2018-12-04] MEDS: ENOXAPARIN 30 MG/0.3 ML SQ SCH ×2 (00:44→12:19)
[2018-12-04 01:33] VITALS: BP 115/74
[2018-12-04 05:12] LABS: ALANINE AMINOTRANSFERASE 32 U/L (12-78); ANION GAP 10 mmol/L (5-15); CALCIUM 8.7 mg/dL (8.5-10.1); CHLORIDE 101 mmol/L (98-107); CREATININE 0.72 mg/dL (0.55-1.02)
[2018-12-04 05:14] LABS: ALKALINE PHOSPHATASE 80 U/L (45-117); BILIRUBIN,TOTAL 0.3 mg/dL (0.2-1.0); TOTAL PROTEIN 7.2 g/dL (6.4-8.2)
[2018-12-04 05:25] LABS: BASOPHILS # (AUTO) 0.05 x10^3/uL (0-0.1); BASOPHILS % (AUTO) 1 % (0-1); EOSINOPHILS # (AUTO) 0.42 x10^3/uL (0-0.4); EOSINOPHILS % (AUTO) 5 % (1-7); LYMPHOCYTES # (AUTO) 1.92 x10^3/uL (1-3.4); LYMPHOCYTES % (AUTO) 22 % (22-44); MD NO; MEAN CORPUSCULAR HEMOGLOBIN 27.8 pg (27.0-34.8); MEAN CORPUSCULAR HGB CONC 32.2 g/dL (32.4-35.8); MEAN CORPUSCULAR VOLUME 86.5 fL (80-100); MEAN PLATELET VOLUME 7.9 fL (7.4-10.4); MONOCYTES # (AUTO) 0.63 x10^3/uL (0.2-0.8); MONOCYTES % (AUTO) 7 % (2-9); NEUTROPHILS # (AUTO) 5.83 x10^3/uL (1.8-6.8); NEUTROPHILS % (AUTO) 66 % (42-75); PLATELET COUNT 374 x10^3/uL (130-400); RED CELL DISTRIBUTION WIDTH 14.6 % (9.6-15.2)
[2018-12-04 07:03] VITALS: BP 112/75
[2018-12-04] MEDS: NIACIN 500 MG TABLET.ER PO SCH (08:51)
[2018-12-04] MEDS: VITAMIN A 10,000 UNIT CAPSULE PO SCH (08:51)
[2018-12-04] MEDS: MAGNESIUM OXIDE 400 MG TABLET PO SCH (08:51)
[2018-12-04] MEDS: CALCIUM CITRATE 950 MG TABLET PO SCH (08:51)
[2018-12-04] MEDS: CHOLECALCIFEROL 5,000u TAB PO SCH (08:52)
[2018-12-04] MEDS: LISINOPRIL 10 MG TABLET PO SCH (08:52)
[2018-12-04] MEDS: MULTIVITS,STRESS FORMULA 1 TABLET PO SCH (08:52)
[2018-12-04] MEDS ORDERED: METHYLSULFONYLMETHANE 1000 MG PO SCH (09:00)
[2018-12-04] MEDS: OMEPRAZOLE 20 MG CAPSULE.DR PO SCH (09:07)
[2018-12-04] MEDS: INSULIN LISPRO 100 UNITS/ML, PEN SQ-INSULIN SCH ×4 (09:08→21:29)
[2018-12-04] MEDS: CEFTRIAXONE PMX 2GM/50ML 50 ML IV SCH (09:32)
[2018-12-04 13:06] VITALS: BP 119/76
[2018-12-04 19:56] VITALS: BP 108/69
[2018-12-04] MEDS ORDERED: INSULIN GLARGINE 100 UNITS/ML, PEN SQ-INSULIN SCH ×2 (21:00)
[2018-12-05] MEDS: ENOXAPARIN 30 MG/0.3 ML SQ SCH (00:20)
[2018-12-05 01:28] VITALS: BP 110/73
[2018-12-05 05:25] LABS: CHLORIDE 109 mmol/L (98-107)
[2018-12-05 05:29] LABS: BASOPHILS # (AUTO) 0.04 x10^3/uL (0-0.1); BASOPHILS % (AUTO) 1 % (0-1); EOSINOPHILS % (AUTO) 6 % (1-7); LYMPHOCYTES # (AUTO) 1.77 x10^3/uL (1-3.4); LYMPHOCYTES % (AUTO) 26 % (22-44); MD NO; MEAN CORPUSCULAR HGB CONC 31.9 g/dL (32.4-35.8); MEAN CORPUSCULAR VOLUME 87.7 fL (80-100); MEAN PLATELET VOLUME 7.9 fL (7.4-10.4); MONOCYTES # (AUTO) 0.61 x10^3/uL (0.2-0.8); MONOCYTES % (AUTO) 9 % (2-9); NEUTROPHILS # (AUTO) 4.08 x10^3/uL (1.8-6.8); NEUTROPHILS % (AUTO) 59 % (42-75); PLATELET COUNT 360 x10^3/uL (130-400); RED BLOOD COUNT 4.15 x10^6/uL (3.82-5.3); RED CELL DISTRIBUTION WIDTH 14.8 % (9.6-15.2)
[2018-12-05 05:34] LABS: ALANINE AMINOTRANSFERASE 31 U/L (12-78); ALBUMIN 2.7 g/dL (3.4-5.0); ALKALINE PHOSPHATASE 72 U/L (45-117); ANION GAP 10 mmol/L (5-15); BILIRUBIN,TOTAL 0.2 mg/dL (0.2-1.0); CALCIUM 8.6 mg/dL (8.5-10.1); CREATININE 0.65 mg/dL (0.55-1.02); TOTAL PROTEIN 6.5 g/dL (6.4-8.2)
[2018-12-05 07:46] VITALS: BP 110/73
[2018-12-05] MEDS: SODIUM CHLORIDE 0.9% 1,000 ML IV SCH (07:54)
[2018-12-05] MEDS: OMEPRAZOLE 20 MG CAPSULE.DR PO SCH (07:54)
[2018-12-05] MEDS: INSULIN LISPRO 100 UNITS/ML, PEN SQ-INSULIN SCH ×2 (07:55→11:59)
[2018-12-05] MEDS ORDERED: CEFD300C37 PO (08:13)
[2018-12-05] MEDS: NIACIN 500 MG TABLET.ER PO SCH (09:00)
[2018-12-05] MEDS: CALCIUM CITRATE 950 MG TABLET PO SCH (09:00)
[2018-12-05] MEDS: MULTIVITS,STRESS FORMULA 1 TABLET PO SCH (09:00)
[2018-12-05] MEDS: LISINOPRIL 10 MG TABLET PO SCH (09:00)
[2018-12-05] MEDS: VITAMIN A 10,000 UNIT CAPSULE PO SCH (09:00)
[2018-12-05] MEDS: CHOLECALCIFEROL 5,000u TAB PO SCH (09:00)
[2018-12-05] MEDS: MAGNESIUM OXIDE 400 MG TABLET PO SCH (09:00)
[2018-12-05] MEDS: CEFTRIAXONE PMX 2GM/50ML 50 ML IV SCH (10:05)
== END 2018-12-05 13:00 | disposition home or self-care (01) | DRG 689 ==
LOC: ED 08:05 → EDIP 11:02 → 3NE 12:30 → DCLOUNGE 12-05 12:46
PROVIDERS: ADMIT Family Medicine; ATTEND Family Medicine
DX: N30.90 Cystitis, unspecified without hematuria (principal); E11.00 Type 2 diabetes mellitus with hyperosmolarity without nonketotic hyperglycemic-hyperosmolar coma (NKHHC); E86.0 Dehydration; I10 Essential (primary) hypertension; K76.0 Fatty (change of) liver, not elsewhere classified; Z86.711 Personal history of pulmonary embolism; Z87.11 Personal history of peptic ulcer disease; Z93.3 Colostomy status; Z90.49 Acquired absence of other specified parts of digestive tract; Z98.51 Tubal ligation status; Z88.5 Allergy status to narcotic agent
CPT/HCPCS: 36415; 74177; 80053; 81001; 82962; 83036; 83605; 84145; 85025; 87040; 87077; 87086; 87186; 96361; 96365; 96372; 96375; G0378; J0696; J1170; J2405; Q9967; J1815; J2270; J7030

== ENCOUNTER 2019-04-19 17:47 | Emergency (ER) | payer BC ==
[~2019-04-19] VITALS: Ht 160 cm; Wt 103.0 kg
[~2019-04-19 17:47] MED LIST changes: +CEFD300C37 PO
--- NOTE | 2019-04-19 18:12 | NUR ---
PT HAS CO ABDOMINAL PAIN W N/V/D. STARTED TUESDAY. PT HAS OSTOMY AND NOTICED IT NOT FILLING. PT STATES " IT THINK IT GALSTONES OR BOWEL OBSTRUCTION" PT IN HOSPITAL GOWN. PT NOT IN ANY DISTRESS. OSTOMY IS CDI.
[2019-04-19] MEDS ORDERED: ONDANSETRON 2MG/ML, 2ML ONE (18:34)
[2019-04-19] MEDS ORDERED: MORPHINE SULFATE 4 MG/ML, 1ML ONE (18:35)
--- NOTE | 2019-04-19 18:39 | NUR ---
Christina zhu in EDM - 04/19/19 at 1903 by DEISY RECEIVED REPORT FROM RN. ASSUMED CARE OF PT.
--- NOTE | 2019-04-19 18:48 | NUR ---
MEDICATED PER ORDERS, LABS DRAWN, IV ESTABLISHED. INFORMED PT FOR UA
[2019-04-19 18:50] LABS: BASOPHILS # (AUTO) 0.04 x10^3/uL (0-0.1); BASOPHILS % (AUTO) 0 % (0-1); EOSINOPHILS # (AUTO) 0.02 x10^3/uL (0-0.4); EOSINOPHILS % (AUTO) 0 % (1-7); LYMPHOCYTES # (AUTO) 1.48 x10^3/uL (1-3.4); LYMPHOCYTES % (AUTO) 15 % (22-44); MD NO; MEAN CORPUSCULAR HEMOGLOBIN 27.7 pg (27.0-34.8); MEAN CORPUSCULAR HGB CONC 31.9 g/dL (32.4-35.8); MEAN CORPUSCULAR VOLUME 86.7 fL (80-100); MEAN PLATELET VOLUME 8.8 fL (7.4-10.4); MONOCYTES # (AUTO) 0.55 x10^3/uL (0.2-0.8); MONOCYTES % (AUTO) 5 % (2-9); NEUTROPHILS # (AUTO) 8.02 x10^3/uL (1.8-6.8); NEUTROPHILS % (AUTO) 79 % (42-75); PLATELET COUNT 465 x10^3/uL (130-400); RED BLOOD COUNT 5.41 x10^6/uL (3.82-5.3); RED CELL DISTRIBUTION WIDTH 15.9 % (9.6-15.2)
[2019-04-19] MEDS ORDERED: OMEP20TA62 PO (18:52)
[2019-04-19 19:00] LABS: ALANINE AMINOTRANSFERASE 30 U/L (12-78); ALBUMIN 3.6 g/dL (3.4-5.0); ANION GAP 13 mmol/L (5-15); CALCIUM 10.2 mg/dL (8.5-10.1); CHLORIDE 92 mmol/L (98-107); CREATININE 1.28 mg/dL (0.55-1.02)
[2019-04-19] MEDS ORDERED: MORPHINE SULFATE 4 MG/ML, 1ML IVPush PRN (19:00)
[2019-04-19] MEDS ORDERED: ONDANSETRON 2MG/ML, 2ML IVPush ONE (19:00)
--- NOTE | 2019-04-19 19:00 | NUR ---
PT STATES SHE HAS NO REACTION TO MORPHINE AND HELPS RELIEVE PAIN.
[2019-04-19 19:02] LABS: ALKALINE PHOSPHATASE 94 U/L (45-117); BILIRUBIN,TOTAL 0.5 mg/dL (0.2-1.0)
[2019-04-19 19:24] LABS: MICROSCOPIC AUTO
[2019-04-19 19:29] LABS: CULTURE INDICATED? YES
[2019-04-19] MEDS ORDERED: SODIUM CHLORIDE 0.9% 1,000ML IVBOLUS ONE (19:30)
--- NOTE | 2019-04-19 19:39 | NUR ---
PT IN CT
[2019-04-19] MEDS ORDERED: OMNIPAQUE 350 MG/ML, 100ML BOTTLE ONE (19:55)
--- NOTE | 2019-04-19 20:10 | NUR ---
PT BACK IN ROOM. VS STABLE. NOT IN ANY DISTRESS. NO NEEDS AT THIS TIME
[2019-04-19 20:31] VITALS: BP 154/75
--- NOTE | 2019-04-19 20:43 | NUR ---
Patient/Caregiver given discharge instructions and they have confirmed that they understand the instructions. Patient ambulatory with steady gait.
== END 2019-04-19 20:51 ==
LOC: ED 18:32
DX: A09 Infectious gastroenteritis and colitis, unspecified (principal); E11.9 Type 2 diabetes mellitus without complications
CPT/HCPCS: 36415; 74177; 80053; 81001; 83690; 85025; 87086; 96374; 96375; 99284; J2270; J2405; Q9967

== ENCOUNTER 2019-04-24 11:20 | Inpatient (IN) | payer BC ==
[~2019-04-24] VITALS: Ht 160 cm; Wt 108.3 kg
--- NOTE | 2019-04-24 12:02 | NUR ---
PT UPRIGHT ON GURNEY AWAKE & COMFORTABLE, C/O NAUSEA BUT NO VOMITING AT THIS TIME, RESPONDS APPROP TO STAFF, COMFORT MEASURES PROVIDED, CALL LIGHT WITHIN REACH.
[2019-04-24] MEDS ORDERED: PANTOPRAZOLE 80 MG in SODIUM CHLORIDE 0.9% 50 ML IVPB ONE (12:14)
[2019-04-24] MEDS ORDERED: METOCLOPRAMIDE 5 MG/ML, 2ML IVPush ONE (12:30)
[2019-04-24] MEDS ORDERED: DICYCLOMINE 10 MG/ML, 2ML IM ONE (12:30)
[2019-04-24] MEDS ORDERED: SODIUM CHLORIDE 0.9% 1,000ML IVBOLUS ONE (12:30)
[2019-04-24] MEDS ORDERED: SODIUM CHLORIDE FLUSH 10ML SYR IVF ONE (12:30)
[2019-04-24] MEDS ORDERED: DICYCLOMINE 10 MG/ML, 2ML ONE (12:32)
[2019-04-24] MEDS ORDERED: METOCLOPRAMIDE 5 MG/ML, 2ML ONE (12:32)
[2019-04-24 12:42] LABS: MEAN CORPUSCULAR HEMOGLOBIN 27.7 pg (27.0-34.8); MEAN CORPUSCULAR HGB CONC 32.5 g/dL (32.4-35.8); MEAN CORPUSCULAR VOLUME 85.4 fL (80-100); MEAN PLATELET VOLUME 7.9 fL (7.4-10.4); PLATELET COUNT 405 x10^3/uL (130-400); RED BLOOD COUNT 4.85 x10^6/uL (3.82-5.3); RED CELL DISTRIBUTION WIDTH 16.3 % (9.6-15.2)
[2019-04-24 12:48] LABS: INTERNATIONAL NORMALIZED RATIO 0.94 (0.93-1.1); PROTHROMBIN TIME 9.9 Seconds (9.6-11.5)
--- NOTE | 2019-04-24 12:50 | NUR ---
PT RETURNED FROM RAD, REMAINS UPRIGHT ON GURNEY AWAKE & COMFORTABLE, NAD, RESPONDS APPROP TO STAFF, COMFORT MEASURES PROVIDED, CALL LIGHT WITHIN REACH.
[2019-04-24 12:56] LABS: ALANINE AMINOTRANSFERASE 34 U/L (12-78); ALBUMIN 3.2 g/dL (3.4-5.0); ANION GAP 7 mmol/L (5-15); CALCIUM 8.1 mg/dL (8.5-10.1); CHLORIDE 99 mmol/L (98-107); CREATININE 0.73 mg/dL (0.55-1.02)
[2019-04-24 12:58] LABS: ALKALINE PHOSPHATASE 84 U/L (45-117); BASOPHILS # (AUTO) 0.02 x10^3/uL (0-0.1); BASOPHILS % (AUTO) 0 % (0-1); BILIRUBIN,TOTAL 0.3 mg/dL (0.2-1.0); EOSINOPHILS # (AUTO) 0.02 x10^3/uL (0-0.4); EOSINOPHILS % (AUTO) 0 % (1-7); LYMPHOCYTES # (AUTO) 1.36 x10^3/uL (1-3.4); LYMPHOCYTES % (AUTO) 11 % (22-44); MD SCAN; MONOCYTES # (AUTO) 0.54 x10^3/uL (0.2-0.8); MONOCYTES % (AUTO) 4 % (2-9); NEUTROPHILS # (AUTO) 11.01 x10^3/uL (1.8-6.8); NEUTROPHILS % (AUTO) 85 % (42-75); TOTAL PROTEIN 7.6 g/dL (6.4-8.2)
[2019-04-24] MEDS: PANTOPRAZOLE 80 MG in SODIUM CHLORIDE 0.9% 100 ML IV SCH ×2 (12:59→20:23)
[2019-04-24 13:47] LABS: CLOSTRIDIUM DIFFICILE ANTIGEN POSITIVE; CLOSTRIDIUM DIFFICILE TOXIN NEGATIVE (Negative)
--- NOTE | 2019-04-24 13:50 | NUR ---
C-DIFF +AG/-TOX PER LAB, ISO PREC IN PLACE.
--- NOTE | 2019-04-24 14:00 | NUR ---
PT UPRIGHT ON GURNEY AWAKE & MORE COMFORTABLE AFTER MEDS, NAD, RESPONDS APPROP TO STAFF, COMFORT MEASURES PROVIDED, CALL LIGHT WITHIN REACH, ISO PREC REMAIN IN PLACE.
[2019-04-24 14:10] LABS: MICROSCOPIC AUTO
[2019-04-24 14:19] LABS: CULTURE INDICATED? YES
--- NOTE | 2019-04-24 15:01 | NUR ---
PT UPRIGHT ON GURNEY AWAKE & COMFORTABLE, RESPONDS APPROP TO STAFF, NAD, COMFORT MEASURES PROVIDED, AT BS, CALL LIGHT WITHIN REACH, ISO PREC REMAIN IN PLACE.
--- NOTE | 2019-04-24 15:23 | NUR ---
Pt to be admitted to medical, room 339. Report called to Stacy.
[2019-04-24] MEDS ORDERED: ACETAMINOPHEN 325 MG TABLET PO PRN (15:30)
[2019-04-24] MEDS ORDERED: ONDANSETRON 2MG/ML, 2ML IVPush PRN (15:30)
[2019-04-24] MEDS ORDERED: ONDANSETRON ODT 4 MG PO PRN (15:30)
[2019-04-24] MEDS: SODIUM CHLORIDE 0.9% 1,000 ML IV SCH (16:34)
[2019-04-24] MEDS: VANCOMYCIN 50 MG/ML ORAL SUSP PO SCH ×2 (16:34→22:24)
[2019-04-24] MEDS: LACTOBACILLUS CHEW TABLET PO SCH ×2 (16:34→20:44)
[2019-04-24] MEDS: INSULIN LISPRO 100 UNITS/ML, PEN SQ-INSULIN SCH ×2 (17:55→20:44)
[2019-04-24 19:27] VITALS: BP 120/67
[2019-04-24] MEDS: INSULIN GLARGINE 100 UNITS/ML, PEN SQ-INSULIN SCH (20:44)
[2019-04-25 01:49] VITALS: BP 126/75
[2019-04-25] MEDS: VANCOMYCIN 50 MG/ML ORAL SUSP PO SCH ×4 (04:52→22:26)
[2019-04-25] MEDS: SODIUM CHLORIDE 0.9% 1,000 ML IV SCH ×2 (06:34→22:26)
[2019-04-25 06:50] VITALS: BP 105/71
[2019-04-25] MEDS: PANTOPRAZOLE 80 MG in SODIUM CHLORIDE 0.9% 100 ML IV SCH ×3 (07:18→17:50)
[2019-04-25 07:26] LABS: ANION GAP 7 mmol/L (5-15); CALCIUM 7.2 mg/dL (8.5-10.1); CHLORIDE 107 mmol/L (98-107); CREATININE 0.71 mg/dL (0.55-1.02)
[2019-04-25] MEDS: INSULIN LISPRO 100 UNITS/ML, PEN SQ-INSULIN SCH ×4 (07:41→20:36)
[2019-04-25] MEDS: ASCORBIC ACID 500 MG TABLET PO SCH (07:44)
[2019-04-25] MEDS: NIACIN 750 MG TABLET.ER PO SCH (07:44)
[2019-04-25] MEDS: CALCIUM CITRATE 950 MG TABLET PO SCH (07:44)
[2019-04-25] MEDS: VITAMIN A 10,000 UNIT CAPSULE PO SCH (07:44)
[2019-04-25] MEDS: CHOLECALCIFEROL 5,000u TAB PO SCH (07:44)
[2019-04-25] MEDS: MULTIVITS,STRESS FORMULA 1 TABLET PO SCH (07:44)
[2019-04-25] MEDS: VITAMIN E 400 UNITS CAPSULE PO SCH (07:45)
[2019-04-25] MEDS: LACTOBACILLUS CHEW TABLET PO SCH ×3 (08:33→20:36)
[2019-04-25] MEDS: OMEPRAZOLE 10 MG CAPSULE.DR PO SCH (08:33)
[2019-04-25] MEDS ORDERED: NATTOKINASE PO SCH (09:00)
[2019-04-25] MEDS ORDERED: METHYLSULFONYLMETHANE 1000 MG PO SCH (09:00)
[2019-04-25] MEDS ORDERED: PANTOPRAZOLE 80 MG in SODIUM CHLORIDE 0.9% 50 ML IV ONE (17:30)
[2019-04-25 17:49] VITALS: BP 107/67
[2019-04-25 19:08] VITALS: BP 118/74
[2019-04-25] MEDS: INSULIN GLARGINE 100 UNITS/ML, PEN SQ-INSULIN SCH (20:37)
[2019-04-26 01:19] VITALS: BP 117/76
[2019-04-26] MEDS: PANTOPRAZOLE 80 MG in SODIUM CHLORIDE 0.9% 100 ML IV SCH ×3 (03:59→23:45)
[2019-04-26] MEDS: VANCOMYCIN 50 MG/ML ORAL SUSP PO SCH ×4 (03:59→22:48)
[2019-04-26 05:25] LABS: INTERNATIONAL NORMALIZED RATIO 0.92 (0.93-1.1); PROTHROMBIN TIME 9.7 Seconds (9.6-11.5)
[2019-04-26 05:28] LABS: BASOPHILS # (AUTO) 0.09 x10^3/uL (0-0.1); BASOPHILS % (AUTO) 1 % (0-1); EOSINOPHILS # (AUTO) 0.38 x10^3/uL (0-0.4); EOSINOPHILS % (AUTO) 4 % (1-7); LYMPHOCYTES # (AUTO) 2.63 x10^3/uL (1-3.4); LYMPHOCYTES % (AUTO) 30 % (22-44); MD NO; MEAN CORPUSCULAR HEMOGLOBIN 27.8 pg (27.0-34.8); MEAN CORPUSCULAR HGB CONC 31.8 g/dL (32.4-35.8); MEAN CORPUSCULAR VOLUME 87.4 fL (80-100); MEAN PLATELET VOLUME 8.1 fL (7.4-10.4); MONOCYTES # (AUTO) 0.59 x10^3/uL (0.2-0.8); MONOCYTES % (AUTO) 7 % (2-9); NEUTROPHILS % (AUTO) 59 % (42-75); PLATELET COUNT 329 x10^3/uL (130-400); RED BLOOD COUNT 3.87 x10^6/uL (3.82-5.3); RED CELL DISTRIBUTION WIDTH 16.5 % (9.6-15.2)
[2019-04-26 05:34] LABS: ANION GAP 9 mmol/L (5-15); CALCIUM 7.2 mg/dL (8.5-10.1); CHLORIDE 112 mmol/L (98-107)
[2019-04-26 05:39] LABS: % IRON SATURATION 7 % (20-55); ALANINE AMINOTRANSFERASE 26 U/L (12-78); ALBUMIN 2.5 g/dL (3.4-5.0); ALKALINE PHOSPHATASE 67 U/L (45-117); BILIRUBIN,TOTAL 0.3 mg/dL (0.2-1.0); CREATININE 0.73 mg/dL (0.55-1.02); IRON LEVEL 26 mcg/dL (50-170); TOTAL IRON BINDING CAPACITY 373 mcg/dL (250-450); TOTAL PROTEIN 6.1 g/dL (6.4-8.2)
[2019-04-26 07:05] VITALS: BP 108/72
[2019-04-26] MEDS: NIACIN 750 MG TABLET.ER PO SCH (07:53)
[2019-04-26] MEDS: INSULIN LISPRO 100 UNITS/ML, PEN SQ-INSULIN SCH ×4 (07:53→20:07)
[2019-04-26] MEDS: LACTOBACILLUS CHEW TABLET PO SCH ×3 (07:53→21:29)
[2019-04-26] MEDS: CALCIUM CITRATE 950 MG TABLET PO SCH (07:53)
[2019-04-26] MEDS: ASCORBIC ACID 500 MG TABLET PO SCH ×2 (07:54→22:48)
[2019-04-26] MEDS: VITAMIN E 400 UNITS CAPSULE PO SCH (07:54)
[2019-04-26] MEDS: VITAMIN A 10,000 UNIT CAPSULE PO SCH (07:54)
[2019-04-26] MEDS: OMEPRAZOLE 10 MG CAPSULE.DR PO SCH (07:54)
[2019-04-26] MEDS: CHOLECALCIFEROL 5,000u TAB PO SCH (07:54)
[2019-04-26] MEDS: MULTIVITS,STRESS FORMULA 1 TABLET PO SCH (07:54)
[2019-04-26] MEDS ORDERED: PROPOFOL 10 MG/ML, 50ML ONE (11:46)
[2019-04-26] MEDS: SODIUM CHLORIDE 0.9% 1,000 ML IV SCH (13:16)
[2019-04-26 16:07] VITALS: BP 118/73
[2019-04-26] MEDS: SUCRALFATE 1 GM/10 ML UDC PO SCH ×2 (16:27→21:29)
[2019-04-26 18:36] VITALS: BP 111/71
[2019-04-26] MEDS: INSULIN GLARGINE 100 UNITS/ML, PEN SQ-INSULIN SCH (20:08)
[2019-04-27 00:17] VITALS: BP 123/76
[2019-04-27] MEDS: SODIUM CHLORIDE 0.9% 1,000 ML IV SCH (02:51)
[2019-04-27] MEDS: VANCOMYCIN 50 MG/ML ORAL SUSP PO SCH ×2 (04:42→11:26)
[2019-04-27 07:05] VITALS: BP 131/79
[2019-04-27] MEDS ORDERED: FERROUS SULFATE 325 MG TABLET PO SCH (07:30)
[2019-04-27] MEDS: SUCRALFATE 1 GM/10 ML UDC PO SCH ×2 (08:03→11:26)
[2019-04-27] MEDS: ASCORBIC ACID 500 MG TABLET PO SCH (08:03)
[2019-04-27] MEDS: LACTOBACILLUS CHEW TABLET PO SCH (08:03)
[2019-04-27] MEDS: CALCIUM CITRATE 950 MG TABLET PO SCH (08:04)
[2019-04-27] MEDS: INSULIN LISPRO 100 UNITS/ML, PEN SQ-INSULIN SCH ×2 (08:04→11:26)
[2019-04-27] MEDS: NIACIN 750 MG TABLET.ER PO SCH (08:05)
[2019-04-27] MEDS: CHOLECALCIFEROL 5,000u TAB PO SCH (08:05)
[2019-04-27] MEDS: VITAMIN A 10,000 UNIT CAPSULE PO SCH (08:05)
[2019-04-27] MEDS: VITAMIN E 400 UNITS CAPSULE PO SCH (08:05)
[2019-04-27] MEDS: MULTIVITS,STRESS FORMULA 1 TABLET PO SCH (08:05)
[2019-04-27] MEDS ORDERED: ACID1TAB7 PO (09:13)
[2019-04-27] MEDS ORDERED: FERR-51 PO (09:13)
[2019-04-27] MEDS ORDERED: SUCR1ORA5 PO (09:13)
[2019-04-27] MEDS ORDERED: MAGN300C PO (09:13)
[2019-04-27] MEDS ORDERED: VANC1VIA3 PO (09:13)
[2019-04-27] MEDS ORDERED: OMEP20TA62 PO (09:13)
[2019-04-27] MEDS ORDERED: OMEPRAZOLE 20 MG CAPSULE.DR PO SCH (16:00)
== END 2019-04-27 14:08 | disposition home or self-care (01) | DRG 378 ==
LOC: ED 13:51 → EDIP 14:47 → 3N 15:58
PROVIDERS: ADMIT Internal Medicine; ATTEND Internal Medicine
PROC: 0DB68ZX Excision of Stomach, Via Natural or Artificial Opening Endoscopic, Diagnostic (ICD-10-PCS; 2019-04-26)
PROC: 0DBA8ZX Excision of Jejunum, Via Natural or Artificial Opening Endoscopic, Diagnostic (ICD-10-PCS; 2019-04-26)
PROC: 0DB58ZX Excision of Esophagus, Via Natural or Artificial Opening Endoscopic, Diagnostic (ICD-10-PCS; 2019-04-26)
PROC: 0DB98ZX Excision of Duodenum, Via Natural or Artificial Opening Endoscopic, Diagnostic (ICD-10-PCS; principal; 2019-04-26 11:15)
DX: K29.71 Gastritis, unspecified, with bleeding (principal); E87.1 Hypo-osmolality and hyponatremia; K31.5 Obstruction of duodenum; K63.2 Fistula of intestine; D62 Acute posthemorrhagic anemia; A04.72 Enterocolitis due to Clostridium difficile, not specified as recurrent; Z68.41 Body mass index [BMI] 40.0-44.9, adult; D50.9 Iron deficiency anemia, unspecified; E03.9 Hypothyroidism, unspecified; E11.65 Type 2 diabetes mellitus with hyperglycemia; E27.8 Other specified disorders of adrenal gland; E66.01 Morbid (severe) obesity due to excess calories; Z71.3 Dietary counseling and surveillance; G89.29 Other chronic pain; K20.9 Esophagitis, unspecified; Z83.3 Family history of diabetes mellitus; Z86.711 Personal history of pulmonary embolism; Z87.19 Personal history of other diseases of the digestive system; Z87.891 Personal history of nicotine dependence; Z88.6 Allergy status to analgesic agent; Z93.3 Colostomy status; Z87.11 Personal history of peptic ulcer disease
CPT/HCPCS: 36415; 74022; 89055; 99285; J3370; 80048; 80053; 81001; 82607; 82784; 82941; 82962; 83036; 83516; 83540; 83550; 83605; 83690; 85018; 85025; 85610; 86850; 86900; 87086; 87324; 87493; 88305; 93005; G0378; J2704; C9113; J0500; J1815; J2765; J7030